=== PATIENT | female | born 1935 | race African-American/Black ===

== ENCOUNTER 2016-07-11 03:09 | Inpatient (IN) ==
--- NOTE | 2016-07-11 04:02 | Emergency Department Note ---
Disposition Clinical Impression: Pneumonia Qualifiers: Pneumonia type: due to unspecified organism Laterality: unspecified laterality Lung location: unspecified part of lung Qualified Code(s): J18.9 - Pneumonia, unspecified organism Disposition: Admitted As Inpatient Condition: Fair Referrals: Laine Stauffer MD [Primary Care Provider] - Forms: ED Satisfaction Letter Time of Disposition: 06:43 Fall HPI - General Chief Complaint: ED Fall Stated Complaint: fall Time Seen by Provider: 07/11/16 03:39 Source: patient, EMS Mode of arrival: EMS Limitations: altered mental status Nursing Notes Reviewed: Yes Vital Signs Reviewed: Yes - History of Present Illness HPI Narrative: 80-year-old nontoxic-appearing female presents to emergency department by EMS for evaluation of fall sustained just prior to arrival. Per the patient's daughter, the patient was found on the floor in her bedroom. The patient lives with her son at home. Patient does have a history of dementia. Per the daughter's report, the son that she lives with was unaware of her falling. He only became aware after he heard her moaning for help. He entered the room and found her on the floor. The fall was not witnessed. There is uncertainty about any loss of consciousness for duration of time down. The patient is a rather poor historian. At the time of my exam, she verbalizes no complaints of pain or injuries. 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 Fall Witnessed: no Place Fall Occurred: home Loss of Consciousness: unsure Prolonged Down Time?: unclear Context: unknown - Related Data Home Medications Medication Instructions Recorded Confirmed Albuterol Sulfate 2.5 mg IH Q8H PRN 11/24/14 06/24/16 Alprazolam [Xanax 1 MG Tablet] 1 mg PO BID PRN 11/24/14 06/24/16 Ferrous Sulfate 325 mg PO DAILY 11/24/14 06/24/16 Cyanocobalamin (Vitamin B-12) 2,500 mcg SL DAILY 12/01/14 06/24/16 [B-12] Albuterol Sulfate [Albuterol 2 puff IH PRN PRN 11/09/15 06/24/16 Inhaler] Dronabinol [Marinol] 5 mg PO TID 11/09/15 06/24/16 TraMADol [Ultram] 50 mg PO QAM AND QHS 11/09/15 06/24/16 Previous Rx's Medication Instructions Recorded Amlodipine [Norvasc] 10 mg PO DAILY #60 tablet 03/01/15 Gabapentin [Neurontin] 1 tab PO TID #90 tablet 01/30/16 HYDROcodone/Acet 5/325 mg [[place] 1 tab PO Q6H PRN #10 tab 02/16/16 5-325 mg] Rivaroxaban [Xarelto] 1 tab PO DAILY #30 tablet 06/17/16 Allergies Allergy/AdvReac Type Severity Reaction Status Date / Time codeine AdvReac Gastrointestinal Verified 11/09/15 16:03 Upset Oxycodone AdvReac Gastrointestinal Verified 02/16/16 09:50 Upset Limitations: ROS unobtainable due to patients medical condition (Patient is a poor historian. History of dementia.) Fall PMH - Past Medical History Medical history: Reports: cancer, COPD, DVT, dementia, GERD, hyperlipidemia, hypertension, osteoporosis, renal disease, other Reports: Peripheral Neuropathy Surgical history: Reports: appendectomy, other Psychiatric history: Reports: no psych history - Social History Smoking Status: Former smoker Alcohol use: Reports: none Drug use: Reports: none Physical Exam - General Limitations: no limitations General appearance: alert - Head Head exam: atraumatic, normocephalic, normal inspection - Eye Eye exam: Present: normal appearance, PERRL, EOMI. Absent: nystagmus - ENT ENT exam: mucous membranes moist - Neck Neck exam: Present: normal inspection, full ROM, trachea midline. Absent: tenderness - Chest Chest inspection: Present: normal inspection, symmetric chest wall rise. Absent : tenderness - Respiratory Respiratory exam: Absent: respiratory distress, wheezes, stridor, accessory muscle use, prolonged expiratory phase - Expanded Respiratory Exam Location: rhonchi: Left, Right, Upper, Lower - Cardiovascular Cardiovascular exam: Present: regular rate, normal rhythm, normal heart sounds - Abdominal Exam Abdominal exam: Present: soft, Non-Tender, normal bowel sounds. Absent: tenderness, distention, guarding, rebound, rigidity - Extremities Exam Extremities exam: Present: normal inspection, full ROM. Absent: tenderness, pedal edema - Expanded Lower Extremity Exam Hip/Pelvis exam: Present: pelvis stable - Back Exam Back exam: Present: normal inspection. Absent: tenderness - Neurological Exam Neurological exam: Present: alert - Psychiatric Psychiatric exam: Present: normal affect, normal mood - Skin Skin exam: Present: warm, dry, intact, normal color Course Course Narrative: The patient verbalizes no complaints. Due to the unknown nature of her fall and uncertainty of any LOC, laboratory work, as well as CT scans of the head and neck will be performed along with routine chest x-ray and EKG. Case discussed with Dr. Ma. Dr. Ma has reviewed the patient's laboratory and radiology results. Dr. Ma recommends admission to the hospitalist service for further treatment of probable pneumonia. 0640: I spoke with Dr. Sanders , hospitalist. He accepts the patient for admission to the hospitalist's service. Vital Signs Temperature 100.6 F H 07/11/16 03:13 Pulse Rate 102 07/11/16 03:13 Respiratory Rate 22 07/11/16 03:13 Blood Pressure 167/76 07/11/16 03:13 O2 Sat by Pulse Oximetry 97 07/11/16 03:13 Temperature 100.6 F H 07/11/16 03:13 Pulse Rate 102 07/11/16 03:13 Respiratory Rate 22 07/11/16 03:13 Blood Pressure 167/76 07/11/16 03:13 O2 Sat by Pulse Oximetry 97 07/11/16 03:13 Oxygen Delivery Oxygen Delivery Room Air Fall - Medical Records Medical records reviewed: Yes I reviewed the patient's medical records. - Lab Data Lab results reviewed: Yes I reviewed the patient's lab results. Lab results narrative: Laboratory Last Values WBC 12.3 K/mcL (4.3-11.1) H 07/11/16 04:09 RBC 3.93 M/mcL (3.82-4.97) 07/11/16 04:09 Hgb 10.0 g/dL (11.5-15.4) L 07/11/16 04:09 Hct 33.7 % (35.3-44.9) L 07/11/16 04:09 MCV 85.8 fL (83.0-100.0) 07/11/16 04:09 MCH 25.4 pg (28.0-33.3) L 07/11/16 04:09 MCHC 29.7 g/dL (31.6-35.5) L 07/11/16 04:09 RDW 15.8 % (11.5-14.5) H 07/11/16 04:09 Plt Count 211 K/mcL (140-400) 07/11/16 04:09 MPV 10.7 fL (9.4-12.4) 07/11/16 04:09 Immature Gran % 0.7 % (0-4) 07/11/16 04:09 Seg Neutrophils % 77.2 % 07/11/16 04:09 Lymphocytes % 12.5 % 07/11/16 04:09 Monocytes % 9.0 % 07/11/16 04:09 Eosinophils % 0.4 % 07/11/16 04:09 Basophils % 0.2 % 07/11/16 04:09 Neutrophils # 9.5 K/mcL (1.6-8.9) H 07/11/16 04:09 Lymphocytes # 1.5 K/mcL (0.6-4.6) 07/11/16 04:09 Monocytes # 1.1 K/mcL (0.0-1.3) 07/11/16 04:09 Eosinophils # 0.1 K/mcL (0.0-0.6) 07/11/16 04:09 Basophils # 0.0 K/mcL (0.0-0.2) 07/11/16 04:09 Sodium 138 mEq/L (136-145) 07/11/16 04:09 Potassium 3.9 mEq/L (3.5-4.5) 07/11/16 04:09 Chloride 107 mEq/L (98-109) 07/11/16 04:09 Carbon Dioxide 23 mEq/L (19-29) 07/11/16 04:09 BUN 17 mg/dL (7-20) 07/11/16 04:09 Creatinine 0.84 mg/dL (0.57-1.11) 07/11/16 04:09 Est GFR ( Amer) > 60 (> 60) 07/11/16 04:09 Est GFR (Non-Af Amer) > 60 (> 60) 07/11/16 04:09 BUN/Creatinine Ratio 20 (6-26) 07/11/16 04:09 Glucose 98 mg/dL (70-99) 07/11/16 04:09 Calculated Osmolality 288 (280-300) 07/11/16 04:09 Lactic Acid 0.9 mmol/L (0.5-2.2) 07/11/16 04:09 Calcium 7.8 mg/dL (8.6-10.8) L 07/11/16 04:09 Troponin I 0.01 ng/mL (0-0.03) 07/11/16 04:09 Result diagrams: 07/11/16 04:09 07/11/16 04:09 Lab Results 07/11/16 07/11/16 07/11/16 Range/Units 04:09 04:09 04:09 WBC 12.3 H (4.3-11.1) K/mcL RBC 3.93 (3.82-4.97) M/mcL Hgb 10.0 L (11.5-15.4) g/dL Hct 33.7 L (35.3-44.9) % MCV 85.8 (83.0-100.0) fL MCH 25.4 L (28.0-33.3) pg MCHC 29.7 L (31.6-35.5) g/dL RDW 15.8 H (11.5-14.5) % Plt Count 211 (140-400) K/mcL MPV 10.7 (9.4-12.4) fL Immature Gran % 0.7 (0-4) % Seg Neutrophils % 77.2 % Lymphocytes % 12.5 % Monocytes % 9.0 % Eosinophils % 0.4 % Basophils % 0.2 % Neutrophils # 9.5 H (1.6-8.9) K/mcL Lymphocytes # 1.5 (0.6-4.6) K/mcL Monocytes # 1.1 (0.0-1.3) K/mcL Eosinophils # 0.1 (0.0-0.6) K/mcL Basophils # 0.0 (0.0-0.2) K/mcL PT (9.4-12.1) Seconds INR APTT (26.0-36.0) Seconds Sodium 138 (136-145) mEq/L Potassium 3.9 (3.5-4.5) mEq/L Chloride 107 (98-109) mEq/L Carbon Dioxide 23 (19-29) mEq/L BUN 17 (7-20) mg/dL Creatinine 0.84 (0.57-1.11) mg/dL Est GFR ( Amer) > 60 (> 60) Est GFR (Non-Af Amer) > 60 (> 60) BUN/Creatinine Ratio 20 (6-26) Glucose 98 (70-99) mg/dL Calculated Osmolality 288 (280-300) Lactic Acid 0.9 (0.5-2.2) mmol/L Calcium 7.8 L (8.6-10.8) mg/dL Troponin I (0-0.03) ng/mL Specimen Rejected 07/11/16 07/11/16 07/11/16 Range/Units 04:09 05:59 06:19 WBC (4.3-11.1) K/mcL RBC (3.82-4.97) M/mcL Hgb (11.5-15.4) g/dL Hct (35.3-44.9) % MCV (83.0-100.0) fL MCH (28.0-33.3) pg MCHC (31.6-35.5) g/dL RDW (11.5-14.5) % Plt Count (140-400) K/mcL MPV (9.4-12.4) fL Immature Gran % (0-4) % Seg Neutrophils % % Lymphocytes % % Monocytes % % Eosinophils % % Basophils % % Neutrophils # (1.6-8.9) K/mcL Lymphocytes # (0.6-4.6) K/mcL Monocytes # (0.0-1.3) K/mcL Eosinophils # (0.0-0.6) K/mcL Basophils # (0.0-0.2) K/mcL PT 15.2 H (9.4-12.1) Seconds INR 1.4 APTT 31.4 (26.0-36.0) Seconds Sodium (136-145) mEq/L Potassium (3.5-4.5) mEq/L Chloride (98-109) mEq/L Carbon Dioxide (19-29) mEq/L BUN (7-20) mg/dL Creatinine (0.57-1.11) mg/dL Est GFR ( Amer) (> 60) Est GFR (Non-Af Amer) (> 60) BUN/Creatinine Ratio (6-26) Glucose (70-99) mg/dL Calculated Osmolality (280-300) Lactic Acid (0.5-2.2) mmol/L Calcium (8.6-10.8) mg/dL Troponin I 0.01 (0-0.03) ng/mL Specimen Rejected Contaminated - Radiology Data Radiology results reviewed: Yes I reviewed the patient's radiology results. Cervical Spine CT 07/11/16 03:47 IMPRESSION: No acute intracranial abnormality. Atrophy and chronic white matter changes, similar in appearance. Mottled appearance of the calvarium is again seen suggestive of an infiltrative process. No acute osseous abnormality involving the cervical spine. D/ / Radha Ray MD / Radha Ray MD Interpreting Provider: Radha Ray MD Chest X-Ray 07/11/16 03:47 IMPRESSION: Left basilar airspace disease probably represents scarring or atelectasis. Pneumonia cannot be excluded though is felt to be unlikely. D/ / Sd Dennison MD / Sd Dennison MD Interpreting Provider: Sd Dennison MD Head CT 07/11/16 03:47 IMPRESSION: No acute intracranial abnormality. Atrophy and chronic white matter changes, similar in appearance. Mottled appearance of the calvarium is again seen suggestive of an infiltrative process. No acute osseous abnormality involving the cervical spine. D/ / Radha Ray MD / Radha Ray MD Interpreting Provider: Radha Ray MD - EKG Data EKG attestation: Yes I reviewed and interpreted this EKG. EKG results narrative: EKG reviewed by Dr. Ma as well.
[2016-07-11 05:11] LABS: Basophils % 0.2 %; Eosinophils # 0.1 K/mcL (0.0-0.6); Eosinophils % 0.4 %; Hematocrit 33.7 % (35.3-44.9); Immature Granulocytes % 0.7 % (0-4); Lymphocytes # 1.5 K/mcL (0.6-4.6); Lymphocytes % 12.5 %; Mean Corpuscular HGB Conc 29.7 g/dL (31.6-35.5); Mean Corpuscular Hemoglobin 25.4 pg (28.0-33.3); Mean Corpuscular Volume 85.8 fL (83.0-100.0); Mean Platelet Volume 10.7 fL (9.4-12.4); Monocytes # 1.1 K/mcL (0.0-1.3); Neutrophils # 9.5 K/mcL (1.6-8.9); Platelet Count 211 K/mcL (140-400); Red Blood Count 3.93 M/mcL (3.82-4.97); Red Cell Distribution Width 15.8 % (11.5-14.5); Segmented Neutrophils % 77.2 %
[2016-07-11 05:22] LABS: BUN/Creatinine Ratio 20 (6-26); Blood Urea Nitrogen 17 mg/dL (7-20); Calcium 7.8 mg/dL (8.6-10.8); Carbon Dioxide 23 mEq/L (19-29); Chloride 107 mEq/L (98-109); Glucose 98 mg/dL (70-99); Osmolality,Calculated 288 (280-300); Potassium 3.9 mEq/L (3.5-4.5); Sodium 138 mEq/L (136-145); eGFR For African Americans > 60 (> 60); eGFR For Non-African Americans > 60 (> 60)
[2016-07-11] MEDS ORDERED: Azithromycin 500 MG in D5% in Water 250 ML IVPB ONE (05:46)
[2016-07-11 06:32] LABS: INR 1.4; Prothrombin Time 15.2 Seconds (9.4-12.1)
[2016-07-11 06:34] LABS: Activated Partial Thrombo Time 31.4 Seconds (26.0-36.0)
[2016-07-11] MEDS ORDERED: Acetaminophen 325 MG TABLET PO ONE (06:37)
[2016-07-11 06:50] LABS: Bilirubin,Urine Negative (Negative); Blood,Urine Negative (Negative); Clarity,Urine Clear (Clear); Color,Urine Yellow (Yellow); Glucose,Urine (UA) Normal (Normal); Ketones,Urine Negative (Negative); Leukocyte Esterase,Urine Negative (Negative); Nitrite,Urine Negative (Negative); PH,Urine 7.5 pH Units (5.0-8.0); Protein,Urine 30 mg/dL (Neg-Trace); Specific Gravity,Urine 1.019 (1.010-1.025); Urobilinogen,Urine Normal (Normal)
[2016-07-11 06:51] LABS: Creatine Kinase 49 Units/L (29-168)
[2016-07-11 06:59] LABS: Bacteria,Urine Few per hpf (None-Few); RBC,Urine 0-3 per hpf (0-3); Squamous Epithelial Cell,Urine Few per lpf (None-Few)
--- NOTE | 2016-07-11 07:10 | Electrocardiograph Report ---
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
[2016-07-11] MEDS ORDERED: Naloxone 0.4 MG/ML INJ IVP PRN (08:42)
[2016-07-11] MEDS ORDERED: Acetaminophen 325 MG TABLET PO PRN (08:42)
[2016-07-11] MEDS ORDERED: Ondansetron 4 MG/2 ML VIAL IVP PRN (08:42)
[2016-07-11] MEDS ORDERED: Albuterol 2.5 MG/3 ML NEBULIZER IH PRN (08:51)
[2016-07-11] MEDS ORDERED: Gabapentin 400 MG CAPSULE PO SCH (09:00)
[2016-07-11] MEDS: amLODIPine 5 MG TABLET PO SCH (09:51)
[2016-07-11] MEDS: *HR* Rivaroxaban 15 MG TABLET PO SCH (09:52)
[2016-07-11] MEDS: Cyanocobalamin (B-12) 1,000 MCG TABLET PO SCH (09:52)
[2016-07-11] MEDS: Ipratropium/Albuterol Neb 3 ML IH SCH ×3 (10:51→23:36)
--- NOTE | 2016-07-11 11:09 | Internal Med History&Physical ---
Date of Encounter: 07/11/16 Time of Encounter: 10:00 Assessment and Plan (1) Community acquired pneumonia Current visit: Yes Status: Acute 1 patient has been experiencing productive cough with increasing yellow sputum. She has had sick contacts with family members. The experiencing increasing confusion as well as falls. Lab work did reveal elevated white count 12.3 presented with a fever of 100.6 tachycardia chest x-rays suspicious for pneumonia. Place on oxygen 2 L nasal cannula will continue and titrate to maintain SPO2 greater than 92% 2 we will obtain blood and sputum cultures 3 initiated on Rocephin and Zithromax 4 we will continue with bronchodilators (2) Sepsis Current visit: Yes Status: Acute 1 patient presented with tachycardia temperature of 100.6 leukocytosis of 12.3 respiratory rate 22. Suspect the source is pneumonia or possibly viral infection of lung. We will obtain viral swabs as well as blood and sputum cultures [address] on Rocephin and Zithromax 3 IV fluids 4. Monitor intake and output 5 bronchodilators 6 oxygen and maintain SPO2 greater than 92% Qualifiers: Sepsis type: sepsis due to unspecified organism Qualified Code(s): A41.9 - Sepsis, unspecified organism (3) COPD (chronic obstructive pulmonary disease) Current visit: No Status: Chronic 1 history of COPD presently no wheezing noted to continue with oxygen as well as bronchodilators Qualifiers: COPD type: chronic bronchitis Chronic bronchitis type: unspecified Qualified Code(s): J42 - Unspecified chronic bronchitis (4) HTN (hypertension) Current visit: No Status: Acute 1. Continue with Norvasc caused to maintain systolic less than 140 Qualifiers: Hypertension type: essential hypertension Qualified Code(s): I10 - Essential (primary) hypertension (5) DVT prophylaxis Current visit: No Status: Acute Patient is on xarelto (6) Soft tissue swelling Current visit: Yes Status: Acute noted soft tissue swelling of left neck, suspect possible lymphadenopathy related to illness, or abcess. obtain CT of neck Internal Medicine - H&P: HPI Chief complaint: Weakness fall Admitted From: Emergency Dept Plans for Post Hospital Care: Home History of present illness: Ms. Joiner is a 80 year old female past medical history see a PT DVT dementia GERD hyperlipidemia hypertension. Information obtained from family and medical records due to patient's history of dementia. According to daughters who are at bedside patient had been at her baseline and doing well however she has been experiencing a productive cough over the past few days with thick yellow sputum. They deny any presence of fevers or chills. Approximately 2 AM patient got up and fell to the floor. Fall was unwitnessed and her son who lives with her, heard her moaning and calling for help. He found her on the floor unsure of amount of time she was down for any loss of consciousness. Patient denies hitting her head. She was brought to the ER for evaluation. Patient was tachycardic upon arrival pulse of 1 to rest her rate 22 temperature 0.6 her blood pressure was 167/76. According to ER with fevers CT of head and C- spine was negative for any intracranial abnormalities or fractures. lab work did reveal to elevated white count at 12.3 lactate was 0.9 troponin 0.01 chest x -ray did reveal left basilar air restrictive disease scarring or atelectasis and pneumonia cannot be excluded. She was given IV fluids and antibiotics and admitted for further workup and evaluation. Presently patient is sleeping she arouses to verbal stimuli. She is alert and oriented to name and place she follows simple commands. She is on 2 L nasal cannula SPO2 is 96- 97% she does not appear to be in any respiratory distress lung sounds with scattered rhonchi throughout patient does have a moist cough. She is hemodynamically stable at this time I reviewed this case with who agrees with plan Past Med Surg Social Fam HX - Past Medical History Medical history: cancer, COPD, DVT, dementia, GERD, hyperlipidemia, hypertension , osteoporosis, renal disease, other Psychiatric history: no psych history - Past Surgical History Surgical History: appendectomy, other - Social History Smoking Status: Former smoker Smokeless Tobacco Status: No Alcohol use: none Drug use: none - Family History Mother Adopted: No Family Member Ethnicity: Non- Living Status: Hx Family Cardiac Disorders: No Hx Family Respiratory Disorders: No Hx Family Cancer: No Hx Family GI Disorders: No Hx Family Endocrine Disorder: No Hx Family Neuromuscular Disorders: No Hx Family Neurologic Disorders: Yes (alzhemer's disease) Hx Family HEENT Disorders: No Hx Family Autoimmune Disorders: No Father Living Status: Hx Family Cardiac Disorders: Yes Hx Family Respiratory Disorders: No Hx Family Cancer: No Hx Family GI Disorders: No Hx Family Endocrine Disorder: No Hx Family Neuromuscular Disorders: No Hx Family Neurologic Disorders: No Hx Family HEENT Disorders: No Hx Family Autoimmune Disorders: No Internal Medicine - H&P: Meds Albuterol Sulfate 2.5 mg IH Q8H PRN 11/24/14 [History] Alprazolam [Xanax 1 MG Tablet] 1 mg PO BID PRN 11/24/14 [History] Ferrous Sulfate 325 mg PO DAILY 11/24/14 [History] Cyanocobalamin (Vitamin B-12) [B-12] 2,500 mcg SL DAILY 12/01/14 [History] Amlodipine [Norvasc] 10 mg PO DAILY #60 tablet 03/01/15 [Rx] Albuterol Sulfate [Albuterol Inhaler] 2 puff IH PRN PRN 11/09/15 [History] TraMADol [Ultram] 25 mg PO TID 11/09/15 [History] Amoxicillin 875 mg PO BID 07/11/16 [History] Gabapentin [Neurontin] 800 mg PO TID 07/11/16 [History] HYDROcodone/Acet 5/325 mg [[place] 5-325 mg] 0.5 tab PO Q6H PRN 07/11/16 [History] Rivaroxaban [Xarelto] 15 mg PO DAILY 07/11/16 [History] Allergies codeine Adverse Reaction (Verified 11/09/15 16:03) Gastrointestinal Upset Oxycodone Adverse Reaction (Verified 02/16/16 09:50) Gastrointestinal Upset All Systems PM: A 10-system review of systems was performed and is negative for pertinent findings except as documented above in the HPI. - Constitutional Constitutional: fatigue, fever(s), falls - EENT Nose, mouth and throat: no dysphagia, no nasal discharge, no neck pain, no sore throat - Cardiovascular Cardiovascular ROS IM: no chest pain, no diaphoresis, no dyspnea, no lightheadedness, no palpitations, no syncope - Respiratory Respiratory: cough, excessive phlegm production, change in phlegm color - Gastrointestinal Gastrointestinal: no abdominal pain, no diarrhea, no hematemesis, no hematochezia, no melena, no nausea, no vomiting - Genitourinary Genitourinary: no change in urinary stream, no dysuria, no flank pain, no hematuria - Musculoskeletal Musculoskeletal ROS IM: no numbness, no tingling - Neurological Neurological ROS: no confusion, no convulsions, no focal weakness, no numbness, no tingling, no tremor(s) - Constitutional Vitals: Temp Pulse Resp BP Pulse Ox 98.1 F 86 14 111/64 100 07/11/16 11:03 07/11/16 11:03 07/11/16 11:03 07/11/16 11:03 07/11/16 11:03 General appearance: Present: A&O X 2, underweight - Eye Eye exam: Present: PERRL, conjuntiva pink, sclera anicteric Pupils: Present: PERRL - Neck Neck exam general surgery: Present: trachea midline Additional comments: Patient has swelling to right sided neck - Respiratory Respiratory exam: Present: rhonchi. Absent: accessory muscle use, rales, wheezes - Cardiovascular Cardiovascular exam: Present: RRR, +S1, +S2. Absent: diastolic murmur, gallop, rubs, systolic murmur - GI/Abdominal GI/Abdominal exam: Present: normal bowel sounds, soft, no peritoneal signs. Absent: distended, tenderness - Extremities Exam Extremities exam: Present: warm, radial pulses palpable and symetrical. Absent : calf tenderness, cyanotic, pedal edema - Neurological Exam Neurological exam: Present: CN II-XII intact, oriented X3, no focal deficits. Absent: pronater drift, facial droop, speech deficit - Skin Skin exam: Present: dry, intact Internal Med - H&P Results - Labs CBC & Chem 7: 07/11/16 04:09 07/11/16 04:09 - Diagnostic Studies Other Images Additional comments: Cervical Spine CT 07/11/16 03:47 IMPRESSION: No acute intracranial abnormality. Atrophy and chronic white matter changes, similar in appearance. Mottled appearance of the calvarium is again seen suggestive of an infiltrative process. No acute osseous abnormality involving the cervical spine. D/ / Radha Ray MD / Radha Ray MD Interpreting Provider: Radha Ray MD Chest X-Ray 07/11/16 03:47 IMPRESSION: Left basilar airspace disease probably represents scarring or atelectasis. Pneumonia cannot be excluded though is felt to be unlikely. D/ / Sd Dennison MD / Sd Dennison MD Interpreting Provider: Sd Dennison MD Head CT 07/11/16 03:47 IMPRESSION: No acute intracranial abnormality. Atrophy and chronic white matter changes, similar in appearance. Mottled appearance of the calvarium is again seen suggestive of an infiltrative process. No acute osseous abnormality involving the cervical spine. D/ / Radha Ray MD / Radha Ray MD Interpreting Provider: Radha Ray MD Soft Tissue Neck CT 07/11/16 20:03 IMPRESSION: Mild edema versus cellulitis/fasciitis around the left sternocleidomastoid muscle and supraclavicular region. No abscess is evident. Reactive left cervical lymph nodes. There are hypervascular nodes. There is no overt left adenopathy. There is mild right cervical adenopathy. Mild inflammatory disease, left maxillary sinus. Generalized demineralization of the skeleton, osteoporosis versus generalized marrow replacement or metastasis. D/ / Francis Zabala MD / Francis Zabala MD Interpreting Provider: Francis Zabala MD
[2016-07-11 12:56] LABS: % Iron Saturation 12 % (15-50); Iron 24 mcg/dL (50-170); Transferrin 146 mg/dL (180-382)
[2016-07-11 14:12] LABS: Adenovirus Not Detected (Not Detect); Bordetella Pertussis Not Detected (Not Detect); Chlamydophila pneumoniae Not Detected (Not Detect); Coronavirus 229E Not Detected (Not Detect); Coronavirus HKU1 Not Detected (Not Detect); Coronavirus NL63 Not Detected (Not Detect); Coronavirus OC43 Not Detected (Not Detect); Human Metapneumovirus Not Detected (Not Detect); Human Rhinovirus/Enterovirus Not Detected (Not Detect); Influenza A Subtype 2009 H1 Not Detected (Not Detect); Influenza A Untypeable Not Detected (Not Detect); Influenza B Not Detected (Not Detect); Mycoplasma pneumoniae Not Detected (Not Detect); Parainfluenza Virus 1 Not Detected (Not Detect); Parainfluenza Virus 2 Not Detected (Not Detect); Parainfluenza Virus 3 Not Detected (Not Detect); Parainfluenza Virus 4 Not Detected (Not Detect); Respiratory Syncytial Virus Not Detected (Not Detect)
[2016-07-11 14:47] LABS: ABG Base Excess 3.7 mEq/L (-2.0 to 3.0); ABG HCO3 28.5 mEQ/L (21-27); ABG Oxygen Saturation 90 % (95-98); ABG PCO2 43 mmHg (35-45); ABG PH 7.43 pH Units (7.32-7.45); ABG PO2 57 mmHg (85-104); ABG TCO2 29.8 mEq/L (20-26)
[2016-07-11 14:48] LABS: Blood Gas FiO2 21 %
[2016-07-11] MEDS: 0.9 % Sodium Chloride 1,000 ML IVC SCH (15:45)
[2016-07-11 16:24] LABS: Folate 19.2 ng/mL (7.0-31.4)
[2016-07-11 16:26] LABS: Vitamin B12 > 2000 pg/mL (213-816)
--- NOTE | 2016-07-11 20:18 | Event Note ---
Date of Encounter: 07/11/16 Time of Encounter: 20:14 I examined this patient and my medical decision-making was reviewed with the RAW HIDE TRIMMER/PA/Advanced Practice Nurse/Resident Physician. I agree with the documented findings, disposition and treatment plan as described except to the extent set forth below. Patient has L cervical soft tissue swelling & skin redness, painful to palpation , no discrete mass, no fluctuance no lesions or bite chavez. lungs clear, heart S1S2 Plan: will treat her for CAP. Will add Vancomycin for cellulitis of the neck, add CT soft tissue neck to eval for the extension of the infl. process and possible LIJ DVT. she is at high risk due to iv vanco requiring blood level monitoring for toxicity.
[2016-07-11] MEDS ORDERED: Vancomycin 750 MG in D5% in Water 250 ML IVPB SCH (21:00)
[2016-07-11] MEDS ORDERED: Nitroglycerin 0.4 MG TAB.SUBL SL PRN (21:35)
[2016-07-11] MEDS: Vancomycin 750 MG in D5% in Water 250 ML IVPB SCH (21:45)
[2016-07-11] MEDS: *HR* HYDROcodone/Acet 5/325 mg TABLET PO PRN (23:35)
[2016-07-12] MEDS: 0.9 % Sodium Chloride 1,000 ML IVC SCH ×2 (03:39→14:00)
[2016-07-12] MEDS: Ipratropium/Albuterol Neb 3 ML IH SCH ×4 (04:32→23:08)
[2016-07-12 05:55] LABS: Basophils % 0.4 %; Eosinophils # 0.2 K/mcL (0.0-0.6); Eosinophils % 1.9 %; Hematocrit 35.2 % (35.3-44.9); Hemoglobin 10.2 g/dL (11.5-15.4); Immature Granulocytes % 0.1 % (0-4); Lymphocytes # 2.3 K/mcL (0.6-4.6); Lymphocytes % 26.8 %; Mean Corpuscular Hemoglobin 24.7 pg (28.0-33.3); Mean Corpuscular Volume 85.2 fL (83.0-100.0); Mean Platelet Volume 10.8 fL (9.4-12.4); Monocytes # 0.8 K/mcL (0.0-1.3); Monocytes % 9.9 %; Neutrophils # 5.2 K/mcL (1.6-8.9); Platelet Count 192 K/mcL (140-400); Red Blood Count 4.13 M/mcL (3.82-4.97); Red Cell Distribution Width 15.8 % (11.5-14.5); Segmented Neutrophils % 60.9 %
[2016-07-12 06:03] LABS: BUN/Creatinine Ratio 19 (6-26); Blood Urea Nitrogen 18 mg/dL (7-20); Calcium 8.5 mg/dL (8.6-10.8); Carbon Dioxide 24 mEq/L (19-29); Chloride 109 mEq/L (98-109); Glucose 82 mg/dL (70-99); Osmolality,Calculated 291 (280-300); Potassium 4.1 mEq/L (3.5-4.5); Sodium 140 mEq/L (136-145); eGFR For African Americans > 60 (> 60); eGFR For Non-African Americans 58 (> 60)
[2016-07-12] MEDS: Cyanocobalamin (B-12) 1,000 MCG TABLET PO SCH (09:26)
[2016-07-12] MEDS: *HR* Rivaroxaban 15 MG TABLET PO SCH (09:26)
[2016-07-12] MEDS: amLODIPine 5 MG TABLET PO SCH (09:26)
[2016-07-12] MEDS: Azithromycin 500 MG in D5% in Water 250 ML IVPB SCH (10:37)
[2016-07-12] MEDS: Vancomycin 750 MG in D5% in Water 250 ML IVPB SCH ×2 (10:38→20:03)
--- NOTE | 2016-07-12 10:46 | Internal Med Progress Note ---
Date of Encounter: 07/12/16 Time of Encounter: 10:41 - Assessment and plan (1) Community acquired pneumonia Current Visit: Yes Status: Acute Assessment and plan: community acquired clinically much better (2) Sepsis Current Visit: Yes Status: Acute Assessment and plan: now afebrile and hr normal Qualifiers: Sepsis type: sepsis due to unspecified organism Qualified Code(s): A41.9 - Sepsis, unspecified organism (3) Soft tissue swelling Current Visit: Yes Status: Acute Assessment and plan: resolving (4) COPD (chronic obstructive pulmonary disease) Current Visit: No Status: Chronic Assessment and plan: no active wheezing Qualifiers: COPD type: chronic bronchitis Chronic bronchitis type: unspecified Qualified Code(s): J42 - Unspecified chronic bronchitis (5) Dementia Current Visit: No Status: Chronic Assessment and plan: chronic Qualifiers: Dementia type: Alzheimer's disease Alzheimer's disease onset: unspecified onset Dementia behavioral disturbance: without behavioral disturbance Qualified Code(s): G30.9 - Alzheimer's disease, unspecified; F02.80 - Dementia in other diseases classified elsewhere without behavioral disturbance (6) HTN (hypertension) Current Visit: No Status: Chronic Assessment and plan: better controlled Qualifiers: Hypertension type: essential hypertension Qualified Code(s): I10 - Essential (primary) hypertension (7) HLD (hyperlipidemia) Current Visit: No Status: Chronic Qualifiers: Hyperlipidemia type: mixed hyperlipidemia Qualified Code(s): E78.2 - Mixed hyperlipidemia - Subjective Interval history: Patient with history of dementia, COPD, high cholesterol, hypertension, admitted due to a productive cough of yellow sputum she was found on the floor by family members apparently following a fall and . diagnosed with pneumonia developed left side of the neck swelling CT suggestive of cellulitis and fasciitis Today patient much better, neck is ok - Constitutional Vitals: Temp Pulse Resp BP Pulse Ox 97.5 F L 65 18 154/72 98 07/12/16 07:16 07/12/16 07:16 07/12/16 10:35 07/12/16 07:16 07/12/16 10:35 General appearance: Present: A&O X 2, underweight - Eye Eye exam: Present: PERRL, conjuntiva pink, sclera anicteric Pupils: Present: PERRL - Neck Neck exam general surgery: Present: supple, trachea midline. Absent: lymphadenopathy - Respiratory Respiratory exam: Present: decreased breath sounds, rhonchi - Cardiovascular Cardiovascular exam: Present: RRR, +S1, +S2. Absent: diastolic murmur, gallop, rubs, systolic murmur - GI/Abdominal GI/Abdominal exam: Present: normal bowel sounds, soft, no peritoneal signs. Absent: distended, tenderness Internal Medicine: Result - Labs CBC & Chem 7: 07/12/16 05:40 07/12/16 05:40 Labs: Short CBC 07/12/16 Range/Units 05:40 WBC 8.5 (4.3-11.1) K/mcL Hgb 10.2 L (11.5-15.4) g/dL Hct 35.2 L (35.3-44.9) % Plt Count 192 (140-400) K/mcL Neutrophils # 5.2 (1.6-8.9) K/mcL BMP 07/12/16 05:40 Sodium 140 Potassium 4.1 Chloride 109 Carbon Dioxide 24 BUN 18 Creatinine 0.93 Glucose 82 Calcium 8.5 L Cardiac Enzymes 07/11/16 07/11/16 Range/Units 10:44 16:28 Troponin I 0.01 0.01 (0-0.03) ng/mL - ABG Interpretation ABG results: ABG ABG pH 7.43 pH Units (7.32-7.45) 07/11/16 14:37 ABG pCO2 43 mmHg (35-45) 07/11/16 14:37 ABG pO2 57 mmHg (85-104) L 07/11/16 14:37 ABG O2 Saturation 90 % (95-98) L 07/11/16 14:37 PT/INR, D-dimer PT 15.2 Seconds (9.4-12.1) H 07/11/16 06:19 - Impressions Impressions Soft Tissue Neck CT 07/11/16 20:03 IMPRESSION: Mild edema versus cellulitis/fasciitis around the left sternocleidomastoid muscle and supraclavicular region. No abscess is evident. Reactive left cervical lymph nodes. There are hypervascular nodes. There is no overt left adenopathy. There is mild right cervical adenopathy. Mild inflammatory disease, left maxillary sinus. Generalized demineralization of the skeleton, osteoporosis versus generalized marrow replacement or metastasis. D/ / Francis Zabala MD / Francis Zabala MD Interpreting Provider: Francis Zabala MD Consult Discharge Plan - Plan Referrals: Laine Stauffer MD [Primary Care Provider] -
[2016-07-12] MEDS: *HR* HYDROcodone/Acet 5/325 mg TABLET PO PRN (16:43)
[2016-07-13] MEDS: *HR* HYDROcodone/Acet 5/325 mg TABLET PO PRN (00:01)
[2016-07-13] MEDS: Ipratropium/Albuterol Neb 3 ML IH SCH ×4 (05:07→22:35)
[2016-07-13] MEDS ORDERED: Vancomycin 1,250 MG in D5% in Water 250 ML IVPB SCH (09:00)
[2016-07-13] MEDS: amLODIPine 5 MG TABLET PO SCH (09:26)
[2016-07-13] MEDS: *HR* Rivaroxaban 15 MG TABLET PO SCH (09:26)
[2016-07-13] MEDS: Vancomycin 1,250 MG in D5% in Water 250 ML IVPB SCH (10:23)
[2016-07-13] MEDS: Azithromycin 500 MG in D5% in Water 250 ML IVPB SCH (10:23)
[2016-07-13] MEDS: Cyanocobalamin (B-12) 1,000 MCG TABLET PO SCH (10:24)
--- NOTE | 2016-07-13 10:31 | Internal Med Progress Note ---
Date of Encounter: 07/13/16 Time of Encounter: 10:29 - Assessment and plan (1) Community acquired pneumonia Current Visit: Yes Status: Acute Assessment and plan: clinically much better still conging but mostly non productive one more day of iv antibiotics (2) Sepsis Current Visit: Yes Status: Acute Assessment and plan: uine legionella blood cultures negative Qualifiers: Sepsis type: sepsis due to unspecified organism Qualified Code(s): A41.9 - Sepsis, unspecified organism (3) Soft tissue swelling Current Visit: Yes Status: Acute Assessment and plan: swelling is down appears cellulitis now cleared up (4) COPD (chronic obstructive pulmonary disease) Current Visit: No Status: Chronic Assessment and plan: no active wheezing Qualifiers: COPD type: chronic bronchitis Chronic bronchitis type: unspecified Qualified Code(s): J42 - Unspecified chronic bronchitis (5) Dementia Current Visit: No Status: Chronic Assessment and plan: chronic pleasant and in good mood Qualifiers: Dementia type: Alzheimer's disease Alzheimer's disease onset: unspecified onset Dementia behavioral disturbance: without behavioral disturbance Qualified Code(s): G30.9 - Alzheimer's disease, unspecified; F02.80 - Dementia in other diseases classified elsewhere without behavioral disturbance (6) HTN (hypertension) Current Visit: No Status: Chronic Qualifiers: Hypertension type: essential hypertension Qualified Code(s): I10 - Essential (primary) hypertension (7) HLD (hyperlipidemia) Current Visit: No Status: Chronic Qualifiers: Hyperlipidemia type: mixed hyperlipidemia Qualified Code(s): E78.2 - Mixed hyperlipidemia - Subjective Interval history: Patient with history of dementia, COPD, high cholesterol, hypertension, admitted due to a productive cough of yellow sputum she was found on the floor by family members apparently following a fall and . diagnosed with pneumonia developed left side of the neck swelling CT suggestive of cellulitis and fasciitis Today patient much better, neck is ok today feels much better afebrile still coughing but mostly non productive - Constitutional Vitals: Temp Pulse Resp BP Pulse Ox 98.1 F 77 16 137/77 98 07/13/16 07:03 07/13/16 07:03 07/13/16 09:38 07/13/16 07:03 07/13/16 09:38 General appearance: Present: A&O X 2, underweight - Eye Eye exam: Present: PERRL, conjuntiva pink, sclera anicteric Pupils: Present: PERRL - Neck Neck exam general surgery: Present: supple, trachea midline. Absent: lymphadenopathy - Respiratory Respiratory exam: Present: rhonchi - Cardiovascular Cardiovascular exam: Present: RRR - GI/Abdominal GI/Abdominal exam: Present: normal bowel sounds, soft, no peritoneal signs. Absent: distended, tenderness - Extremities Exam Extremities exam: Present: warm, radial pulses palpable and symetrical. Absent : calf tenderness, cyanotic, pedal edema Internal Medicine: Result - Labs CBC & Chem 7: 07/12/16 05:40 07/12/16 05:40 - ABG Interpretation ABG results: ABG ABG pH 7.43 pH Units (7.32-7.45) 07/11/16 14:37 ABG pCO2 43 mmHg (35-45) 07/11/16 14:37 ABG pO2 57 mmHg (85-104) L 07/11/16 14:37 ABG O2 Saturation 90 % (95-98) L 07/11/16 14:37 PT/INR, D-dimer PT 15.2 Seconds (9.4-12.1) H 07/11/16 06:19 Consult Discharge Plan - Plan Referrals: Laine Stauffer MD [Primary Care Provider] -
[2016-07-13] MEDS ORDERED: ALPRAZolam 1 MG TABLET PO PRN (17:27)
[2016-07-14] MEDS: Ipratropium/Albuterol Neb 3 ML IH SCH ×2 (04:31→10:21)
[2016-07-14 05:52] LABS: Hematocrit 39.8 % (35.3-44.9); Mean Corpuscular HGB Conc 30.2 g/dL (31.6-35.5); Mean Corpuscular Hemoglobin 25.1 pg (28.0-33.3); Mean Corpuscular Volume 83.1 fL (83.0-100.0); Mean Platelet Volume 10.6 fL (9.4-12.4); Platelet Count 247 K/mcL (140-400); Red Blood Count 4.79 M/mcL (3.82-4.97); Red Cell Distribution Width 15.5 % (11.5-14.5)
[2016-07-14 06:04] LABS: BUN/Creatinine Ratio 13 (6-26); Blood Urea Nitrogen 12 mg/dL (7-20); Calcium 9.3 mg/dL (8.6-10.8); Carbon Dioxide 21 mEq/L (19-29); Chloride 109 mEq/L (98-109); Glucose 76 mg/dL (70-99); Osmolality,Calculated 291 (280-300); Sodium 141 mEq/L (136-145); eGFR For African Americans > 60 (> 60); eGFR For Non-African Americans 57 (> 60)
[2016-07-14] MEDS: amLODIPine 5 MG TABLET PO SCH (08:45)
[2016-07-14] MEDS: *HR* Rivaroxaban 15 MG TABLET PO SCH (08:46)
[2016-07-14] MEDS: Cyanocobalamin (B-12) 1,000 MCG TABLET PO SCH (08:46)
[2016-07-14] MEDS: Vancomycin 1,250 MG in D5% in Water 250 ML IVPB SCH (09:34)
[2016-07-14] MEDS: Azithromycin 500 MG in D5% in Water 250 ML IVPB SCH (09:35)
[2016-07-14 11:40] VITALS: BP 127/63
--- NOTE | 2016-07-14 14:45 | Discharge Summary ---
Date of Encounter: 07/14/16 Time of Encounter: 14:43 - Discharge Diagnosis (1) Community acquired pneumonia Priority: Primary Status: Acute Comments: clinically much better will dc on zithromax x 7 days (2) Sepsis Priority: Secondary Status: Acute Comments: blood cultures no growth Qualifiers: Sepsis type: sepsis due to unspecified organism Qualified Code(s): A41.9 - Sepsis, unspecified organism (3) Soft tissue swelling Priority: Secondary Status: Resolved Comments: resolved (4) COPD (chronic obstructive pulmonary disease) Priority: Secondary Status: Chronic Comments: clinically better Qualifiers: COPD type: chronic bronchitis Chronic bronchitis type: unspecified Qualified Code(s): J42 - Unspecified chronic bronchitis (5) Dementia Priority: Secondary Status: Chronic Comments: stable and chronic Qualifiers: Dementia type: Alzheimer's disease Alzheimer's disease onset: unspecified onset Dementia behavioral disturbance: without behavioral disturbance Qualified Code(s): G30.9 - Alzheimer's disease, unspecified; F02.80 - Dementia in other diseases classified elsewhere without behavioral disturbance (6) HTN (hypertension) Priority: Secondary Status: Chronic Comments: well controlled Qualifiers: Hypertension type: essential hypertension Qualified Code(s): I10 - Essential (primary) hypertension (7) HLD (hyperlipidemia) Priority: Secondary Status: Chronic Comments: chronic Qualifiers: Hyperlipidemia type: mixed hyperlipidemia Qualified Code(s): E78.2 - Mixed hyperlipidemia - Discharge Medications Prescriptions: Azithromycin [Zithromax] 500 mg PO DAILY #7 tablet Home Medications: Albuterol Sulfate 2.5 mg IH Q8H PRN 11/24/14 [History] Alprazolam [Xanax 1 MG Tablet] 1 mg PO BID PRN 11/24/14 [History] Ferrous Sulfate 325 mg PO DAILY 11/24/14 [History] Cyanocobalamin (Vitamin B-12) [B-12] 2,500 mcg SL DAILY 12/01/14 [History] Amlodipine [Norvasc] 10 mg PO DAILY #60 tablet 03/01/15 [Rx] Albuterol Sulfate [Albuterol Inhaler] 2 puff IH PRN PRN 11/09/15 [History] TraMADol [Ultram] 25 mg PO TID 11/09/15 [History] Amoxicillin 875 mg PO BID 07/11/16 [History] Gabapentin [Neurontin] 800 mg PO TID 07/11/16 [History] HYDROcodone/Acet 5/325 mg [[place] 5-325 mg] 0.5 tab PO Q6H PRN 07/11/16 [History] Rivaroxaban [Xarelto] 15 mg PO DAILY 07/11/16 [History] Azithromycin [Zithromax] 500 mg PO DAILY #7 tablet 07/14/16 [Rx] Allergies/Adverse Reactions: Allergies codeine Adverse Reaction (Verified 11/09/15 16:03) Gastrointestinal Upset Oxycodone Adverse Reaction (Verified 02/16/16 09:50) Gastrointestinal Upset Procedures/tests Complete & Pending: Procedures Performed prior 72 hours Category Date Time Status CT soft tissue neck w con [CT] Stat Cat Scan 07/11/16 20:03 Completed ECG 12 lead ECG [ECG] Routine Y 07/12/16 16:33 Completed Date of admission: 07/11/16 08:44 Primary care physician: Laine Stauffer Consults: 07/11/16 10:06 Consult to Financial Underwriter [CONS] Routine Reason for SW Consult: discharge planning Discharging clinician: Susan Wetzel Anticipated date of discharge: 07/14/16 - Patient Status Disposition: Home, Self-Care Condition: Good Overall status at discharge: patient is back to baseline - Discharge Instructions - Diet and Activity Activity: increase activity as tolerated Diet: advance to your usual diet Hospital course: Ms. Joiner is a 80 year old female - Time Spent with Patient Total time spent providing and/or coordinating discharge services: - Constitutional Vitals: Temp Pulse Resp BP Pulse Ox 98.2 F 87 16 127/63 98 07/14/16 11:39 07/14/16 11:39 07/14/16 11:39 07/14/16 11:39 07/14/16 11:39 General appearance: Present: A&O X 2, underweight
[2016-07-14] MEDS ORDERED: Aminoglycoside Consult 1 EACH MC ONE (16:02)
--- NOTE | 2016-07-14 21:10 | Electrocardiograph Report ---
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
== END 2016-07-14 16:03 | disposition home or self-care (01) | DRG 871 ==
LOC: EMEROO 03:09 → 3NENU 03:09
PROVIDERS: ADMIT Internal Medicine; ATTEND Internal Medicine

== ENCOUNTER 2017-05-16 06:23 | Inpatient (IN) ==
[2017-05-16] MEDS ORDERED: Acetaminophen 325 MG TABLET PO ONE (06:43)
--- NOTE | 2017-05-16 06:49 | Emergency Department Note ---
Disposition Clinical Impression: Fever Qualifiers: Fever type: unspecified Qualified Code(s): R50.9 - Fever, unspecified Dyspnea Qualifiers: Dyspnea type: unspecified Qualified Code(s): R06.00 - Dyspnea, unspecified Disposition: Still a Patient Condition: Undetermined Forms: ED Satisfaction Letter General Adult HPI - General Chief complaint: ED Fever Stated complaint: chills/fever Time Seen by Provider: 05/16/17 06:28 Source: patient, EMS Mode of arrival: EMS Limitations: no limitations Nursing Notes Reviewed: Yes Vital Signs Reviewed: Yes - History of Present Illness HPI Narrative: 81 y/o female from home. She reports 2 days of rigors and fever and cough. She feels like she has pneumonia. She has a hx of multiple myeloma and prior PE /DVT. She is on xarelto. She denies productive sputum. She reports currently receiving treatment for multiple myeloma at the cancer center. Denies abdominal pain or N/V. Admits to dyspnea and cough. Pain Scale: 0 Improves with: nothing Worsens with: nothing Associated symptoms: Reports: denies other symptoms Treatments Prior to Arrival: none - Related Data Home Medications Medication Instructions Recorded Confirmed ALPRAZolam [Xanax 1 MG Tablet] 1 mg PO BID PRN 11/24/14 05/12/17 Ferrous Sulfate 65 mg PO DAILY 11/24/14 05/12/17 Cyanocobalamin (Vitamin B-12) 2,500 mcg PO DAILY 12/01/14 05/12/17 [B-12] traMADol [Ultram] 25 mg PO BID 11/09/15 05/12/17 HYDROcodone/Acet 5/325 mg [[place] 0.5 tab PO DAILY PRN 07/11/16 05/12/17 5-325 mg] Triamterene [Dyrenium] 25 mg PO DAILY 04/29/17 05/12/17 Previous Rx's Medication Instructions Recorded Gabapentin [Neurontin] 800 mg PO TID #90 tablet 01/20/17 Rivaroxaban [Xarelto] 15 mg PO DAILY #30 tablet 01/21/17 Pomalidomide [Pomalyst] 2 mg PO DAILY #21 capsule 04/25/17 Ondansetron HCl [Zofran] 4 mg PO Q6H PRN #40 tablet 05/12/17 Prochlorperazine Maleate 10 mg PO Q6HR PRN #40 tablet 05/12/17 [Compazine] Allergies Allergy/AdvReac Type Severity Reaction Status Date / Time codeine AdvReac Gastrointestinal Verified 05/12/17 08:19 Upset Oxycodone AdvReac Gastrointestinal Verified 05/12/17 08:19 Upset All systems ED: reviewed and negative except as stated. Constitutional: Reports: fever ENT ED: Denies: throat pain Cardiovascular: Denies: chest pain Respiratory: Reports: cough, dyspnea Gastrointestinal: Denies: abdominal pain, nausea, vomiting Musculoskeletal: Denies: back pain Integumentary: Denies: rash Endocrine: Reports: fatigue Past Medical History - Past Medical History Medical history: Reports: cancer, COPD, DVT, dementia, GERD, hyperlipidemia, hypertension, osteoporosis, renal disease, other Surgical history: Reports: appendectomy, other Psychiatric history: Reports: no psych history - Social History Smoking Status: Former smoker Smokeless Tobacco Status: No Alcohol use: Reports: none Drug use: Reports: none Physical Exam - General Limitations: no limitations General appearance: alert - Head Head exam: atraumatic - Eye Eye exam: Present: normal appearance, PERRL - Neck Neck exam: Present: normal inspection - Chest Chest inspection: Present: normal inspection - Respiratory Respiratory exam: Present: other (coarse rhonchi throughout). Absent: respiratory distress - Cardiovascular Cardiovascular exam: Present: normal rhythm, tachycardia - Abdominal Exam Abdominal exam: Present: soft, Non-Tender - Extremities Exam Extremities exam: Present: normal inspection - Neurological Exam Neurological exam: Present: alert - Skin Skin exam: Present: warm, dry Course Course Narrative: I initially saw this patient and has been signed out to the day team to follow up on imaging and labwork and make final disposition. EKG shows sinus tachycardia with rate of 101. Vital Signs Temperature 101.9 F H 05/16/17 06:27 Pulse Rate 120 05/16/17 06:27 Respiratory Rate 22 05/16/17 06:27 Blood Pressure 145/79 05/16/17 06:27 O2 Sat by Pulse Oximetry 96 05/16/17 06:27 Temperature 101.9 F H 05/16/17 06:27 Pulse Rate 120 05/16/17 06:27 Respiratory Rate 22 05/16/17 06:27 Blood Pressure 145/79 05/16/17 06:27 O2 Sat by Pulse Oximetry 96 05/16/17 06:27 Oxygen Delivery Oxygen Delivery Room Air,Aerosol Mask Medical Decision Making - Medical Records Medical records reviewed: Yes I reviewed the patient's medical records. - EKG Data EKG #1 EKG attestation: Yes I reviewed and interpreted this EKG. EKG shows normal: sinus rhythm Rate: tachycardia Rhythm: NSR [place]/QRS: normal When compared to previous EKG there are: no significant changes Interpretation: nonspecific ST-T wave changes Attestation Statement - Attestation Attestation: I, Rufus Ma, examined this patient and my medical decision-making was reviewed with the VAMP SEAMER/PA/Advanced Practice Nurse/Resident Physician. I agree with the documented findings, disposition and treatment plan as described except to the extent set forth below. 81-year-old female presents emergency Department with concerns of fever, chills , denies malaise. Patient has history of pneumonia which felt similar. Patient also has a history of previous PE is currently on Xarelto. At time of end of shift patient is pending laboratory evaluation, imaging studies and disposition. Patient will be transferred to Dr. Marinelli pending further care.
[2017-05-16] MEDS ORDERED: 0.9 % Sodium Chloride 500 ML IVC ONE (06:52)
[2017-05-16 07:07] LABS: INR 1.2
[2017-05-16 07:13] LABS: Calcium 9.1 mg/dL (8.6-10.3); Potassium 3.7 mEq/L (3.5-5.1)
[2017-05-16 07:17] LABS: Bilirubin,Urine Negative (Negative); Blood,Urine Negative (Negative); Clarity,Urine Clear (Clear); Color,Urine Yellow (Yellow); Glucose,Urine (UA) Normal (Normal); Ketones,Urine Negative (Negative); Leukocyte Esterase,Urine Negative (Negative); Nitrite,Urine Negative (Negative); PH,Urine 5.5 pH Units (5.0-8.0); Protein,Urine Negative (Neg-Trace); Specific Gravity,Urine 1.014 (1.010-1.025); Urobilinogen,Urine Normal (Normal)
[2017-05-16] MEDS ORDERED: Vancomycin 1,000 MG in D5% in Water 250 ML IVPB ONE (07:49)
[2017-05-16] MEDS ORDERED: Piperacillin/Tazobactam 4.5 GM in D5% in Water (Mini-Bag+) 100 ML IVPB ONE (07:49)
[2017-05-16] MEDS ORDERED: Piperacillin/Tazobactam 4.5 GM in Water for inj. (sterile) 20 ML 20 ML IVP ONE (07:54)
[2017-05-16 07:58] LABS: Basophils % 0.3 %; Eosinophils # 0.6 K/mcL (0.0-0.6); Eosinophils % 8.9 %; Hemoglobin 11.6 g/dL (11.5-15.4); Immature Granulocytes % 0.3 % (0-4); Lymphocytes # 1.5 K/mcL (0.6-4.6); Lymphocytes % 21.1 %; Mean Corpuscular HGB Conc 29.7 g/dL (31.6-35.5); Mean Corpuscular Volume 90.7 fL (83.0-100.0); Mean Platelet Volume 11.6 fL (9.4-12.4); Monocytes # 0.3 K/mcL (0.0-1.3); Monocytes % 4.1 %; Neutrophils # 4.6 K/mcL (1.6-8.9); Platelet Count 184 K/mcL (140-400); Segmented Neutrophils % 65.3 %
--- NOTE | 2017-05-16 08:30 | Emergency Department Note ---
Disposition Clinical Impression: Septic shock Fever Qualifiers: Fever type: unspecified Qualified Code(s): R50.9 - Fever, unspecified Dyspnea Qualifiers: Dyspnea type: unspecified Qualified Code(s): R06.00 - Dyspnea, unspecified Multiple myeloma Qualifiers: Multiple myeloma remission status: not in remission Qualified Code(s): C90.00 - Multiple myeloma not having achieved remission Disposition: Admitted As Inpatient Condition: Fair Referrals: Laine Stauffer MD [Primary Care Provider] - Forms: ED Satisfaction Letter Time of Disposition: 08:30 General Adult HPI - General Chief complaint: ED Fever Stated complaint: chills/fever Time Seen by Provider: 05/16/17 06:28 Source: patient, EMS Mode of arrival: EMS Limitations: no limitations Nursing Notes Reviewed: Yes Vital Signs Reviewed: Yes - History of Present Illness Pain Scale: 0 Improves with: nothing Worsens with: nothing Associated symptoms: Reports: denies other symptoms Treatments Prior to Arrival: none - Related Data Home Medications Medication Instructions Recorded Confirmed ALPRAZolam [Xanax 1 MG Tablet] 1 mg PO BID PRN 11/24/14 05/16/17 Ferrous Sulfate 65 mg PO DAILY 11/24/14 05/16/17 Cyanocobalamin (Vitamin B-12) 2,500 mcg PO DAILY 12/01/14 05/16/17 [B-12] traMADol [Ultram] 25 mg PO BID 11/09/15 05/16/17 Triamterene/HCTZ 37.5/25mg 1 cap PO DAILY 05/16/17 05/16/17 [Dyazide] Previous Rx's Medication Instructions Recorded Gabapentin [Neurontin] 800 mg PO TID #90 tablet 01/20/17 Rivaroxaban [Xarelto] 15 mg PO DAILY #30 tablet 01/21/17 Pomalidomide [Pomalyst] 2 mg PO DAILY #21 capsule 04/25/17 Ondansetron HCl [Zofran] 4 mg PO Q6H PRN #40 tablet 05/12/17 Prochlorperazine Maleate 10 mg PO Q6HR PRN #40 tablet 05/12/17 [Compazine] Allergies Allergy/AdvReac Type Severity Reaction Status Date / Time codeine AdvReac Gastrointestinal Verified 05/16/17 08:03 Upset Oxycodone AdvReac Gastrointestinal Verified 05/16/17 08:03 Upset Constitutional: Reports: fever ENT ED: Denies: throat pain Cardiovascular: Denies: chest pain Respiratory: Reports: cough, dyspnea Gastrointestinal: Denies: abdominal pain, nausea, vomiting Musculoskeletal: Denies: back pain Integumentary: Denies: rash Endocrine: Reports: fatigue Past Medical History - Past Medical History Medical history: Reports: cancer, COPD, DVT, dementia, GERD, hyperlipidemia, hypertension, osteoporosis, renal disease, other Surgical history: Reports: appendectomy, other Psychiatric history: Reports: no psych history - Social History Smoking Status: Former smoker Smokeless Tobacco Status: No Alcohol use: Reports: none Drug use: Reports: none Physical Exam - General Limitations: no limitations General appearance: alert Course Vital Signs Temperature 101.9 F H 05/16/17 06:27 Pulse Rate 120 05/16/17 06:27 Respiratory Rate 22 05/16/17 06:27 Blood Pressure 145/79 05/16/17 06:27 O2 Sat by Pulse Oximetry 96 05/16/17 06:27 Temperature 101.9 F H 05/16/17 06:27 Pulse Rate 107 05/16/17 07:16 Respiratory Rate 22 05/16/17 07:16 Blood Pressure 141/102 05/16/17 07:16 O2 Sat by Pulse Oximetry 92 05/16/17 07:16 Oxygen Delivery Oxygen Delivery Room Air Medical Decision Making - MDM Narrative Medical decision making narrative: I did see the patient spoke with her and did assume care of the patient on transition of shift. Patient does have a fever, tachycardia, history of malignancy and clinically does have a diagnosis of sepsis and she will receive IV fluids, labs have been reviewed including lactate level, chest x-ray does not show infiltrate [facility] radiology interpretation but I do wonder about a possible left lower lobe early infiltrate, the patient is started on Zosyn and vancomycin and will be admitted to the hospital. She is having chills and rigors when I am in the room examining 829 Care was discussed with the hospitalist who accepted the patient for admission. They do recommend a chest CT and and I did order this test. The patient has had several episodes of hypotension with a pressure in the low 80s and is receiving IV fluids and currently the blood pressure is 104. She will go to a stepdown unit. Labs and radiology testing is reviewed 929 - Medical Records Medical records reviewed: Yes I reviewed the patient's medical records. - Lab Data Lab results reviewed: Yes I reviewed the patient's lab results. Result diagrams: 05/16/17 06:50 05/16/17 06:50 Lab Results 05/16/17 05/16/17 05/16/17 Range/Units 06:50 06:50 06:50 WBC 7.1 D (4.3-11.1) K/mcL RBC 4.30 (3.82-4.97) M/mcL Hgb 11.6 (11.5-15.4) g/dL Hct 39.0 (35.3-44.9) % MCV 90.7 (83.0-100.0) fL MCH 27.0 L (28.0-33.3) pg MCHC 29.7 L (31.6-35.5) g/dL RDW 18.0 H (11.5-14.5) % Plt Count 184 (140-400) K/mcL MPV 11.6 (9.4-12.4) fL Immature Gran % 0.3 (0-4) % Seg Neutrophils % 65.3 % Lymphocytes % 21.1 % Monocytes % 4.1 % Eosinophils % 8.9 % Basophils % 0.3 % Neutrophils # 4.6 (1.6-8.9) K/mcL Lymphocytes # 1.5 (0.6-4.6) K/mcL Monocytes # 0.3 (0.0-1.3) K/mcL Eosinophils # 0.6 (0.0-0.6) K/mcL Basophils # 0.0 (0.0-0.2) K/mcL PT (9.4-12.1) Seconds INR Sodium 139 (136-145) mEq/L Potassium 3.7 (3.5-5.1) mEq/L Chloride 106 (98-107) mEq/L Carbon Dioxide 27 (23-29) mEq/L BUN 23 (8-23) mg/dL Creatinine 1.23 H (0.60-1.20) mg/dL Est GFR ( Amer) 51 L (> 60) Est GFR (Non-Af Amer) 42 L (> 60) BUN/Creatinine Ratio 19 (6-26) Glucose 113 H (70-105) mg/dL Calculated Osmolality 292 (280-300) Lactic Acid 0.9 (0.5-2.2) mmol/L Calcium 9.1 (8.6-10.3) mg/dL Troponin I (< 0.04) ng/mL B-Natriuretic Peptide (Less than 100) pg/mL Urine Color (Yellow) Urine Clarity (Clear) Urine pH (5.0-8.0) pH Units Ur Specific [place] (1.010-1.025) Urine Protein (Neg-Trace) mg/dL Urine Glucose (UA) (Normal) mg/dL Urine Ketones (Negative) mg/dL Urine Blood (Negative) Urine Nitrite (Negative) Urine Bilirubin (Negative) Urine Urobilinogen (Normal) mg/dL Ur Leukocyte Esterase (Negative) Ur Culture Indicated? (NO) 05/16/17 05/16/17 05/16/17 Range/Units 06:50 06:50 06:50 WBC (4.3-11.1) K/mcL RBC (3.82-4.97) M/mcL Hgb (11.5-15.4) g/dL Hct (35.3-44.9) % MCV (83.0-100.0) fL MCH (28.0-33.3) pg MCHC (31.6-35.5) g/dL RDW (11.5-14.5) % Plt Count (140-400) K/mcL MPV (9.4-12.4) fL Immature Gran % (0-4) % Seg Neutrophils % % Lymphocytes % % Monocytes % % Eosinophils % % Basophils % % Neutrophils # (1.6-8.9) K/mcL Lymphocytes # (0.6-4.6) K/mcL Monocytes # (0.0-1.3) K/mcL Eosinophils # (0.0-0.6) K/mcL Basophils # (0.0-0.2) K/mcL PT 13.0 H (9.4-12.1) Seconds INR 1.2 Sodium (136-145) mEq/L Potassium (3.5-5.1) mEq/L Chloride (98-107) mEq/L Carbon Dioxide (23-29) mEq/L BUN (8-23) mg/dL Creatinine (0.60-1.20) mg/dL Est GFR ( Amer) (> 60) Est GFR (Non-Af Amer) (> 60) BUN/Creatinine Ratio (6-26) Glucose (70-105) mg/dL Calculated Osmolality (280-300) Lactic Acid (0.5-2.2) mmol/L Calcium (8.6-10.3) mg/dL Troponin I < 0.03 (< 0.04) ng/mL B-Natriuretic Peptide 60 (Less than 100) pg/mL Urine Color (Yellow) Urine Clarity (Clear) Urine pH (5.0-8.0) pH Units Ur Specific [place] (1.010-1.025) Urine Protein (Neg-Trace) mg/dL Urine Glucose (UA) (Normal) mg/dL Urine Ketones (Negative) mg/dL Urine Blood (Negative) Urine Nitrite (Negative) Urine Bilirubin (Negative) Urine Urobilinogen (Normal) mg/dL Ur Leukocyte Esterase (Negative) Ur Culture Indicated? (NO) 05/16/17 Range/Units 07:00 WBC (4.3-11.1) K/mcL RBC (3.82-4.97) M/mcL Hgb (11.5-15.4) g/dL Hct (35.3-44.9) % MCV (83.0-100.0) fL MCH (28.0-33.3) pg MCHC (31.6-35.5) g/dL RDW (11.5-14.5) % Plt Count (140-400) K/mcL MPV (9.4-12.4) fL Immature Gran % (0-4) % Seg Neutrophils % % Lymphocytes % % Monocytes % % Eosinophils % % Basophils % % Neutrophils # (1.6-8.9) K/mcL Lymphocytes # (0.6-4.6) K/mcL Monocytes # (0.0-1.3) K/mcL Eosinophils # (0.0-0.6) K/mcL Basophils # (0.0-0.2) K/mcL PT (9.4-12.1) Seconds INR Sodium (136-145) mEq/L Potassium (3.5-5.1) mEq/L Chloride (98-107) mEq/L Carbon Dioxide (23-29) mEq/L BUN (8-23) mg/dL Creatinine (0.60-1.20) mg/dL Est GFR ( Amer) (> 60) Est GFR (Non-Af Amer) (> 60) BUN/Creatinine Ratio (6-26) Glucose (70-105) mg/dL Calculated Osmolality (280-300) Lactic Acid (0.5-2.2) mmol/L Calcium (8.6-10.3) mg/dL Troponin I (< 0.04) ng/mL B-Natriuretic Peptide (Less than 100) pg/mL Urine Color Yellow (Yellow) Urine Clarity Clear (Clear) Urine pH 5.5 (5.0-8.0) pH Units Ur Specific [place] 1.014 (1.010-1.025) Urine Protein Negative (Neg-Trace) mg/dL Urine Glucose (UA) Normal (Normal) mg/dL Urine Ketones Negative (Negative) mg/dL Urine Blood Negative (Negative) Urine Nitrite Negative (Negative) Urine Bilirubin Negative (Negative) Urine Urobilinogen Normal (Normal) mg/dL Ur Leukocyte Esterase Negative (Negative) Ur Culture Indicated? NO (NO) - Radiology Data Radiology results reviewed: Yes I reviewed the patient's radiology results. Critical Care Time Critical Care Time: Yes Total Critical Care Time: 30 Attestation: 30 minutes of critical care time was had with this patient septic shock with hypotension, orders for labs, IV fluids, broad-spectrum antibiotics as well as to discussions with the hospitalist review of results.
[2017-05-16] MEDS ORDERED: 0.9 % Sodium Chloride 1,000 ML IVC ONE ×2 (08:46→08:47)
[2017-05-16] MEDS ORDERED: Naloxone 0.4 MG/ML INJ IVP PRN (09:05)
[2017-05-16] MEDS ORDERED: Acetaminophen 325 MG TABLET PO PRN (09:05)
[2017-05-16] MEDS ORDERED: ALPRAZolam 1 MG TABLET PO PRN (09:07)
[2017-05-16] MEDS ORDERED: 0.9 % Sodium Chloride 1,000 ML IVC SCH (09:15)
--- NOTE | 2017-05-16 10:05 | Internal Med History&Physical ---
Date of Encounter: 05/16/17 Time of Encounter: 10:02 Assessment and Plan (1) SIRS (systemic inflammatory response syndrome) Current visit: Yes Status: Acute Presented with fever, tachycardia. No leukocytosis or leukopenia UA is normal, chest imaging is negative for infiltrates No abdominal symptoms Blood culture has been drawn in the ER, will follow Patient has respiratory symptoms and signs of a viral URI, will send respiratory panel She has received Vanco/Zosyn in ER, will hold off further antibiotics till culture report Continue supportive care with analgesics, IVF hydration Consider repeating CXR a.m (2) Viral syndrome Current visit: Yes Status: Acute as above Follow respiratory panel (3) Multiple myeloma Current visit: Yes Status: Chronic Hold palidomide Continue other meds Oncology review prn Qualifiers: Multiple myeloma remission status: not in remission Qualified Code(s): C90.00 - Multiple myeloma not having achieved remission (4) Acute exacerbation of chronic obstructive airways disease Current visit: Yes Status: Acute Possibly due to viral URI Continue duoneb, prednisone, add azithromycin for bronchitis (5) Anxiety and depression Current visit: Yes Status: Chronic continue home meds (6) DVT prophylaxis Current visit: Yes Status: Acute on xarelto for PE, continue same (7) Chronic kidney disease, stage III (moderate) Current visit: Yes Status: Chronic Chem is at baseline Avoid nephrotoxins (8) Dementia Current visit: Yes Status: Chronic Alert, oriented X3 at time of review, response is slow possibly due to hearing difficulty High risk for delirium Qualifiers: Dementia type: Alzheimer's disease Alzheimer's disease onset: unspecified onset Dementia behavioral disturbance: without behavioral disturbance Qualified Code(s): G30.9 - Alzheimer's disease, unspecified; F02.80 - Dementia in other diseases classified elsewhere without behavioral disturbance; F02.80 - Dementia in other diseases classified elsewhere without behavioral disturbance; F02.80 - Dementia in other diseases classified elsewhere without behavioral disturbance (9) HLD (hyperlipidemia) Current visit: Yes Status: Chronic continue home meds Qualifiers: Hyperlipidemia type: mixed hyperlipidemia Qualified Code(s): E78.2 - Mixed hyperlipidemia (10) HTN (hypertension) Current visit: Yes Status: Chronic continue home meds Qualifiers: Hypertension type: essential hypertension Qualified Code(s): I10 - Essential (primary) hypertension Internal Medicine - H&P: HPI Chief complaint: Fever Admitted From: Home Plans for Post Hospital Care: Home History of present illness: Ms. Joiner is a 81 year old female with medical history of multiple myeloma, hypertension, hyperlipidemia, COPD, chronic kidney disease stage III, history of pulmonary embolism on anticoagulation. The patient presented to the ER with complaints of fever and chills, associated with cough and mildly. She denies any abdominal symptoms. She denies nausea or vomiting. She denies sick contacts or recent travels. The patient reports no leg edema and no chest pain. She also has a watery rhinorrhea, but no sore throat. She is hard of hearing, but however has no neurologic symptoms. On examination in the ER she is febrile with a maximum temperature 101, she was tachycardic on arrival to 120, but at time will review her heart rate has normalized. Blood pressure is within normal limits. Oral mucosa is moist, no pharyngeal exudates. She has no neurologic signs, no neck stiffness, no focal deficits. Chest examination reveals a right chest wall port, transmitted sounds bilaterally, no definite rhonchi. Heart sounds S1-S2 no tachycardia at the time of review. Abdomen is soft and benign tender. No pedal edema bilaterally. No skin rash. Work up in the ER shows a normal CBC, chemistry is at baseline for CKD and coagulation panel. Her chest x-ray was negative without any infiltrates. Her chest CT scan without contrast shows bibasilar atelectasis and no infiltrates. Urine analysis is negative without any bacteria, no nitrites, no leukocyte esterase. Influenza screen was negative. Past Med Surg Social Fam HX - Past Medical History Medical history: cancer, COPD, DVT, dementia, GERD, hyperlipidemia, hypertension , osteoporosis, renal disease, other Psychiatric history: no psych history - Past Surgical History Surgical History: appendectomy, other - Social History Smoking Status: Former smoker Smokeless Tobacco Status: No Alcohol use: none Drug use: none - Family History Mother Adopted: No Family Member Ethnicity: Non- Living Status: Hx Family Cardiac Disorders: No Hx Family Respiratory Disorders: No Hx Family Cancer: No Hx Family GI Disorders: No Hx Family Endocrine Disorder: No Hx Family Neuromuscular Disorders: No Hx Family Neurologic Disorders: Yes (alzhemer's disease) Hx Family HEENT Disorders: No Hx Family Autoimmune Disorders: No Father Living Status: Hx Family Cardiac Disorders: Yes Hx Family Respiratory Disorders: No Hx Family Cancer: No Hx Family GI Disorders: No Hx Family Endocrine Disorder: No Hx Family Neuromuscular Disorders: No Hx Family Neurologic Disorders: No Hx Family HEENT Disorders: No Hx Family Autoimmune Disorders: No Internal Medicine - H&P: Meds ALPRAZolam [Xanax 1 MG Tablet] 1 mg PO BID PRN 11/24/14 [History] Ferrous Sulfate 65 mg PO DAILY 11/24/14 [History] Cyanocobalamin (Vitamin B-12) [B-12] 2,500 mcg PO DAILY 12/01/14 [History] traMADol [Ultram] 25 mg PO BID 11/09/15 [History] Gabapentin [Neurontin] 800 mg PO TID #90 tablet 01/20/17 [Rx] Rivaroxaban [Xarelto] 15 mg PO DAILY #30 tablet 01/21/17 [Rx] Pomalidomide [Pomalyst] 2 mg PO DAILY #21 capsule 04/25/17 [Rx] Ondansetron HCl [Zofran] 4 mg PO Q6H PRN #40 tablet 05/12/17 [Rx] Prochlorperazine Maleate [Compazine] 10 mg PO Q6HR PRN #40 tablet 05/12/17 [Rx] Triamterene/HCTZ 37.5/25mg [Dyazide] 1 cap PO DAILY 05/16/17 [History] 3 Allergy/AdvReac Type Severity Reaction Status Date / Time codeine AdvReac Gastrointestinal Verified 05/16/17 08:03 Upset Oxycodone AdvReac Gastrointestinal Verified 05/16/17 08:03 Upset All Systems PM: A 10-system review of systems was performed and is negative for pertinent findings except as documented above in the HPI. - Constitutional Constitutional: chills, fever(s), lethargy - EENT Eyes: no change in vision, no discharge, no pain, no photophobia Ears: no ear discharge, no ear pain, no tinnitus Nose, mouth and throat: nasal discharge, no sore throat - Cardiovascular Cardiovascular ROS IM: no chest pain, no diaphoresis, no dyspnea, no lightheadedness, no palpitations, no syncope - Respiratory Respiratory: cough, no dyspnea, no wheezing, no excessive phlegm production - Gastrointestinal Gastrointestinal: no abdominal pain, no diarrhea, no hematemesis, no hematochezia, no melena, no nausea, no vomiting - Genitourinary Genitourinary: no change in urinary stream, no dysuria, no flank pain, no hematuria - Musculoskeletal Musculoskeletal ROS IM: no numbness, no tingling - Integumentary Integumentary IM: no rash, no unusual bruising - Neurological Neurological ROS: no confusion, no convulsions, no focal weakness, no numbness, no tingling, no tremor(s) - Hematologic/Lymphatic Hematologic/Lymphatic: no easy bruising - Constitutional Vitals: Temp Pulse Resp BP Pulse Ox 101.9 F H 107 22 141/102 92 05/16/17 06:27 05/16/17 07:16 05/16/17 07:16 05/16/17 07:16 05/16/17 07:16 General appearance: Present: A&O X 3, pleasant, no acute distress - Head Head exam: Present: atraumatic, normocephalic - Eye Eye exam: Present: PERRL, conjuntiva pink, sclera anicteric Pupils: Present: PERRL - Neck Neck exam general surgery: Present: supple, trachea midline. Absent: lymphadenopathy - Respiratory Additional comments: R chest wall port, clean dressing, no surrounding erythema. CTAB anteriorly Transmitted sounds bilaterally at the bases, clears on coughing - Cardiovascular Cardiovascular exam: Present: RRR, +S1, +S2. Absent: diastolic murmur, gallop, rubs, systolic murmur - GI/Abdominal GI/Abdominal exam: Present: normal bowel sounds, soft, no peritoneal signs. Absent: distended, tenderness - Extremities Exam Extremities exam: Present: warm, radial pulses palpable and symmetrical. Absent : calf tenderness, cyanotic, pedal edema - Neurological Exam Neurological exam: Present: alert, CN II-XII intact, oriented X3, no focal deficits. Absent: pronater drift, facial droop, speech deficit - Skin Skin exam: Present: dry, intact Internal Med - H&P Results - Labs CBC & Chem 7: 05/16/17 06:50 05/16/17 06:50 Labs: Short CBC 05/16/17 Range/Units 06:50 WBC 7.1 D (4.3-11.1) K/mcL Hgb 11.6 (11.5-15.4) g/dL Hct 39.0 (35.3-44.9) % Plt Count 184 (140-400) K/mcL Neutrophils # 4.6 (1.6-8.9) K/mcL BMP 05/16/17 06:50 Sodium 139 Potassium 3.7 Chloride 106 Carbon Dioxide 27 BUN 23 Creatinine 1.23 H Glucose 113 H Calcium 9.1 Cardiac Enzymes 05/16/17 Range/Units 06:50 Troponin I < 0.03 (< 0.04) ng/mL Urine 05/16/17 Range/Units 07:00 Urine Color Yellow (Yellow) Urine Clarity Clear (Clear) Urine pH 5.5 (5.0-8.0) pH Units Ur Specific [place] 1.014 (1.010-1.025) Urine Protein Negative (Neg-Trace) mg/dL Urine Glucose (UA) Normal (Normal) mg/dL - Impressions ITS Impressions Chest X-Ray 05/16/17 07:48 IMPRESSION: No evidence of consolidative pneumonia. No radiographic evidence of acute cardiopulmonary process. D/ / Maxime Romero MD / Maxime Romero MD Interpreting Provider: Maxime Romero MD
[2017-05-16] MEDS ORDERED: Ipratropium/Albuterol Neb 3 ML IH ONE (10:23)
[2017-05-16] MEDS ORDERED: Azithromycin 250 MG TABLET PO ONE (10:29)
[2017-05-16] MEDS ORDERED: levoFLOXacin 500 MG TABLET PO ONE (10:30)
[2017-05-16] MEDS: Gabapentin 400 MG CAPSULE PO SCH ×2 (13:58→20:29)
[2017-05-16] MEDS: predniSONE 20 MG TABLET PO SCH (13:58)
[2017-05-16] MEDS: Ipratropium/Albuterol Neb 3 ML IH SCH ×4 (15:16→23:54)
--- NOTE | 2017-05-16 17:13 | Electrocardiograph Report ---
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
[2017-05-16] MEDS ORDERED: traMADol 50 MG TABLET PO PRN (21:00)
[2017-05-17] MEDS: Ipratropium/Albuterol Neb 3 ML IH SCH ×5 (03:43→20:00)
[2017-05-17 05:22] LABS: Basophils % 0.2 %; Immature Granulocytes % 0.2 % (0-4)
[2017-05-17 05:23] LABS: Eosinophils % 0.2 %; Hematocrit 33.7 % (35.3-44.9); Lymphocytes # 0.8 K/mcL (0.6-4.6); Lymphocytes % 16.4 %; Mean Corpuscular HGB Conc 29.7 g/dL (31.6-35.5); Mean Corpuscular Hemoglobin 26.7 pg (28.0-33.3); Mean Corpuscular Volume 90.1 fL (83.0-100.0); Mean Platelet Volume 12.2 fL (9.4-12.4); Monocytes # 0.2 K/mcL (0.0-1.3); Monocytes % 4.3 %; Neutrophils # 3.7 K/mcL (1.6-8.9); Platelet Count 169 K/mcL (140-400); Red Blood Count 3.74 M/mcL (3.82-4.97); Red Cell Distribution Width 17.4 % (11.5-14.5); Segmented Neutrophils % 78.7 %
[2017-05-17 05:36] LABS: Calcium 8.2 mg/dL (8.6-10.3); Potassium 3.6 mEq/L (3.5-5.1)
[2017-05-17 06:45] LABS: Acanthocytes 2+ (Not Present); Hypochromasia Present (Not Present); Macrocytosis Present (Not Present); Microcytosis Present (Not Present)
[2017-05-17 06:46] LABS: Ovalocytes 1+ (Not Present); Platelet Estimate Normal (Normal); Poikilocytosis 2+ (Not Present)
[2017-05-17 06:47] LABS: Anisocytosis 2+ (Not Present)
[2017-05-17] MEDS: Azithromycin 250 MG TABLET PO SCH (08:00)
[2017-05-17] MEDS: predniSONE 20 MG TABLET PO SCH (08:00)
[2017-05-17] MEDS: Gabapentin 400 MG CAPSULE PO SCH ×3 (08:00→21:34)
[2017-05-17] MEDS: Cyanocobalamin (B-12) 1,000 MCG TABLET PO SCH (08:00)
[2017-05-17] MEDS ORDERED: Pomalidomide [Pomalyst] 2 MG PO SCH (09:00)
[2017-05-17] MEDS ORDERED: levoFLOXacin 250 MG TABLET PO SCH (09:00)
[2017-05-17] MEDS ORDERED: FERROUS SULFATE 65 MG PO SCH (09:00)
[2017-05-17 14:41] LABS: Adenovirus Not Detected (Not Detect); Bordetella Pertussis Not Detected (Not Detect); Chlamydophila pneumoniae Not Detected (Not Detect); Coronavirus 229E Not Detected (Not Detect); Coronavirus HKU1 Not Detected (Not Detect); Coronavirus NL63 Not Detected (Not Detect); Coronavirus OC43 Not Detected (Not Detect); Human Metapneumovirus Not Detected (Not Detect); Human Rhinovirus/Enterovirus Not Detected (Not Detect); Influenza A Subtype 2009 H1 Not Detected (Not Detect); Influenza A Untypeable Not Detected (Not Detect); Influenza B Not Detected (Not Detect); Mycoplasma pneumoniae Not Detected (Not Detect); Parainfluenza Virus 1 Not Detected (Not Detect); Parainfluenza Virus 2 Not Detected (Not Detect); Parainfluenza Virus 3 Not Detected (Not Detect); Parainfluenza Virus 4 Not Detected (Not Detect); Respiratory Syncytial Virus Not Detected (Not Detect)
[2017-05-17] MEDS: *HR* Rivaroxaban 15 MG TABLET PO SCH (16:12)
--- NOTE | 2017-05-17 16:24 | Internal Med Progress Note ---
Date of Encounter: 05/17/17 Time of Encounter: 09:30 - Assessment and plan (1) Viral syndrome Current Visit: Yes Status: Acute Assessment and plan: Presented with fever, tachycardia, cough and congestion. Improving. Respiratory viral panel positive for influenza A H3. Will start Tamiflu. Continue supportive care and supplemental oxygen. (2) SIRS (systemic inflammatory response syndrome) Current Visit: Yes Status: Resolved Assessment and plan: Had fever and tachycardia due to viral infection, currently resolved. (3) Pulmonary embolism Current Visit: Yes Status: Chronic Assessment and plan: Patient has history of pulmonary embolism, unclear timeline. Noted to be on Xarelto, continue. Qualifiers: Pulmonary embolism type: other Chronicity: chronic Acute cor pulmonale presence: without acute cor pulmonale Qualified Code(s): I27.82 - Chronic pulmonary embolism (4) COPD (chronic obstructive pulmonary disease) Current Visit: Yes Status: Acute Assessment and plan: Improving. Continue bronchodilators, oral steroids, supplemental oxygen as needed. Qualifiers: COPD type: COPD with acute exacerbation Qualified Code(s): J44.1 - Chronic obstructive pulmonary disease with (acute) exacerbation (5) Dementia Current Visit: Yes Status: Chronic Qualifiers: Dementia type: Alzheimer's disease Alzheimer's disease onset: late-onset Dementia behavioral disturbance: without behavioral disturbance Qualified Code (s): G30.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; F02.80 - Dementia in other diseases classified elsewhere without behavioral disturbance; F02.80 - Dementia in other diseases classified elsewhere without behavioral disturbance; F02.80 - Dementia in other diseases classified elsewhere without behavioral disturbance (6) HTN (hypertension) Current Visit: Yes Status: Chronic Qualifiers: Hypertension type: essential hypertension Qualified Code(s): I10 - Essential (primary) hypertension (7) Chronic kidney disease, stage III (moderate) Current Visit: Yes Status: Chronic Assessment and plan: Serum creatinine and GFR are noted to be at baseline. (8) Multiple myeloma Current Visit: Yes Status: Chronic Qualifiers: Multiple myeloma remission status: not in remission Qualified Code(s): C90.00 - Multiple myeloma not having achieved remission - Subjective Interval history: Feels better today. Improving cough, congestion, fever, chills. No shortness of breath, palpitations. No sick contacts at home. - Constitutional Vitals: Temp Pulse Resp BP Pulse Ox 97.5 F L 110 19 125/55 98 05/17/17 11:22 05/17/17 11:22 05/17/17 15:35 05/17/17 11:22 05/17/17 15:35 General appearance: Present: A&O X 3, answers questions appropriately - Respiratory Respiratory exam: Present: CTAB (Coarse breath sounds bilaterally. No active wheezing.). Absent: accessory muscle use, rales, rhonchi, wheezes - Cardiovascular Cardiovascular exam: Present: RRR, +S1, +S2. Absent: diastolic murmur, gallop, rubs, systolic murmur - GI/Abdominal GI/Abdominal exam: Present: normal bowel sounds, soft, no peritoneal signs. Absent: distended, tenderness - Extremities Exam Extremities exam: Present: full ROM, warm, radial pulses palpable and symmetrical. Absent: calf tenderness, cyanotic, pedal edema - Neurological Exam Neurological exam: Present: CN II-XII intact, oriented X3, no focal deficits. Absent: pronater drift, facial droop, speech deficit Internal Medicine: Result - Labs CBC & Chem 7: 05/17/17 05:00 05/17/17 05:00 - ABG Interpretation ABG results: PT/INR, D-dimer PT 13.0 Seconds (9.4-12.1) H 05/16/17 06:50 Consult Discharge Plan - Plan Referrals: Laine Stauffer MD [Primary Care Provider] - (web request 05/17/2017)
[2017-05-17] MEDS: Oseltamivir Phosphate 30 MG CAPSULE PO SCH (21:34)
[2017-05-18] MEDS: Ipratropium/Albuterol Neb 3 ML IH SCH ×7 (04:23→23:54)
[2017-05-18] MEDS: Oseltamivir Phosphate 30 MG CAPSULE PO SCH ×2 (08:51→19:56)
[2017-05-18] MEDS: Azithromycin 250 MG TABLET PO SCH (08:51)
[2017-05-18] MEDS: Cyanocobalamin (B-12) 1,000 MCG TABLET PO SCH (08:51)
[2017-05-18] MEDS: Gabapentin 400 MG CAPSULE PO SCH ×3 (08:51→19:56)
[2017-05-18] MEDS: predniSONE 20 MG TABLET PO SCH (08:52)
[2017-05-18] MEDS ORDERED: Benzocaine 20% 9 GM GEL..GRAM. TP PRN (12:19)
--- NOTE | 2017-05-18 15:20 | Internal Med Progress Note ---
Date of Encounter: 05/18/17 Time of Encounter: 10:00 - Assessment and plan (1) Viral syndrome Current Visit: Yes Status: Acute Assessment and plan: Presented with fever, tachycardia, cough and congestion. Improved. Respiratory viral panel positive for influenza A H3. Continue Tamiflu. Continue supportive care and supplemental oxygen. (2) SIRS (systemic inflammatory response syndrome) Current Visit: Yes Status: Resolved (3) Pulmonary embolism Current Visit: Yes Status: Chronic Assessment and plan: Patient has history of pulmonary embolism, unclear chronicity. Noted to be on Xarelto, continue. Qualifiers: Pulmonary embolism type: other Chronicity: chronic Acute cor pulmonale presence: without acute cor pulmonale Qualified Code(s): I27.82 - Chronic pulmonary embolism (4) COPD (chronic obstructive pulmonary disease) Current Visit: Yes Status: Acute Assessment and plan: Improving. Continue bronchodilators, oral steroids, supplemental oxygen as needed. Qualifiers: COPD type: COPD with acute exacerbation Qualified Code(s): J44.1 - Chronic obstructive pulmonary disease with (acute) exacerbation (5) Dementia Current Visit: Yes Status: Chronic Assessment and plan: Patient is noted to be intermittently confused and requiring 1 L/m supplemental oxygen via nasal cannula. We will consult physical and occupational therapy for evaluation, neonatal social worker for safety discharge. Anticipate discharge in a.m. Supportive care and fall precautions. Qualifiers: Dementia type: Alzheimer's disease Alzheimer's disease onset: late-onset Dementia behavioral disturbance: without behavioral disturbance Qualified Code (s): G30.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; F02.80 - Dementia in other diseases classified elsewhere without behavioral disturbance; F02.80 - Dementia in other diseases classified elsewhere without behavioral disturbance; F02.80 - Dementia in other diseases classified elsewhere without behavioral disturbance (6) HTN (hypertension) Current Visit: Yes Status: Chronic Qualifiers: Hypertension type: essential hypertension Qualified Code(s): I10 - Essential (primary) hypertension (7) Chronic kidney disease, stage III (moderate) Current Visit: Yes Status: Chronic Assessment and plan: Serum creatinine and GFR are noted to be at baseline. (8) Multiple myeloma Current Visit: Yes Status: Chronic Qualifiers: Multiple myeloma remission status: not in remission Qualified Code(s): C90.00 - Multiple myeloma not having achieved remission - Subjective Interval history: Reports feeling better. Continues to have intermittent coughing bouts, no fever , chills, shortness of breath, chest pain. Noted to be intermittently confused. - Constitutional Vitals: Temp Pulse Resp BP Pulse Ox 99.0 F 93 20 146/69 99 05/18/17 11:38 05/18/17 11:38 05/18/17 11:49 05/18/17 11:38 05/18/17 11:49 General appearance: Present: A&O X 3, answers questions appropriately - Respiratory Respiratory exam: Present: CTAB (Coarse breath sounds bilaterally, no wheezing) . Absent: accessory muscle use, rales, rhonchi, wheezes - Cardiovascular Cardiovascular exam: Present: RRR, +S1, +S2. Absent: diastolic murmur, gallop, rubs, systolic murmur - GI/Abdominal GI/Abdominal exam: Present: normal bowel sounds, soft, no peritoneal signs. Absent: distended, tenderness Internal Medicine: Result - Labs CBC & Chem 7: 05/17/17 05:00 05/17/17 05:00 - ABG Interpretation ABG results: PT/INR, D-dimer PT 13.0 Seconds (9.4-12.1) H 05/16/17 06:50 Consult Discharge Plan - Plan Referrals: Laine Stauffer MD [Primary Care Provider] - (web request 05/17/2017)
[2017-05-18] MEDS: *HR* Rivaroxaban 15 MG TABLET PO SCH (17:06)
[2017-05-19] MEDS: Ipratropium/Albuterol Neb 3 ML IH SCH ×3 (04:24→11:15)
[2017-05-19] MEDS: Cyanocobalamin (B-12) 1,000 MCG TABLET PO SCH (09:26)
[2017-05-19] MEDS: Azithromycin 250 MG TABLET PO SCH (09:26)
[2017-05-19] MEDS: Gabapentin 400 MG CAPSULE PO SCH ×2 (09:26→14:31)
[2017-05-19] MEDS: predniSONE 20 MG TABLET PO SCH (09:26)
[2017-05-19] MEDS: Oseltamivir Phosphate 30 MG CAPSULE PO SCH (09:26)
[2017-05-19 12:00] VITALS: BP 134/73
--- NOTE | 2017-05-19 13:31 | Discharge Summary ---
Date of Encounter: 05/19/17 Time of Encounter: 10:45 - Discharge Diagnosis (1) SIRS (systemic inflammatory response syndrome) Priority: Primary Status: Resolved (2) Pulmonary embolism Priority: Secondary Status: Chronic Qualifiers: Pulmonary embolism type: other Chronicity: chronic Acute cor pulmonale presence: without acute cor pulmonale Qualified Code(s): I27.82 - Chronic pulmonary embolism (3) COPD (chronic obstructive pulmonary disease) Priority: Primary Status: Acute Qualifiers: COPD type: COPD with acute exacerbation Qualified Code(s): J44.1 - Chronic obstructive pulmonary disease with (acute) exacerbation (4) Dementia Priority: Secondary Status: Chronic Qualifiers: Dementia type: Alzheimer's disease Alzheimer's disease onset: late-onset Dementia behavioral disturbance: without behavioral disturbance Qualified Code (s): G30.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; F02.80 - Dementia in other diseases classified elsewhere without behavioral disturbance; F02.80 - Dementia in other diseases classified elsewhere without behavioral disturbance; F02.80 - Dementia in other diseases classified elsewhere without behavioral disturbance (5) HTN (hypertension) Priority: Secondary Status: Chronic Qualifiers: Hypertension type: essential hypertension Qualified Code(s): I10 - Essential (primary) hypertension (6) Chronic kidney disease, stage III (moderate) Priority: Secondary Status: Chronic (7) Multiple myeloma Priority: Secondary Status: Chronic Qualifiers: Multiple myeloma remission status: not in remission Qualified Code(s): C90.00 - Multiple myeloma not having achieved remission (8) Influenza A Priority: Primary Status: Acute - Discharge Medications Prescriptions: Azithromycin [Zithromax] 250 mg PO DAILY #3 tablet Oseltamivir Phosphate [Tamiflu] 30 mg PO BID #6 capsule predniSONE [PredniSONE] 40 mg PO DAILY #14 tablet Home Medications: ALPRAZolam [Xanax 1 MG Tablet] 1 mg PO BID PRN 11/24/14 [History] Ferrous Sulfate 65 mg PO DAILY 11/24/14 [History] Cyanocobalamin (Vitamin B-12) [B-12] 2,500 mcg PO DAILY 12/01/14 [History] traMADol [Ultram] 25 mg PO BID 11/09/15 [History] Gabapentin [Neurontin] 800 mg PO TID #90 tablet 01/20/17 [Rx] Rivaroxaban [Xarelto] 15 mg PO DAILY #30 tablet 01/21/17 [Rx] Pomalidomide [Pomalyst] 2 mg PO DAILY #21 capsule 04/25/17 [Rx] Ondansetron HCl [Zofran] 4 mg PO Q6H PRN #40 tablet 05/12/17 [Rx] Prochlorperazine Maleate [Compazine] 10 mg PO Q6HR PRN #40 tablet 05/12/17 [Rx] Triamterene/HCTZ 37.5/25mg [Dyazide] 1 cap PO DAILY 05/16/17 [History] Azithromycin [Zithromax] 250 mg PO DAILY #3 tablet 05/19/17 [Rx] Oseltamivir Phosphate [Tamiflu] 30 mg PO BID #6 capsule 05/19/17 [Rx] predniSONE [PredniSONE] 40 mg PO DAILY #14 tablet 05/19/17 [Rx] Allergies/Adverse Reactions: 3 Allergy/AdvReac Type Severity Reaction Status Date / Time codeine AdvReac Gastrointestinal Verified 05/16/17 08:03 Upset Oxycodone AdvReac Gastrointestinal Verified 05/16/17 08:03 Upset Date of admission: 05/17/17 09:50 Primary care physician: Laine Stauffer Consults: 05/18/17 10:36 Consult to Occupational Therapy [CONS] Routine Comment: Evaluate, develop and implement POC Reason for Consult: Weakness, Influenza Consult to Physical Therapy [CONS] Routine Comment: Evaluate, develop and implement POC Reason for Consult: Weakness, Influenza Consult to Bulk Gas Specialist [CONS] Routine Reason for SW Consult: Weakness, Influenza; occasionally confused, safe d/c plan Discharging clinician: Lore Llanes Anticipated date of discharge: 05/19/17 - Patient Status Disposition: Home, Self-Care Condition: Fair Functional capacity at discharge: independent ambulation Overall status at discharge: patient is progressing back to baseline - Discharge Instructions Instructions: Chronic Obstructive Pulmonary Disease (DC) Follow Up With: Laine Stauffer MD [Primary Care Provider] - 05/26/17 1:45 pm () Additional Instructions: F/up with PCP in 1-2 weeks - Diet and Activity Activity: resume usual activities as tolerated Diet: low fat, low cholesterol, low salt diet, other (renal diet) Hospital course: Ms. Joiner is a 81 year old female with the above medical problems, who was admitted with fever, cough, congestion and flu-like symptoms. Chest XRay and CT chest showed no e/o- consolidative Pneumonia, had bibasilar atelectasis. She had fever and tachycardia and met SIRS criteria, no other evidence of infection. SHe was started on bronchodilators, Azithromycin, oral steroids, and supplemental O2. Blood cultures remained negative. Respiratory viral panel was positive for Influenza A H3 and she was started on Tamiflu. She gradually improved with stable vitals and no longer required supplemental o2 ; did not qualify for home O2. She had underlying dementia and could not answer appropriately and was confused intermittently. professional services manager has been on board and she is deemed safe for discharge home with her daughter. - Time Spent with Patient Total time spent providing and/or coordinating discharge services: Greater than 30 minutes (45 min) - Constitutional Vitals: Temp Pulse Resp BP Pulse Ox 98.7 F 93 14 134/73 96 05/19/17 11:54 05/19/17 11:54 05/19/17 11:54 05/19/17 11:54 05/19/17 11:54 General appearance: Present: A&O X 3, answers questions appropriately - Respiratory Respiratory exam: Present: CTAB (coarse breath sounds and mild wheezing B/L). Absent: accessory muscle use, rales, rhonchi, wheezes
== END 2017-05-19 14:52 | disposition home or self-care (01) | DRG 191 ==
LOC: 2ANU 06:23 → EMEROO 06:23 → SUATTDRO 11:49 → 2ANU 12:38
PROVIDERS: ADMIT Internal Medicine; ATTEND Internal Medicine

== ENCOUNTER 2017-08-31 10:49 | Inpatient (IN) ==
[2017-08-31] MEDS ORDERED: 0.9 % Sodium Chloride 1,000 ML IVC ONE (11:09)
[2017-08-31] MEDS ORDERED: Isovue-370 500 ML INFUS..BTL IV ONE (11:11)
--- NOTE | 2017-08-31 11:16 | Emergency Department Note ---
Disposition Clinical Impression: Pneumonia, Ovarian cyst, complex, Abdominal pain Disposition: Admitted As Inpatient Condition: Fair Referrals: Laine Stauffer MD [Primary Care Provider] - Forms: ED Satisfaction Letter, Work/School Release Time of Disposition: 13:39 Abdominal Pain HPI - General Chief Complaint: ED Abdominal Pain Stated Complaint: flank pain Time Seen by Provider: 08/31/17 10:58 Source: patient, family, EMS Mode of arrival: ambulatory Limitations: no limitations Nursing Notes Reviewed: Yes Vital Signs Reviewed: Yes - History of Present Illness HPI Narrative: 81-year-old female presents emergency Department with concerns of altered mental status, weakness and fatigue. Family states symptoms have started within the past 24 hours and have progressively worsened. Patient is unable to give a history regarding her case presentation and due to her altered mental status, weakness and fatigue. Family states patient is usually alert and oriented and ambulatory without difficulty. Patient has not had a recent trauma per the family no recent medication changes. Family describes a nonproductive cough and the patient was satting 88-89% in the emergency department. Family also states the patient had complained of abdominal pain however patient is unable to localize the pain on the exam. Pain Scale: 4 - Related Data Home Medications Medication Instructions Recorded Confirmed ALPRAZolam [Xanax 1 MG Tablet] 1 mg PO BID PRN 11/24/14 07/28/17 Ferrous Sulfate 325 mg PO DAILY 11/24/14 07/28/17 Cyanocobalamin (Vitamin B-12) 2,500 mcg PO DAILY 12/01/14 07/28/17 [B-12] traMADol [Ultram] 25 mg PO BID 11/09/15 07/28/17 Triamterene/HCTZ 37.5/25mg 1 cap PO DAILY 05/16/17 07/28/17 [Dyazide] Albuterol Sulfate [Albuterol 2 puff IH Q6HR PRN 07/28/17 07/28/17 Inhaler] Previous Rx's Medication Instructions Recorded Ondansetron HCl [Zofran] 4 mg PO Q6H PRN #40 tablet 05/12/17 Prochlorperazine Maleate 10 mg PO Q6HR PRN #40 tablet 05/12/17 [Compazine] Pomalidomide [Pomalyst] 2 mg PO DAILY #21 capsule 05/23/17 Rivaroxaban [Xarelto] 15 mg PO DAILY #30 tablet 07/28/17 Allergies Allergy/AdvReac Type Severity Reaction Status Date / Time codeine AdvReac Gastrointestinal Verified 07/28/17 13:21 Upset Oxycodone AdvReac Gastrointestinal Verified 07/28/17 13:21 Upset All systems ED: reviewed and negative except as stated. Review of Systems: As Per HPI Abdominal Pain PMH - Past Medical History Medical history: Reports: cancer, COPD, DVT, dementia, GERD, hyperlipidemia, hypertension, osteoporosis, renal disease, other Female Surgical History: Reports: appendectomy, other Psychiatric history: Reports: no psych history - Social History Smoking status: Former smoker Alcohol use: Reports: none Drug use: Reports: none Physical Exam General: Responds to questions in single word answers, keeps her eyes closed during the exam Skin: Warm, dry, intact Head: Normocephalic and atraumatic Neck: Supple, trachea midline and no tenderness Cardiovascular: Tachycardic, normal perfusion Respiratory: Wheezing present in the bilateral posterior lung yanes Musculoskeletal: Normal strength, no tenderness, swelling or deformity GI: Soft, mild tenderness to palpation in the generalized abdomen without localization, rigidity, guarding, or rebound. Bowel sounds present Neuro: Patient moving all extremities however she is unable to perform a full neurologic exam - General Limitations: altered mental status General appearance: alert, in no apparent distress Course Vital Signs Temperature 100.5 F H 08/31/17 10:56 Pulse Rate 110 08/31/17 10:56 Respiratory Rate 22 08/31/17 10:56 Blood Pressure 113/62 08/31/17 10:56 O2 Sat by Pulse Oximetry 87 08/31/17 10:56 Temperature 100.5 F H 08/31/17 10:56 Pulse Rate 97 08/31/17 13:15 Respiratory Rate 20 08/31/17 13:15 Blood Pressure 116/65 08/31/17 13:15 O2 Sat by Pulse Oximetry 96 08/31/17 13:15 Oxygen Delivery Oxygen Delivery Nasal Cannula Abdominal Pain - Medical Records Medical records reviewed: Yes I reviewed the patient's medical records. - Lab Data Lab results reviewed: Yes I reviewed the patient's lab results. Result diagrams: 08/31/17 11:40 08/31/17 11:09 Lab Results 05/13/18 05/13/18 05/13/18 Range/Units 11:09 11:22 11:40 WBC 10.8 (4.3-11.1) K/mcL RBC 4.09 (3.82-4.97) M/mcL Hgb 11.0 L (11.5-15.4) g/dL Hct 35.3 (35.3-44.9) % MCV 86.3 (83.0-100.0) fL MCH 26.9 L (28.0-33.3) pg MCHC 31.2 L (31.6-35.5) g/dL RDW 15.9 H (11.5-14.5) % Plt Count 171 (140-400) K/mcL MPV 12.7 H (9.4-12.4) fL Seg Neutrophils % 60.0 % Band Neutrophils % 20.0 H (0-4) % Lymphocytes % 16.0 % Monocytes % 4.0 % Neutrophils # 8.6 (1.6-8.9) K/mcL Lymphocytes # 1.7 (0.6-4.6) K/mcL Monocytes # 0.4 (0.0-1.3) K/mcL Platelet Estimate Normal (Normal) Ovalocytes 1+ A (Not Present) PT (9.4-12.1) Seconds INR APTT (26.0-36.0) Seconds Sodium 139 (136-145) mEq/L Potassium 4.7 (3.5-5.1) mEq/L Chloride 108 H (98-107) mEq/L Carbon Dioxide 23 (23-29) mEq/L BUN 45 H (8-23) mg/dL Creatinine 2.16 H (0.60-1.20) mg/dL Est GFR ( Amer) 27 L (> 60) Est GFR (Non-Af Amer) 22 L (> 60) BUN/Creatinine Ratio 21 (6-26) Glucose 122 H (70-105) mg/dL Calculated Osmolality 301 H (280-300) Lactic Acid (0.5-2.2) mmol/L Calcium 8.8 (8.6-10.3) mg/dL Total Bilirubin 0.8 (0.3-1.0) mg/dL AST 13 (13-39) Units/L ALT 6 L (7-52) Units/L Alkaline Phosphatase 49 (34-104) Units/L Troponin I < 0.03 (< 0.04) ng/mL Albumin 3.6 (3.5-5.7) g/dL Urine Color Yellow (Yellow) Urine Clarity Clear (Clear) Urine pH 6.0 (5.0-8.0) pH Units Ur Specific [place] 1.019 (1.010-1.025) Urine Protein Trace (Neg-Trace) mg/dL Urine Glucose (UA) Normal (Normal) mg/dL Urine Ketones Negative (Negative) mg/dL Urine Blood Negative (Negative) Urine Nitrite Negative (Negative) Urine Bilirubin Negative (Negative) Urine Urobilinogen Normal (Normal) mg/dL Ur Leukocyte Esterase Negative (Negative) Urine Microscopic RBC 0-3 (0-3) per hpf Urine Microscopic WBC 0-3 (0-3) per hpf Ur Squamous Epith Cells Moderate H (None-Few) per lpf Urine Bacteria None Seen (None-Few) per hpf Hyaline Casts None Seen (None-Few) per lpf Ur Culture Indicated? NO (NO) 08/31/17 08/31/17 Range/Units 11:40 11:40 WBC (4.3-11.1) K/mcL RBC (3.82-4.97) M/mcL Hgb (11.5-15.4) g/dL Hct (35.3-44.9) % MCV (83.0-100.0) fL MCH (28.0-33.3) pg MCHC (31.6-35.5) g/dL RDW (11.5-14.5) % Plt Count (140-400) K/mcL MPV (9.4-12.4) fL Seg Neutrophils % % Band Neutrophils % (0-4) % Lymphocytes % % Monocytes % % Neutrophils # (1.6-8.9) K/mcL Lymphocytes # (0.6-4.6) K/mcL Monocytes # (0.0-1.3) K/mcL Platelet Estimate (Normal) Ovalocytes (Not Present) PT 16.4 H (9.4-12.1) Seconds INR 1.5 APTT 28.1 (26.0-36.0) Seconds Sodium (136-145) mEq/L Potassium (3.5-5.1) mEq/L Chloride (98-107) mEq/L Carbon Dioxide (23-29) mEq/L BUN (8-23) mg/dL Creatinine (0.60-1.20) mg/dL Est GFR ( Amer) (> 60) Est GFR (Non-Af Amer) (> 60) BUN/Creatinine Ratio (6-26) Glucose (70-105) mg/dL Calculated Osmolality (280-300) Lactic Acid 0.9 (0.5-2.2) mmol/L Calcium (8.6-10.3) mg/dL Total Bilirubin (0.3-1.0) mg/dL AST (13-39) Units/L ALT (7-52) Units/L Alkaline Phosphatase (34-104) Units/L Troponin I (< 0.04) ng/mL Albumin (3.5-5.7) g/dL Urine Color (Yellow) Urine Clarity (Clear) Urine pH (5.0-8.0) pH Units Ur Specific [place] (1.010-1.025) Urine Protein (Neg-Trace) mg/dL Urine Glucose (UA) (Normal) mg/dL Urine Ketones (Negative) mg/dL Urine Blood (Negative) Urine Nitrite (Negative) Urine Bilirubin (Negative) Urine Urobilinogen (Normal) mg/dL Ur Leukocyte Esterase (Negative) Urine Microscopic RBC (0-3) per hpf Urine Microscopic WBC (0-3) per hpf Ur Squamous Epith Cells (None-Few) per lpf Urine Bacteria (None-Few) per hpf Hyaline Casts (None-Few) per lpf Ur Culture Indicated? (NO) - Radiology Data Radiology results reviewed: Yes I reviewed the patient's radiology results. - EKG Data EKG attestation: Yes I reviewed and interpreted this EKG.
[2017-08-31 11:35] LABS: Bilirubin,Urine Negative (Negative); Blood,Urine Negative (Negative); Clarity,Urine Clear (Clear); Color,Urine Yellow (Yellow); Glucose,Urine (UA) Normal (Normal); Ketones,Urine Negative (Negative); Leukocyte Esterase,Urine Negative (Negative); Nitrite,Urine Negative (Negative); Protein,Urine Trace mg/dL (Neg-Trace); Specific Gravity,Urine 1.019 (1.010-1.025); Urobilinogen,Urine Normal (Normal)
[2017-08-31 11:38] LABS: Bacteria,Urine None Seen per hpf (None-Few); Hyaline Casts,Urine None Seen per lpf (None-Few); RBC,Urine 0-3 per hpf (0-3); Squamous Epithelial Cell,Urine Moderate per lpf (None-Few); WBC,Urine 0-3 per hpf (0-3)
[2017-08-31 11:53] LABS: Hematocrit 35.3 % (35.3-44.9); Mean Corpuscular HGB Conc 31.2 g/dL (31.6-35.5); Mean Corpuscular Hemoglobin 26.9 pg (28.0-33.3); Mean Corpuscular Volume 86.3 fL (83.0-100.0); Mean Platelet Volume 12.7 fL (9.4-12.4); Platelet Count 171 K/mcL (140-400); Red Blood Count 4.09 M/mcL (3.82-4.97); Red Cell Distribution Width 15.9 % (11.5-14.5)
[2017-08-31 12:01] LABS: INR 1.5; Prothrombin Time 16.4 Seconds (9.4-12.1)
[2017-08-31 12:04] LABS: Activated Partial Thrombo Time 28.1 Seconds (26.0-36.0)
[2017-08-31 12:09] LABS: Alanine Aminotransferase 6 Units/L (7-52); Albumin 3.6 g/dL (3.5-5.7); Alkaline Phosphatase 49 Units/L (34-104); Aspartate Amino Transferase 13 Units/L (13-39); BUN/Creatinine Ratio 21 (6-26); Bilirubin,Total 0.8 mg/dL (0.3-1.0); Blood Urea Nitrogen 45 mg/dL (8-23); Calcium 8.8 mg/dL (8.6-10.3); Carbon Dioxide 23 mEq/L (23-29); Chloride 108 mEq/L (98-107); Glucose 122 mg/dL (70-105); Osmolality,Calculated 301 (280-300); Potassium 4.7 mEq/L (3.5-5.1); Sodium 139 mEq/L (136-145); Troponin I < 0.03 ng/mL (< 0.04); eGFR For African Americans 27 (> 60); eGFR For Non-African Americans 22 (> 60)
[2017-08-31 12:24] LABS: Lymphocytes # 1.7 K/mcL (0.6-4.6); Monocytes # 0.4 K/mcL (0.0-1.3); Neutrophils # 8.6 K/mcL (1.6-8.9); Platelet Estimate Normal (Normal)
[2017-08-31 12:27] LABS: Ovalocytes 1+ (Not Present)
[2017-08-31] MEDS ORDERED: Acetaminophen 325 MG TABLET PO ONE (12:46)
[2017-08-31] MEDS ORDERED: Cefepime HCl 2,000 MG in Water for inj. (sterile) 20 ML 20 ML IVP STA (12:47)
[2017-08-31] MEDS ORDERED: Azithromycin 500 MG in D5% in Water 250 ML IVPB STA (12:47)
[2017-08-31] MEDS ORDERED: Vancomycin 1,000 MG in D5% in Water 250 ML IVPB ONE (12:47)
[2017-08-31 16:36] LABS: Albumin/Globulin Ratio 1.4 (1.1-2.2); Bilirubin,Direct 0.1 mg/dL (0.0-0.2); Bilirubin,Indirect 0.7 mg/dL (0.0-1.2); Globulin 2.5 g/dL (2.4-3.5); Lipase 9 Units/L (11-82); Total Protein 6.1 g/dL (6.4-8.9)
[2017-08-31] MEDS ORDERED: Acetaminophen 325 MG TABLET PO PRN (16:36)
[2017-08-31] MEDS ORDERED: Naloxone 0.4 MG/ML INJ IVP PRN (16:36)
[2017-08-31] MEDS ORDERED: Vancomycin 500 MG in 0.9 % Sodium Chloride Mini Bag 100 ML IVPB ONE ×2 (17:00→18:30)
[2017-08-31] MEDS ORDERED: traMADol 50 MG TABLET PO PRN (17:04)
[2017-08-31] MEDS: Levofloxacin 750 MG/150 ML 750 MG/150 ML BAG IVPB SCH (18:31)
--- NOTE | 2017-08-31 18:40 | Internal Med History&Physical ---
<NileshJose Manuel - Last Filed: 08/31/17 22:23> Date of Encounter: 08/31/17 Time of Encounter: 15:30 Internal Medicine - H&P: HPI Chief complaint: Abdominal pain/SOB/Cough Admitted From: Emergency Dept Plans for Post Hospital Care: Home History of present illness: Ms. Joiner is a 81 year old female w/PMH of multiple myeloma, COPD, DVT, dementia , GERD, HLD, HTN, osteoporosis, and CK D presents from the ED with chief complaint of abdominal pain, shortness of breath, and cough for the past 2-3 days that has become progressively worse. No alleviating factors. SOB worse w/ exertion. Patient daughter reports fever yesterday, reduced oral intake of food and fluids, and increasing generalized weakness. Patient's family reports the patient was in the ED prior to [facility] for similar sx. Pt. denies recent illness , chills, nausea, vomiting, diarrhea, constipation, headache, changes in vision , unusual bleeding, dizziness, lightheadedness, pre-syncope, or syncope. Past Med Surg Social Fam HX - Past Medical History Source: patient, old records reviewed, obtained from family Medical history: cancer (Multiple myeloma), COPD, DVT, dementia, GERD, hyperlipidemia, hypertension, osteoporosis, renal disease, other Psychiatric history: no psych history - Past Surgical History Surgical History: appendectomy, other - Social History Smoking Status: Former smoker Packs per day: 1 PPD - Reports quitting in 2001 Smokeless Tobacco Status: No Alcohol use: none Drug use: none Current living situation: Home, With Family Activity Level: Independent ambulation, Uses cane/walker Recent Out of Country Travel Within the Last 8 Weeks: No Exposure or Possible Exposure to Illness During Travel: No - Family History Mother Adopted: No Family Member Ethnicity: Non- Living Status: Age at : 93 Cause of : Old age - in sleep Hx Family Neurologic Disorders: Yes (Alzhemer's disease) Father Family Member Ethnicity: Non- Living Status: Age at : 80 Cause of : Pneumonia Hx Family Cardiac Disorders: Yes (CVA) Hx Family Neurologic Disorders: Yes (CVA) Brother Family Member Ethnicity: Non- Living Status: Still Living Hx Family Medical Disorders: No Internal Medicine - H&P: Meds ALPRAZolam [Xanax 1 MG Tablet] 1 mg PO BID PRN 11/24/14 [History] Triamterene/HCTZ 37.5/25mg [Dyazide] 1 cap PO DAILY 05/16/17 [History] Rivaroxaban [Xarelto] 15 mg PO DAILY #30 tablet 07/28/17 [Rx] Cyanocobalamin (Vitamin B-12) [Vitamin B-12] 2,500 mcg SL DAILY 08/31/17 [ History] Ferrous Sulfate 325 mg PO DAILY 08/31/17 [History] HYDROcodone/Acet 5/325 mg [[place] 5-325 mg] 1 tab PO Q6H PRN 08/31/17 [History] Tramadol HCl [Ultram] 50 mg PO BID PRN 08/31/17 [History] 3 Allergy/AdvReac Type Severity Reaction Status Date / Time codeine AdvReac Gastrointestinal Verified 08/31/17 15:12 Upset Oxycodone AdvReac Gastrointestinal Verified 08/31/17 15:12 Upset All Systems PM: A 10-system review of systems was performed and is negative for pertinent findings except as documented above in the HPI. - Constitutional Constitutional: as per HPI, anorexia, weakness, no chills, no fever(s), no night sweats - EENT Eyes: no change in vision, no discharge, no pain, no photophobia Ears: no ear discharge, no ear pain, no tinnitus Nose, mouth and throat: no dysphagia, no nasal discharge, no neck pain, no sore throat - Breasts Breasts: as per HPI - Cardiovascular Cardiovascular ROS IM: as per HPI, dyspnea, dyspnea on exertion, no chest pain, no diaphoresis, no lightheadedness, no palpitations, no syncope - Respiratory Respiratory: as per HPI, cough, dyspnea, dyspnea on exertion, wheezing, chest congestion, change in phlegm color, no excessive phlegm production - Gastrointestinal Gastrointestinal: as per HPI, abdominal pain, nausea, no diarrhea, no hematemesis, no hematochezia, no melena, no vomiting - Genitourinary Genitourinary: no change in urinary stream, no dysuria, no flank pain, no hematuria Menstruation: as per HPI - Musculoskeletal Musculoskeletal ROS IM: no numbness, no tingling - Integumentary Integumentary IM: no rash, no unusual bruising - Neurological Neurological ROS: no confusion, no convulsions, no focal weakness, no numbness, no tingling, no tremor(s) - Psychiatric Psychiatric: as per HPI - Endocrine Endocrine IM: as per HPI - Hematologic/Lymphatic Hematologic/Lymphatic: no easy bruising - Allergic/Immunologic Allergic/Immunologic: as per HPI - Constitutional Vitals: Temp Pulse Resp BP Pulse Ox 98.1 F 78 18 92/53 96 08/31/17 16:02 08/31/17 16:02 08/31/17 16:02 08/31/17 16:02 08/31/17 16:02 General appearance: Present: cooperative, A&O X 3, pleasant, no acute distress, answers questions appropriately - Head Head exam: Present: atraumatic, normocephalic - Eye Eye exam: Present: PERRL, conjuntiva pink, sclera anicteric Pupils: Present: PERRL - ENT ENT exam: Present: normal exam - Neck Neck exam general surgery: Present: supple, trachea midline. Absent: lymphadenopathy - Respiratory Respiratory exam: Present: decreased breath sounds, wheezes. Absent: accessory muscle use, rales, rhonchi - Cardiovascular Cardiovascular exam: Present: RRR, +S1, +S2. Absent: diastolic murmur, gallop, rubs, systolic murmur - GI/Abdominal GI/Abdominal exam: Present: normal bowel sounds, soft, no peritoneal signs. Absent: distended, tenderness - Rectal Rectal exam: Present: deferred - Additional comments: exam deferred. - Extremities Exam Extremities exam: Present: warm, radial pulses palpable and symmetrical. Absent : calf tenderness, cyanotic, pedal edema - Back Exam Back exam: Present: normal inspection - Neurological Exam Neurological exam: Present: CN II-XII intact, oriented X3, no focal deficits. Absent: pronater drift, facial droop, speech deficit - Psychiatric Psychiatric exam: Present: normal affect, normal mood - Skin Skin exam: Present: dry, intact Internal Med - H&P Results - Labs CBC & Chem 7: 08/31/17 11:40 08/31/17 11:09 Labs: Cardiac Enzymes 08/31/17 Range/Units 17:14 Troponin I < 0.03 (< 0.04) ng/mL - Diagnostic Studies Chest x-ray Additional comments: Impressions Chest X-Ray 08/31/17 11:11 IMPRESSION: 1. New bilateral perihilar and basilar airspace opacities suspicious for pneumonia. Edema could appear similar. 2. Pulmonary vascular congestion. 3. Suspicion for trace bilateral pleural effusions. D/ / Derek Zambrano MD / Derek Zambrano MD Interpreting Provider: Derek Zambrano MD CT scan - abdomen Additional comments: Impressions Abdomen/Pelvis CT 08/31/17 11:11 IMPRESSION: Moderate to severe bibasilar airspace opacity with consolidation most compatible with bibasilar pneumonia. Mild to moderate diverticulosis throughout the colon especially sigmoid region but no definite evidence for diverticulitis. Enlarged right ovary with multiple cystic changes in the right adnexa new from 2014. Possibility of ovarian malignancy cannot be excluded and further evaluation with pelvic ultrasound is recommended. 50% compression fracture T12 vertebral body new from 2014 although the exact age and etiology is indeterminate. Moderate to severe osteopenia suggests osteoporosis. Cholelithiasis without definite evidence to suggest acute cholecystitis. Multiple water density cyst-like masses within the kidneys bilaterally which cannot be further characterize without contrast but likely represent cysts. 2 cm low-density within the medial spleen increased in size from 2014. This could represent cyst but other pathology including malignancy cannot be completely excluded. RECOMMENDATIONS: Nonurgent follow-up pelvic ultrasound to evaluate right ovary and multi cystic right adnexal changes. D/ / Jose Manuel Vaca MD / Jose Manuel Vaca MD Interpreting Provider: Jose Manuel Vaca MD - Assessment and plan (1) HCAP (healthcare-associated pneumonia) Current Visit: Yes Status: Acute Assessment and plan: Acute HCAP. Pt. at hospital prior to . Reports increasing SOB, cough, and dyspnea. Fever yesterday. Pt. reports cough w/yellow sputum production. IVPB Cefepime 1,000 mg Q24HR, Levaquin 750 mg Q48HR, and Vancomycin w/Pharmacy dosing for renal dysfunction ordered for infection coverage. Blood cultures 2 ordered. Sputum culture. Legionella and Pneumoniae antigens ordered. Respiratory infection panel ordered. DuoNeb's every 6 hours scheduled. Mucinex for cough. Supplemental O2 with titration and SPO2 monitoring. Will adjust abx coverage based on culture and panel results. Pt. is not currently sepsis criteria but pt. and f/u labs to be monitored closely for signs of increasing infection. Pt. discussed w/Dr. Camara who agrees w/plan of care. Pt. is high risk for further morbidity and infection based on current SOB/dyspnea, Pneumonia on imaging, poor food/fluid intake, hx, and risk factors. Inpatient. (2) Abdominal pain Current Visit: Yes Status: Acute Assessment and plan: Acute and generalized abdominal pain. CT of the abd/pel today shows mild to moderate diverticulosis throughout the colon especially sigmoid region but no definitive evidence for diverticulitis. IVP Zofran 4 mg Q6HR PRN for N/V. IVP Protonix 40 mg daily for GERD. Qualifiers: Abdominal location: generalized Qualified Code(s): R10.84 - Generalized abdominal pain (3) Loss of appetite Current Visit: Yes Status: Acute Assessment and plan: Acute loss of appetite for the past week. PTs. family reports reduced food/ fluid intake. Nutrition consult ordered for PO supplementation. Monitor I&O and daily weight. (4) Dyspnea Current Visit: Yes Status: Acute Assessment and plan: Acute dyspnea and SOB d/t current pneumonia dx. Pt. also has hx of COPD. DuoNebs Q6HR scheduled w/flutter valve. Mucinex for cough. Supplemental O2 w/ titration and SpO2 monitoring. Qualifiers: Dyspnea type: unspecified Qualified Code(s): R06.00 - Dyspnea, unspecified (5) Ovarian cyst, complex Current Visit: Yes Status: Acute Assessment and plan: Acute ovarian cyst. CT of abdomen and pelvis today shows enlarged right ovary with multiple cystic changes in the right adnexa new from 2015. Possibility of ovarian malignancy cannot be excluded and further evaluation with pelvic ultrasound is recommended. Pt. has hx of multiple myeloma. Recommend f/u as OP w /PCP. (6) GERD (gastroesophageal reflux disease) Current Visit: Yes Status: Chronic Assessment and plan: Hx of chronic GERD. IVP Zofran 4 mg Q6HR PRN for N/V. IVP Protonix 40 mg daily. Qualifiers: Esophagitis presence: esophagitis presence not specified Qualified Code(s) : K21.9 - Gastro-esophageal reflux disease without esophagitis (7) Hx of deep venous thrombosis Current Visit: Yes Status: Chronic Assessment and plan: Hx of DVT. No current sx. Continue pts. Xarelto and monitor closely. (8) COPD (chronic obstructive pulmonary disease) Current Visit: Yes Status: Chronic Assessment and plan: Hx of chronic COPD. Stable. DuoNebs Q6HR scheduled. Supplemental O2 w/titration and SpO2 monitoring. Will add Solu-Medrol if warranted. Qualifiers: COPD type: unspecified COPD Qualified Code(s): J44.9 - Chronic obstructive pulmonary disease, unspecified (9) CKD (chronic kidney disease) stage 4, GFR 15-29 ml/min Current Visit: Yes Status: Chronic Assessment and plan: Hx of CKD. Currently stage IV w/GFR of 22 and creatinine of 2.16. Will use IV fluids judiciously and avoid nephrotoxins. CT of the abd/pel today shows multiple water density cyst-like masses within the kidneys bilaterally which cannot be further characterized without contrast but likely represent cysts. Monitor I&O and f/u labs. (10) HLD (hyperlipidemia) Current Visit: Yes Status: Chronic Assessment and plan: Hx of chronic HLD. Pt. does not currently take statin. Lipid panel in a.m. labs. Consider adding statin based on panel results. Qualifiers: Hyperlipidemia type: pure hypercholesterolemia Qualified Code(s): E78.00 - Pure hypercholesterolemia, unspecified; E78.0 - Pure hypercholesterolemia (11) HTN (hypertension) Current Visit: Yes Status: Chronic Assessment and plan: Hx of chronic HTN. Monitor pt. and VS. Continue pts. Dyazide. Qualifiers: Hypertension type: essential hypertension Qualified Code(s): I10 - Essential (primary) hypertension (12) Multiple myeloma Current Visit: Yes Status: Chronic Assessment and plan: Hx of multiple myeloma. Pts. family state pt. is not currently taking txs. Qualifiers: Multiple myeloma remission status: unspecified Qualified Code(s): C90.00 - Multiple myeloma not having achieved remission (13) Splenic cyst Current Visit: Yes Status: Chronic Assessment and plan: Hx of low density within medial spleen. CT of the abd/pel today shows 2 cm low density within the medial spleen increased in size from 2015. They represent cysts but other pathology including malignancy cannot be completely excluded. D/ t pts. hx of multiple myeloma, f/u is recommended. (14) Compression fracture Current Visit: Yes Status: Chronic Assessment and plan: Chronic compression fracture. CT of the abd/pel today shows 50% compression fracture T12 vertebral body new from 2002 exam. Exact age and etiology is indeterminate. No significant paraspinal soft tissue swelling. No definite fracture line. Generalized moderate to severe osteopenia noted elsewhere throughout the lower thoracic and lumbar spine. (15) DVT prophylaxis Current Visit: Yes Status: Acute Assessment and plan: Continue pts. Xarelto for DVT prophylaxis. Monitor pt. for signs of bleeding. - Time Spent With Patient Total time spent is greater than 50% in coordination of care (as documented) at patient's floor/unit and/or counseling patient: Greater than 35 minutes <Tej Camara - Last Filed: 09/01/17 19:45> Date of Encounter: 09/01/17 Internal Medicine - H&P: HPI History of present illness: Ms. Joiner is a 81 year old female All Systems PM: A 10-system review of systems was performed and is negative for pertinent findings except as documented above in the HPI. - Constitutional Vitals: Temp Pulse Resp BP Pulse Ox 98 F 82 16 113/63 99 09/01/17 19:08 09/01/17 19:08 09/01/17 19:08 09/01/17 19:08 09/01/17 19:08 Internal Med - H&P Results - Labs CBC & Chem 7: 09/01/17 04:16 09/01/17 04:16 Labs: Short CBC 09/01/17 Range/Units 04:16 WBC 7.9 (4.3-11.1) K/mcL Hgb 9.5 L D (11.5-15.4) g/dL Hct 31.9 L (35.3-44.9) % Plt Count 139 L (140-400) K/mcL Neutrophils # 6.0 (1.6-8.9) K/mcL BMP 09/01/17 04:16 Sodium 141 Potassium 3.6 Chloride 112 H Carbon Dioxide 23 BUN 38 H Creatinine 1.68 H Glucose 84 Calcium 7.7 L Cardiac Enzymes 08/31/17 Range/Units 22:44 Troponin I < 0.03 (< 0.04) ng/mL Liver Function 09/01/17 Range/Units 04:16 Total Bilirubin 0.6 (0.3-1.0) mg/dL AST 10 L (13-39) Units/L ALT 5 L (7-52) Units/L Alkaline Phosphatase 45 (34-104) Units/L Albumin 2.7 L (3.5-5.7) g/dL - Attending Attestation Discussed with ELAN and agree with assessment and plan as above On exam patient in nonacute distress a regular rate and rhythm cardiovascular. Continue treatment as above - Assessment and plan (1) Multiple myeloma Current Visit: Yes Status: Chronic Qualifiers: Multiple myeloma remission status: unspecified Qualified Code(s): C90.00 - Multiple myeloma not having achieved remission (2) HTN (hypertension) Current Visit: Yes Status: Chronic Qualifiers: Hypertension type: essential hypertension Qualified Code(s): I10 - Essential (primary) hypertension (3) HLD (hyperlipidemia) Current Visit: Yes Status: Chronic Qualifiers: Hyperlipidemia type: pure hypercholesterolemia Qualified Code(s): E78.00 - Pure hypercholesterolemia, unspecified; E78.0 - Pure hypercholesterolemia (4) HCAP (healthcare-associated pneumonia) Current Visit: Yes Status: Acute (5) Dyspnea Current Visit: Yes Status: Acute Qualifiers: Dyspnea type: unspecified Qualified Code(s): R06.00 - Dyspnea, unspecified (6) Ovarian cyst, complex Current Visit: Yes Status: Acute (7) Abdominal pain Current Visit: Yes Status: Acute Qualifiers: Abdominal location: generalized Qualified Code(s): R10.84 - Generalized abdominal pain (8) DVT prophylaxis Current Visit: Yes Status: Acute (9) GERD (gastroesophageal reflux disease) Current Visit: Yes Status: Chronic Qualifiers: Esophagitis presence: esophagitis presence not specified Qualified Code(s) : K21.9 - Gastro-esophageal reflux disease without esophagitis (10) Hx of deep venous thrombosis Current Visit: Yes Status: Chronic (11) COPD (chronic obstructive pulmonary disease) Current Visit: Yes Status: Chronic Qualifiers: COPD type: unspecified COPD Qualified Code(s): J44.9 - Chronic obstructive pulmonary disease, unspecified (12) CKD (chronic kidney disease) stage 4, GFR 15-29 ml/min Current Visit: Yes Status: Chronic (13) Splenic cyst Current Visit: Yes Status: Chronic (14) Compression fracture Current Visit: Yes Status: Chronic (15) Loss of appetite Current Visit: Yes Status: Acute - Time Spent With Patient Total time spent is greater than 50% in coordination of care (as documented) at patient's floor/unit and/or counseling patient:
[2017-08-31] MEDS ORDERED: Ondansetron 4 MG/2 ML VIAL IVP PRN (19:51)
[2017-08-31 19:53] LABS: Adenovirus Not Detected (Not Detect); Coronavirus 229E Not Detected (Not Detect); Coronavirus HKU1 Not Detected (Not Detect); Coronavirus NL63 Not Detected (Not Detect); Coronavirus OC43 Not Detected (Not Detect); Human Metapneumovirus Not Detected (Not Detect); Human Rhinovirus/Enterovirus Not Detected (Not Detect); Influenza B Not Detected (Not Detect); Parainfluenza Virus 1 Not Detected (Not Detect); Parainfluenza Virus 2 Not Detected (Not Detect)
[2017-08-31 19:54] LABS: Bordetella Pertussis Not Detected (Not Detect); Chlamydophila pneumoniae Not Detected (Not Detect); Mycoplasma pneumoniae Not Detected (Not Detect); Parainfluenza Virus 3 ***DETECTED*** (Not Detect); Parainfluenza Virus 4 Not Detected (Not Detect); Respiratory Syncytial Virus Not Detected (Not Detect)
[2017-08-31] MEDS: Pantoprazole 40 MG VIAL IVP SCH (21:48)
[2017-08-31] MEDS: Ipratropium/Albuterol Neb 3 ML IH SCH (21:57)
[2017-08-31] MEDS ORDERED: 0.9 % Sodium Chloride 500 ML IVC ONE (22:50)
[2017-08-31] MEDS: 0.9 % Sodium Chloride 1,000 ML IVC SCH (23:17)
[2017-09-01] MEDS: Ipratropium/Albuterol Neb 3 ML IH SCH ×4 (04:08→22:12)
[2017-09-01 04:53] LABS: Basophils % 0.1 %; Eosinophils # 0.1 K/mcL (0.0-0.6); Hematocrit 31.9 % (35.3-44.9); Hemoglobin 9.5 g/dL (11.5-15.4); Immature Granulocytes % 0.4 % (0-4); Lymphocytes # 1.4 K/mcL (0.6-4.6); Lymphocytes % 17.2 %; Mean Corpuscular HGB Conc 29.8 g/dL (31.6-35.5); Mean Corpuscular Hemoglobin 26.1 pg (28.0-33.3); Mean Corpuscular Volume 87.6 fL (83.0-100.0); Mean Platelet Volume 12.6 fL (9.4-12.4); Monocytes # 0.4 K/mcL (0.0-1.3); Monocytes % 4.8 %; Platelet Count 139 K/mcL (140-400); Red Blood Count 3.64 M/mcL (3.82-4.97); Segmented Neutrophils % 76.5 %
[2017-09-01 04:58] LABS: INR 1.5; Prothrombin Time 16.4 Seconds (9.4-12.1)
[2017-09-01 05:01] LABS: Activated Partial Thrombo Time 31.3 Seconds (26.0-36.0)
[2017-09-01 05:13] LABS: Albumin 2.7 g/dL (3.5-5.7); Albumin/Globulin Ratio 1.3 (1.1-2.2); Bilirubin,Total 0.6 mg/dL (0.3-1.0); Calcium 7.7 mg/dL (8.6-10.3); Chol/HDL Ratio 2.1 (0-4.9); Globulin 2.1 g/dL (2.4-3.5); Magnesium 1.7 mg/dL (1.6-2.6); Potassium 3.6 mEq/L (3.5-5.1); Total Protein 4.8 g/dL (6.4-8.9)
[2017-09-01 05:18] LABS: Anisocytosis 1+ (Not Present); Platelet Estimate Normal (Normal); Poikilocytosis 1+ (Not Present)
[2017-09-01] MEDS: ALPRAZolam 1 MG TABLET PO PRN ×2 (08:17→23:16)
[2017-09-01] MEDS: Cyanocobalamin (B-12) 1,000 MCG TABLET PO SCH (08:19)
[2017-09-01] MEDS: Pantoprazole 40 MG VIAL IVP SCH (08:20)
[2017-09-01] MEDS: *HR* Rivaroxaban 15 MG TABLET PO SCH (08:20)
[2017-09-01] MEDS ORDERED: RIBAVIRIN 200 MG PO SCH (09:00)
[2017-09-01 10:49] LABS: Estimated Average Glucose 111 mg/dl; Hemoglobin A1C 5.5 %
[2017-09-01] MEDS: 0.9 % Sodium Chloride 1,000 ML IVC SCH (12:35)
--- NOTE | 2017-09-01 13:15 | Electrocardiograph Report ---
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
[2017-09-01] MEDS ORDERED: Vancomycin 500 MG in 0.9 % Sodium Chloride Mini Bag 100 ML IVPB ONE (15:00)
--- NOTE | 2017-09-01 16:50 | Internal Med Progress Note ---
Date of Encounter: 09/01/17 Time of Encounter: 11:00 - Assessment and plan (1) Multiple myeloma Current Visit: Yes Status: Chronic Assessment and plan: Hx of multiple myeloma. Pts. family state pt. is not currently taking txs.- Patient has been seen by Rene in the past last chem in June Qualifiers: Multiple myeloma remission status: unspecified Qualified Code(s): C90.00 - Multiple myeloma not having achieved remission (2) HTN (hypertension) Current Visit: Yes Status: Chronic Assessment and plan: Hx of chronic HTN. Monitor pt. and VS. Continue pts. Dyazide. Blood pressure stable at this time Qualifiers: Hypertension type: essential hypertension Qualified Code(s): I10 - Essential (primary) hypertension (3) HLD (hyperlipidemia) Current Visit: Yes Status: Chronic Assessment and plan: Stable we will continue to monitor Qualifiers: Hyperlipidemia type: pure hypercholesterolemia Qualified Code(s): E78.00 - Pure hypercholesterolemia, unspecified; E78.0 - Pure hypercholesterolemia (4) HCAP (healthcare-associated pneumonia) Current Visit: Yes Status: Acute Assessment and plan: Continue with cefepime and Levaquin and vancomycin pharmacy to dose pending culture results Continue with bronchodilators and oxygen as needed Mucinex for cough Treatment for HCAP Due to prior hospitalization (5) Dyspnea Current Visit: Yes Status: Acute Assessment and plan: Secondary to pneumonia -Continue with DuoNeb's supple oxygen Qualifiers: Dyspnea type: unspecified Qualified Code(s): R06.00 - Dyspnea, unspecified (6) Ovarian cyst, complex Current Visit: Yes Status: Acute Assessment and plan: CT of abdomen and pelvis shows enlarged right ovary with multiple cystic changes in the right adnexa new from 2014. Possibility of ovarian malignancy cannot be excluded -did discuss and review this case with oncology per curbside consult. Concern for possible ovarian cancer per oncology Patient can be followed as outpatient per oncology however oncology concerned about patient's physical decline and the ability of the patient to tolerate therapy- multiple myeloma and ovarian cancer-she may benefit from hospice-consult oncology as needed . (7) Abdominal pain Current Visit: Yes Status: Acute Assessment and plan: CT of abdomen pelvis shows mild to moderate diverticulosis throughout the colon especially sigmoid region but no definitive evidence for diverticulitis continue with Zofran and Protonix Qualifiers: Abdominal location: generalized Qualified Code(s): R10.84 - Generalized abdominal pain (8) GERD (gastroesophageal reflux disease) Current Visit: Yes Status: Chronic Assessment and plan: Hx of chronic GERD. IVP Protonix 40 mg daily. Qualifiers: Esophagitis presence: esophagitis presence not specified Qualified Code(s) : K21.9 - Gastro-esophageal reflux disease without esophagitis (9) Hx of deep venous thrombosis Current Visit: Yes Status: Chronic Assessment and plan: Hx of DVT. No current sx. Continue pts. Xarelto . (10) COPD (chronic obstructive pulmonary disease) Current Visit: Yes Status: Chronic Assessment and plan: No wheezing at this time appears to be stable. Continue with bronchodilators oxygen as needed Qualifiers: COPD type: unspecified COPD Qualified Code(s): J44.9 - Chronic obstructive pulmonary disease, unspecified (11) CKD (chronic kidney disease) stage 4, GFR 15-29 ml/min Current Visit: Yes Status: Chronic Assessment and plan: CK D stage IV GFR [address] of abdomen pelvis shows multiple water density cystlike mass within the kidneys bilaterally which cannot be further characterized without contrast but likely represent cysts Monitor intake and output Avoid nephrotoxins (12) Splenic cyst Current Visit: Yes Status: Chronic Assessment and plan: History of low density within medial spleen CT of abdomen shows 2 cm low density within the medial spleen increases in size from 2015. Oncology did review abdominal CT-curbside consult recommending patient can follow-up as outpatient- (13) Compression fracture Current Visit: Yes Status: Chronic Assessment and plan: Chronic compression fracture, CT of abdomen pelvis shows 50% compression fracture T12 vertebral body new from 2001 exam- Exact age and etiology is indeterminate. No significant paraspinal soft tissue swelling. No definite fracture line. Generalized moderate to severe osteopenia noted elsewhere throughout the lower thoracic and lumbar spine.-We will continue with pain medications as needed (14) Loss of appetite Current Visit: Yes Status: Acute Assessment and plan: Patient has had decreased appetite for the past week. Family reports that she has lost approximately 10 pounds since June. Dietary has been consulted concerning nutritional supplements monitor intake output daily weight (15) DVT prophylaxis Current Visit: Yes Status: Acute Assessment and plan: Continue pts. Xarelto for DVT prophylaxis. Monitor pt. for signs of bleeding. - Time Spent With Patient Total time spent is greater than 50% in coordination of care (as documented) at patient's floor/unit and/or counseling patient: - Subjective Interval history: This patient was seen and examined at bedside. Family is at bedside as well. Patient had episode of confusion overnight. Family expresses that this is not uncommon that she does have dementia. Presently denies any chest pain or shortness of breath. Family expressed concern about patient not eating dietary has been consulted. I reviewed treatment plan with family that they verbalized understanding. - Constitutional Vitals: Temp Pulse Resp BP Pulse Ox 98.0 F 83 16 106/68 99 09/01/17 15:15 09/01/17 15:15 09/01/17 16:10 09/01/17 15:15 09/01/17 16:10 General appearance: Present: cooperative, A&O X 3, pleasant, no acute distress, answers questions appropriately - Head Head exam: Present: atraumatic, normocephalic - Eye Eye exam: Present: PERRL, conjuntiva pink, sclera anicteric Pupils: Present: PERRL - Neck Neck exam general surgery: Present: supple, trachea midline. Absent: lymphadenopathy - Respiratory Respiratory exam: Present: CTAB. Absent: accessory muscle use, rales, rhonchi, wheezes - Cardiovascular Cardiovascular exam: Present: RRR, +S1, +S2. Absent: diastolic murmur, gallop, rubs, systolic murmur - GI/Abdominal GI/Abdominal exam: Present: normal bowel sounds, soft, no peritoneal signs. Absent: distended, tenderness - Extremities Exam Extremities exam: Present: warm, radial pulses palpable and symmetrical. Absent : calf tenderness, cyanotic, pedal edema - Neurological Exam Neurological exam: Present: CN II-XII intact, oriented X3, no focal deficits. Absent: pronater drift, facial droop, speech deficit - Skin Skin exam: Present: dry, intact Internal Medicine: Result - Labs CBC & Chem 7: 09/01/17 04:16 09/01/17 04:16 Labs: Short CBC 09/01/17 Range/Units 04:16 WBC 7.9 (4.3-11.1) K/mcL Hgb 9.5 L D (11.5-15.4) g/dL Hct 31.9 L (35.3-44.9) % Plt Count 139 L (140-400) K/mcL Neutrophils # 6.0 (1.6-8.9) K/mcL BMP 09/01/17 04:16 Sodium 141 Potassium 3.6 Chloride 112 H Carbon Dioxide 23 BUN 38 H Creatinine 1.68 H Glucose 84 Calcium 7.7 L Cardiac Enzymes 08/31/17 08/31/17 Range/Units 17:14 22:44 Troponin I < 0.03 < 0.03 (< 0.04) ng/mL Liver Function 09/01/17 Range/Units 04:16 Total Bilirubin 0.6 (0.3-1.0) mg/dL AST 10 L (13-39) Units/L ALT 5 L (7-52) Units/L Alkaline Phosphatase 45 (34-104) Units/L Albumin 2.7 L (3.5-5.7) g/dL - ABG Interpretation ABG results: PT/INR, D-dimer PT 16.4 Seconds (9.4-12.1) H 09/01/17 04:16 Consult Discharge Plan - Plan Referrals: Laine Stauffer MD [Primary Care Provider] -
[2017-09-01] MEDS: Cefepime HCl 1,000 MG in 0.9 % Sodium Chloride Mini Bag 100 ML IVPB SCH (18:01)
[2017-09-02] MEDS: 0.9 % Sodium Chloride 1,000 ML IVC SCH ×3 (02:11→20:00)
[2017-09-02] MEDS: Ipratropium/Albuterol Neb 3 ML IH SCH ×4 (04:28→22:58)
[2017-09-02 05:03] LABS: Basophils % 0.2 %; Eosinophils # 0.1 K/mcL (0.0-0.6); Eosinophils % 1.6 %; Hematocrit 28.7 % (35.3-44.9); Immature Granulocytes % 0.5 % (0-4); Lymphocytes # 1.3 K/mcL (0.6-4.6); Lymphocytes % 23.7 %; Mean Corpuscular HGB Conc 31.4 g/dL (31.6-35.5); Mean Corpuscular Volume 86.2 fL (83.0-100.0); Mean Platelet Volume 12.6 fL (9.4-12.4); Monocytes # 0.5 K/mcL (0.0-1.3); Neutrophils # 3.7 K/mcL (1.6-8.9); Nucleated Red Blood Cells 0.5 /100 WBC (0); Platelet Count 172 K/mcL (140-400); Red Blood Count 3.33 M/mcL (3.82-4.97); Red Cell Distribution Width 15.9 % (11.5-14.5)
[2017-09-02 05:26] LABS: Albumin 2.5 g/dL (3.5-5.7); Albumin/Globulin Ratio 1.2 (1.1-2.2); Bilirubin,Total 0.5 mg/dL (0.3-1.0); Globulin 2.1 g/dL (2.4-3.5); Potassium 3.3 mEq/L (3.5-5.1); Total Protein 4.6 g/dL (6.4-8.9)
[2017-09-02] MEDS: Pantoprazole 40 MG VIAL IVP SCH (08:50)
[2017-09-02] MEDS: Cyanocobalamin (B-12) 1,000 MCG TABLET PO SCH (08:50)
[2017-09-02] MEDS: *HR* Rivaroxaban 15 MG TABLET PO SCH (08:50)
--- NOTE | 2017-09-02 14:58 | Internal Med Progress Note ---
Date of Encounter: 09/02/17 Time of Encounter: 14:53 - Assessment and plan (1) HCAP (healthcare-associated pneumonia) Current Visit: Yes Status: Acute Assessment and plan: CXR concerning for bilateral PNA. Concerned for HCAP with recent Continue with cefepime and Levaquin and vancomycin pharmacy to dose pending culture results. Resp PCR, urinary antigens pending (2) Multiple myeloma Current Visit: Yes Status: Chronic Assessment and plan: Hx of multiple myeloma. Pts. family state pt. is not currently taking txs.- Patient has been seen by Rene in the past last chem in June Qualifiers: Multiple myeloma remission status: unspecified Qualified Code(s): C90.00 - Multiple myeloma not having achieved remission (3) HTN (hypertension) Current Visit: Yes Status: Chronic Assessment and plan: Hx of chronic HTN. Monitor pt. and VS. Continue pts. Dyazide. BP controlled. Qualifiers: Hypertension type: essential hypertension Qualified Code(s): I10 - Essential (primary) hypertension (4) HLD (hyperlipidemia) Current Visit: Yes Status: Chronic Assessment and plan: Stable we will continue to monitor Qualifiers: Hyperlipidemia type: pure hypercholesterolemia Qualified Code(s): E78.00 - Pure hypercholesterolemia, unspecified; E78.0 - Pure hypercholesterolemia (5) Ovarian cyst, complex Current Visit: Yes Status: Acute Assessment and plan: CT of abdomen and pelvis shows enlarged right ovary with multiple cystic changes in the right adnexa new from 2014. Possibility of ovarian malignancy cannot be excluded -did discuss and review this case with oncology per curbside consult. Concern for possible ovarian cancer per oncology Patient can be followed as outpatient per oncology however oncology concerned about patient's physical decline and the ability of the patient to tolerate therapy- multiple myeloma and ovarian cancer-she may benefit from hospice-consult oncology as needed (6) Abdominal pain Current Visit: Yes Status: Acute Assessment and plan: CT of abdomen pelvis shows mild to moderate diverticulosis throughout the colon especially sigmoid region but no definitive evidence for diverticulitis continue with Zofran and Protonix. Denies ABD pain on 09/02 exam Qualifiers: Abdominal location: generalized Qualified Code(s): R10.84 - Generalized abdominal pain (7) GERD (gastroesophageal reflux disease) Current Visit: Yes Status: Chronic Assessment and plan: Hx of chronic GERD. IVP Protonix 40 mg daily. Qualifiers: Esophagitis presence: esophagitis presence not specified Qualified Code(s) : K21.9 - Gastro-esophageal reflux disease without esophagitis (8) Hx of deep venous thrombosis Current Visit: Yes Status: Chronic Assessment and plan: Hx of DVT. No current sx. Continue pts. Xarelto . (9) COPD (chronic obstructive pulmonary disease) Current Visit: Yes Status: Chronic Assessment and plan: no wheezing at this time appears to be stable. Continue with bronchodilators oxygen as needed Qualifiers: COPD type: unspecified COPD Qualified Code(s): J44.9 - Chronic obstructive pulmonary disease, unspecified (10) CKD (chronic kidney disease) stage 4, GFR 15-29 ml/min Current Visit: Yes Status: Chronic Assessment and plan: CK D stage IV GFR [address] of abdomen pelvis shows multiple water density cystlike mass within the kidneys bilaterally which cannot be further characterized without contrast but likely represent cyst. Repeat renal function improving with IV fluids (11) Splenic cyst Current Visit: Yes Status: Chronic Assessment and plan: History of low density within medial spleen CT of abdomen shows 2 cm low density within the medial spleen increases in size from 2015. Oncology did review abdominal CT-curbside consult recommending patient can follow-up as outpatient- (12) Compression fracture Current Visit: Yes Status: Chronic Assessment and plan: Chronic compression fracture, CT of abdomen pelvis shows 50% compression fracture T12 vertebral body new from 2001 exam- Exact age and etiology is indeterminate. No significant paraspinal soft tissue swelling. No definite fracture line. Generalized moderate to severe osteopenia noted elsewhere throughout the lower thoracic and lumbar spine.-We will continue with pain medications as needed (13) Loss of appetite Current Visit: Yes Status: Acute Assessment and plan: Patient has had decreased appetite for the past week. Family reports that she has lost approximately 10 pounds since June. Dietary supplements (14) DVT prophylaxis Current Visit: Yes Status: Acute Assessment and plan: Xarelto - Time Spent With Patient Total time spent is greater than 50% in coordination of care (as documented) at patient's floor/unit and/or counseling patient: - Subjective Interval history: Seen and examined at bedside; patient is new to me. Information obtained mostly from chart review as patient is alert to self only. She will answer some questions appropriately but does not provide details. No family at bedside for collateral - Constitutional Vitals: Temp Pulse Resp BP Pulse Ox 98.2 F 89 18 114/61 98 09/02/17 11:20 09/02/17 11:20 09/02/17 11:20 09/02/17 11:20 09/02/17 11:20 General appearance: Present: cooperative, A&O X 3, pleasant, no acute distress, answers questions appropriately - Head Head exam: Present: atraumatic, normocephalic - Eye Eye exam: Present: PERRL, conjuntiva pink, sclera anicteric Pupils: Present: PERRL - Neck Neck exam general surgery: Present: supple, trachea midline. Absent: lymphadenopathy - Respiratory Respiratory exam: Present: CTAB. Absent: accessory muscle use, rales, rhonchi, wheezes - Cardiovascular Cardiovascular exam: Present: RRR, +S1, +S2. Absent: diastolic murmur, gallop, rubs, systolic murmur - GI/Abdominal GI/Abdominal exam: Present: normal bowel sounds, soft, no peritoneal signs. Absent: distended, tenderness - Extremities Exam Extremities exam: Present: warm, radial pulses palpable and symmetrical. Absent : calf tenderness, cyanotic, pedal edema - Neurological Exam Neurological exam: Present: CN II-XII intact, oriented X3, no focal deficits. Absent: pronater drift, facial droop, speech deficit - Skin Skin exam: Present: dry, intact Internal Medicine: Result - Labs CBC & Chem 7: 09/02/17 04:00 09/02/17 04:00 Labs: Short CBC 09/02/17 Range/Units 04:00 WBC 5.7 (4.3-11.1) K/mcL Hgb 9.0 L (11.5-15.4) g/dL Hct 28.7 L (35.3-44.9) % Plt Count 172 (140-400) K/mcL Neutrophils # 3.7 (1.6-8.9) K/mcL BMP 09/02/17 04:00 Sodium 143 Potassium 3.3 L Chloride 116 H Carbon Dioxide 21 L BUN 28 H Creatinine 1.23 H Glucose 94 Calcium 8.0 L Liver Function 09/02/17 Range/Units 04:00 Total Bilirubin 0.5 (0.3-1.0) mg/dL AST 11 L (13-39) Units/L ALT 5 L (7-52) Units/L Alkaline Phosphatase 40 (34-104) Units/L Albumin 2.5 L (3.5-5.7) g/dL - ABG Interpretation ABG results: PT/INR, D-dimer PT 16.4 Seconds (9.4-12.1) H 09/01/17 04:16 Consult Discharge Plan - Plan Referrals: Laine Stauffer MD [Primary Care Provider] -
[2017-09-02] MEDS: Levofloxacin 750 MG/150 ML 750 MG/150 ML BAG IVPB SCH (17:29)
[2017-09-02] MEDS: Cefepime HCl 1,000 MG in 0.9 % Sodium Chloride Mini Bag 100 ML IVPB SCH (17:29)
[2017-09-02] MEDS: ALPRAZolam 1 MG TABLET PO PRN (22:25)
[2017-09-03] MEDS: Ipratropium/Albuterol Neb 3 ML IH SCH ×4 (04:52→22:24)
[2017-09-03 07:14] LABS: Basophils % 0.3 %; Eosinophils # 0.1 K/mcL (0.0-0.6); Eosinophils % 1.5 %; Hematocrit 27.6 % (35.3-44.9); Hemoglobin 8.6 g/dL (11.5-15.4); Immature Granulocytes % 0.6 % (0-4); Lymphocytes # 1.5 K/mcL (0.6-4.6); Lymphocytes % 22.5 %; Mean Corpuscular HGB Conc 31.2 g/dL (31.6-35.5); Mean Corpuscular Volume 86.8 fL (83.0-100.0); Mean Platelet Volume 12.1 fL (9.4-12.4); Monocytes # 0.9 K/mcL (0.0-1.3); Monocytes % 12.9 %; Neutrophils # 4.2 K/mcL (1.6-8.9); Platelet Count 215 K/mcL (140-400); Red Blood Count 3.18 M/mcL (3.82-4.97); Red Cell Distribution Width 15.9 % (11.5-14.5); Segmented Neutrophils % 62.2 %
[2017-09-03 07:31] LABS: Alanine Aminotransferase 6 Units/L (7-52); Albumin 2.6 g/dL (3.5-5.7); Albumin/Globulin Ratio 1.3 (1.1-2.2); Alkaline Phosphatase 37 Units/L (34-104); Aspartate Amino Transferase 9 Units/L (13-39); BUN/Creatinine Ratio 17 (6-26); Bilirubin,Total 0.5 mg/dL (0.3-1.0); Blood Urea Nitrogen 17 mg/dL (8-23); Calcium 7.9 mg/dL (8.6-10.3); Carbon Dioxide 19 mEq/L (23-29); Chloride 123 mEq/L (98-107); Glucose 99 mg/dL (70-105); Osmolality,Calculated 314 (280-300); Potassium 3.1 mEq/L (3.5-5.1); Sodium 151 mEq/L (136-145); Total Protein 4.6 g/dL (6.4-8.9); eGFR For African Americans > 60 (> 60); eGFR For Non-African Americans 53 (> 60)
[2017-09-03] MEDS ORDERED: Aminoglycoside Consult 1 EACH MC ONE (08:22)
[2017-09-03] MEDS: Pantoprazole 40 MG VIAL IVP SCH (09:49)
[2017-09-03] MEDS: *HR* Rivaroxaban 15 MG TABLET PO SCH (09:49)
[2017-09-03] MEDS: Cyanocobalamin (B-12) 1,000 MCG TABLET PO SCH (09:49)
--- NOTE | 2017-09-03 15:20 | Internal Med Progress Note ---
Date of Encounter: 09/03/17 Time of Encounter: 15:20 - Assessment and plan (1) HCAP (healthcare-associated pneumonia) Current Visit: Yes Status: Acute Assessment and plan: CXR concerning for bilateral PNA. Concerned for HCAP of unknown organism with recent hospitalization. Initially treated with cefepime and Levaquin and vancomycin. Urinary antigens, respiratory PCR negative. Clinically improved. De-escalate ATB to Levaquin only. (2) Multiple myeloma Current Visit: Yes Status: Chronic Assessment and plan: hx of multiple myeloma. Pts. family state pt. is not currently taking txs.- Patient has been seen by Rene in the past last chem in June Qualifiers: Multiple myeloma remission status: unspecified Qualified Code(s): C90.00 - Multiple myeloma not having achieved remission (3) HTN (hypertension) Current Visit: Yes Status: Chronic Assessment and plan: Hx of chronic HTN. BP controlled however HCTZ stooped with suspected dehydration and hypernatremia. Add low-dose amlodipine. Monitor BP and titrate PRN Qualifiers: Hypertension type: essential hypertension Qualified Code(s): I10 - Essential (primary) hypertension (4) HLD (hyperlipidemia) Current Visit: Yes Status: Chronic Assessment and plan: Stable we will continue to monitor Qualifiers: Hyperlipidemia type: pure hypercholesterolemia Qualified Code(s): E78.00 - Pure hypercholesterolemia, unspecified; E78.0 - Pure hypercholesterolemia (5) Ovarian cyst, complex Current Visit: Yes Status: Acute Assessment and plan: CT of abdomen and pelvis shows enlarged right ovary with multiple cystic changes in the right adnexa new from 2014. Possibility of ovarian malignancy cannot be excluded -did discuss and review this case with oncology per curbside consult. Concern for possible ovarian cancer per oncology Patient can be followed as outpatient per oncology however oncology concerned about patient's physical decline and the ability of the patient to tolerate therapy- multiple myeloma and ovarian cancer-she may benefit from hospice-consult oncology as needed (6) Abdominal pain Current Visit: Yes Status: Acute Assessment and plan: CT of abdomen pelvis shows mild to moderate diverticulosis throughout the colon especially sigmoid region but no definitive evidence for diverticulitis continue with Zofran and Protonix. Denies ABD pain on 09/02 exam Qualifiers: Abdominal location: generalized Qualified Code(s): R10.84 - Generalized abdominal pain (7) GERD (gastroesophageal reflux disease) Current Visit: Yes Status: Chronic Assessment and plan: Hx of chronic GERD. IVP Protonix 40 mg daily. Qualifiers: Esophagitis presence: esophagitis presence not specified Qualified Code(s) : K21.9 - Gastro-esophageal reflux disease without esophagitis (8) Hx of deep venous thrombosis Current Visit: Yes Status: Chronic Assessment and plan: Hx of DVT. No current sx. Continue pts. Xarelto . (9) COPD (chronic obstructive pulmonary disease) Current Visit: Yes Status: Chronic Assessment and plan: no wheezing at this time appears to be stable. Continue with bronchodilators oxygen as needed Qualifiers: COPD type: unspecified COPD Qualified Code(s): J44.9 - Chronic obstructive pulmonary disease, unspecified (10) CKD (chronic kidney disease) stage 4, GFR 15-29 ml/min Current Visit: Yes Status: Chronic Assessment and plan: CK D stage IV GFR [address] of abdomen pelvis shows multiple water density cystlike mass within the kidneys bilaterally which cannot be further characterized without contrast but likely represent cyst. Repeat renal function improving with IV fluids (11) Splenic cyst Current Visit: Yes Status: Chronic Assessment and plan: History of low density within medial spleen CT of abdomen shows 2 cm low density within the medial spleen increases in size from 2015. Oncology did review abdominal CT-curbside consult recommending patient can follow-up as outpatient- (12) Compression fracture Current Visit: Yes Status: Chronic Assessment and plan: Chronic compression fracture, CT of abdomen pelvis shows 50% compression fracture T12 vertebral body new from 2001 exam- Exact age and etiology is indeterminate. No significant paraspinal soft tissue swelling. No definite fracture line. Generalized moderate to severe osteopenia noted elsewhere throughout the lower thoracic and lumbar spine.-We will continue with pain medications as needed (13) Loss of appetite Current Visit: Yes Status: Acute Assessment and plan: Patient has had decreased appetite for the past week. Family reports that she has lost approximately 10 pounds since June. Dietary supplements (14) Hypernatremia Current Visit: Yes Status: Acute Assessment and plan: Na 151; in the setting of dehydration. Stop IV fluids, encourage PO intake. Holding diuretics. Monitor repeat CMP. (15) DVT prophylaxis Current Visit: Yes Status: Acute Assessment and plan: Xarelto - Time Spent With Patient Total time spent is greater than 50% in coordination of care (as documented) at patient's floor/unit and/or counseling patient: - Subjective Interval history: Seen and examined at bedside; mentation appears to be improved. Alert and oriented to self and she notes she is in the hospital. Says she feels better once to go home. She has no other complaints. Discussed with family at bedside and plan is for patient to go home at discharge - Constitutional Vitals: Temp Pulse Resp BP Pulse Ox 98.4 F 88 16 135/74 100 09/03/17 14:54 09/03/17 14:54 09/03/17 14:54 09/03/17 14:54 09/03/17 14:54 General appearance: Present: cooperative, A&O X 2, pleasant, no acute distress, answers questions appropriately - Head Head exam: Present: atraumatic, normocephalic - Eye Eye exam: Present: PERRL, conjuntiva pink, sclera anicteric Pupils: Present: PERRL - Neck Neck exam general surgery: Present: supple, trachea midline. Absent: lymphadenopathy - Respiratory Respiratory exam: Present: CTAB, rales (Scattered rhonchi, wheezing and rails overall improved from yesterday's exam), rhonchi, wheezes. Absent: accessory muscle use, respiratory distress - Cardiovascular Cardiovascular exam: Present: RRR, +S1, +S2. Absent: diastolic murmur, gallop, rubs, systolic murmur - GI/Abdominal GI/Abdominal exam: Present: normal bowel sounds, soft, no peritoneal signs. Absent: distended, tenderness - Extremities Exam Extremities exam: Present: warm, radial pulses palpable and symmetrical. Absent : calf tenderness, cyanotic, pedal edema - Neurological Exam Neurological exam: Present: CN II-XII intact, oriented X3, no focal deficits. Absent: pronater drift, facial droop, speech deficit - Skin Skin exam: Present: dry, intact Internal Medicine: Result - Labs CBC & Chem 7: 09/03/17 04:00 09/03/17 04:00 Labs: Short CBC 09/03/17 Range/Units 04:00 WBC 6.8 (4.3-11.1) K/mcL Hgb 8.6 L (11.5-15.4) g/dL Hct 27.6 L (35.3-44.9) % Plt Count 215 (140-400) K/mcL Neutrophils # 4.2 (1.6-8.9) K/mcL BMP 09/03/17 04:00 Sodium 151 H Potassium 3.1 L Chloride 123 H Carbon Dioxide 19 L BUN 17 Creatinine 1.00 Glucose 99 Calcium 7.9 L Liver Function 09/03/17 Range/Units 04:00 Total Bilirubin 0.5 (0.3-1.0) mg/dL AST 9 L (13-39) Units/L ALT 6 L (7-52) Units/L Alkaline Phosphatase 37 (34-104) Units/L Albumin 2.6 L (3.5-5.7) g/dL - ABG Interpretation ABG results: PT/INR, D-dimer PT 16.4 Seconds (9.4-12.1) H 09/01/17 04:16 Consult Discharge Plan - Plan Referrals: Laine Stauffer MD [Primary Care Provider] -
[2017-09-03] MEDS: ALPRAZolam 1 MG TABLET PO PRN (17:23)
[2017-09-04] MEDS: Ipratropium/Albuterol Neb 3 ML IH SCH ×2 (04:15→11:37)
[2017-09-04 06:24] LABS: Alanine Aminotransferase 7 Units/L (7-52); Albumin 2.6 g/dL (3.5-5.7); Albumin/Globulin Ratio 1.2 (1.1-2.2); Alkaline Phosphatase 35 Units/L (34-104); Aspartate Amino Transferase 11 Units/L (13-39); BUN/Creatinine Ratio 13 (6-26); Bilirubin,Total 0.6 mg/dL (0.3-1.0); Blood Urea Nitrogen 11 mg/dL (8-23); Carbon Dioxide 24 mEq/L (23-29); Chloride 116 mEq/L (98-107); Globulin 2.1 g/dL (2.4-3.5); Glucose 94 mg/dL (70-105); Osmolality,Calculated 299 (280-300); Potassium 3.2 mEq/L (3.5-5.1); Sodium 145 mEq/L (136-145); Total Protein 4.7 g/dL (6.4-8.9); eGFR For African Americans > 60 (> 60); eGFR For Non-African Americans > 60 (> 60)
[2017-09-04] MEDS: Cyanocobalamin (B-12) 1,000 MCG TABLET PO SCH (08:10)
[2017-09-04] MEDS: *HR* Rivaroxaban 15 MG TABLET PO SCH (08:10)
[2017-09-04] MEDS: Pantoprazole 40 MG VIAL IVP SCH (08:11)
[2017-09-04] MEDS: ALPRAZolam 1 MG TABLET PO PRN (08:11)
[2017-09-04 08:20] VITALS: BP 144/90
[2017-09-04] MEDS ORDERED: amLODIPine 5 MG TABLET PO SCH (09:00)
--- NOTE | 2017-09-04 10:18 | Discharge Summary ---
- NOTES TO OUTPATIENT PROVIDER Notes to Outpatient Provider: Recommend follow-up within one week for BP recheck. Diuretics stopped with dehydration and low-dose amlodipine added. Nonemergent pelvic ultrasound recommended to further evaluate enlarged right ovary and cyst. Orders not resulted at time of discharge: Pending orders 09/05/17 04:00 BMP [Basic Metabolic Panel] AM 0400 Complete Blood Count w/o Diff [HEME] AM 04009/06/17 04:00 BMP [Basic Metabolic Panel] AM 0400 Complete Blood Count w/o Diff [HEME] AM 04009/07/17 04:00 BMP [Basic Metabolic Panel] AM 0400 Complete Blood Count w/o Diff [HEME] AM 0400 Date of Encounter: 09/04/17 Time of Encounter: 10:13 - Discharge Diagnosis (1) HCAP (healthcare-associated pneumonia) Priority: Primary Status: Acute Assessment and Plan: of unspecified organism. CXR concerning for bilateral PNA. Initially treated with cefepime and Levaquin and vancomycin (recent hospitalizations 06/2017). Urinary antigens, respiratory PCR negative. ATB de-escalated to Levaquin only as she clinically improved. Cont Levaquin at discharge (complete a total duration of 7 days therapy) (2) Multiple myeloma Priority: Primary Status: Chronic Assessment and Plan: hx of multiple myeloma. Follows with oncology; last treated 06/2017. ABD CT showed enlarged right ovary with multiple cyst, multiple renal cyst and increase in size of known spleen cyst. Discussed with Caitlin Roland CNP (Oncology ) and no emergent need for inpatient treatment. Can follow up with oncology outpatient. Qualifiers: Multiple myeloma remission status: unspecified Qualified Code(s): C90.00 - Multiple myeloma not having achieved remission (3) Ovarian cyst, complex Priority: Primary Status: Acute Assessment and Plan: ABD CT showed enlarged right ovary with multiple cystic changes in the right adnexa new from 2014. Possibility of ovarian malignancy cannot be excluded and further evaluation with non-emergent pelvic ultrasound is recommended. (4) Splenic cyst Priority: Primary Status: Chronic Assessment and Plan: ABD CT showed an increase in size of known spleen cyst. Follow-up with Oncology outpatient (5) HTN (hypertension) Priority: Primary Status: Acute Assessment and Plan: Hx of chronic HTN. BP controlled however HCTZ stopped with suspected dehydration and hypernatremia. Low-dose amlodipine. Recommend follow-up with PCP within one week for BP recheck Qualifiers: Hypertension type: essential hypertension Qualified Code(s): I10 - Essential (primary) hypertension (6) Abdominal pain Priority: Primary Status: Acute Assessment and Plan: CT of abdomen pelvis shows mild to moderate diverticulosis throughout the colon especially sigmoid region but no definitive evidence for diverticulitis. Abdominal pain resolved with conservative management. No abdominal pain at time of discharge. Qualifiers: Abdominal location: generalized Qualified Code(s): R10.84 - Generalized abdominal pain (7) GERD (gastroesophageal reflux disease) Priority: Secondary Status: Chronic Assessment and Plan: per hx. Cont PPI Qualifiers: Esophagitis presence: esophagitis presence not specified Qualified Code(s) : K21.9 - Gastro-esophageal reflux disease without esophagitis (8) Hx of deep venous thrombosis Priority: Secondary Status: Chronic Assessment and Plan: Hx of DVT. Cont home Xarelto . (9) COPD (chronic obstructive pulmonary disease) Priority: Secondary Status: Chronic Assessment and Plan: per hx. treating for pneumonia as noted above. No evidence of exacerbation. Continue home inhalers. Qualifiers: COPD type: unspecified COPD Qualified Code(s): J44.9 - Chronic obstructive pulmonary disease, unspecified (10) CKD (chronic kidney disease) stage 4, GFR 15-29 ml/min Priority: Primary Status: Chronic Assessment and Plan: per hx. Cr 2.16 on admission. Suspect prerenal with poor PO intake. Renal function normalized with IV fluids and encouraging oral intake. Avoid nephrotoxic agents as possible. Recommend repeat CMP with PCP within one week (11) Compression fracture Priority: Primary Status: Chronic Assessment and Plan: Chronic compression fracture, CT of abdomen pelvis shows 50% compression fracture T12 vertebral body new from 2001 exam- Exact age and etiology is indeterminate. No significant paraspinal soft tissue swelling. No definite fracture line. Generalized moderate to severe osteopenia noted elsewhere throughout the lower thoracic and lumbar spine. Asymptomatic, denied back pain. Continue home pain medication. (12) Loss of appetite Priority: Primary Status: Acute Assessment and Plan: Patient has had decreased appetite for the past week. Family reports that she has lost approximately 10 pounds since June. Encouraged dietary supplements ( i.e. ensure) with meals. Follow-up with Oncology outpatient (13) Hypernatremia Priority: Primary Status: Acute Assessment and Plan: Na 151; in the setting of dehydration. Stop IV fluids, encourage PO intake. Diuretics stopped. Na 145 at discharge (14) Dementia Priority: Primary Status: Chronic Assessment and Plan: per hx. Alert to self only. Mentation at baseline. Qualifiers: Dementia type: Alzheimer's disease Alzheimer's disease onset: late-onset Dementia behavioral disturbance: without behavioral disturbance Qualified Code (s): G30.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; F02.80 - Dementia in other diseases classified elsewhere without behavioral disturbance; F02.80 - Dementia in other diseases classified elsewhere without behavioral disturbance; F02.80 - Dementia in other diseases classified elsewhere without behavioral disturbance Hospital course: Please see assessment and an for hospital course Discharge discussed with: patient (Seen and examined at bedside. She is alert to self only but pleasant and cooperative this morning. Says she feels better would like to go home. She is poor historian. No family at bedside for collateral. Denies chest pain or shortness of breath. No abdominal pain.) - Time Spent with Patient Total time spent providing and/or coordinating discharge services: - Discharge Medications Prescriptions: amLODIPine [Norvasc] 5 mg PO DAILY #30 tablet levoFLOXacin [Levaquin] 750 mg PO DAILY #2 tablet Home Medications: ALPRAZolam [Xanax 1 MG Tablet] 1 mg PO BID PRN 11/24/14 [History] Rivaroxaban [Xarelto] 15 mg PO DAILY #30 tablet 07/28/17 [Rx] Cyanocobalamin (Vitamin B-12) [Vitamin B-12] 2,500 mcg SL DAILY 08/31/17 [ History] Ferrous Sulfate 325 mg PO DAILY 08/31/17 [History] HYDROcodone/Acet 5/325 mg [[place] 5-325 mg] 1 tab PO Q6H PRN 08/31/17 [History] Tramadol HCl [Ultram] 50 mg PO BID PRN 08/31/17 [History] amLODIPine [Norvasc] 5 mg PO DAILY #30 tablet 09/04/17 [Rx] levoFLOXacin [Levaquin] 750 mg PO DAILY #2 tablet 09/04/17 [Rx] Allergies/Adverse Reactions: 3 Allergy/AdvReac Type Severity Reaction Status Date / Time codeine AdvReac Gastrointestinal Verified 08/31/17 15:12 Upset Oxycodone AdvReac Gastrointestinal Verified 08/31/17 15:12 Upset Date of admission: 08/31/17 16:36 Primary care physician: Laine Stauffer Consults: 08/31/17 16:56 Consult to Nutrition [CONS] Routine Comment: CALOS GIORDANO Consulting Provider: NUTRITION Reason for Dietary Consult: PO Supplementation 08/31/17 17:03 Consult to Respiratory Therapy [CONS] Routine Reason for Consult: Please add flutter valve to pts. DuoNeb tx. Call Completed: Yes Discharging clinician: Monica Ramirez Anticipated date of discharge: 09/04/17 - Constitutional Vitals: Temp Pulse Resp BP Pulse Ox 98.5 F 93 18 144/90 97 09/04/17 08:15 09/04/17 08:15 09/04/17 08:15 09/04/17 08:15 09/04/17 08:15 General appearance: Present: cooperative, A&O X 2, pleasant, no acute distress, answers questions appropriately - Head Head exam: Present: atraumatic, normocephalic - Eye Eye exam: Present: PERRL, conjuntiva pink, sclera anicteric Pupils: Present: PERRL - Neck Neck exam general surgery: Present: supple, trachea midline. Absent: lymphadenopathy - Respiratory Respiratory exam: Present: CTAB, rhonchi (Scant amount scattered rhonchi to bilateral lower lobes posteriorly significantly improved from yesterday's exam.) . Absent: accessory muscle use, rales, wheezes - Cardiovascular Cardiovascular exam: Present: RRR, +S1, +S2. Absent: diastolic murmur, gallop, rubs, systolic murmur - GI/Abdominal GI/Abdominal exam: Present: normal bowel sounds, soft, no peritoneal signs. Absent: distended, tenderness - Extremities Exam Extremities exam: Present: warm, radial pulses palpable and symmetrical. Absent : calf tenderness, cyanotic, pedal edema - Neurological Exam Neurological exam: Present: CN II-XII intact, no focal deficits. Absent: pronater drift, facial droop, speech deficit - Skin Skin exam: Present: dry, intact - Patient Status Disposition: Home Health Service Condition: Good Functional capacity at discharge: uses cane/walker Overall status at discharge: patient is back to baseline - Discharge Instructions Instructions: Levofloxacin (By mouth), Community-acquired Pneumonia (DC), Amlodipine (By mouth) Follow Up With: Laine Stauffer MD [Primary Care Provider] - (Please call for follow-up appointment within 1 week.) Chandni López MD [Partnered Physician] - 10/07/17 10:40 am - Diet and Activity Activity: increase activity as tolerated Diet: other (Recommend ensure with each meal), regular diet
--- NOTE | 2017-09-04 10:40 | Physician Discharge Referral ---
Home Health/Hosp Referral Info Transfer to: Home Health Attending Provider: Monica Ramirez CNP Provider in Charge Post Discharge: PCP - Diagnosis (1) HCAP (healthcare-associated pneumonia) Status: Acute (2) Multiple myeloma Status: Chronic (3) Ovarian cyst, complex Status: Acute (4) Splenic cyst Status: Chronic (5) HTN (hypertension) Status: Acute (6) Abdominal pain Status: Acute (7) GERD (gastroesophageal reflux disease) Status: Chronic (8) Hx of deep venous thrombosis Status: Chronic (9) COPD (chronic obstructive pulmonary disease) Status: Chronic (10) CKD (chronic kidney disease) stage 4, GFR 15-29 ml/min Status: Chronic (11) Compression fracture Status: Chronic (12) Loss of appetite Status: Acute (13) Hypernatremia Status: Acute (14) Dementia Status: Chronic - Respiratory Orders None Smoking Cessation: Smoking cessation has been advised. For more information, call the [facility] Quit Line at [phone]-NOW. - Diet/Nutrition Diet/Nutrition Orders: Regular - Activity Activity Orders: Ambulate, Walker - Services Needed Following services are medically necessary services: Nursing, Home Health Aide, Physical Therapy, Occupational Therapy - Transfer Medications Prescriptions: amLODIPine [Norvasc] 5 mg PO DAILY #30 tablet levoFLOXacin [Levaquin] 750 mg PO DAILY #2 tablet Home Medications: ALPRAZolam [Xanax 1 MG Tablet] 1 mg PO BID PRN 11/24/14 [History] Rivaroxaban [Xarelto] 15 mg PO DAILY #30 tablet 07/28/17 [Rx] Cyanocobalamin (Vitamin B-12) [Vitamin B-12] 2,500 mcg SL DAILY 08/31/17 [ History] Ferrous Sulfate 325 mg PO DAILY 08/31/17 [History] HYDROcodone/Acet 5/325 mg [[place] 5-325 mg] 1 tab PO Q6H PRN 08/31/17 [History] Tramadol HCl [Ultram] 50 mg PO BID PRN 08/31/17 [History] amLODIPine [Norvasc] 5 mg PO DAILY #30 tablet 09/04/17 [Rx] levoFLOXacin [Levaquin] 750 mg PO DAILY #2 tablet 09/04/17 [Rx] Allergies/Adverse Reactions: 3 Allergy/AdvReac Type Severity Reaction Status Date / Time codeine AdvReac Gastrointestinal Verified 08/31/17 15:12 Upset Oxycodone AdvReac Gastrointestinal Verified 08/31/17 15:12 Upset Certification: Further, I certify that my clinical findings support that this patient is homebound (i.e. absences from home require considerable and taxing effort and are for medical reasons or zoroastrian services or infrequently or short duration when for other reasons) because: Homebound Reason: Leaving home requires considerable and taxing effort due to condition Attestation: My signature below is to certify that this patient is under my care and that I, or nurse practitioner, or a physician's human services assistant working with me, has a face-to -face encounter with this patient.
[2017-09-04 11:04] LABS: Basophils % 0.3 %; Eosinophils # 0.2 K/mcL (0.0-0.6); Eosinophils % 2.8 %; Hemoglobin 8.4 g/dL (11.5-15.4); Immature Granulocytes % 0.8 % (0-4); Lymphocytes # 1.8 K/mcL (0.6-4.6); Mean Corpuscular HGB Conc 31.1 g/dL (31.6-35.5); Mean Corpuscular Hemoglobin 26.9 pg (28.0-33.3); Mean Corpuscular Volume 86.5 fL (83.0-100.0); Monocytes % 15.7 %; Neutrophils # 3.3 K/mcL (1.6-8.9); Platelet Count 204 K/mcL (140-400); Red Blood Count 3.12 M/mcL (3.82-4.97); Red Cell Distribution Width 16.1 % (11.5-14.5); Segmented Neutrophils % 51.4 %
== END 2017-09-04 11:47 | disposition home health service (06) | DRG 194 ==
LOC: 3BNU 10:49 → EMEROO 10:49 → 3BNU 15:20
PROVIDERS: ADMIT Hospitalist; ATTEND Hospitalist

== ENCOUNTER 2017-09-06 04:59 | Observation (INO) ==
--- NOTE | 2017-09-06 05:31 | Emergency Department Note ---
Disposition Clinical Impression: Back pain Qualifiers: Back pain location: back pain in unspecified location Chronicity: unspecified Back pain laterality: unspecified Qualified Code(s): M54.9 - Dorsalgia, unspecified Disposition: Admitted As Inpatient Condition: Fair Referrals: Laine Stauffer MD [Primary Care Provider] - Forms: ED Satisfaction Letter General Adult HPI - General Chief complaint: ED Back Pain/Injury Stated complaint: back pain Time Seen by Provider: 09/06/17 05:03 Source: patient, family, EMS Mode of arrival: EMS Limitations: other Nursing Notes Reviewed: Yes Vital Signs Reviewed: Yes - History of Present Illness HPI Narrative: Gillian is a pleasant 81 yo F with past medical history of dementia, hospital- acquired pneumonia, multiple myeloma. She was recently admitted on 08/31/2017 and discharged on 2017. Discharge on Levaquin for pneumonia. Per EMS chief complaint for coming to the emergency room was increased back pain. Patient was asked about her back pain she reported that she was unsure. Patient is also not remember having bone cancer. Daughter, at bedside,the patient tolerated oral fluids well yesterday and that she has been afebrile at home. Patient lives with her son and appears well cared for. Pain Scale: 8 - Related Data Home Medications Medication Instructions Recorded Confirmed ALPRAZolam [Xanax 1 MG Tablet] 1 mg PO BID PRN 11/24/14 08/31/17 Cyanocobalamin (Vitamin B-12) 2,500 mcg SL DAILY 08/31/17 08/31/17 [Vitamin B-12] Ferrous Sulfate 325 mg PO DAILY 08/31/17 08/31/17 HYDROcodone/Acet 5/325 mg [[place] 1 tab PO Q6H PRN 08/31/17 08/31/17 5-325 mg] Tramadol HCl [Ultram] 50 mg PO BID PRN 08/31/17 08/31/17 Previous Rx's Medication Instructions Recorded Rivaroxaban [Xarelto] 15 mg PO DAILY #30 tablet 07/28/17 amLODIPine [Norvasc] 5 mg PO DAILY #30 tablet 09/04/17 levoFLOXacin [Levaquin] 750 mg PO DAILY #2 tablet 09/04/17 Allergies Allergy/AdvReac Type Severity Reaction Status Date / Time codeine AdvReac Gastrointestinal Verified 08/31/17 15:12 Upset Oxycodone AdvReac Gastrointestinal Verified 08/31/17 15:12 Upset All systems ED: reviewed and negative except as stated. Review of Systems: As Per HPI Past Medical History - Past Medical History Medical history: Reports: cancer, COPD, DVT, dementia, GERD, hyperlipidemia, hypertension, osteoporosis, renal disease, other Surgical history: Reports: appendectomy, other Psychiatric history: Reports: no psych history - Social History Smoking Status: Former smoker Smokeless Tobacco Status: No Alcohol use: Reports: none Drug use: Reports: none Physical Exam No spinal tenderness no skin findings. - General Limitations: other (Baseline dementia, per daughter this is normal for her.) General appearance: alert, in no apparent distress - Head Head exam: atraumatic - Eye Eye exam: Present: normal appearance, PERRL, EOMI - ENT ENT exam: normal exam - Neck Neck exam: Present: normal inspection - Chest Chest inspection: Present: normal inspection - Respiratory Respiratory exam: Present: other (rhonci; right lower lobe; no apparent respiratory distress) Course Vital Signs Temperature 99.8 F H 09/06/17 05:03 Pulse Rate 83 09/06/17 05:03 Respiratory Rate 20 09/06/17 05:03 Blood Pressure 128/58 09/06/17 05:03 O2 Sat by Pulse Oximetry 92 09/06/17 05:03 Temperature 99.8 F H 09/06/17 05:03 Pulse Rate 83 09/06/17 05:03 Respiratory Rate 20 09/06/17 05:03 Blood Pressure 128/58 09/06/17 05:03 O2 Sat by Pulse Oximetry 92 09/06/17 05:03 Oxygen Delivery Oxygen Delivery Room Air Medical Decision Making - Lab Data Result diagrams: 09/06/17 05:58 09/06/17 05:58 Lab Results 09/06/17 09/06/17 09/06/17 Range/Units 05:58 05:58 05:58 WBC 5.9 (4.3-11.1) K/mcL RBC 3.39 L (3.82-4.97) M/mcL Hgb 9.1 L (11.5-15.4) g/dL Hct 29.0 L (35.3-44.9) % MCV 85.5 (83.0-100.0) fL MCH 26.8 L (28.0-33.3) pg MCHC 31.4 L (31.6-35.5) g/dL RDW 16.3 H (11.5-14.5) % Plt Count 240 (140-400) K/mcL MPV 10.9 (9.4-12.4) fL Immature Gran % 0.8 (0-4) % Seg Neutrophils % 58.6 % Lymphocytes % 24.4 % Monocytes % 12.5 % Eosinophils % 3.4 % Basophils % 0.3 % Neutrophils # 3.5 (1.6-8.9) K/mcL Lymphocytes # 1.5 (0.6-4.6) K/mcL Monocytes # 0.7 (0.0-1.3) K/mcL Eosinophils # 0.2 (0.0-0.6) K/mcL Basophils # 0.0 (0.0-0.2) K/mcL Sodium 143 (136-145) mEq/L Potassium 3.7 (3.5-5.1) mEq/L Chloride 113 H (98-107) mEq/L Carbon Dioxide 23 (23-29) mEq/L BUN 17 (8-23) mg/dL Creatinine 1.00 (0.60-1.20) mg/dL Est GFR ( Amer) > 60 (> 60) Est GFR (Non-Af Amer) 53 L (> 60) BUN/Creatinine Ratio 17 (6-26) Glucose 84 (70-105) mg/dL Calculated Osmolality 297 (280-300) Lactic Acid 0.8 (0.5-2.2) mmol/L Calcium 8.6 (8.6-10.3) mg/dL Total Bilirubin 0.7 (0.3-1.0) mg/dL AST 14 (13-39) Units/L ALT 15 (7-52) Units/L Alkaline Phosphatase 44 (34-104) Units/L Serum Total Protein 5.6 L (6.4-8.9) g/dL Albumin 3.0 L (3.5-5.7) g/dL Globulin 2.6 (2.4-3.5) g/dL Albumin/Globulin Ratio 1.2 (1.1-2.2)
[2017-09-06 06:07] LABS: Basophils % 0.3 %; Eosinophils # 0.2 K/mcL (0.0-0.6); Eosinophils % 3.4 %; Hemoglobin 9.1 g/dL (11.5-15.4); Immature Granulocytes % 0.8 % (0-4); Lymphocytes # 1.5 K/mcL (0.6-4.6); Lymphocytes % 24.4 %; Mean Corpuscular HGB Conc 31.4 g/dL (31.6-35.5); Mean Corpuscular Hemoglobin 26.8 pg (28.0-33.3); Mean Corpuscular Volume 85.5 fL (83.0-100.0); Mean Platelet Volume 10.9 fL (9.4-12.4); Monocytes # 0.7 K/mcL (0.0-1.3); Monocytes % 12.5 %; Neutrophils # 3.5 K/mcL (1.6-8.9); Platelet Count 240 K/mcL (140-400); Red Blood Count 3.39 M/mcL (3.82-4.97); Red Cell Distribution Width 16.3 % (11.5-14.5); Segmented Neutrophils % 58.6 %
[2017-09-06 06:27] LABS: Alanine Aminotransferase 15 Units/L (7-52); Albumin/Globulin Ratio 1.2 (1.1-2.2); Alkaline Phosphatase 44 Units/L (34-104); Aspartate Amino Transferase 14 Units/L (13-39); BUN/Creatinine Ratio 17 (6-26); Bilirubin,Total 0.7 mg/dL (0.3-1.0); Blood Urea Nitrogen 17 mg/dL (8-23); Calcium 8.6 mg/dL (8.6-10.3); Carbon Dioxide 23 mEq/L (23-29); Chloride 113 mEq/L (98-107); Globulin 2.6 g/dL (2.4-3.5); Glucose 84 mg/dL (70-105); Osmolality,Calculated 297 (280-300); Potassium 3.7 mEq/L (3.5-5.1); Sodium 143 mEq/L (136-145); Total Protein 5.6 g/dL (6.4-8.9); eGFR For African Americans > 60 (> 60); eGFR For Non-African Americans 53 (> 60)
--- NOTE | 2017-09-06 08:12 | Emergency Department Note ---
Disposition Clinical Impression: Back pain Qualifiers: Back pain location: low back pain Back pain laterality: midline Sciatica presence: without sciatica Qualified Code(s): M54.5 - Chest pain Qualifiers: Chest pain type: precordial pain Qualified Code(s): R07.2 - Precordial pain Disposition: Admitted As Inpatient Condition: Fair General Adult HPI - General Chief complaint: ED Back Pain/Injury Stated complaint: back pain Time Seen by Provider: 09/06/17 05:03 Source: patient, family, EMS Mode of arrival: EMS Limitations: other (Baseline dementia, per daughter this is normal for her.) Nursing Notes Reviewed: Yes Vital Signs Reviewed: Yes - History of Present Illness Pain Scale: 0 - Related Data Home Medications Medication Instructions Recorded Confirmed ALPRAZolam [Xanax 1 MG Tablet] 1 mg PO BID PRN 11/24/14 09/06/17 Cyanocobalamin (Vitamin B-12) 2,500 mcg SL DAILY 08/31/17 09/06/17 [Vitamin B-12] Ferrous Sulfate 325 mg PO DAILY 08/31/17 09/06/17 HYDROcodone/Acet 5/325 mg [[place] 1 tab PO Q6H PRN 08/31/17 09/06/17 5-325 mg] Tramadol HCl [Ultram] 50 mg PO BID PRN 08/31/17 09/06/17 Previous Rx's Medication Instructions Recorded Rivaroxaban [Xarelto] 15 mg PO DAILY #30 tablet 07/28/17 amLODIPine [Norvasc] 5 mg PO DAILY #30 tablet 09/04/17 levoFLOXacin [Levaquin] 750 mg PO DAILY #2 tablet 09/04/17 Allergies Allergy/AdvReac Type Severity Reaction Status Date / Time codeine AdvReac Gastrointestinal Verified 09/06/17 09:35 Upset Oxycodone AdvReac Gastrointestinal Verified 09/06/17 09:35 Upset Past Medical History - Past Medical History Medical history: Reports: cancer, COPD, DVT, dementia, GERD, hyperlipidemia, hypertension, osteoporosis, renal disease, other Surgical history: Reports: appendectomy, other Psychiatric history: Reports: no psych history - Social History Smoking Status: Former smoker Smokeless Tobacco Status: No Alcohol use: Reports: none Drug use: Reports: none Physical Exam - General Limitations: other (Baseline dementia, per daughter this is normal for her.) General appearance: alert, in no apparent distress Course Course Narrative: Assumed care of this patient from Merle Chilel PA-C at shift change. Report received is that the patient came in from home accompanied by daughter for evaluation of back pain and generalized malaise. States that she is having back pain. It is left upper thoracic area. Nothing makes it better or worse. She has no tenderness to palpation of the spine. Minimal tenderness to palpation of the paraspinal muscles on the left side in the thoracic area. I suspect this is most likely secondary to the pneumonia. She has in the left lung. Labs and x-ray have been ordered. Results are pending. Patient does have a low-grade fever. She is also mildly hypoxic. She is on Levaquin. Today would be day seven, but she has not yet taken it today. Patient received Tylenol. This did not help with the pain. She is now experiencing midsternal chest pain. This is new for her. EKG shows no acute changes. Patient has no history of known coronary artery disease. However, she does have risk factors. We will admit for further evaluation and rule out. Initial troponin is 0.03. Hospitalist has been paged. - Reevaluation(s) Reevaluation #2: Patient still having back pain, but now also c/o mid-sternal chest pain. Daughter states that patient has c/o of this intermittently since yesterday. This was first mention of it in the ER today. EKG has already been ordered. Time: 09:20 - Consultations Consultation #1: Case discussed with the hospitalist. Patient has been accepted for admission. However, a d-dimer was requested. This has been added. If it is positive. A CTA of the chest will be ordered. Time: 10:10 Vital Signs Temperature 99.8 F H 09/06/17 05:03 Pulse Rate 83 09/06/17 05:03 Respiratory Rate 20 09/06/17 05:03 Blood Pressure 128/58 09/06/17 05:03 O2 Sat by Pulse Oximetry 92 09/06/17 05:03 Temperature 98.6 F 09/06/17 15:15 Pulse Rate 86 09/06/17 15:15 Respiratory Rate 16 09/06/17 15:15 Blood Pressure 145/68 09/06/17 15:15 O2 Sat by Pulse Oximetry 96 09/06/17 15:15 Oxygen Delivery Oxygen Delivery Nasal Cannula Medical Decision Making - Medical Records Medical records reviewed: Yes I reviewed the patient's medical records. - Lab Data Lab results reviewed: Yes I reviewed the patient's lab results. Lab results narrative: Laboratory Last Values WBC 5.9 K/mcL (4.3-11.1) 09/06/17 05:58 RBC 3.39 M/mcL (3.82-4.97) L 09/06/17 05:58 Hgb 9.1 g/dL (11.5-15.4) L 09/06/17 05:58 Hct 29.0 % (35.3-44.9) L 09/06/17 05:58 MCV 85.5 fL (83.0-100.0) 09/06/17 05:58 MCH 26.8 pg (28.0-33.3) L 09/06/17 05:58 MCHC 31.4 g/dL (31.6-35.5) L 09/06/17 05:58 RDW 16.3 % (11.5-14.5) H 09/06/17 05:58 Plt Count 240 K/mcL (140-400) 09/06/17 05:58 MPV 10.9 fL (9.4-12.4) 09/06/17 05:58 Immature Gran % 0.8 % (0-4) 09/06/17 05:58 Seg Neutrophils % 58.6 % 09/06/17 05:58 Lymphocytes % 24.4 % 09/06/17 05:58 Monocytes % 12.5 % 09/06/17 05:58 Eosinophils % 3.4 % 09/06/17 05:58 Basophils % 0.3 % 09/06/17 05:58 Neutrophils # 3.5 K/mcL (1.6-8.9) 09/06/17 05:58 Lymphocytes # 1.5 K/mcL (0.6-4.6) 09/06/17 05:58 Monocytes # 0.7 K/mcL (0.0-1.3) 09/06/17 05:58 Eosinophils # 0.2 K/mcL (0.0-0.6) 09/06/17 05:58 Basophils # 0.0 K/mcL (0.0-0.2) 09/06/17 05:58 Sodium 143 mEq/L (136-145) 09/06/17 05:58 Potassium 3.7 mEq/L (3.5-5.1) 09/06/17 05:58 Chloride 113 mEq/L (98-107) H 09/06/17 05:58 Carbon Dioxide 23 mEq/L (23-29) 09/06/17 05:58 BUN 17 mg/dL (8-23) 09/06/17 05:58 Creatinine 1.00 mg/dL (0.60-1.20) 09/06/17 05:58 Est GFR ( Amer) > 60 (> 60) 09/06/17 05:58 Est GFR (Non-Af Amer) 53 (> 60) L 09/06/17 05:58 BUN/Creatinine Ratio 17 (6-26) 09/06/17 05:58 Glucose 84 mg/dL (70-105) 09/06/17 05:58 Calculated Osmolality 297 (280-300) 09/06/17 05:58 Lactic Acid 0.8 mmol/L (0.5-2.2) 09/06/17 05:58 Calcium 8.6 mg/dL (8.6-10.3) 09/06/17 05:58 Total Bilirubin 0.7 mg/dL (0.3-1.0) 09/06/17 05:58 AST 14 Units/L (13-39) 09/06/17 05:58 ALT 15 Units/L (7-52) 09/06/17 05:58 Alkaline Phosphatase 44 Units/L (34-104) 09/06/17 05:58 Troponin I < 0.03 ng/mL (< 0.04) 09/06/17 08:15 Serum Total Protein 5.6 g/dL (6.4-8.9) L 09/06/17 05:58 Albumin 3.0 g/dL (3.5-5.7) L 09/06/17 05:58 Globulin 2.6 g/dL (2.4-3.5) 09/06/17 05:58 Albumin/Globulin Ratio 1.2 (1.1-2.2) 09/06/17 05:58 Result diagrams: 09/06/17 05:58 09/06/17 05:58 Lab Results 09/06/1718 09/06/17 Range/Units 05:58 05:58 05:58 WBC 5.9 (4.3-11.1) K/mcL RBC 3.39 L (3.82-4.97) M/mcL Hgb 9.1 L (11.5-15.4) g/dL Hct 29.0 L (35.3-44.9) % MCV 85.5 (83.0-100.0) fL MCH 26.8 L (28.0-33.3) pg MCHC 31.4 L (31.6-35.5) g/dL RDW 16.3 H (11.5-14.5) % Plt Count 240 (140-400) K/mcL MPV 10.9 (9.4-12.4) fL Immature Gran % 0.8 (0-4) % Seg Neutrophils % 58.6 % Lymphocytes % 24.4 % Monocytes % 12.5 % Eosinophils % 3.4 % Basophils % 0.3 % Neutrophils # 3.5 (1.6-8.9) K/mcL Lymphocytes # 1.5 (0.6-4.6) K/mcL Monocytes # 0.7 (0.0-1.3) K/mcL Eosinophils # 0.2 (0.0-0.6) K/mcL Basophils # 0.0 (0.0-0.2) K/mcL Sodium 143 (136-145) mEq/L Potassium 3.7 (3.5-5.1) mEq/L Chloride 113 H (98-107) mEq/L Carbon Dioxide 23 (23-29) mEq/L BUN 17 (8-23) mg/dL Creatinine 1.00 (0.60-1.20) mg/dL Est GFR ( Amer) > 60 (> 60) Est GFR (Non-Af Amer) 53 L (> 60) BUN/Creatinine Ratio 17 (6-26) Glucose 84 (70-105) mg/dL Calculated Osmolality 297 (280-300) Lactic Acid 0.8 (0.5-2.2) mmol/L Calcium 8.6 (8.6-10.3) mg/dL Total Bilirubin 0.7 (0.3-1.0) mg/dL AST 14 (13-39) Units/L ALT 15 (7-52) Units/L Alkaline Phosphatase 44 (34-104) Units/L Troponin I (< 0.04) ng/mL Serum Total Protein 5.6 L (6.4-8.9) g/dL Albumin 3.0 L (3.5-5.7) g/dL Globulin 2.6 (2.4-3.5) g/dL Albumin/Globulin Ratio 1.2 (1.1-2.2) 09/06/17 Range/Units 08:15 WBC (4.3-11.1) K/mcL RBC (3.82-4.97) M/mcL Hgb (11.5-15.4) g/dL Hct (35.3-44.9) % MCV (83.0-100.0) fL MCH (28.0-33.3) pg MCHC (31.6-35.5) g/dL RDW (11.5-14.5) % Plt Count (140-400) K/mcL MPV (9.4-12.4) fL Immature Gran % (0-4) % Seg Neutrophils % % Lymphocytes % % Monocytes % % Eosinophils % % Basophils % % Neutrophils # (1.6-8.9) K/mcL Lymphocytes # (0.6-4.6) K/mcL Monocytes # (0.0-1.3) K/mcL Eosinophils # (0.0-0.6) K/mcL Basophils # (0.0-0.2) K/mcL Sodium (136-145) mEq/L Potassium (3.5-5.1) mEq/L Chloride (98-107) mEq/L Carbon Dioxide (23-29) mEq/L BUN (8-23) mg/dL Creatinine (0.60-1.20) mg/dL Est GFR ( Amer) (> 60) Est GFR (Non-Af Amer) (> 60) BUN/Creatinine Ratio (6-26) Glucose (70-105) mg/dL Calculated Osmolality (280-300) Lactic Acid (0.5-2.2) mmol/L Calcium (8.6-10.3) mg/dL Total Bilirubin (0.3-1.0) mg/dL AST (13-39) Units/L ALT (7-52) Units/L Alkaline Phosphatase (34-104) Units/L Troponin I < 0.03 (< 0.04) ng/mL Serum Total Protein (6.4-8.9) g/dL Albumin (3.5-5.7) g/dL Globulin (2.4-3.5) g/dL Albumin/Globulin Ratio (1.1-2.2) - Radiology Data Radiology results reviewed: Yes I reviewed the patient's radiology results. Chest X-Ray 09/06/17 05:16 IMPRESSION: No significant interval change since 08/31/2017. Unchanged left basilar pulmonary opacity with left pleural effusion. Findings suggestive of underlying COPD. D/ / 09/06/2017 07:29:48 Maxime Romero MD / tien Interpreting Provider: Maxime Romero MD - EKG Data EKG #1 EKG attestation: Yes I reviewed and interpreted this EKG. EKG shows normal: sinus rhythm Rate: normal Rhythm: NSR When compared to previous EKG there are: no significant changes Interpretation: unchanged when compared to prior tracing (date)
[2017-09-06] MEDS ORDERED: 0.9 % Sodium Chloride 1,000 ML IVC ONE (10:05)
--- NOTE | 2017-09-06 10:11 | Emergency Department Note ---
Disposition Clinical Impression: Back pain Qualifiers: Back pain location: back pain in unspecified location Chronicity: unspecified Back pain laterality: unspecified Qualified Code(s): M54.9 - Dorsalgia, unspecified Disposition: Admitted As Inpatient Condition: Fair Referrals: Laine Stauffer MD [Primary Care Provider] - Forms: ED Satisfaction Letter General Adult HPI - General Chief complaint: ED Back Pain/Injury Stated complaint: back pain Time Seen by Provider: 09/06/17 05:03 Source: patient, family, EMS Mode of arrival: EMS Limitations: other (Baseline dementia, per daughter this is normal for her.) - History of Present Illness Pain Scale: 0 - Related Data Home Medications Medication Instructions Recorded Confirmed ALPRAZolam [Xanax 1 MG Tablet] 1 mg PO BID PRN 11/24/14 09/06/17 Cyanocobalamin (Vitamin B-12) 2,500 mcg SL DAILY 08/31/17 09/06/17 [Vitamin B-12] Ferrous Sulfate 325 mg PO DAILY 08/31/17 09/06/17 HYDROcodone/Acet 5/325 mg [[place] 1 tab PO Q6H PRN 08/31/17 09/06/17 5-325 mg] Tramadol HCl [Ultram] 50 mg PO BID PRN 08/31/17 09/06/17 Previous Rx's Medication Instructions Recorded Rivaroxaban [Xarelto] 15 mg PO DAILY #30 tablet 07/28/17 amLODIPine [Norvasc] 5 mg PO DAILY #30 tablet 09/04/17 levoFLOXacin [Levaquin] 750 mg PO DAILY #2 tablet 09/04/17 Allergies Allergy/AdvReac Type Severity Reaction Status Date / Time codeine AdvReac Gastrointestinal Verified 09/06/17 09:35 Upset Oxycodone AdvReac Gastrointestinal Verified 09/06/17 09:35 Upset Past Medical History - Past Medical History Medical history: Reports: cancer, COPD, DVT, dementia, GERD, hyperlipidemia, hypertension, osteoporosis, renal disease, other Surgical history: Reports: appendectomy, other Psychiatric history: Reports: no psych history - Social History Smoking Status: Former smoker Smokeless Tobacco Status: No Alcohol use: Reports: none Drug use: Reports: none Physical Exam - General Limitations: other (Baseline dementia, per daughter this is normal for her.) General appearance: alert, in no apparent distress Course Vital Signs Temperature 99.8 F H 09/06/17 05:03 Pulse Rate 83 09/06/17 05:03 Respiratory Rate 20 09/06/17 05:03 Blood Pressure 128/58 09/06/17 05:03 O2 Sat by Pulse Oximetry 92 09/06/17 05:03 Temperature 99.8 F H 09/06/17 05:03 Pulse Rate 88 09/06/17 09:45 Respiratory Rate 18 09/06/17 09:45 Blood Pressure 119/52 09/06/17 09:45 O2 Sat by Pulse Oximetry 96 09/06/17 09:45 Oxygen Delivery Oxygen Delivery Nasal Cannula Medical Decision Making - Lab Data Result diagrams: 09/06/17 05:58 09/06/17 05:58 Lab Results 09/06/17 09/06/17 09/06/17 Range/Units 05:58 05:58 05:58 WBC 5.9 (4.3-11.1) K/mcL RBC 3.39 L (3.82-4.97) M/mcL Hgb 9.1 L (11.5-15.4) g/dL Hct 29.0 L (35.3-44.9) % MCV 85.5 (83.0-100.0) fL MCH 26.8 L (28.0-33.3) pg MCHC 31.4 L (31.6-35.5) g/dL RDW 16.3 H (11.5-14.5) % Plt Count 240 (140-400) K/mcL MPV 10.9 (9.4-12.4) fL Immature Gran % 0.8 (0-4) % Seg Neutrophils % 58.6 % Lymphocytes % 24.4 % Monocytes % 12.5 % Eosinophils % 3.4 % Basophils % 0.3 % Neutrophils # 3.5 (1.6-8.9) K/mcL Lymphocytes # 1.5 (0.6-4.6) K/mcL Monocytes # 0.7 (0.0-1.3) K/mcL Eosinophils # 0.2 (0.0-0.6) K/mcL Basophils # 0.0 (0.0-0.2) K/mcL Sodium 143 (136-145) mEq/L Potassium 3.7 (3.5-5.1) mEq/L Chloride 113 H (98-107) mEq/L Carbon Dioxide 23 (23-29) mEq/L BUN 17 (8-23) mg/dL Creatinine 1.00 (0.60-1.20) mg/dL Est GFR ( Amer) > 60 (> 60) Est GFR (Non-Af Amer) 53 L (> 60) BUN/Creatinine Ratio 17 (6-26) Glucose 84 (70-105) mg/dL Calculated Osmolality 297 (280-300) Lactic Acid 0.8 (0.5-2.2) mmol/L Calcium 8.6 (8.6-10.3) mg/dL Total Bilirubin 0.7 (0.3-1.0) mg/dL AST 14 (13-39) Units/L ALT 15 (7-52) Units/L Alkaline Phosphatase 44 (34-104) Units/L Troponin I (< 0.04) ng/mL Serum Total Protein 5.6 L (6.4-8.9) g/dL Albumin 3.0 L (3.5-5.7) g/dL Globulin 2.6 (2.4-3.5) g/dL Albumin/Globulin Ratio 1.2 (1.1-2.2) / Range/Units 08:15 WBC (4.3-11.1) K/mcL RBC (3.82-4.97) M/mcL Hgb (11.5-15.4) g/dL Hct (35.3-44.9) % MCV (83.0-100.0) fL MCH (28.0-33.3) pg MCHC (31.6-35.5) g/dL RDW (11.5-14.5) % Plt Count (140-400) K/mcL MPV (9.4-12.4) fL Immature Gran % (0-4) % Seg Neutrophils % % Lymphocytes % % Monocytes % % Eosinophils % % Basophils % % Neutrophils # (1.6-8.9) K/mcL Lymphocytes # (0.6-4.6) K/mcL Monocytes # (0.0-1.3) K/mcL Eosinophils # (0.0-0.6) K/mcL Basophils # (0.0-0.2) K/mcL Sodium (136-145) mEq/L Potassium (3.5-5.1) mEq/L Chloride (98-107) mEq/L Carbon Dioxide (23-29) mEq/L BUN (8-23) mg/dL Creatinine (0.60-1.20) mg/dL Est GFR ( Amer) (> 60) Est GFR (Non-Af Amer) (> 60) BUN/Creatinine Ratio (6-26) Glucose (70-105) mg/dL Calculated Osmolality (280-300) Lactic Acid (0.5-2.2) mmol/L Calcium (8.6-10.3) mg/dL Total Bilirubin (0.3-1.0) mg/dL AST (13-39) Units/L ALT (7-52) Units/L Alkaline Phosphatase (34-104) Units/L Troponin I < 0.03 (< 0.04) ng/mL Serum Total Protein (6.4-8.9) g/dL Albumin (3.5-5.7) g/dL Globulin (2.4-3.5) g/dL Albumin/Globulin Ratio (1.1-2.2) Attestation Statement - Attestation Attestation: For this encounter, I have reviewed the CONFIGURATION SPECIALIST or PA documentation, treatment plan, and medical decision making; and I have had face to face time with this patient. Patient to ED with daughter for back and chest pain. Pain in the left posterior ribs into her chest. Recently seen and admitted for pneumonia. She is in no distress on exam sleeping. Satting 91 on oxygen. Lungs diminished on that side. No overlying rash. Nontender to palpation. Plan. I believe the patient's pain is from her unresolving pleural effusion on that side. The patient's ammonia is not improved. She has finished antibiotic. Likely readmission.
[2017-09-06] MEDS ORDERED: Naloxone 0.4 MG/ML INJ IVP PRN (11:33)
[2017-09-06] MEDS ORDERED: Ipratropium/Albuterol Neb 3 ML IH PRN (11:41)
--- NOTE | 2017-09-06 11:53 | Internal Med History&Physical ---
Date of Encounter: 09/06/17 Time of Encounter: 11:44 Internal Medicine - H&P: HPI Chief complaint: Short of breath, back pain Admitted From: Home Plans for Post Hospital Care: Home History of present illness: Ms. Joiner is a 81 year old female with history of multiple myeloma under care of oncologist Dr garcia, DVT and PE on surround to, hypertension, COPD but no home oxygen, advanced dementia live with her son, GERD brought to ER with concern of shortness of breath and lower back pain. Patient is very poor historian and mostly history obtained from her daughter who is bedside and also power of divorce attorney. Patient has recent admission last week for HCAP and got treated with broader spectrum antibiotic and eventually sent on Levaquin but no home oxygen as patient started to improve. But for 1 or 2 days patient started to complain worsening of her back pain though she has intermittent chronic low back pain and also short of breath therefore her son got concerned and sent to ER. In ER initial troponin negative EKG no acute changes compared to last one, raised d-dimer. Oxygen saturation 92% on room air and 2 L SPO2 95% . Chest x-ray with persistent consolidation on left side. Patient complained of lower back pain but denies tingling numbness motor weakness urinary bowel incontinence. Bladder scan was done in the ER with no residual urine. Patient is still has cough with gurgling sound, decreased oral intake, low back pain but denies fever, chills, vomiting, headache, dizziness On reviewing chart last admission there was concern about complicated ovarian cyst and large splenic cyst and advised pelvic ultrasound on OPD basis and follow with her oncologist to rule out any underlying malignancy but did not happen yet. Patient has follow-up appointment with her oncologist on September 2017 Past Med Surg Social Fam HX - Past Medical History Medical history: cancer, COPD, DVT, dementia, GERD, hyperlipidemia, hypertension , osteoporosis, renal disease, other Psychiatric history: no psych history - Past Surgical History Surgical History: appendectomy, other - Social History Smoking Status: Former smoker Smokeless Tobacco Status: No Alcohol use: none Drug use: none - Family History Mother Adopted: No Family Member Ethnicity: Non- Living Status: Hx Family Cardiac Disorders: No Hx Family Respiratory Disorders: No Hx Family Cancer: No Hx Family GI Disorders: No Hx Family Endocrine Disorder: No Hx Family Neuromuscular Disorders: No Hx Family Neurologic Disorders: Yes (Alzhemer's disease) Hx Family HEENT Disorders: No Hx Family Autoimmune Disorders: No Brother Family Member Ethnicity: Non- Living Status: Still Living Father Family Member Ethnicity: Non- Living Status: Hx Family Cardiac Disorders: Yes (CVA) Hx Family Respiratory Disorders: No Hx Family Cancer: No Hx Family GI Disorders: No Hx Family Endocrine Disorder: No Hx Family Neuromuscular Disorders: No Hx Family Neurologic Disorders: Yes (CVA) Hx Family HEENT Disorders: No Hx Family Autoimmune Disorders: No Hx Family Medical Disorders: Yes (cva) Internal Medicine - H&P: Meds ALPRAZolam [Xanax 1 MG Tablet] 1 mg PO BID PRN 11/24/14 [History] Rivaroxaban [Xarelto] 15 mg PO DAILY #30 tablet 07/28/17 [Rx] Cyanocobalamin (Vitamin B-12) [Vitamin B-12] 2,500 mcg SL DAILY 08/31/17 [ History] Ferrous Sulfate 325 mg PO DAILY 08/31/17 [History] HYDROcodone/Acet 5/325 mg [[place] 5-325 mg] 1 tab PO Q6H PRN 08/31/17 [History] Tramadol HCl [Ultram] 50 mg PO BID PRN 08/31/17 [History] amLODIPine [Norvasc] 5 mg PO DAILY #30 tablet 09/04/17 [Rx] levoFLOXacin [Levaquin] 750 mg PO DAILY #2 tablet 09/04/17 [Rx] 3 Allergy/AdvReac Type Severity Reaction Status Date / Time codeine AdvReac Gastrointestinal Verified 09/06/17 09:35 Upset Oxycodone AdvReac Gastrointestinal Verified 09/06/17 09:35 Upset All Systems PM: as documented above in the HPI. - Constitutional Vitals: Temp Pulse Resp BP Pulse Ox 97.3 F L 88 16 122/65 98 09/06/17 11:23 09/06/17 11:23 09/06/17 11:23 09/06/17 11:23 09/06/17 11:23 Exam: General appearance: Alert awake no acute distress. Oxygen by nasal cannula 2 L. Daughter at bedside. Poor historian. Daughter provided mostly history but also does not know much about present complaint Head exam: Atraumatic Eye exam: EOMI, PERRLA ENT exam: Moist oral mucosa Neck nontender, supple Respiratory exam: Decreased breath sound with few scattered rales bilaterally Cardiovascular exam: Regular rate and rhythm, no systolic murmur Abdominal exam: Soft, nontender, nondistended, positive bowel sounds Extremities exam: No calf tenderness, no pedal edema Present: Back-lumbosacral area diffuse tenderness. Grade 1 decubitus ulcer most likely skin excoriation . Neurological exam: Grossly intact CN II-XII , no focal deficits. No facial droop. Motor 5 x 5 in all 4 extremities. Internal Med - H&P Results - Labs CBC & Chem 7: 09/06/17 05:58 09/06/17 05:58 - Assessment and plan (1) Shortness of breath Current Visit: Yes Status: Acute Assessment and plan: Recent history of pneumonia got hospitalize. Patient has shortness of breath and also low oxygen saturation on arrival to ER. Has been taking Levaquin and today last was of Levaquin. Chest x-ray with persistent consolidation but no new change. Patient had low-grade fever but normal white count. Patient also has raised d-dimer and history of DVT and PE although on surround to but CT angiogram ordered to rule out underlying pulmonary etiology. For now will continue Levaquin as normal white count and patient does not appear in sepsis but more like persistent pneumonia but will upgrade antibiotic if any worsening finding in CT chest. Spirometry, DuoNeb and also consult respiratory therapist for chest percussion if patient tolerated. Possibility of COPD exacerbation as well as patient had history of COPD therefore Solu-Medrol will be added. (2) Back pain Current Visit: Yes Status: Acute Assessment and plan: History of chronic back pain but getting worse. No neurological deficit. Having history of multiple myeloma therefore concern for questionable bone malignancy therefore MRI spine ordered. Discussed with oncologists Qualifiers: Back pain location: low back pain Back pain laterality: midline Sciatica presence: without sciatica Qualified Code(s): M54.5 - Low back pain (3) Multiple myeloma Current Visit: Yes Status: Chronic Assessment and plan: Last treatment was in June and supposed to follow oncologist in September. Patient was in hospice but came out of it. Consulted oncologist Qualifiers: Multiple myeloma remission status: unspecified Qualified Code(s): C90.00 - Multiple myeloma not having achieved remission (4) Ovarian cyst, complex Current Visit: Yes Status: Chronic Assessment and plan: CT done and last admission was abnormal and recommended for pelvic ultrasound therefore ordered . Patient does not have any acute abdomen finding (5) Hypertension Current Visit: Yes Status: Acute Assessment and plan: Monitor and continue home medicine Qualifiers: Hypertension type: essential hypertension Qualified Code(s): I10 - Essential (primary) hypertension (6) Decubitus ulcer Current Visit: Yes Status: Acute Assessment and plan: Grade 1. Precaution for pressor ulcer. Wound care management Qualifiers: Pressure ulcer location: lower back Qualified Code(s): L89.131 - Pressure ulcer of right lower back, stage 1 (7) DVT prophylaxis Current Visit: Yes Status: Acute Assessment and plan: Continue xarelto. History of DVT and PE. - Time Spent With Patient Total time spent is greater than 50% in coordination of care (as documented) at patient's floor/unit and/or counseling patient: Greater than 35 minutes (Review previous record talk to family and also consulted)
[2017-09-06] MEDS: *HR* HYDROcodone/Acet 5/325 mg TABLET PO PRN ×2 (12:21→18:43)
[2017-09-06] MEDS: Levofloxacin 750 MG/150 ML 750 MG/150 ML BAG IVPB SCH (12:22)
[2017-09-06] MEDS ORDERED: Isovue-370 500 ML INFUS..BTL IV ONE (12:45)
[2017-09-06] MEDS: Cefepime HCl 1,000 MG in Water for inj. (sterile) 20 ML 10 ML IVP SCH (18:41)
[2017-09-06] MEDS: MethylPREDNISolone 40 MG/ML VIAL IVP SCH (18:42)
[2017-09-06 20:46] LABS: Adenovirus Not Detected (Not Detect); Coronavirus 229E Not Detected (Not Detect); Coronavirus HKU1 Not Detected (Not Detect); Coronavirus NL63 Not Detected (Not Detect); Coronavirus OC43 Not Detected (Not Detect); Human Metapneumovirus Not Detected (Not Detect); Human Rhinovirus/Enterovirus Not Detected (Not Detect)
[2017-09-06 20:47] LABS: Bordetella Pertussis Not Detected (Not Detect); Chlamydophila pneumoniae Not Detected (Not Detect); Influenza A Subtype 2009 H1 Not Detected (Not Detect); Influenza A Untypeable Not Detected (Not Detect); Influenza B Not Detected (Not Detect); Mycoplasma pneumoniae Not Detected (Not Detect); Parainfluenza Virus 1 Not Detected (Not Detect); Parainfluenza Virus 2 Not Detected (Not Detect); Parainfluenza Virus 3 ***DETECTED*** (Not Detect); Parainfluenza Virus 4 Not Detected (Not Detect); Respiratory Syncytial Virus Not Detected (Not Detect)
[2017-09-06] MEDS ORDERED: Vancomycin (wt based) 1,000 MG VIAL IV SCH (21:00)
[2017-09-06 22:29] LABS: Bilirubin,Urine Negative (Negative); Blood,Urine Negative (Negative); Clarity,Urine Clear (Clear); Color,Urine Yellow (Yellow); Glucose,Urine (UA) Normal (Normal); Ketones,Urine 15 mg/dL (Negative); Leukocyte Esterase,Urine Small (Negative); Nitrite,Urine Negative (Negative); PH,Urine 5.5 pH Units (5.0-8.0); Protein,Urine Negative (Neg-Trace); Specific Gravity,Urine > 1.030 (1.010-1.025); Urobilinogen,Urine Normal (Normal)
[2017-09-06 22:32] LABS: Bacteria,Urine None Seen per hpf (None-Few); Hyaline Casts,Urine None Seen per lpf (None-Few); Squamous Epithelial Cell,Urine Many per lpf (None-Few)
[2017-09-07] MEDS: ALPRAZolam 1 MG TABLET PO PRN ×2 (00:36→17:10)
[2017-09-07] MEDS: MethylPREDNISolone 40 MG/ML VIAL IVP SCH ×4 (00:36→22:37)
[2017-09-07] MEDS: *HR* HYDROcodone/Acet 5/325 mg TABLET PO PRN (03:16)
[2017-09-07] MEDS: Cefepime HCl 1,000 MG in Water for inj. (sterile) 20 ML 10 ML IVP SCH (06:32)
--- NOTE | 2017-09-07 06:39 | Pulmonology Consult Note ---
Date of Encounter: 09/07/17 Time of Encounter: 06:38 Assessment and Plan (1) Viral syndrome Current Visit: No Status: Acute The patient is positive for parainfluenza A I suspect the majority of her symptoms on presentation were related to this. Recommend continuation of supportive care (2) Pneumonia Current Visit: No Status: Acute I reviewed the patient's CT angiogram of the chest which is most consistent with atelectasis with a left-sided pleural effusion. There are some emphysematous changes on the CT scan. There is no clear indication of acute pneumonia. Her vital signs are otherwise stable without evidence of worsening infectious process. -Recommend completion of 7 days total of antimicrobial for strep pneumoniae at last discharge this could be completed with Levaquin reasonably Qualifiers: Pneumonia type: due to unspecified organism Laterality: left Lung location: unspecified part of lung Qualified Code(s): J18.9 - Pneumonia, unspecified organism (3) COPD (chronic obstructive pulmonary disease) Current Visit: No Status: Acute Without evidence of acute exacerbation Patient treated very least have a nebulizer machine with [place] II combination short acting muscarinic antagonist and beta agonists. Could not consider starting Symbicort 160/4.5 although with her underlying dementia not sure that a metered-dose inhaler as the most logical prescription. Regardless it looks like her symptoms are fairly mild at baseline Qualifiers: COPD type: COPD with acute exacerbation Qualified Code(s): J44.1 - Chronic obstructive pulmonary disease with (acute) exacerbation (4) Pleural effusion Current Visit: Yes Status: Acute This is most likely secondary to hydrostatic pulmonary edema given echocardiogram consistent with diastolic dysfunction and a mildly dilated left atrium in the past. There is no increased oxygen requirement patient is asymptomatic today I recommend conservative management. I do not think this represents complicated parapneumonic process given clinical stability Pulmonary will sign off thank you for this consultation please call with any questions History of Present Illness Consult date: 09/07/17 Requesting physician: Janet Nettles Reason for consult: pneumonia Chief complaint: Difficulty in breathing History of present illness: The patient is a pleasant 81-year-old woman with a past medical history of multiple myeloma under the care of [facility] and advanced dementia who presents with cough and shortness of breath. The history was gathered primarily from the medical record as the patient is a willingly generally poor historian. When I ask her what symptoms she was having when she came in the hospital she was unable to provide any information with this respect says that she is feeling pretty good today. She says she occasionally has a cough and only gets short of breath when she is really exerting herself. Per the medical record the patient was admitted to the hospital on 08/31 and treated for community acquired pneumonia with sputum culture positive for strep pneumoniae at that time along with group C strep she was discharged on Levaquin and felt good for a couple of days per the record but came back yesterday because of increased cough and shortness of breath she also had a low-grade fever. In the ED chest x-ray was performed which was concerning for a unresolved left consolidation a d-dimer was also checked and was elevated reciprocating a CTA of the chest with PE protocol this was negative for filling defect that showed bilateral atelectasis with a left-sided pleural effusion pneumonia was not excluded by this examination. I was called yesterday to make recommendations on the patient over the phone and recommended that patient be recultured and 1 day of broad-spectrum antibiotics be initiated for healthcare associated organisms. Over the night the patient's done very well she has been hemodynamically stable with excellent side oxygen saturation even off nasal cannula. Per the medical record she was also having back pain on admission although this does not appear to be a major complaint today She smokes for many years she says she started smoking maybe at 17 or 19 years of age but had quit she is unclear exactly when she stopped smoking but said that she does not smoke or very long. 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 Past Med Surg Social Fam HX - Past Medical History Medical history: cancer, COPD, DVT, dementia, GERD, hyperlipidemia, hypertension , osteoporosis, renal disease, other Psychiatric history: no psych history - Past Surgical History Surgical History: appendectomy, other - Social History Smoking Status: Former smoker Smokeless Tobacco Status: No Alcohol use: none Drug use: none - Family History Mother Adopted: No Family Member Ethnicity: Non- Living Status: Hx Family Cardiac Disorders: No Hx Family Respiratory Disorders: No Hx Family Cancer: No Hx Family GI Disorders: No Hx Family Endocrine Disorder: No Hx Family Neuromuscular Disorders: No Hx Family Neurologic Disorders: Yes (Alzhemer's disease) Hx Family HEENT Disorders: No Hx Family Autoimmune Disorders: No Brother Family Member Ethnicity: Non- Living Status: Still Living Father Family Member Ethnicity: Non- Living Status: Hx Family Cardiac Disorders: Yes (CVA) Hx Family Respiratory Disorders: No Hx Family Cancer: No Hx Family GI Disorders: No Hx Family Endocrine Disorder: No Hx Family Neuromuscular Disorders: No Hx Family Neurologic Disorders: Yes (CVA) Hx Family HEENT Disorders: No Hx Family Autoimmune Disorders: No Hx Family Medical Disorders: Yes (cva) Medications and Allergies ALPRAZolam [Xanax 1 MG Tablet] 1 mg PO BID PRN 11/24/14 [History] Rivaroxaban [Xarelto] 15 mg PO DAILY #30 tablet 07/28/17 [Rx] Cyanocobalamin (Vitamin B-12) [Vitamin B-12] 2,500 mcg SL DAILY 08/31/17 [ History] Ferrous Sulfate 325 mg PO DAILY 08/31/17 [History] HYDROcodone/Acet 5/325 mg [[place] 5-325 mg] 1 tab PO Q6H PRN 08/31/17 [History] Tramadol HCl [Ultram] 50 mg PO BID PRN 08/31/17 [History] amLODIPine [Norvasc] 5 mg PO DAILY #30 tablet 09/04/17 [Rx] levoFLOXacin [Levaquin] 750 mg PO DAILY #2 tablet 09/04/17 [Rx] 3 Allergy/AdvReac Type Severity Reaction Status Date / Time codeine AdvReac Gastrointestinal Verified 09/06/17 09:35 Upset Oxycodone AdvReac Gastrointestinal Verified 09/06/17 09:35 Upset All Systems: The remainder of the systems were reviewed and are negative Physical Examination Vital Signs: Vital Signs, Last 4 Hours Temp Pulse Resp BP Pulse Ox 09/07/17 04:37 98.1 F 81 16 120/71 98 General appearance: no acute distress, other (Elderly woman in no acute distress frail appearing) Eyes: nonicteric ENT: oropharynx moist Neck: supple Effort: normal Auscultation: right: diminished breath sounds, bilateral: rhonchi Cardiovascular: regular rate and rhythm Gastrointestinal: normoactive bowel sounds, soft, non-tender Integumentary: normal Extremities: no edema Musculoskeletal: no deformities normal mental status Results - Laboratory Findings CBC and BMP: 09/07/17 06:28 09/07/17 06:28 PT/INR, D-dimer D-Dimer 779 ng/mLFEU (0-500) H 09/06/17 10:27 Abnormal lab findings: Abnormal lab results RBC 3.39 M/mcL (3.82-4.97) L 09/06/17 05:58 Hgb 9.1 g/dL (11.5-15.4) L 09/06/17 05:58 Hct 29.0 % (35.3-44.9) L 09/06/17 05:58 MCH 26.8 pg (28.0-33.3) L 09/06/17 05:58 MCHC 31.4 g/dL (31.6-35.5) L 09/06/17 05:58 RDW 16.3 % (11.5-14.5) H 09/06/17 05:58 D-Dimer 779 ng/mLFEU (0-500) H 09/06/17 10:27 Chloride 113 mEq/L (98-107) H 09/06/17 05:58 Est GFR (Non-Af Amer) 53 (> 60) L 09/06/17 05:58 Serum Total Protein 5.6 g/dL (6.4-8.9) L 09/06/17 05:58 Albumin 3.0 g/dL (3.5-5.7) L 09/06/17 05:58 Ur Specific [place] > 1.030 (1.010-1.025) H 09/06/17 19:28 Urine Ketones 15 mg/dL (Negative) H 09/06/17 19:28 Ur Leukocyte Esterase Small (Negative) H 09/06/17 19:28 Urine Microscopic RBC 5-15 per hpf (0-3) H 09/06/17 19:28 Urine Microscopic WBC 5-15 per hpf (0-3) H 09/06/17 19:28 Ur Squamous Epith Cells Many per lpf (None-Few) H 09/06/17 19:28 Parainfluenza 3 (PCR) DETECTED (Not Detect) A 09/06/17 17:45 - Microbiology Findings Microbiology Findings: Microbiology, Last 48 Hours 09/06/17 19:28 Legionella Antigen - Final Urine,Clean Catch - Diagnostic Findings Chest x-ray: report reviewed, image reviewed CT scan - chest: report reviewed, image reviewed - Clinical Findings Intake & Output: Intake & Output 09/06/17 09/06/17 09/07/17 15:59 23:59 07:59 Intake Total 260 / 260 Output Total 200 / 200 400 / 400 Balance -400 / -400 Consult Discharge Plan - Plan Referrals: Laine Stauffer MD [Primary Care Provider] -
[2017-09-07 06:53] LABS: Basophils % 0.1 %; Hematocrit 31.5 % (35.3-44.9); Hemoglobin 9.6 g/dL (11.5-15.4); Immature Granulocytes % 0.6 % (0-4); Lymphocytes % 14.6 %; Mean Corpuscular HGB Conc 30.5 g/dL (31.6-35.5); Mean Corpuscular Hemoglobin 25.8 pg (28.0-33.3); Mean Corpuscular Volume 84.7 fL (83.0-100.0); Mean Platelet Volume 11.3 fL (9.4-12.4); Monocytes # 0.1 K/mcL (0.0-1.3); Monocytes % 0.7 %; Neutrophils # 5.6 K/mcL (1.6-8.9); Platelet Count 285 K/mcL (140-400); Red Blood Count 3.72 M/mcL (3.82-4.97); Red Cell Distribution Width 16.2 % (11.5-14.5)
[2017-09-07 07:11] LABS: Alanine Aminotransferase 12 Units/L (7-52); Albumin 2.9 g/dL (3.5-5.7); Albumin/Globulin Ratio 1.1 (1.1-2.2); Alkaline Phosphatase 48 Units/L (34-104); Aspartate Amino Transferase 11 Units/L (13-39); BUN/Creatinine Ratio 20 (6-26); Bilirubin,Total 0.5 mg/dL (0.3-1.0); Blood Urea Nitrogen 17 mg/dL (8-23); Calcium 8.7 mg/dL (8.6-10.3); Carbon Dioxide 19 mEq/L (23-29); Chloride 110 mEq/L (98-107); Chol/HDL Ratio 2.2 (0-4.9); Cholesterol 95 mg/dL (< 200); Globulin 2.7 g/dL (2.4-3.5); Glucose 101 mg/dL (70-105); HDL Cholesterol 43 mg/dL (40-59); LDL Cholesterol,Calculated 37 mg/dL (0-99); Osmolality,Calculated 292 (280-300); Potassium 4.4 mEq/L (3.5-5.1); Sodium 140 mEq/L (136-145); Total Protein 5.6 g/dL (6.4-8.9); Triglycerides 73 mg/dL (< 150); eGFR For African Americans > 60 (> 60); eGFR For Non-African Americans > 60 (> 60)
[2017-09-07] MEDS: amLODIPine 5 MG TABLET PO SCH (09:23)
[2017-09-07] MEDS: Cyanocobalamin (B-12) 1,000 MCG TABLET PO SCH (10:19)
[2017-09-07] MEDS ORDERED: Aminoglycoside Consult 1 EACH MC ONE (10:23)
--- NOTE | 2017-09-07 16:00 | Internal Med Progress Note ---
Date of Encounter: 09/07/17 Time of Encounter: 12:00 - Assessment and plan (1) Acute exacerbation of chronic obstructive airways disease Current Visit: Yes Status: Acute Assessment and plan: improving, due to viral bronchitis and recent Pneumonia; taper down IV steroids and switch to enteral form tomorrow; continue PRN breathing treatments; nebulizers at discharge; supportive care and supplemental O2; not requiring O2 at this time; (2) Parainfluenza virus infection Current Visit: Yes Status: Acute Assessment and plan: likely viral bronchitis and mild exacerbation of COPD; continue IV Levaquin, stop Cefepime and Vancomycin; doubt this is recurrent Pneumonia, she was just discharged 2 days ago on Levaquin. CTA chest shows mild B/L plural effusion and atelectasis, no PE; Supportive care and supplemental O2; (3) Back pain Current Visit: Yes Status: Acute Assessment and plan: likely acute flareup of chronic back pain; MRI L-sine showed no acute abnormality; continue supportive care; has been discharged on [facility] after recent admission; Qualifiers: Back pain location: low back pain Back pain laterality: midline Sciatica presence: without sciatica Qualified Code(s): M54.5 - Low back pain (4) Multiple myeloma Current Visit: Yes Status: Chronic Assessment and plan: follows with Oncology as outpatient, chemotherapy is currently on hold due to poor functional status; Qualifiers: Multiple myeloma remission status: unspecified Qualified Code(s): C90.00 - Multiple myeloma not having achieved remission (5) Ovarian cyst, complex Current Visit: Yes Status: Chronic (6) DVT prophylaxis Current Visit: Yes Status: Acute Assessment and plan: on Xarelto; (7) Hypertension Current Visit: Yes Status: Chronic Qualifiers: Hypertension type: essential hypertension Qualified Code(s): I10 - Essential (primary) hypertension (8) Decubitus ulcer Current Visit: Yes Status: Chronic Assessment and plan: POA; Qualifiers: Pressure ulcer location: lower back Qualified Code(s): L89.131 - Pressure ulcer of right lower back, stage 1 (9) VTE (venous thromboembolism) Current Visit: Yes Status: Chronic Assessment and plan: continue lifetime anticoagulation with Xarelto due to underlying cancer; (10) Dementia Current Visit: Yes Status: Chronic Qualifiers: Dementia type: Alzheimer's disease Alzheimer's disease onset: late-onset Dementia behavioral disturbance: without behavioral disturbance Qualified Code (s): G30.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; F02.80 - Dementia in other diseases classified elsewhere without behavioral disturbance; F02.80 - Dementia in other diseases classified elsewhere without behavioral disturbance; F02.80 - Dementia in other diseases classified elsewhere without behavioral disturbance - Time Spent With Patient Total time spent is greater than 50% in coordination of care (as documented) at patient's floor/unit and/or counseling patient: - Subjective Interval history: Reports feeling much better today; improved shortness of breath, has intermittent cough; no fever/chills; patient is unable to remember the reason for admission, "just because she got sick"; granddaughter at bedside; - Constitutional Vitals: Temp Pulse Resp BP Pulse Ox 98.5 F 93 16 117/64 97 09/07/17 10:38 09/07/17 10:38 09/07/17 10:38 09/07/17 10:38 09/07/17 10:38 General appearance: Present: A&O X 2, answers questions appropriately - Respiratory Respiratory exam: Present: CTAB, rales (left basal coarse crackles+). Absent: accessory muscle use, rhonchi, wheezes - Cardiovascular Cardiovascular exam: Present: RRR, +S1, +S2. Absent: diastolic murmur, gallop, rubs, systolic murmur - GI/Abdominal GI/Abdominal exam: Present: normal bowel sounds, soft, no peritoneal signs. Absent: distended, tenderness - Extremities Exam Extremities exam: Present: full ROM, warm, radial pulses palpable and symmetrical. Absent: calf tenderness, cyanotic, pedal edema Internal Medicine: Result - Labs CBC & Chem 7: 09/07/17 06:28 09/07/17 06:28 Labs: Short CBC 09/07/17 Range/Units 06:28 WBC 6.7 (4.3-11.1) K/mcL Hgb 9.6 L (11.5-15.4) g/dL Hct 31.5 L (35.3-44.9) % Plt Count 285 (140-400) K/mcL Neutrophils # 5.6 (1.6-8.9) K/mcL BMP 09/07/17 06:28 Sodium 140 Potassium 4.4 Chloride 110 H Carbon Dioxide 19 L BUN 17 Creatinine 0.87 Glucose 101 Calcium 8.7 Liver Function 09/07/17 Range/Units 06:28 Total Bilirubin 0.5 (0.3-1.0) mg/dL AST 11 L (13-39) Units/L ALT 12 (7-52) Units/L Alkaline Phosphatase 48 (34-104) Units/L Albumin 2.9 L (3.5-5.7) g/dL Urine 09/06/17 Range/Units 19:28 Urine Color Yellow (Yellow) Urine Clarity Clear (Clear) Urine pH 5.5 (5.0-8.0) pH Units Ur Specific [place] > 1.030 H (1.010-1.025) Urine Protein Negative (Neg-Trace) mg/dL Urine Glucose (UA) Normal (Normal) mg/dL - ABG Interpretation ABG results: PT/INR, D-dimer D-Dimer 779 ng/mLFEU (0-500) H 09/06/17 10:27 - Impressions Impressions Lumbar Spine MRI 09/06/17 11:47 IMPRESSION: 1. No acute abnormality of the lumbar spine. 2. Chronic mild compression deformity of the T12 vertebral body. 3. Mild multilevel degenerative changes as detailed above. D/ / Kenneth Julien / Kenneth Julien Interpreting Provider: Kenneth Julien Consult Discharge Plan - Plan Referrals: Laine Stauffer MD [Primary Care Provider] -
--- NOTE | 2017-09-07 17:13 | Oncology Inp Consult Note ---
Date of Encounter: 09/09/17 Time of Encounter: 17:10 Assessment and Plan (1) Shortness of breath Status: Acute Assessment and plan: CT angiogram chest 09/06/2017 showed small left pleural effusion and atelectasis. Pulmonology involved Low back pain. MRI lumbar spine on 09/06/2017 no acute process. Chronic compression T12 (2) Multiple myeloma Status: Chronic Assessment and plan: Will repeat serum protein electrophoresis,light chain Anemia hemoglobin 9.6 this is new. Her hemoglobin use to be normal prior to June 2017. I am not sure if anemia is from myeloma. We will do anemia workup as well Hemoglobin dropped further to 8.7. Iron saturation low but ferritin high at 830. MCV 82. [id number] mg IV one dose. B12, folate and TSH normal. Creatinine normal at 0.85 We will follow her as an outpatient. If myeloma is active may consider further treatment after discussing with the patient Qualifiers: Multiple myeloma remission status: unspecified Qualified Code(s): C90.00 - Multiple myeloma not having achieved remission - Data of Consult Requesting Physician: Lore Llanes MD Primary Care Provider: Laine Stauffer - Consult Narrative Reason for consult: Multiple myeloma, pneumonia History of present illness: Ms. Joiner is a 81 year old female hospitalized with shortness of breath. Left lower lobe atelectasis/pneumonia and effusion. Pulmonology involved. Currently on Levaquin. Oncological history Multiple myeloma, kappa light chain. International staging to DS staging 3, FISH 5+ +19 which is good prognostic factor. Bone marrow 20% plasma cells. Eight cycles of Velcade, melphalan, prednisone, [facility] through Dr. Yuan from to 03/2011. Velcade maintenance April to February 2012, stopped due to neuropathy. Currently she claims she still has grade 1-2 neuropathy. Revlimid 15 mg p.o. daily one through 21 of 28 day cycle. Decadron 20 mg p.o. once a week. From July 2013 to August 2014. After 2 cycles dose reduced to 10 mg a day. A-port placement August 2013. She had an excellent response and kappa light chain has come down from 52 on August to 5 on 04/21/2014. Further recurrence Her light chain went up to 15 in November and further when up to 18 on May 2015 No monoclonal protein Restarted on Revlimid 10 mg by mouth day one through of 28 day cycle on May 2015. She had grade 2 fatigue and dehydration Cycle 2 will reduce the duration to 2 weeks on and 2 weeks off She is tolerating it well. Her l kappa light chain has come down to 17 . status post-fall at home January 2016. CAT scans of the spine and head negative for fractures Since then she was with hospice or several months came out of hospice June 2016 In October 2016 kappa light chain elevated to 75. Serum protein electrophoresis no monoclonal protein. Slightly progressive renal insufficiency creatinine 1.3. Skeletal survey to 2016 showed multiple lytic lesions in the skull and other parts including 1.7 cm lytic lesion shaft of left femur. Hemoglobin normal calcium normal Last treatment regimen Pomalidomide 2 mg by mouth day one through of 28 day cycle since 11/25/2016- Daratumumab 16 mg per KG weekly 8 then every 2 weeks 8 then every 4 weeks This has been on hold due to poor functional status. Last time she is seen at oncology was on July with Sudhakar Gallagher Supportive treatment pamidronate 30 mg IV last dose on 12-01-13. Then changed to Zometa. Stopped FURTHER bisphosphonates on August 2014 Medical problems 1.DVT/PE . On 10/11/2013 CT angiogram chest right lower lobe nonocclusive segmental PE on Xarelto 15 mg once a day. She has no major complication and will continue Xarelto for now. Had a discussion with her daughter. If necessary may consider stopping it in the future 2. Pneumonia hospitalized 02-15-14. CT angiogram chest showed left lower lobe infiltrate. She has history of recurrent lung infection. She may have some aspiration. Advised not eat or drink 2 hours before going to bed and keep the head and of the bed elevated Hospitalized with right lower lobe pneumonia April 2015 improved with antibiotic. Most recent x-ray 05/06/2015 showed resolution of left lower lobe infiltrate. 3. Peripheral neuropathy. She is on Neurontin 800 mg p.o. 3 times a day. Also on tramadol 1-2 a day. Her symptoms are better controlled. According to the daughter she could take Tylenol as needed along with Neurontin 4. Depression with lack of interest. Improved and continue Celexa 20 mg p.o. daily. 5. Left lower extremity venous Doppler on 09-29-13 showed acute DVT. She has mild epistaxis. Continue Xarelto 15 mg a day. Past Med Surg Social Fam HX - Past Medical History Medical history: cancer, COPD, DVT, dementia, GERD, hyperlipidemia, hypertension , osteoporosis, renal disease, other Psychiatric history: no psych history - Past Surgical History Surgical History: appendectomy, other - Social History Smoking Status: Former smoker Smokeless Tobacco Status: No Alcohol use: none Drug use: none - Family History Mother Adopted: No Family Member Ethnicity: Non- Living Status: Hx Family Cardiac Disorders: No Hx Family Respiratory Disorders: No Hx Family Cancer: No Hx Family GI Disorders: No Hx Family Endocrine Disorder: No Hx Family Neuromuscular Disorders: No Hx Family Neurologic Disorders: Yes (Alzhemer's disease) Hx Family HEENT Disorders: No Hx Family Autoimmune Disorders: No Brother Family Member Ethnicity: Non- Living Status: Still Living Father Family Member Ethnicity: Non- Living Status: Hx Family Cardiac Disorders: Yes (CVA) Hx Family Respiratory Disorders: No Hx Family Cancer: No Hx Family GI Disorders: No Hx Family Endocrine Disorder: No Hx Family Neuromuscular Disorders: No Hx Family Neurologic Disorders: Yes (CVA) Hx Family HEENT Disorders: No Hx Family Autoimmune Disorders: No Hx Family Medical Disorders: Yes (cva) Medications and Allergies ALPRAZolam [Xanax 1 MG Tablet] 1 mg PO BID PRN 11/24/14 [History] Rivaroxaban [Xarelto] 15 mg PO DAILY #30 tablet 07/28/17 [Rx] Cyanocobalamin (Vitamin B-12) [Vitamin B-12] 2,500 mcg SL DAILY 08/31/17 [ History] Ferrous Sulfate 325 mg PO DAILY 08/31/17 [History] HYDROcodone/Acet 5/325 mg [[place] 5-325 mg] 1 tab PO Q6H PRN 08/31/17 [History] Tramadol HCl [Ultram] 50 mg PO BID PRN 08/31/17 [History] amLODIPine [Norvasc] 5 mg PO DAILY #30 tablet 09/04/17 [Rx] predniSONE [PredniSONE] 40 mg PO DAILY #10 tablet 09/08/17 [Rx] 3 Allergy/AdvReac Type Severity Reaction Status Date / Time codeine AdvReac Gastrointestinal Verified 09/06/17 09:35 Upset Oxycodone AdvReac Gastrointestinal Verified 09/06/17 09:35 Upset Review of systems: Mild confusion. Otherwise alert and oriented able to answer questions appropriately. Not in any distress other than fatigue. Oncology - Exam - Constitutional Vitals: Temp Pulse Resp BP Pulse Ox 98.7 F 86 18 112/58 95 09/07/17 16:00 09/07/17 16:00 09/07/17 16:00 09/07/17 16:00 09/07/17 16:00 Exam: GENERAL: Alert and oriented, well appearing. Mental Status: Affect appropriate for circumstances HEENT: Sclerae anicteric. No mucositis or thrush. No other oral or pharyngeal lesions or erythema. Skin: No rashes or petechiae. No evidence of skin malignancy Lymph nodes: No cervical, supraclavicular, axillary, or inguinal adenopathy. Lungs: Air entry normal with normal breath sounds. No rhonchi or wheezing Cardiovascular: Regular rate and rhythm. No skipped beats Abdomen: Soft, nontender; no organomegaly or masses palpable. Extremities: No edema. No calf swelling or tenderness. No joint deformity. Neurologic: Alert, cranial nerves II-XII intact; normal gait; no focal weakness or sensory abnormalities Oncology - Results Labs: Short CBC 09/07/17 Range/Units 06:28 WBC 6.7 (4.3-11.1) K/mcL Hgb 9.6 L (11.5-15.4) g/dL Hct 31.5 L (35.3-44.9) % Plt Count 285 (140-400) K/mcL Neutrophils # 5.6 (1.6-8.9) K/mcL BMP 09/07/17 06:28 Sodium 140 Potassium 4.4 Chloride 110 H Carbon Dioxide 19 L BUN 17 Creatinine 0.87 Glucose 101 Calcium 8.7 Liver Function 09/07/17 Range/Units 06:28 Total Bilirubin 0.5 (0.3-1.0) mg/dL AST 11 L (13-39) Units/L ALT 12 (7-52) Units/L Alkaline Phosphatase 48 (34-104) Units/L Albumin 2.9 L (3.5-5.7) g/dL Urine 09/06/17 Range/Units 19:28 Urine Color Yellow (Yellow) Urine Clarity Clear (Clear) Urine pH 5.5 (5.0-8.0) pH Units Ur Specific [place] > 1.030 H (1.010-1.025) Urine Protein Negative (Neg-Trace) mg/dL Urine Glucose (UA) Normal (Normal) mg/dL Consult Discharge Plan - Plan Additional Instructions: F/up with PCP in 1-2 weeks F/up with Hem/Onc as scheduled Referrals: Laien Stauffer MD [Primary Care Provider] - Prescriptions: predniSONE [PredniSONE] 40 mg PO DAILY #10 tablet
[2017-09-07 18:16] LABS: % Iron Saturation 6 % (15-50); Iron 11 mcg/dL (50-170); Lactate Dehydrogenase 194 Units/L (140-271); Transferrin 133 mg/dL (203-362)
[2017-09-07 18:41] LABS: Folate 7.7 ng/mL (3.0-16.0)
[2017-09-07] MEDS: *HR* Rivaroxaban 15 MG TABLET PO SCH (18:44)
[2017-09-07 18:47] LABS: Vitamin B12 > 1500 pg/mL (250-1100)
[2017-09-07] MEDS ORDERED: Haloperidol Lactate 5 MG/ML VIAL IVP ONE (21:47)
[2017-09-08 05:58] LABS: Hematocrit 27.7 % (35.3-44.9); Hemoglobin 8.7 g/dL (11.5-15.4); Immature Granulocytes % 0.8 % (0-4); Lymphocytes # 0.9 K/mcL (0.6-4.6); Lymphocytes % 11.2 %; Mean Corpuscular HGB Conc 31.4 g/dL (31.6-35.5); Mean Corpuscular Hemoglobin 25.8 pg (28.0-33.3); Mean Corpuscular Volume 82.2 fL (83.0-100.0); Mean Platelet Volume 11.5 fL (9.4-12.4); Monocytes # 0.3 K/mcL (0.0-1.3); Monocytes % 3.8 %; Neutrophils # 6.5 K/mcL (1.6-8.9); Platelet Count 319 K/mcL (140-400); Red Blood Count 3.37 M/mcL (3.82-4.97); Red Cell Distribution Width 16.1 % (11.5-14.5); Segmented Neutrophils % 84.2 %
[2017-09-08 06:06] LABS: BUN/Creatinine Ratio 28 (6-26); Blood Urea Nitrogen 24 mg/dL (8-23); Carbon Dioxide 21 mEq/L (23-29); Chloride 111 mEq/L (98-107); Glucose 175 mg/dL (70-105); Potassium 3.6 mEq/L (3.5-5.1); Sodium 141 mEq/L (136-145); eGFR For African Americans > 60 (> 60); eGFR For Non-African Americans > 60 (> 60)
[2017-09-08 06:07] LABS: Calcium 8.6 mg/dL (8.6-10.3); Osmolality,Calculated 300 (280-300)
[2017-09-08] MEDS: amLODIPine 5 MG TABLET PO SCH (09:04)
[2017-09-08] MEDS: Cyanocobalamin (B-12) 1,000 MCG TABLET PO SCH (09:04)
[2017-09-08] MEDS: MethylPREDNISolone 40 MG/ML VIAL IVP SCH (12:38)
[2017-09-08] MEDS: Levofloxacin 750 MG/150 ML 750 MG/150 ML BAG IVPB SCH (12:41)
--- NOTE | 2017-09-08 13:10 | Discharge Summary ---
- NOTES TO OUTPATIENT PROVIDER Notes to Outpatient Provider: Viral bronchitis, back pain improved; new onset anemia, pending myeloma studies/ SPEP, to f/up with Oncology Orders not resulted at time of discharge: Pending orders 09/06/17 11:42 Bedside Spirometry Evaluation [EVAL] Routine 09/06/17 12:46 Culture,Sputum with Gram Stain [RM] Stat 09/06/17 19:28 Culture,Urine [RM] Stat 09/07/17 17:07 Immunoglobulins IgG IgA IgM Routine Christoval Lambda Qnt FLC w Ratio Routine MMA (VIT B12 STATUS) Routine Protein Electrophoresis Routine 09/08/17 05:35 BMP [Basic Metabolic Panel] AM 0400 Ferritin Routine 09/08/17 13:30 US pelvic complete [US] Routine Date of Encounter: 09/08/17 Time of Encounter: 11:00 - Discharge Diagnosis (1) Acute exacerbation of chronic obstructive airways disease Priority: Primary Status: Acute (2) Parainfluenza virus infection Priority: Primary Status: Acute (3) Back pain Priority: Primary Status: Acute Qualifiers: Back pain location: low back pain Back pain laterality: midline Sciatica presence: without sciatica Qualified Code(s): M54.5 - Low back pain (4) Multiple myeloma Priority: Secondary Status: Chronic Qualifiers: Multiple myeloma remission status: unspecified Qualified Code(s): C90.00 - Multiple myeloma not having achieved remission (5) Ovarian cyst, complex Priority: Secondary Status: Chronic (6) Hypertension Priority: Secondary Status: Chronic Qualifiers: Hypertension type: essential hypertension Qualified Code(s): I10 - Essential (primary) hypertension (7) Decubitus ulcer Priority: Secondary Status: Chronic Qualifiers: Pressure ulcer location: sacral region Pressure ulcer stage: stage 2 Qualified Code(s): L89.152 - Pressure ulcer of sacral region, stage 2 (8) VTE (venous thromboembolism) Priority: Secondary Status: Chronic (9) Dementia Priority: Secondary Status: Chronic Qualifiers: Dementia type: Alzheimer's disease Alzheimer's disease onset: late-onset Dementia behavioral disturbance: without behavioral disturbance Qualified Code (s): G30.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; F02.80 - Dementia in other diseases classified elsewhere without behavioral disturbance (10) Anemia Priority: Primary Status: Chronic Qualifiers: Anemia type: iron deficiency Iron deficiency anemia type: unspecified iron deficiency Qualified Code(s): D50.9 - Iron deficiency anemia, unspecified Hospital course: Ms. Joiner is a 81 year old female with the above medical problems, who was recently discharged 2 days ago after being treated for pneumonia. Family brought her in due to acute respiratory distress and back pain. CT angiogram of chest showed no evidence of pulmonary embolism, bilateral small pleural effusions and bibasilar atelectasis. Respiratory infection panel was positive for parainfluenza 3. Blood cultures are negative. Pulmonology was consulted, agreed patient's presentation is consistent with viral bronchitis rather than recurrent pneumonia. Patient completed a 7 day course of Levaquin. Lumbar spine MRI showed no acute abnormality, chronic mild compression deformity of T12. Patient already has home health services set up at the time of her recent discharge. She is noted to have acute anemia. Hematology was consulted, iron studies are consistent with iron deficiency along with elevated ferritin. She will receive 1 unit PRBC transfusion and will follow-up as outpatient with hematology. She is otherwise medically stable for discharge. Discharge discussed with: patient, family, nurse, lending consultant - Time Spent with Patient Total time spent providing and/or coordinating discharge services: Greater than 30 minutes (45 min) - Discharge Medications Prescriptions: predniSONE [PredniSONE] 40 mg PO DAILY #10 tablet Home Medications: ALPRAZolam [Xanax 1 MG Tablet] 1 mg PO BID PRN 11/24/14 [History] Rivaroxaban [Xarelto] 15 mg PO DAILY #30 tablet 07/28/17 [Rx] Cyanocobalamin (Vitamin B-12) [Vitamin B-12] 2,500 mcg SL DAILY 08/31/17 [ History] Ferrous Sulfate 325 mg PO DAILY 08/31/17 [History] HYDROcodone/Acet 5/325 mg [[place] 5-325 mg] 1 tab PO Q6H PRN 08/31/17 [History] Tramadol HCl [Ultram] 50 mg PO BID PRN 08/31/17 [History] amLODIPine [Norvasc] 5 mg PO DAILY #30 tablet 09/04/17 [Rx] predniSONE [PredniSONE] 40 mg PO DAILY #10 tablet 09/08/17 [Rx] Allergies/Adverse Reactions: 3 Allergy/AdvReac Type Severity Reaction Status Date / Time codeine AdvReac Gastrointestinal Verified 09/06/17 09:35 Upset Oxycodone AdvReac Gastrointestinal Verified 09/06/17 09:35 Upset Date of admission: 09/06/17 10:22 Primary care physician: Laine Stauffer Consults: 09/06/17 11:36 Consult to Paint Technician [CONS] Routine Reason for SW Consult: D/C PLAN 09/06/17 11:42 Consult to Oncology Hematology [CONS] Routine Consulting Provider: Chandni López Reason for Consult: Multiple myeloma Call Completed: Yes 09/06/17 16:31 Consult to Pulmonology [CONS] Routine Consulting Provider: [facility] [place] Reason for Consult: Persistent pneumonia, abnormal CT chest Call Completed: Yes Discharging clinician: Lore Llanes Anticipated date of discharge: 09/08/17 - Constitutional Vitals: Temp Pulse Resp BP Pulse Ox 98.0 F 103 18 129/75 96 09/08/17 10:39 09/08/17 10:39 09/08/17 10:39 09/08/17 10:39 09/08/17 10:39 General appearance: Present: A&O X 2, answers questions appropriately - Respiratory Respiratory exam: Present: CTAB (coarse breath sounds B/L). Absent: accessory muscle use, rales, rhonchi, wheezes - Patient Status Disposition: Home Health Service Condition: Fair Functional capacity at discharge: independent ambulation Overall status at discharge: patient is progressing back to baseline - Discharge Instructions Follow Up With: Laine Stauffer MD [Primary Care Provider] - Additional Instructions: F/up with PCP in 1-2 weeks F/up with Hem/Onc as scheduled - Diet and Activity Activity: as per physical therapy Diet: low fat, low cholesterol, low salt diet
--- NOTE | 2017-09-08 13:24 | Physician Discharge Referral ---
Home Health/Hosp Referral Info Transfer to: Home Health Attending Provider: Lore Llanes Provider in Charge Post Discharge: PCP - Diagnosis (1) Acute exacerbation of chronic obstructive airways disease Priority: Primary Status: Acute (2) Parainfluenza virus infection Priority: Primary Status: Acute (3) Back pain Priority: Primary Status: Acute (4) Multiple myeloma Priority: Secondary Status: Chronic (5) Ovarian cyst, complex Priority: Secondary Status: Chronic (6) Hypertension Priority: Secondary Status: Chronic (7) Decubitus ulcer Priority: Secondary Status: Chronic (8) VTE (venous thromboembolism) Priority: Secondary Status: Chronic (9) Dementia Priority: Secondary Status: Chronic (10) Anemia Priority: Primary Status: Chronic - Respiratory Orders Smoking Cessation: Smoking cessation has been advised. For more information, call the [employer] Tobacco Quit Line at 9-814-CBXK-NOW. - Diet/Nutrition Diet/Nutrition Orders: Cardiac - Activity Activity Orders: Ambulate, Walker - Services Needed Following services are medically necessary services: Nursing, Physical Therapy, Occupational Therapy - Transfer Medications Prescriptions: predniSONE [PredniSONE] 40 mg PO DAILY #10 tablet Home Medications: ALPRAZolam [Xanax 1 MG Tablet] 1 mg PO BID PRN 11/24/14 [History] Rivaroxaban [Xarelto] 15 mg PO DAILY #30 tablet 07/28/17 [Rx] Cyanocobalamin (Vitamin B-12) [Vitamin B-12] 2,500 mcg SL DAILY 08/31/17 [ History] Ferrous Sulfate 325 mg PO DAILY 08/31/17 [History] HYDROcodone/Acet 5/325 mg [[place] 5-325 mg] 1 tab PO Q6H PRN 08/31/17 [History] Tramadol HCl [Ultram] 50 mg PO BID PRN 08/31/17 [History] amLODIPine [Norvasc] 5 mg PO DAILY #30 tablet 09/04/17 [Rx] predniSONE [PredniSONE] 40 mg PO DAILY #10 tablet 09/08/17 [Rx] Allergies/Adverse Reactions: 3 Allergy/AdvReac Type Severity Reaction Status Date / Time codeine AdvReac Gastrointestinal Verified 09/06/17 09:35 Upset Oxycodone AdvReac Gastrointestinal Verified 09/06/17 09:35 Upset Certification: Further, I certify that my clinical findings support that this patient is homebound (i.e. absences from home require considerable and taxing effort and are for medical reasons or mu-ism services or infrequently or short duration when for other reasons) because: Homebound Reason: Patient requires assistance of a person or device to safely leave home, Leaving home requires considerable and taxing effort due to condition, Altered mental status requiring supervision when leaving home, Severity of cardiac or pulmonary status limits activity tolerance Attestation: My signature below is to certify that this patient is under my care and that I, or nurse practitioner, or a physician's assistant athletic trainer working with me, has a face-to -face encounter with this patient.
--- NOTE | 2017-09-08 13:34 | Oncology Inp Progress Note ---
<Caitlin Roland L - Last Filed: 09/08/17 16:19> Date of Encounter: 09/08/17 Time of Encounter: 13:00 (1) Multiple myeloma Current Visit: Yes Status: Chronic Assessment and plan: Repeat SPEP pending. At most recent clinic appointment her light chain ratio had actually come down from 16 on 03/26/2017 to 3.5 on 06/23/2017. Diagnosed in 2010 s/p multiple lines of treatment. Currently Pomalidomide/ Daratumumab on hold secondary to poor functional status and patient is unsure as to whether or not she wants to continue treatment. Further treatment options versus continued monitoring will be discussed further on outpatient basis. Patient may benefit from Hospice which may also be discussed on outpatient basis. Patient is anemic which is new upon current admission. Her kidney function and calcium levels are WNL. Patient does continue to report weakness and SOB. Hgb 8.3 today, decreased 1 gm overnight. Discussed coming back in over next few days for lab work and potential PRBC transfusion however, patient refuses and states once she goes home she is staying home until her next follow up. Appears to be iron deficient, however, updated ferritin is currently pending, if low will give venofer, if ferritin is high will given 1 unit PRBC to help hgb and symptoms to recover as patient declines short term lab follow up in meantime prior to her clinic follow up with Dr. López end of this week. Please refer to Dr. Abrams's attestation below for additional details Qualifiers: Multiple myeloma remission status: unspecified Qualified Code(s): C90.00 - Multiple myeloma not having achieved remission Oncology: Subj Interval history: Ms. Joiner is resting in bed. She denies pain. Continues to report SOB and weakness. She states she is hoping to return home today. - Constitutional Vitals: Vital Signs Temp Pulse Resp BP Pulse Ox 09/08/17 10:39 98.0 F 103 18 129/75 96 09/08/17 06:38 97.9 F 92 16 134/71 94 09/07/17 23:19 98.0 F 84 16 127/50 96 09/07/17 18:48 97.9 F 91 16 121/61 95 09/07/17 16:00 98.7 F 86 18 112/58 95 Intake and Output 09/07/17 09/08/1718 23:59 07:59 15:59 Intake Total 240 / 240 Balance 240 / 240 Intake: Oral 240 / 240 Other: Meal Breakfast Percent of Meal Consumed 0% General appearance: cooperative, no acute distress, thin, no febrile Exam: chronically ill appearing - Head Head exam: Present: atraumatic - ENT ENT exam: Present: mucous membranes moist - Respiratory Respiratory exam: Present: decreased breath sounds. Absent: respiratory distress - Cardiovascular Cardiovascular exam: Present: RRR, +S1, +S2 - GI/Abdominal GI/Abdominal exam: Present: normal bowel sounds, soft. Absent: tenderness - Extremities Exam Extremities exam: Present: normal inspection. Absent: calf tenderness - Neurological Exam Neurological exam: Present: alert, oriented X3, no focal deficits, strengths equal and symetr throughout - Psychiatric Psychiatric exam: Present: anxious - Skin Skin exam: Present: dry, intact, normal color, warm Oncology: Obj Data - Labs CBC & Chem 7: 09/08/17 05:35 09/08/17 05:35 - ABG Interpretation ABG results: PT/INR, D-dimer D-Dimer 779 ng/mLFEU (0-500) H 09/06/17 10:27 Consult Discharge Plan - Plan Additional Instructions: F/up with PCP in 1-2 weeks F/up with Hem/Onc as scheduled Referrals: Laine Stauffer MD [Primary Care Provider] - Prescriptions: predniSONE [PredniSONE] 40 mg PO DAILY #10 tablet <Tiffany Miller - Last Filed: 09/08/17 17:03> Date of Encounter: 09/08/17 Oncology: Subj Interval history: I examined this patient and my medical decision-making was reviewed with the Advanced Practice Nurse, Caitlin Roland. I agree with the documented findings, disposition and treatment plan as described except to the extent set forth below. - Constitutional Vitals: Vital Signs Temp Pulse Resp BP Pulse Ox 09/08/17 14:44 97.7 F 99 16 134/72 94 09/08/17 10:39 98.0 F 103 18 129/75 96 09/08/17 06:38 97.9 F 92 16 134/71 94 09/07/17 23:19 98.0 F 84 16 127/50 96 09/07/17 18:48 97.9 F 91 16 121/61 95 Intake and Output 09/08/17 09/08/17 09/08/17 07:59 15:59 23:59 Intake Total 990 / 990 Balance 990 / 990 Intake: IV Fluids 150 / 150 Levaquin Premix 750mg/150 mL 150 / 150 750 mg In 150 ml @ 100 mls/hr IVPB Q48H CHARLEY Rx#:[id number] Oral 840 / 840 Other: Meal Lunch Percent of Meal Consumed 5% Stool Size Large Stool Consistency liquid Stool Color Brown Yellow # Voids 1 Oncology: Obj Data - Labs CBC & Chem 7: 09/08/17 05:35 09/08/17 05:35 Labs: Laboratory Results - last 24 hr 09/07/17 09/07/17 09/07/17 17:45 17:45 17:45 WBC RBC Hgb Hct MCV MCH MCHC RDW Plt Count MPV Immature Gran % Seg Neutrophils % Lymphocytes % Monocytes % Eosinophils % Basophils % Neutrophils # Lymphocytes # Monocytes # Eosinophils # Basophils # Sodium Potassium Chloride Carbon Dioxide BUN Creatinine Est GFR ( Amer) Est GFR (Non-Af Amer) BUN/Creatinine Ratio Glucose Calculated Osmolality Calcium Iron 11 L % Saturation 6 L Transferrin 133 L Ferritin Lactate Dehydrogenase 194 Vitamin B12 > 1500 H Folate 7.7 Blood Type Cancelled Antibody Screen Cancelled Direct Antiglob Test NEG SANTI, Poly Interpret 1+ Crossmatch See Detail 09/08/17 09/08/17 05:35 05:35 WBC 7.7 RBC 3.37 L Hgb 8.7 L Hct 27.7 L MCV 82.2 L MCH 25.8 L MCHC 31.4 L RDW 16.1 H Plt Count 319 MPV 11.5 Immature Gran % 0.8 Seg Neutrophils % 84.2 Lymphocytes % 11.2 Monocytes % 3.8 Eosinophils % 0.0 Basophils % 0.0 Neutrophils # 6.5 Lymphocytes # 0.9 Monocytes # 0.3 Eosinophils # 0.0 Basophils # 0.0 Sodium 141 Potassium 3.6 Chloride 111 H Carbon Dioxide 21 L BUN 24 H Creatinine 0.85 Est GFR ( Amer) > 60 Est GFR (Non-Af Amer) > 60 BUN/Creatinine Ratio 28 H Glucose 175 H Calculated Osmolality 300 Calcium 8.6 Iron % Saturation Transferrin Ferritin 816 H Lactate Dehydrogenase Vitamin B12 Folate Blood Type Antibody Screen Direct Antiglob Test SANTI, Poly Interpret Crossmatch - ABG Interpretation ABG results: PT/INR, D-dimer D-Dimer 779 ng/mLFEU (0-500) H 09/06/17 10:27
[2017-09-08 13:36] LABS: Ferritin 816 ng/ml (10-120)
--- NOTE | 2017-09-08 14:22 | Electrocardiograph Report ---
[place] [id number] Test Date: 2017-09-06 Pat Name: Gillian Joiner Department: 103 Room: [facility] Gender: F Systems Project Manager: : [id number] Requested By: Rebeca Llanes Order Number: [id number] Reading MD: Tamy Rene Measurements Intervals [place] Rate: 88 P: 60 ND: 191 QRS: 14 QRSD: 107 T: 70 QT: 371 QTc: 417 Interpretive Statements SINUS RHYTHM NONSPECIFIC ST-WAVE ABNORMALITY Electronically Signed On 09-08-2017 14:21:27 EDT by Tamy Rene
[2017-09-08] MEDS: *HR* Rivaroxaban 15 MG TABLET PO SCH (17:39)
[2017-09-09] MEDS: MethylPREDNISolone 40 MG/ML VIAL IVP SCH (00:43)
[2017-09-09] MEDS ORDERED: 0.9 % Sodium Chloride 250 ML ONE (05:36)
[2017-09-09 09:23] LABS: Basophils % 0.2 %; Hematocrit 31.9 % (35.3-44.9); Hemoglobin 10.1 g/dL (11.5-15.4); Immature Granulocytes % 0.8 % (0-4); Lymphocytes # 0.9 K/mcL (0.6-4.6); Lymphocytes % 15.3 %; Mean Corpuscular HGB Conc 31.7 g/dL (31.6-35.5); Mean Corpuscular Hemoglobin 26.3 pg (28.0-33.3); Mean Corpuscular Volume 83.1 fL (83.0-100.0); Mean Platelet Volume 10.7 fL (9.4-12.4); Monocytes # 0.3 K/mcL (0.0-1.3); Monocytes % 4.9 %; Neutrophils # 4.7 K/mcL (1.6-8.9); Nucleated Red Blood Cells 0.3 /100 WBC (0); Platelet Count 402 K/mcL (140-400); Red Blood Count 3.84 M/mcL (3.82-4.97); Red Cell Distribution Width 16.1 % (11.5-14.5); Segmented Neutrophils % 78.8 %
[2017-09-09 09:47] LABS: Albumin 3.2 g/dL (3.5-5.7); Albumin/Globulin Ratio 1.1 (1.1-2.2); Alkaline Phosphatase 44 Units/L (34-104); Aspartate Amino Transferase 12 Units/L (13-39); BUN/Creatinine Ratio 37 (6-26); Bilirubin,Total 0.5 mg/dL (0.3-1.0); Blood Urea Nitrogen 34 mg/dL (8-23); Calcium 9.2 mg/dL (8.6-10.3); Carbon Dioxide 22 mEq/L (23-29); Chloride 113 mEq/L (98-107); Globulin 2.9 g/dL (2.4-3.5); Glucose 135 mg/dL (70-105); Osmolality,Calculated 308 (280-300); Potassium 3.8 mEq/L (3.5-5.1); Sodium 144 mEq/L (136-145); Total Protein 6.1 g/dL (6.4-8.9); eGFR For African Americans > 60 (> 60); eGFR For Non-African Americans 59 (> 60)
[2017-09-09 10:39] LABS: Alanine Aminotransferase 13 Units/L (7-52)
[2017-09-09 11:09] VITALS: BP 132/75
--- NOTE | 2017-09-09 13:10 | Oncology Office Progress Note ---
Date of Service: 09/09/17 Chief Complaint: Follow Up Primary Care Provider: Laine Stauffer Oncology History: she is ready for discharge seen her outside the room. SOB is better, feels well Review Of Systems Provider Comments:: A 12 point review of systems was performed. Pertinent positives and negatives are listed below and in the history of present illness. All other systems negative. - Medications and Allergies Prescriptions: predniSONE [PredniSONE] 40 mg PO DAILY #10 tablet Home Medications: ALPRAZolam [Xanax 1 MG Tablet] 1 mg PO BID PRN 11/24/14 [History] Rivaroxaban [Xarelto] 15 mg PO DAILY #30 tablet 07/28/17 [Rx] Cyanocobalamin (Vitamin B-12) [Vitamin B-12] 2,500 mcg SL DAILY 08/31/17 [ History] Ferrous Sulfate 325 mg PO DAILY 08/31/17 [History] HYDROcodone/Acet 5/325 mg [[place] 5-325 mg] 1 tab PO Q6H PRN 08/31/17 [History] Tramadol HCl [Ultram] 50 mg PO BID PRN 08/31/17 [History] amLODIPine [Norvasc] 5 mg PO DAILY #30 tablet 09/04/17 [Rx] predniSONE [PredniSONE] 40 mg PO DAILY #10 tablet 09/08/17 [Rx] Allergies/Adverse Reactions: 3 Allergy/AdvReac Type Severity Reaction Status Date / Time codeine AdvReac Gastrointestinal Verified 09/06/17 09:35 Upset Oxycodone AdvReac Gastrointestinal Verified 09/06/17 09:35 Upset Code Status: Full Code Past Medical History: COPD, DVT, hypertension, pulmonary embolus Other History: Depression. Pneumonia hospitalized - 02/15/14. Pt.in ER 2 weeks ago and dx with COPD. history of decubitus ulcer. Anemia. Peripheral neuropathy Surgical History: appendectomy, other Hospitalization facilities, dates and reasons: May 16 was hospitalized for the flu was d/c on the Smoking Status: Former smoker Smokeless Tobacco Status: No Alcohol use: none Drug use: none Family History -Oncology: hypertension, stroke Vital Signs 3 Temperature 98.1 F 09/09/17 11:07 Temperature Source Oral 09/09/17 11:07 Pulse Rate 99 09/09/17 11:07 Pulse Rhythm Regular 09/08/17 19:39 Respiratory Rate 18 09/09/17 11:07 Respiratory Effort Spontaneous 09/08/17 19:39 Respiratory Depth Normal 09/08/17 19:39 Respiratory Pattern 09/08/17 19:39 Blood Pressure 132/75 09/09/17 11:07 Blood Pressure Position HOB Elevated 09/09/17 03:24 Oxygen Delivery Method Room Air 09/09/17 11:07 Oxygen Flow Rate (LPM) 2 09/07/17 03:20 O2 Sat by Pulse Oximetry 93 09/09/17 11:07 ECO Physical Exam: General: Alert and oriented, well appearing. Mental Status: Affect appropriate for circumstances HEENT: Sclerae anicteric. Skin: No rashes or petechiae. Lungs: Clear to auscultation bilaterally. Cardiovascular: S1S2+ Abdomen: Soft, nontender; no organomegaly or masses palpable. Extremities: No edema. No calf swelling or tenderness. Oncology - Results Labs: Short CBC 09/09/17 Range/Units 09:08 WBC 5.9 (4.3-11.1) K/mcL Hgb 10.1 L (11.5-15.4) g/dL Hct 31.9 L (35.3-44.9) % Plt Count 402 H (140-400) K/mcL Neutrophils # 4.7 (1.6-8.9) K/mcL BMP 09/09/17 09:08 Sodium 144 Potassium 3.8 Chloride 113 H Carbon Dioxide 22 L BUN 34 H Creatinine 0.91 Glucose 135 H Calcium 9.2 Liver Function 09/09/17 Range/Units 09:08 Total Bilirubin 0.5 (0.3-1.0) mg/dL AST 12 L (13-39) Units/L ALT 13 (7-52) Units/L Alkaline Phosphatase 44 (34-104) Units/L Albumin 3.2 L (3.5-5.7) g/dL - Assessment Assessment: Anemia-s/p PRBC Hgb has improved. Ferritin elevated not received IV iron. Patient with myeloma-restaging labs ordered, she will follow up as an outpatient Return for f/u with heme for lab check. Patient and daughter stated understanding
--- NOTE | 2017-09-09 13:12 | Oncology Inp Progress Note ---
Date of Encounter: 09/09/17 Time of Encounter: 12:00 (1) Anemia Status: Chronic Assessment and plan: Anemia-s/p PRBC Hgb has improved. Ferritin elevated not received IV iron. Patient with myeloma-restaging labs ordered, she will follow up as an outpatient Return for f/u with heme for lab check. Patient and daughter stated understanding Qualifiers: Anemia type: iron deficiency Iron deficiency anemia type: unspecified iron deficiency Qualified Code(s): D50.9 - Iron deficiency anemia, unspecified Oncology: Subj Interval history: she is ready for discharge seen her outside the room. SOB is better, feels well - Constitutional Vitals: Vital Signs Temp Pulse Resp BP Pulse Ox 09/09/17 11:07 98.1 F 99 18 132/75 93 09/09/17 06:38 98.5 F 92 16 134/74 93 09/09/17 03:24 98.0 F 100 16 146/74 95 09/08/17 23:06 98.6 F 106 14 139/71 99 09/08/17 18:41 98.3 F 92 16 138/68 98 09/08/17 14:44 97.7 F 99 16 134/72 94 Intake and Output 09/08/17 09/09/17 09/09/17 23:59 07:59 15:59 Intake Total 0 / 0 Balance 0 / 0 Intake: Oral 0 / 0 Other: Meal Breakfast Percent of Meal Consumed 0% Stool Size Large Stool Consistency liquid Stool Color Brown Yellow # Voids 1 General appearance: no acute distress - Head Head exam: Present: atraumatic, normal inspection - Eye Eye exam: Present: conjuntiva pink - ENT ENT exam: Present: mucous membranes dry - Neck Neck exam: Present: full ROM - Respiratory Respiratory exam: Present: CTAB - Cardiovascular Cardiovascular exam: Present: +S1, +S2 - GI/Abdominal GI/Abdominal exam: Present: normal bowel sounds, soft - Extremities Exam Extremities exam: Present: normal inspection Oncology: Obj Data - Labs CBC & Chem 7: 09/09/17 09:08 09/09/17 09:08 Labs: Laboratory Results - last 24 hr 09/07/17 09/08/17 09/08/17 17:45 05:35 16:13 WBC RBC Hgb Hct MCV MCH MCHC RDW Plt Count MPV Immature Gran % Seg Neutrophils % Lymphocytes % Monocytes % Eosinophils % Basophils % Neutrophils # Lymphocytes # Monocytes # Eosinophils # Basophils # Nucleated RBCs/100 WBC Sodium Potassium Chloride Carbon Dioxide BUN Creatinine Est GFR ( Amer) Est GFR (Non-Af Amer) BUN/Creatinine Ratio Glucose Calculated Osmolality Calcium Ferritin 816 H Total Bilirubin AST ALT Alkaline Phosphatase Serum Total Protein Albumin Globulin Albumin/Globulin Ratio Blood Type Cancelled A NEGATIVE Antibody Screen Cancelled POSITIVE A Prewarmed Antibody Srcn POSITIVE Antibody Identification Anti-D Cold Antibody Screen POSITIVE Direct Antiglob Test NEG SANTI, Poly Interpret 1+ Crossmatch See Detail See Detail Crossmatch Prewarmed See Detail 09/09/17 09/09/17 09:08 09:08 WBC 5.9 RBC 3.84 Hgb 10.1 L Hct 31.9 L MCV 83.1 MCH 26.3 L MCHC 31.7 RDW 16.1 H Plt Count 402 H MPV 10.7 Immature Gran % 0.8 Seg Neutrophils % 78.8 Lymphocytes % 15.3 Monocytes % 4.9 Eosinophils % 0.0 Basophils % 0.2 Neutrophils # 4.7 Lymphocytes # 0.9 Monocytes # 0.3 Eosinophils # 0.0 Basophils # 0.0 Nucleated RBCs/100 WBC 0.3 H Sodium 144 Potassium 3.8 Chloride 113 H Carbon Dioxide 22 L BUN 34 H Creatinine 0.91 Est GFR ( Amer) > 60 Est GFR (Non-Af Amer) 59 L BUN/Creatinine Ratio 37 H Glucose 135 H Calculated Osmolality 308 H Calcium 9.2 Ferritin Total Bilirubin 0.5 AST 12 L ALT 13 Alkaline Phosphatase 44 Serum Total Protein 6.1 L Albumin 3.2 L Globulin 2.9 Albumin/Globulin Ratio 1.1 Blood Type Antibody Screen Prewarmed Antibody Srcn Antibody Identification Cold Antibody Screen Direct Antiglob Test SANTI, Poly Interpret Crossmatch Crossmatch Prewarmed - ABG Interpretation ABG results: PT/INR, D-dimer D-Dimer 779 ng/mLFEU (0-500) H 09/06/17 10:27 Consult Discharge Plan - Plan Instructions: Community-acquired Pneumonia (DC) Additional Instructions: F/up with PCP in 1-2 weeks F/up with Hem/Onc as scheduled Referrals: Laine Stauffer MD [Primary Care Provider] - Prescriptions: predniSONE [PredniSONE] 40 mg PO DAILY #10 tablet
[2017-09-10 08:59] LABS: Immunoglobulin A 68 mg/dL (68-408); Immunoglobulin G 525 mg/dL (768-1632); Immunoglobulin M <5 mg/dL (35-263)
[2017-09-10 15:11] LABS: Immunoglobulin A 68 mg/dL (68-408); Immunoglobulin G 525 mg/dL (768-1632); Immunoglobulin M < 5 mg/dL (35-263)
[2017-09-10 22:32] LABS: Kappa Qnt Free Light Chains 18.7 mg/dL (0.33-1.94); Lambda Qnt Free Light Chains 1.21 mg/dL (0.57-2.63)
[2017-09-11 07:56] LABS: Alpha 2 Globulin (PEP) 0.98 g/dL (0.48-1.05); Beta Globulin (PEP) 0.55 g/dL (0.48-1.10)
[2017-09-11 12:13] LABS: IFE Reflexed IFE Done
== END 2017-09-09 12:36 | disposition home health service (06) ==
LOC: 3NENU 04:59 → EMEROO 04:59 → SUATTDRO 10:22 → 3NENU 10:55
PROVIDERS: ADMIT General Practice; ATTEND Hospitalist

== ENCOUNTER 2017-09-19 17:56 | Observation (INO) ==
--- NOTE | 2017-09-19 18:09 | Emergency Department Note ---
Disposition Clinical Impression: Acute kidney injury, Dehydration Pneumonia Qualifiers: Pneumonia type: due to unspecified organism Laterality: unspecified laterality Lung location: unspecified part of lung Qualified Code(s): J18.9 - Pneumonia, unspecified organism Disposition: Admitted As Inpatient Condition: Serious Time of Disposition: 19:49 General Adult HPI - General Stated complaint: GIOVANNI Time Seen by Provider: 09/19/17 18:05 Source: patient, EMS Mode of arrival: EMS Limitations: other (Dementia) Nursing Notes Reviewed: Yes Vital Signs Reviewed: Yes - History of Present Illness HPI Narrative: 81-year-old whose had generalized weakness and difficulty breathing has a history of that but family apparently told the squad that is worse. Patient does have a history of bone cancer and also renal failure but neither is being treated at this time. Pt Subjective Complaint: Dyspnea Onset (ago): hour(s) Location: other (Generalized pain) Radiation: non-radiation Pain Severity: moderate Quality: aching Consistency: constant Improves with: nothing Worsens with: nothing Associated symptoms: Reports: weakness (Generalized). Denies: fever/chills Treatments Prior to Arrival: none - Related Data Home Medications Medication Instructions Recorded Confirmed ALPRAZolam [Xanax 1 MG Tablet] 1 mg PO BID PRN 11/24/14 09/06/17 Cyanocobalamin (Vitamin B-12) 2,500 mcg SL DAILY 08/31/17 09/06/17 [Vitamin B-12] Ferrous Sulfate 325 mg PO DAILY 08/31/17 09/06/17 HYDROcodone/Acet 5/325 mg [[place] 1 tab PO Q6H PRN 08/31/17 09/06/17 5-325 mg] Tramadol HCl [Ultram] 50 mg PO BID PRN 08/31/17 09/06/17 Previous Rx's Medication Instructions Recorded Rivaroxaban [Xarelto] 15 mg PO DAILY #30 tablet 07/28/17 amLODIPine [Norvasc] 5 mg PO DAILY #30 tablet 09/04/17 predniSONE [PredniSONE] 40 mg PO DAILY #10 tablet 09/08/17 Allergies Allergy/AdvReac Type Severity Reaction Status Date / Time codeine AdvReac Gastrointestinal Verified 09/06/17 09:35 Upset Oxycodone AdvReac Gastrointestinal Verified 09/06/17 09:35 Upset Constitutional: Reports: other (Generalized pain). Denies: fever, chills, weakness, weight change Eyes: Denies: eye pain, eye discharge, vision change ENT ED: Denies: ear pain, throat pain, dental pain, hearing loss, epistaxis, congestion, dysphagia Cardiovascular: Denies: chest pain, palpitations, dyspnea on exertion, edema, syncope Respiratory: Reports: dyspnea. Denies: cough, wheezes, hemoptysis, stridor Gastrointestinal: Denies: abdominal pain, nausea, vomiting, diarrhea, constipation, hematemesis, melena, hematochezia Genitourinary: Denies: dysuria, frequency, hematuria, discharge Musculoskeletal: Denies: back pain, neck pain, arthralgia, myalgia Integumentary: Denies: rash, abrasion, lesions Neurological: Denies: headache, weakness, numbness, paresthesias, confusion, abnormal gait, vertigo Psychiatric: Denies: anxiety, depression, suicidal thoughts, homicidal thoughts , auditory hallucinations, visual hallucinations Endocrine: Denies: fatigue Hematological/Lymphatic: Denies: easy bleeding, easy bruising Allergic/Immunologic: Denies: facial swelling, urticaria Past Medical History - Past Medical History Medical history: Reports: cancer, COPD, DVT, dementia, GERD, hyperlipidemia, hypertension, osteoporosis, renal disease, other Surgical history: Reports: appendectomy, other Psychiatric history: Reports: no psych history - Social History Smoking Status: Former smoker Smokeless Tobacco Status: No Alcohol use: Reports: none Drug use: Reports: none Physical Exam - General Limitations: other (Dementia) General appearance: alert - Head Head exam: atraumatic - Eye Eye exam: Present: normal appearance, PERRL, EOMI - ENT ENT exam: normal exam, normal oropharynx, mucous membranes moist - Neck Neck exam: Present: normal inspection, full ROM, trachea midline - Chest Chest inspection: Present: normal inspection, symmetric chest wall rise - Respiratory Respiratory exam: Present: normal lung sounds bilaterally - Cardiovascular Cardiovascular exam: Present: regular rate, normal rhythm, normal heart sounds - Abdominal Exam Abdominal exam: Present: soft, Non-Tender. Absent: tenderness, distention, guarding, rebound, rigidity - Rectal Exam Splicing Supervisor present during exam: Yes (Juany VILLAFUERTE) Rectal exam: Present: normal inspection, normal rectal tone, heme (-) stool - Extremities Exam Extremities exam: Present: normal inspection, full ROM. Absent: tenderness, pedal edema - Expanded Lower Extremity Exam Neurovascular/Tendon exam: Absent: motor deficit, sensory deficit, tendon deficit Gait: not tested/not observed - Back Exam Back exam: Present: normal inspection, full ROM. Absent: tenderness - Neurological Exam Neurological exam: Present: alert, oriented X3 - Psychiatric Psychiatric exam: Present: normal affect, normal mood Course - Reevaluation(s) Reevaluation #1: 81-year-old who comes in with a cough feeling generally weak and family thinks dehydrated. She does have evidence of acute kidney injury. His questionable pneumonia on her chest x-ray with a cough. White count is normal her lactates a little above 2. She was given antibiotics will be admitted. Time: 19:47 - Consultations Consultation #1: Discussed with , admit Time: 19:47 Vital Signs Temperature 100.6 F H 09/19/17 18:05 Pulse Rate 92 09/19/17 18:05 Respiratory Rate 20 09/19/17 18:05 Blood Pressure 120/62 09/19/17 18:05 O2 Sat by Pulse Oximetry 97 09/19/17 18:05 Temperature 100.6 F H 09/19/17 18:05 Pulse Rate 92 09/19/17 18:05 Respiratory Rate 20 09/19/17 18:05 Blood Pressure 120/62 09/19/17 18:05 O2 Sat by Pulse Oximetry 97 09/19/17 18:05 Oxygen Delivery Oxygen Delivery Nasal Cannula Medical Decision Making - Lab Data Lab results reviewed: Yes I reviewed the patient's lab results. Result diagrams: 09/19/17 18:28 09/19/17 18:28 Lab Results 09/19/17 09/19/17 09/19/17 Range/Units 18:28 18:28 18:28 WBC 6.0 (4.3-11.1) K/mcL RBC 3.96 (3.82-4.97) M/mcL Hgb 10.7 L (11.5-15.4) g/dL Hct 35.1 L (35.3-44.9) % MCV 88.6 (83.0-100.0) fL MCH 27.0 L (28.0-33.3) pg MCHC 30.5 L (31.6-35.5) g/dL RDW 17.0 H (11.5-14.5) % Plt Count 191 (140-400) K/mcL MPV 12.9 H (9.4-12.4) fL Immature Gran % 0.2 (0-4) % Seg Neutrophils % 60.1 % Lymphocytes % 23.4 % Monocytes % 10.6 % Eosinophils % 5.5 % Basophils % 0.2 % Neutrophils # 3.6 (1.6-8.9) K/mcL Lymphocytes # 1.4 (0.6-4.6) K/mcL Monocytes # 0.6 (0.0-1.3) K/mcL Eosinophils # 0.3 (0.0-0.6) K/mcL Basophils # 0.0 (0.0-0.2) K/mcL Sodium 140 (136-145) mEq/L Potassium 3.9 (3.5-5.1) mEq/L Chloride 101 (98-107) mEq/L Carbon Dioxide 30 H (23-29) mEq/L BUN 20 (8-23) mg/dL Creatinine 1.56 H (0.60-1.20) mg/dL Est GFR ( Amer) 39 L (> 60) Est GFR (Non-Af Amer) 32 L (> 60) BUN/Creatinine Ratio 13 (6-26) Glucose 107 H (70-105) mg/dL Calculated Osmolality 293 (280-300) Lactic Acid 2.2 (0.5-2.2) mmol/L Calcium 8.9 (8.6-10.3) mg/dL Troponin I 0.07 H* (< 0.04) ng/mL B-Natriuretic Peptide (Less than 100) pg/mL Urine Color (Yellow) Urine Clarity (Clear) Urine pH (5.0-8.0) pH Units Ur Specific [place] (1.010-1.025) Urine Protein (Neg-Trace) mg/dL Urine Glucose (UA) (Normal) mg/dL Urine Ketones (Negative) mg/dL Urine Blood (Negative) Urine Nitrite (Negative) Urine Bilirubin (Negative) Urine Urobilinogen (Normal) mg/dL Ur Leukocyte Esterase (Negative) Ur Culture Indicated? (NO) 09/19/17 09/19/17 Range/Units 18:28 19:30 WBC (4.3-11.1) K/mcL RBC (3.82-4.97) M/mcL Hgb (11.5-15.4) g/dL Hct (35.3-44.9) % MCV (83.0-100.0) fL MCH (28.0-33.3) pg MCHC (31.6-35.5) g/dL RDW (11.5-14.5) % Plt Count (140-400) K/mcL MPV (9.4-12.4) fL Immature Gran % (0-4) % Seg Neutrophils % % Lymphocytes % % Monocytes % % Eosinophils % % Basophils % % Neutrophils # (1.6-8.9) K/mcL Lymphocytes # (0.6-4.6) K/mcL Monocytes # (0.0-1.3) K/mcL Eosinophils # (0.0-0.6) K/mcL Basophils # (0.0-0.2) K/mcL Sodium (136-145) mEq/L Potassium (3.5-5.1) mEq/L Chloride (98-107) mEq/L Carbon Dioxide (23-29) mEq/L BUN (8-23) mg/dL Creatinine (0.60-1.20) mg/dL Est GFR ( Amer) (> 60) Est GFR (Non-Af Amer) (> 60) BUN/Creatinine Ratio (6-26) Glucose (70-105) mg/dL Calculated Osmolality (280-300) Lactic Acid (0.5-2.2) mmol/L Calcium (8.6-10.3) mg/dL Troponin I (< 0.04) ng/mL B-Natriuretic Peptide 143 H (Less than 100) pg/mL Urine Color Yellow (Yellow) Urine Clarity Clear (Clear) Urine pH 7.0 (5.0-8.0) pH Units Ur Specific [place] 1.013 (1.010-1.025) Urine Protein Negative (Neg-Trace) mg/dL Urine Glucose (UA) Normal (Normal) mg/dL Urine Ketones Negative (Negative) mg/dL Urine Blood Negative (Negative) Urine Nitrite Negative (Negative) Urine Bilirubin Negative (Negative) Urine Urobilinogen Normal (Normal) mg/dL Ur Leukocyte Esterase Negative (Negative) Ur Culture Indicated? NO (NO) - Radiology Data Radiology results reviewed: Yes I reviewed the patient's radiology results. Chest X-Ray 09/19/17 18:05 IMPRESSION: Small left-sided effusion and associated consolidation which could represent atelectasis or pneumonia. D/ / Jordan Francois MD / Jordan Francois MD Interpreting Provider: Jordan Francois MD - EKG Data EKG #1 EKG attestation: Yes I reviewed and interpreted this EKG. EKG shows normal: sinus rhythm Rate: normal Rhythm: NSR [place]/QRS: normal Interpretation: no acute changes
[2017-09-19 18:36] LABS: Basophils % 0.2 %; Eosinophils # 0.3 K/mcL (0.0-0.6); Eosinophils % 5.5 %; Hematocrit 35.1 % (35.3-44.9); Hemoglobin 10.7 g/dL (11.5-15.4); Immature Granulocytes % 0.2 % (0-4); Lymphocytes # 1.4 K/mcL (0.6-4.6); Lymphocytes % 23.4 %; Mean Corpuscular HGB Conc 30.5 g/dL (31.6-35.5); Mean Corpuscular Volume 88.6 fL (83.0-100.0); Mean Platelet Volume 12.9 fL (9.4-12.4); Monocytes # 0.6 K/mcL (0.0-1.3); Monocytes % 10.6 %; Neutrophils # 3.6 K/mcL (1.6-8.9); Platelet Count 191 K/mcL (140-400); Red Blood Count 3.96 M/mcL (3.82-4.97); Segmented Neutrophils % 60.1 %
[2017-09-19 18:58] LABS: Calcium 8.9 mg/dL (8.6-10.3); Potassium 3.9 mEq/L (3.5-5.1)
[2017-09-19 19:02] LABS: Troponin I 0.07 ng/mL (< 0.04)
[2017-09-19] MEDS ORDERED: Azithromycin 500 MG in D5% in Water 250 ML IVPB ONE (19:11)
[2017-09-19] MEDS ORDERED: cefTRIAXone 1,000 MG in Water for inj. (sterile) 20 ML 10 ML IVP ONE (19:11)
[2017-09-19 19:37] LABS: Bilirubin,Urine Negative (Negative); Blood,Urine Negative (Negative); Clarity,Urine Clear (Clear); Color,Urine Yellow (Yellow); Glucose,Urine (UA) Normal (Normal); Ketones,Urine Negative (Negative); Leukocyte Esterase,Urine Negative (Negative); Nitrite,Urine Negative (Negative); Protein,Urine Negative (Neg-Trace); Specific Gravity,Urine 1.013 (1.010-1.025); Urobilinogen,Urine Normal (Normal)
[2017-09-19] MEDS ORDERED: Naloxone 0.4 MG/ML INJ IVP PRN (22:11)
[2017-09-19] MEDS ORDERED: Albuterol 2.5 MG/3 ML NEBULIZER IH PRN (22:20)
[2017-09-19] MEDS ORDERED: traMADol 50 MG TABLET PO PRN (22:20)
[2017-09-19] MEDS ORDERED: ALPRAZolam 1 MG TABLET PO PRN (22:20)
--- NOTE | 2017-09-19 22:28 | Internal Med History&Physical ---
Date of Encounter: 09/19/17 Time of Encounter: 21:15 Internal Medicine - H&P: HPI Chief complaint: Generalized weakness, shortness of breath. Admitted From: Emergency Dept Plans for Post Hospital Care: Home History of present illness: Ms. Joiner is a 81 year old female patient with a history of COPD, DVT, hyperlipidemia, dementia, hypertension, multiple myeloma who presented to the ER with complaints of generalized weakness. She receives home health and the nurse visiting her commented that she may be filling up her lungs with fluid again. As such she came to the ER. She does not use supplemental oxygen at home. She feels better now. Denies any. Patient does have dementia and history has been obtained from her granddaughter were present at bedside. They noticed that the patient was having wheezing. She was discharged from Hospital couple of weeks back following an episode of acute COPD exacerbation and pneumonia. She had been recovering well from that. She has not been drinking much fluids and does not have much appetite. She is no longer receiving treatment for multiple myeloma. Family is considering hospice. No reported pedal edema. No fevers chills or night sweats. Past Med Surg Social Fam HX - Past Medical History Attestation: Yes The following information was validated with the patient. Source: old records reviewed, obtained from family Medical history: cancer, COPD, DVT, dementia, GERD, hyperlipidemia, hypertension , osteoporosis, renal disease, other Additional medical history: myeloma. Stage III renal failure Psychiatric history: no psych history - Past Surgical History Surgical History: appendectomy, other Additional surgical history: Port placement - Social History Smoking Status: Former smoker Smokeless Tobacco Status: No Alcohol use: none Drug use: none - Family History Mother Adopted: No Family Member Ethnicity: Non- Living Status: Hx Family Cardiac Disorders: No Hx Family Respiratory Disorders: No Hx Family Cancer: No Hx Family GI Disorders: No Hx Family Endocrine Disorder: No Hx Family Neuromuscular Disorders: No Hx Family Neurologic Disorders: Yes (Alzhemer's disease) Hx Family HEENT Disorders: No Hx Family Autoimmune Disorders: No Brother Family Member Ethnicity: Non- Living Status: Still Living Father Family Member Ethnicity: Non- Living Status: Hx Family Cardiac Disorders: Yes (CVA) Hx Family Respiratory Disorders: No Hx Family Cancer: No Hx Family GI Disorders: No Hx Family Endocrine Disorder: No Hx Family Neuromuscular Disorders: No Hx Family Neurologic Disorders: Yes (CVA) Hx Family HEENT Disorders: No Hx Family Autoimmune Disorders: No Internal Medicine - H&P: Meds ALPRAZolam [Xanax 1 MG Tablet] 1 mg PO BID PRN 11/24/14 [History] Rivaroxaban [Xarelto] 15 mg PO DAILY #30 tablet 07/28/17 [Rx] Cyanocobalamin (Vitamin B-12) [Vitamin B-12] 2,500 mcg SL DAILY 08/31/17 [ History] Ferrous Sulfate 325 mg PO DAILY 08/31/17 [History] HYDROcodone/Acet 5/325 mg [[place] 5-325 mg] 1 tab PO BID PRN 08/31/17 [History] Tramadol HCl [Ultram] 50 mg PO BID PRN 08/31/17 [History] amLODIPine [Norvasc] 5 mg PO DAILY #30 tablet 09/04/17 [Rx] Albuterol Neb [Proventil Neb] 2.5 mg IH Q4HR PRN 09/19/17 [History] Triamterene/HCTZ 37.5/25mg [Dyazide] 1 each PO DAILY 09/19/17 [History] 3 Allergy/AdvReac Type Severity Reaction Status Date / Time codeine AdvReac Gastrointestinal Verified 09/06/17 09:35 Upset Oxycodone AdvReac Gastrointestinal Verified 09/06/17 09:35 Upset All Systems PM: A 10-system review of systems was performed and is negative for pertinent findings except as documented above in the HPI. - Constitutional Constitutional: anorexia, malaise, no chills, no fever(s), no night sweats - EENT Eyes: no change in vision, no discharge, no pain, no photophobia Ears: no ear discharge, no ear pain, no tinnitus Nose, mouth and throat: no dysphagia, no nasal discharge, no neck pain, no sore throat - Cardiovascular Cardiovascular ROS IM: no chest pain, no diaphoresis, no lightheadedness, no palpitations, no syncope - Respiratory Respiratory: dyspnea, wheezing, no cough, no excessive phlegm production - Gastrointestinal Gastrointestinal: no abdominal pain, no diarrhea, no hematemesis, no hematochezia, no melena, no nausea, no vomiting - Genitourinary Genitourinary: no change in urinary stream, no dysuria, no flank pain, no hematuria - Musculoskeletal Musculoskeletal ROS IM: no numbness, no tingling - Integumentary Integumentary IM: no rash, no unusual bruising - Neurological Neurological ROS: no confusion, no convulsions, no focal weakness, no numbness, no tingling, no tremor(s) - Hematologic/Lymphatic Hematologic/Lymphatic: no easy bruising - Constitutional Vitals: Temp Pulse Resp BP Pulse Ox 98.6 F 88 17 106/59 100 09/19/17 21:45 09/19/17 21:45 09/19/17 21:45 09/19/17 21:45 09/19/17 21:45 General appearance: Present: cooperative, A&O X 2, pleasant, underweight, answers questions appropriately - Eye Eye exam: Present: EOMI, PERRL, conjuntiva pink, sclera anicteric - ENT ENT exam: Present: mucous membranes dry - Neck Neck exam general surgery: Present: supple, trachea midline. Absent: lymphadenopathy - Respiratory Respiratory exam: Present: decreased breath sounds (At both bases), CTAB, wheezes. Absent: accessory muscle use, rales, rhonchi Additional comments: Dry crackles - Cardiovascular Cardiovascular exam: Present: RRR, +S1, +S2. Absent: diastolic murmur, gallop, rubs, systolic murmur - GI/Abdominal GI/Abdominal exam: Present: normal bowel sounds, soft, no peritoneal signs. Absent: distended, tenderness - Extremities Exam Extremities exam: Present: warm, radial pulses palpable and symmetrical. Absent : calf tenderness, cyanotic, pedal edema - Neurological Exam Neurological exam: Present: alert, no focal deficits. Absent: facial droop, speech deficit - Skin Skin exam: Present: dry, intact Internal Med - H&P Results - Labs CBC & Chem 7: 09/19/17 18:28 09/19/17 18:28 - Impressions Impressions Chest X-Ray 09/19/17 18:05 IMPRESSION: Small left-sided effusion and associated consolidation which could represent atelectasis or pneumonia. D/ / Jordan Francois MD / Jordan Francois MD Interpreting Provider: Jordan Francois MD - Assessment and plan (1) Acute kidney injury Current Visit: Yes Status: Acute Assessment and plan: Patient has slightly elevated creatinine above her baseline. Reported history of chronic kidney disease but over the past month her creatinine has been normal. Could be related to dehydration. We will gently hydrate. Hold nephrotoxic agents. Follow renal function. (2) Elevated troponin Current Visit: Yes Status: Acute Assessment and plan: Etiology uncertain. Denies any chest pain. Will trend troponins. Could be related to acute kidney injury.get 2-D echocardiogram (3) COPD (chronic obstructive pulmonary disease) Current Visit: Yes Status: Chronic Assessment and plan: Currently does not appear to be in COPD exacerbation. Was wheezing before but this seems to be improved now. We will continue to use bronchodilators. Qualifiers: COPD type: unspecified COPD Qualified Code(s): J44.9 - Chronic obstructive pulmonary disease, unspecified (4) DVT prophylaxis Current Visit: Yes Status: Acute Assessment and plan: Patient takes Xarelto for prior history of DVT. We will continue (5) Multiple myeloma Current Visit: Yes Status: Chronic Assessment and plan: Not in remission. Was previously despite stopping treatment due to poor functional status with light chain ratio coming down to 3.5. Lab work from 2 weeks back shows rising light chain ratio to 15 again. Consider oncology consult. Family considering hospice and wished to take patient home on hospice at the end of this hospitalization. Qualifiers: Multiple myeloma remission status: not in remission Qualified Code(s): C90.00 - Multiple myeloma not having achieved remission (6) Pneumonia Current Visit: Yes Status: Suspected Assessment and plan: Chest x-ray shows left sided pleural effusion with associated consolidation concerning for atelectasis or pneumonia. Patient was recently treated for pneumonia. This could be a continuation of that episode. Or it could be a chronic consolidation from atelectasis based on prior CT scan results. However given her comorbidities, will empirically start treatment for pneumonia. Check pro-calcitonin. If cultures negative and pro-calcitonin not elevated, recommend discontinuing antibiotics immediately. Qualifiers: Pneumonia type: due to unspecified organism Laterality: left Lung location: lower lobe of lung Qualified Code(s): J18.1 - Lobar pneumonia, unspecified organism - Time Spent With Patient Total time spent is greater than 50% in coordination of care (as documented) at patient's floor/unit and/or counseling patient:
[2017-09-20] MEDS ORDERED: Ringers Solution, Lactated 1,000 ML IVC SCH (05:00)
[2017-09-20] MEDS: amLODIPine 5 MG TABLET PO SCH (09:32)
[2017-09-20] MEDS: *HR* Rivaroxaban 15 MG TABLET PO SCH (09:32)
[2017-09-20] MEDS: Cyanocobalamin (B-12) 1,000 MCG TABLET PO SCH (09:33)
--- NOTE | 2017-09-20 15:13 | Internal Med Progress Note ---
Date of Encounter: 09/20/17 Time of Encounter: 13:30 - Assessment and plan (1) Acute kidney injury Current Visit: Yes Status: Acute Assessment and plan: Patient has slightly elevated creatinine above her baseline. Reported history of chronic kidney disease but over the past month her creatinine has been normal. Could be related to dehydration. We will gently hydrate. Hold nephrotoxic agents. Follow renal function. 09/20: Acute kidney injury. Chronic kidney disease stage III. Suspect patient is dehydrated. Continue IV fluids. Avoid nephrotoxins. Repeat BMP in the morning. Do wonder if patient has a failure to thrive component plus creating dehydration due to poor oral intake. She appears cachectic. She is also on triamterene hydrochlorothiazide which certainly could contribute as well. This is stopped. (2) Pneumonia Current Visit: Yes Status: Suspected Assessment and plan: Chest x-ray shows left sided pleural effusion with associated consolidation concerning for atelectasis or pneumonia. Patient was recently treated for pneumonia. This could be a continuation of that episode. Or it could be a chronic consolidation from atelectasis based on prior CT scan results. However given her comorbidities, will empirically start treatment for pneumonia. Check pro-calcitonin. If cultures negative and pro-calcitonin not elevated, recommend discontinuing antibiotics immediately. 09/20: I am not convinced patient has not acute bacterial pneumonia. She received 1 dose of Rocephin and azithromycin on admission. I will watch and follow clinically for now. We will check a pro-calcitonin level. She is afebrile. Her white blood cell count is normal. She is nontoxic in appearance. Monitor. Qualifiers: Pneumonia type: due to unspecified organism Laterality: left Lung location: lower lobe of lung Qualified Code(s): J18.1 - Lobar pneumonia, unspecified organism (3) Multiple myeloma Current Visit: Yes Status: Chronic Assessment and plan: Not in remission. Was previously despite stopping treatment due to poor functional status with light chain ratio coming down to 3.5. Lab work from 2 weeks back shows rising light chain ratio to 15 again. Consider oncology consult. Family considering hospice and wished to take patient home on hospice at the end of this hospitalization. Qualifiers: Multiple myeloma remission status: not in remission Qualified Code(s): C90.00 - Multiple myeloma not having achieved remission (4) COPD (chronic obstructive pulmonary disease) Current Visit: Yes Status: Chronic Assessment and plan: Currently does not appear to be in COPD exacerbation. Was wheezing before but this seems to be improved now. We will continue to use bronchodilators. Qualifiers: COPD type: unspecified COPD Qualified Code(s): J44.9 - Chronic obstructive pulmonary disease, unspecified (5) DVT prophylaxis Current Visit: Yes Status: Acute Assessment and plan: Patient takes Xarelto for prior history of DVT. We will continue (6) Elevated troponin Current Visit: Yes Status: Acute Assessment and plan: Etiology uncertain. Denies any chest pain. Will trend troponins. Could be related to acute kidney injury.get 2-D echocardiogram (7) Hx of deep venous thrombosis Current Visit: No Status: Chronic Assessment and plan: Continue Xarelto (8) Protein calorie malnutrition Current Visit: Yes Status: Acute Qualifiers: Protein-calorie malnutrition severity: moderate Qualified Code(s): E44.0 - Moderate protein-calorie malnutrition - Time Spent With Patient Total time spent is greater than 50% in coordination of care (as documented) at patient's floor/unit and/or counseling patient: 25 - 35 minutes - Subjective Interval history: History of present illness: Ms. Joiner is a 81 year old female patient with a history of COPD, DVT, hyperlipidemia, dementia, hypertension, multiple myeloma who presented to the ER with complaints of generalized weakness. She receives home health and the nurse visiting her commented that she may be filling up her lungs with fluid again. As such she came to the ER. She does not use supplemental oxygen at home. She feels better now. Denies any. Patient does have dementia and history has been obtained from her granddaughter were present at bedside. They noticed that the patient was having wheezing. She was discharged from Hospital couple of weeks back following an episode of acute COPD exacerbation and pneumonia. She had been recovering well from that. She has not been drinking much fluids and does not have much appetite. She is no longer receiving treatment for multiple myeloma. Family is considering hospice. No reported pedal edema. No fevers chills or night sweats. 09/20: Patient continues to state she feels weak. She has no other complaints at this time although she is a very poor historian. Does not recall why she is in the hospital. She is denying any chest pain or shortness of breath. No nausea or vomiting. No diarrhea. No fevers or chills. - Constitutional Vitals: Temp Pulse Resp BP Pulse Ox 98.5 F 84 16 108/64 96 09/20/17 09:58 09/20/17 09:58 09/20/17 09:58 09/20/17 09:58 09/20/17 11:18 General appearance: Present: cachectic, cooperative, A&O X 2, pleasant, underweight, answers questions appropriately - Head Head exam: Present: atraumatic - Eye Eye exam: Present: PERRL, conjuntiva pink, sclera anicteric Pupils: Present: PERRL - Neck Neck exam general surgery: Present: supple, trachea midline. Absent: lymphadenopathy - Respiratory Respiratory exam: Present: decreased breath sounds. Absent: accessory muscle use, rales, rhonchi, wheezes - Cardiovascular Cardiovascular exam: Present: RRR, +S1, +S2. Absent: diastolic murmur, gallop, rubs, systolic murmur - GI/Abdominal GI/Abdominal exam: Present: normal bowel sounds, soft, no peritoneal signs. Absent: distended, tenderness - Neurological Exam Neurological exam: Present: CN II-XII intact, oriented X3, no focal deficits. Absent: pronater drift, facial droop, speech deficit - Skin Skin exam: Present: dry, intact Additional comments: Spencer has diminished turgor Internal Medicine: Result - Labs CBC & Chem 7: 09/19/17 18:28 09/19/17 18:28 Labs: Cardiac Enzymes 09/19/17 09/20/17 Range/Units 22:30 04:30 Troponin I 0.05 H* 0.04 H* (< 0.04) ng/mL Consult Discharge Plan - Plan
[2017-09-20] MEDS: Ringers Solution, Lactated 1,000 ML IVC SCH (15:25)
[2017-09-20] MEDS: *HR* HYDROcodone/Acet 5/325 mg TABLET PO PRN (22:55)
[2017-09-20] MEDS ORDERED: *HR* LORazepam 2 MG/ML VIAL IVP ONE (23:14)
[2017-09-21 05:35] LABS: Calcium 8.4 mg/dL (8.6-10.3); Potassium 3.9 mEq/L (3.5-5.1)
[2017-09-21 05:48] LABS: Thyroid Stimulating Hormone 1.429 mcIU/mL (0.340-5.600)
[2017-09-21 05:51] LABS: Eosinophils # 0.3 K/mcL (0.0-0.6); Eosinophils % 8.8 %; Hemoglobin 7.9 g/dL (11.5-15.4); Immature Granulocytes % 0.3 % (0-4); Lymphocytes # 1.2 K/mcL (0.6-4.6); Lymphocytes % 35.6 %; Mean Corpuscular HGB Conc 30.4 g/dL (31.6-35.5); Mean Corpuscular Hemoglobin 26.8 pg (28.0-33.3); Mean Corpuscular Volume 88.1 fL (83.0-100.0); Mean Platelet Volume 12.5 fL (9.4-12.4); Monocytes # 0.4 K/mcL (0.0-1.3); Monocytes % 10.6 %; Neutrophils # 1.5 K/mcL (1.6-8.9); Platelet Count 150 K/mcL (140-400); Red Blood Count 2.95 M/mcL (3.82-4.97); Red Cell Distribution Width 16.4 % (11.5-14.5); Segmented Neutrophils % 44.7 %
[2017-09-21] MEDS: Ringers Solution, Lactated 1,000 ML IVC SCH ×2 (06:07→14:59)
[2017-09-21] MEDS: *HR* Rivaroxaban 15 MG TABLET PO SCH (07:25)
[2017-09-21] MEDS: amLODIPine 5 MG TABLET PO SCH (07:29)
[2017-09-21] MEDS: Cyanocobalamin (B-12) 1,000 MCG TABLET PO SCH (07:29)
[2017-09-21 10:40] VITALS: BP 117/63
[2017-09-21] MEDS: *HR* HYDROcodone/Acet 5/325 mg TABLET PO PRN (14:56)
[2017-09-21 16:40] LABS: Hemoglobin 9.5 g/dL (11.5-15.4); Immature Platelets 6.3 % (1.1-6.1); Mean Corpuscular HGB Conc 30.6 g/dL (31.6-35.5); Mean Corpuscular Hemoglobin 26.8 pg (28.0-33.3); Mean Corpuscular Volume 87.6 fL (83.0-100.0); Red Blood Count 3.54 M/mcL (3.82-4.97); Red Cell Distribution Width 16.3 % (11.5-14.5)
--- NOTE | 2017-09-21 16:54 | Discharge Summary ---
Orders not resulted at time of discharge: Pending orders 09/19/17 22:20 Procalcitonin Routine Date of Encounter: 09/21/17 Time of Encounter: 13:00 - Discharge Diagnosis (1) Acute kidney injury Priority: Primary Status: Acute Assessment and Plan: Patient has slightly elevated creatinine above her baseline. Reported history of chronic kidney disease but over the past month her creatinine has been normal. Could be related to dehydration. We will gently hydrate. Hold nephrotoxic agents. Follow renal function. 09/20: Acute kidney injury. Chronic kidney disease stage III. Suspect patient is dehydrated. Continue IV fluids. Avoid nephrotoxins. Repeat BMP in the morning. Do wonder if patient has a failure to thrive component plus creating dehydration due to poor oral intake. She appears cachectic. She is also on triamterene hydrochlorothiazide which certainly could contribute as well. This is stopped. (2) Multiple myeloma Priority: Secondary Status: Chronic Assessment and Plan: Not in remission. Was previously despite stopping treatment due to poor functional status with light chain ratio coming down to 3.5. Lab work from 2 weeks back shows rising light chain ratio to 15 again. Consider oncology consult. Family considering hospice and wished to take patient home on hospice at the end of this hospitalization. Qualifiers: Multiple myeloma remission status: not in remission Qualified Code(s): C90.00 - Multiple myeloma not having achieved remission (3) COPD (chronic obstructive pulmonary disease) Priority: Secondary Status: Chronic Assessment and Plan: Currently does not appear to be in COPD exacerbation. Was wheezing before but this seems to be improved now. We will continue to use bronchodilators. Qualifiers: COPD type: unspecified COPD Qualified Code(s): J44.9 - Chronic obstructive pulmonary disease, unspecified (4) DVT prophylaxis Priority: Secondary Status: Acute (5) Elevated troponin Priority: Secondary Status: Acute Assessment and Plan: Etiology uncertain. Denies any chest pain. Will trend troponins. Could be related to acute kidney injury.get 2-D echocardiogram (6) Hx of deep venous thrombosis Priority: Secondary Status: Chronic Assessment and Plan: Continue Xarelto (7) Protein calorie malnutrition Priority: Secondary Status: Acute Qualifiers: Protein-calorie malnutrition severity: moderate Qualified Code(s): E44.0 - Moderate protein-calorie malnutrition Hospital course: Ms. Joiner is a 81 year old female patient with a history of COPD, DVT, hyperlipidemia, dementia, hypertension, multiple myeloma who presented to the ER with complaints of generalized weakness. She receives home health and the nurse visiting her commented that she may be filling up her lungs with fluid again. As such she came to the ER. She does not use supplemental oxygen at home. She feels better now. Denies any. Patient does have dementia and history has been obtained from her granddaughter were present at bedside. They noticed that the patient was having wheezing. She was discharged from Hospital couple of weeks back following an episode of acute COPD exacerbation and pneumonia. She had been recovering well from that. She has not been drinking much fluids and does not have much appetite. She is no longer receiving treatment for multiple myeloma. Family is considering hospice. No reported pedal edema. No fevers chills or night sweats. 09/20: Patient continues to state she feels weak. She has no other complaints at this time although she is a very poor historian. Does not recall why she is in the hospital. She is denying any chest pain or shortness of breath. No nausea or vomiting. No diarrhea. No fevers or chills. 09/21: Patient improved with IV fluids. It was felt that the main reason for admission was dehydration, possibly failure to thrive. Family verified the patient has had difficulty maintaining a good diet as she just does not eat or drink enough. We discussed this in detail and recommended drinking at least 1-1 /2-2 L of fluid daily if possible. So recommended lifting any dietary restrictions to ensure a good intake. No evidence of infection was found. Patient had acute kidney injury with a creatinine of 1.56 on admission, this improved to 1.15 on discharge. We also held her medication of triamterene hydrochlorothiazide as this was felt to have contributed. She did receive 1 dose of antibiotics for possible pneumonia in the emergency department. Given lack of leukocytosis, lack of fever, nontoxic appearance, it was not felt that she had pneumonia. Chest x-ray showed a left lower lobe infiltrate versus atelectasis. She was recommended to follow-up with her primary care provider next week. I will immediately should she have fevers, shortness of breath, or any other problems. Discuss all the above with the family in detail. Patient is stable for discharge. 32 minutes spent on discharge and coordination of care. Discharge discussed with: patient, family - Time Spent with Patient Total time spent providing and/or coordinating discharge services: Greater than 30 minutes (32 minutes) - Discharge Medications Home Medications: ALPRAZolam [Xanax 1 MG Tablet] 1 mg PO BID PRN 11/24/14 [History] Rivaroxaban [Xarelto] 15 mg PO DAILY #30 tablet 07/28/17 [Rx] Cyanocobalamin (Vitamin B-12) [Vitamin B-12] 2,500 mcg SL DAILY 08/31/17 [ History] Ferrous Sulfate 325 mg PO DAILY 08/31/17 [History] HYDROcodone/Acet 5/325 mg [[place] 5-325 mg] 1 tab PO BID PRN 08/31/17 [History] Tramadol HCl [Ultram] 50 mg PO BID PRN 08/31/17 [History] amLODIPine [Norvasc] 5 mg PO DAILY #30 tablet 09/04/17 [Rx] Albuterol Neb [Proventil Neb] 2.5 mg IH Q4HR PRN 09/19/17 [History] Triamterene/HCTZ 37.5/25mg [Dyazide] 1 each PO DAILY 09/19/17 [History] Allergies/Adverse Reactions: 3 Allergy/AdvReac Type Severity Reaction Status Date / Time codeine AdvReac Gastrointestinal Verified 09/06/17 09:35 Upset Oxycodone AdvReac Gastrointestinal Verified 09/06/17 09:35 Upset Date of admission: 09/19/17 20:26 Primary care physician: Laine Stauffer Consults: 09/19/17 21:58 Consult to Nutrition [CONS] Routine Comment: Consulting Provider: NUTRITION Reason for Dietary Consult: MST Score 09/20/17 15:21 Consult to Physical Therapy [CONS] Routine Comment: Evaluate, develop and implement POC Reason for Consult: weakness Does patient have active BEDREST order?: No Is patient medically & hemodynamically stable?: Yes Patient assessed for mobility or mobilized this visit?: No 09/20/17 15:22 Consult to Occupational Therapy [CONS] Routine Comment: Evaluate, develop and implement POC Reason for Consult: ?failure to thrive, weakness Does patient have active BEDREST order?: No Is patient medically & hemodynamically stable?: Yes Patient assessed for mobility or mobilized this visit?: No Discharging clinician: Thom Manuel Anticipated date of discharge: 06/03/18 - Constitutional Vitals: Temp Pulse Resp BP Pulse Ox 98.1 F 79 15 117/63 96 09/21/17 10:34 09/21/17 10:34 09/21/17 10:34 09/21/17 10:34 09/21/17 10:34 General appearance: Present: cachectic, cooperative, A&O X 2, pleasant, underweight, answers questions appropriately - Head Head exam: Present: atraumatic, normocephalic - Eye Eye exam: Present: PERRL, conjuntiva pink, sclera anicteric Pupils: Present: PERRL - Neck Neck exam general surgery: Present: supple, trachea midline. Absent: lymphadenopathy - Respiratory Respiratory exam: Present: CTAB. Absent: accessory muscle use, rales, rhonchi, wheezes - Cardiovascular Cardiovascular exam: Present: RRR, +S1, +S2. Absent: diastolic murmur, gallop, rubs, systolic murmur - GI/Abdominal GI/Abdominal exam: Present: normal bowel sounds, soft, no peritoneal signs. Absent: distended, tenderness - Extremities Exam Extremities exam: Present: warm, radial pulses palpable and symmetrical. Absent : calf tenderness, cyanotic, pedal edema - Neurological Exam Neurological exam: Present: CN II-XII intact, oriented X3, no focal deficits. Absent: pronater drift, facial droop, speech deficit - Skin Skin exam: Present: dry, intact - Patient Status Disposition: Home, Self-Care Condition: Serious Overall status at discharge: patient is back to baseline - Discharge Instructions Instructions: Dehydration (DC) Follow Up With: Laine Stauffer MD [Primary Care Provider] - Forms: ED Satisfaction Letter Additional Instructions: Stop triamterene hydrochlorothiazide. Drink at least 1-1/2-2 L of fluid daily - Diet and Activity Activity: resume usual activities as tolerated Diet: regular diet
--- NOTE | 2017-09-22 16:37 | Electrocardiograph Report ---
[address] [place] [address] Test Date: 2017-09-19 Pat Name: Gillian Joiner Department: 104 Room: [facility] Gender: F [employer] Keeper: AM : 1935 Requested By: Troy Obrien Order Number: [id number] Reading MD: Jeanmarie Tucker Measurements Intervals [place] Rate: 98 P: 61 MI: 176 QRS: -3 QRSD: 100 T: 55 QT: 329 QTc: 384 Interpretive Statements SINUS RHYTHM POSSIBLE INFERIOR MYOCARDIAL INFARCTION, OF INDETERMINATE AGE Electronically Signed On 09-22-2017 16:35:26 EDT by Jeanmarie Tucker
== END 2017-09-21 17:57 | disposition home or self-care (01) ==
LOC: 3NENU 17:56 → EMEROO 17:56 → 3NENU 21:23
PROVIDERS: ADMIT Internal Medicine; ATTEND Internal Medicine

== ENCOUNTER 2018-03-31 03:25 | Inpatient (IN) ==
--- NOTE | 2018-03-31 03:42 | Emergency Department Note ---
Disposition Clinical Impression: Abdominal pain Qualifiers: Abdominal location: unspecified location Qualified Code(s): R10.9 - Unspecified abdominal pain Disposition: Admitted As Inpatient Condition: Good Referrals: Laine Stauffer MD [Primary Care Provider] - Forms: ED Satisfaction Letter, Work/School Release Abdominal Pain HPI - General Chief Complaint: ED Abdominal Pain Stated Complaint: abd pain/vomiting Time Seen by Provider: 03/31/18 03:30 Source: patient, EMS - History of Present Illness Pain Scale: 6 - Related Data Home Medications Medication Instructions Recorded Confirmed RX: ALPRAZolam [Xanax 1 MG Tablet] 1 mg PO BID PRN 11/24/14 03/27/18 RX: Cyanocobalamin (Vitamin B-12) 2,500 mcg SL DAILY 08/31/17 03/27/18 [Vitamin B-12] RX: Ferrous Sulfate 325 mg PO DAILY 08/31/17 03/27/18 RX: HYDROcodone/Acet 5/325 mg 0.5 tab PO DAILY 08/31/17 03/27/18 [[place] 5-325 mg] RX: Tramadol HCl [Ultram] 50 mg PO BID PRN 08/31/17 03/27/18 RX: Albuterol Neb [Proventil Neb] 2.5 mg IH Q4HR PRN 09/19/17 03/27/18 RX: traZODone [TraZODone] 1 - 2 tab PO HS 10/07/17 03/27/18 RX: amLODIPine [Norvasc] 5 mg PO DAILY 01/21/18 03/27/18 Previous Rx's Medication Instructions Recorded RX: Rivaroxaban [Xarelto] 15 mg PO DAILY #30 tablet 07/28/17 RX: Acetaminophen [Tylenol] 650 mg PO Q6HR PRN tablet 11/06/17 Bisacodyl [Dulcolax] 10 mg RC DAILY PRN #30 supp.rect 11/10/17 Hydrocortisone Acetate [Anucort-HC] 25 mg RC BID PRN #20 supp.rect 11/10/17 RX: Aspirin 81 mg PO DAILY #30 tab.chew 11/10/17 RX: Ixazomib Citrate [Ninlaro] 4 mg PO QWEEK #3 capsule 02/19/18 Allergies Allergy/AdvReac Type Severity Reaction Status Date / Time codeine AdvReac Gastrointestinal Verified 03/27/18 13:30 Upset Oxycodone AdvReac Gastrointestinal Verified 03/27/18 13:30 Upset Abdominal Pain PMH - Past Medical History Medical history: Reports: cancer, COPD, DVT, dementia, GERD, hyperlipidemia, hypertension, osteoporosis, renal disease, other Female Surgical History: Reports: appendectomy Psychiatric history: Reports: no psych history - Social History Smoking status: Former smoker Alcohol use: Reports: none Drug use: Reports: none Physical Exam - General Limitations: no limitations General appearance: alert Course Vital Signs Temperature 97.9 F 03/31/18 03:30 Pulse Rate 87 03/31/18 03:30 Respiratory Rate 18 03/31/18 03:30 Blood Pressure 133/63 03/31/18 03:30 O2 Sat by Pulse Oximetry 100 03/31/18 03:30 Temperature 97.9 F 03/31/18 03:30 Pulse Rate 87 03/31/18 03:30 Respiratory Rate 18 03/31/18 03:30 Blood Pressure 133/63 03/31/18 03:30 O2 Sat by Pulse Oximetry 100 03/31/18 03:30 Oxygen Delivery Oxygen Delivery Room Air Abdominal Pain - Lab Data Result diagrams: 03/31/18 03:56 03/31/18 03:56 Lab Results 03/31/18 03/31/18 03/31/18 Range/Units 03:56 03:56 03:56 WBC 8.8 (4.3-11.1) K/mcL RBC 4.31 (3.82-4.97) M/mcL Hgb 10.6 L (11.5-15.4) g/dL Hct 35.1 L (35.3-44.9) % MCV 81.4 L (83.0-100.0) fL MCH 24.6 L (28.0-33.3) pg MCHC 30.2 L (31.6-35.5) g/dL RDW 15.8 H (11.5-14.5) % Plt Count 96 L (140-400) K/mcL MPV TNP Immature Gran % 0.2 (0-4) % Seg Neutrophils % 77.6 % Lymphocytes % 15.6 % Monocytes % 6.2 % Eosinophils % 0.3 % Basophils % 0.1 % Neutrophils # 6.8 (1.6-8.9) K/mcL Lymphocytes # 1.4 (0.6-4.6) K/mcL Monocytes # 0.6 (0.0-1.3) K/mcL Eosinophils # 0.0 (0.0-0.6) K/mcL Basophils # 0.0 (0.0-0.2) K/mcL Immature Plt Fraction 8.2 H (1.1-6.1) % Sodium 141 (136-145) mEq/L Potassium 3.7 (3.5-5.1) mEq/L Chloride 110 H (98-107) mEq/L Carbon Dioxide 24 (23-29) mEq/L BUN 19 (8-23) mg/dL Creatinine 0.97 (0.60-1.20) mg/dL Est GFR ( Amer) > 60 (> 60) Est GFR (Non-Af Amer) 55 L (> 60) BUN/Creatinine Ratio 20 (6-26) Glucose 117 H (70-105) mg/dL Calculated Osmolality 295 (280-300) Lactic Acid 2.1 (0.5-2.2) mmol/L Calcium 9.4 (8.6-10.3) mg/dL Total Bilirubin 0.4 (0.3-1.0) mg/dL Direct Bilirubin 0.0 (0.0-0.2) mg/dL Indirect Bilirubin 0.4 (0.0-1.2) mg/dL AST 19 (13-39) Units/L ALT 10 (7-52) Units/L Alkaline Phosphatase 45 (34-104) Units/L Troponin I < 0.03 (< 0.04) ng/mL Serum Total Protein 6.1 L (6.4-8.9) g/dL Albumin 3.6 (3.5-5.7) g/dL Globulin 2.5 (2.4-3.5) g/dL Albumin/Globulin Ratio 1.4 (1.1-2.2) Lipase 25 (11-82) Units/L Attestation Statement - Attestation Attestation: MID LEVEL ATTESTATION: Medical screening examination/treatment/procedure(s) were conducted as a shared visit with non-physician practitioner(s) and myself. I personally evaluated the patient during the encounter. Seen with ELAN Stacey Navarro. Please see her note for further details and disposition. Patient with history of COPD, hyperlipidemia, hypertension, renal disease, DVT, cancer arrives for evaluation of abdominal pain nausea and vomiting. Patient was recently diagnosed with both colitis and pneumonia. Had been placed on Cipro. Take this medication approximately 2 weeks ago. Worsening overall symptoms. Patient has generalized tenderness that is worse in the left lower quadrant. Without guarding or rebound Patient has had episodes of nausea with associated dry heaves with in the emergency department. Blood work and CT scan pending.
[2018-03-31] MEDS ORDERED: Ondansetron 4 MG/2 ML VIAL IVP ONE (03:43)
[2018-03-31] MEDS ORDERED: Isovue-370 500 ML INFUS..BTL IV ONE (03:43)
[2018-03-31] MEDS ORDERED: 0.9 % Sodium Chloride 1,000 ML IVC ONE (03:43)
[2018-03-31] MEDS ORDERED: Acetaminophen IV 1,000 MG/100 ML INFUS..BTL IVPB ONE (04:04)
[2018-03-31 04:12] LABS: Eosinophils % 0.3 %; Immature Granulocytes % 0.2 % (0-4); Mean Corpuscular Hemoglobin 24.6 pg (28.0-33.3)
[2018-03-31 04:14] LABS: Basophils % 0.1 %; Hematocrit 35.1 % (35.3-44.9); Hemoglobin 10.6 g/dL (11.5-15.4); Immature Platelets 8.2 % (1.1-6.1); Lymphocytes # 1.4 K/mcL (0.6-4.6); Lymphocytes % 15.6 %; Mean Corpuscular HGB Conc 30.2 g/dL (31.6-35.5); Mean Corpuscular Volume 81.4 fL (83.0-100.0); Monocytes # 0.6 K/mcL (0.0-1.3); Monocytes % 6.2 %; Neutrophils # 6.8 K/mcL (1.6-8.9); Red Blood Count 4.31 M/mcL (3.82-4.97); Red Cell Distribution Width 15.8 % (11.5-14.5); Segmented Neutrophils % 77.6 %
--- NOTE | 2018-03-31 04:30 | Emergency Department Note ---
Disposition Clinical Impression: Colitis Left lower lobe pneumonia Qualifiers: Pneumonia type: due to unspecified organism Qualified Code(s): J18.1 - Lobar pneumonia, unspecified organism Disposition: Still a Patient Condition: Fair Forms: ED Satisfaction Letter, Work/School Release Abdominal Pain HPI - General Chief Complaint: ED Abdominal Pain Stated Complaint: abd pain/vomiting Time Seen by Provider: 03/31/18 03:30 Source: patient, family, EMS Mode of arrival: EMS Limitations: no limitations Nursing Notes Reviewed: Yes Vital Signs Reviewed: Yes - History of Present Illness Pt Subjective Complaint: abdominal pain, other (vomiting) Onset (ago): week(s) Consistency: intermittent Location: diffuse Pain Severity: moderate Pain Scale: 6 Quality: cramping Radiation: none Migration to: no migration Improves with: nothing Worsens with: nothing Context: recent antibiotic use, history of similar episodes (last week - was seen here and was diagnosed with enterocolitis and pneumonia. Rx. Cipro) Associated symptoms: Reports: denies other symptoms, nausea, vomiting. Denies: diarrhea, fever, chills, constipation, dysuria, hematemesis, hematochezia, melena, hematuria, anorexia, syncope Treatments prior to arrival: other (cipro) - Related Data Home Medications Medication Instructions Recorded Confirmed ALPRAZolam [Xanax 1 MG Tablet] 1 mg PO BID PRN 11/24/14 03/27/18 Cyanocobalamin (Vitamin B-12) 2,500 mcg SL DAILY 08/31/17 03/27/18 [Vitamin B-12] Ferrous Sulfate 325 mg PO DAILY 08/31/17 03/27/18 HYDROcodone/Acet 5/325 mg [[place] 0.5 tab PO DAILY 08/31/17 03/27/18 5-325 mg] Tramadol HCl [Ultram] 50 mg PO BID PRN 08/31/17 03/27/18 Albuterol Neb [Proventil Neb] 2.5 mg IH Q4HR PRN 09/19/17 03/27/18 traZODone [TraZODone] 1 - 2 tab PO HS 10/07/17 03/27/18 amLODIPine [Norvasc] 5 mg PO DAILY 01/21/18 03/27/18 Previous Rx's Medication Instructions Recorded Rivaroxaban [Xarelto] 15 mg PO DAILY #30 tablet 07/28/17 Acetaminophen [Tylenol] 650 mg PO Q6HR PRN tablet 11/06/17 Aspirin 81 mg PO DAILY #30 tab.chew 11/10/17 Bisacodyl [Dulcolax] 10 mg RC DAILY PRN #30 supp.rect 11/10/17 Hydrocortisone Acetate [Anucort-HC] 25 mg RC BID PRN #20 supp.rect 11/10/17 Ixazomib Citrate [Ninlaro] 4 mg PO QWEEK #3 capsule 02/19/18 Allergies Allergy/AdvReac Type Severity Reaction Status Date / Time codeine AdvReac Gastrointestinal Verified 03/27/18 13:30 Upset Oxycodone AdvReac Gastrointestinal Verified 03/27/18 13:30 Upset All systems ED: reviewed and negative except as stated. Review of Systems: As Per HPI Constitutional: Reports: chills. Denies: fever, weakness, weight change Eyes: Denies: eye pain, eye discharge, vision change ENT ED: Denies: ear pain, throat pain, congestion, dysphagia Cardiovascular: Reports: as per HPI. Denies: chest pain, palpitations, dyspnea on exertion, orthopnea, syncope, paroxysmal nocturnal dyspnea Respiratory: Reports: cough (occasional, wet). Denies: dyspnea Gastrointestinal: Reports: abdominal pain, nausea, vomiting. Denies: diarrhea, hematemesis, melena, hematochezia Genitourinary: Denies: urgency, dysuria Musculoskeletal: Denies: back pain, neck pain, joint swelling, arthralgia Integumentary: Denies: rash Neurological: Denies: headache, weakness, numbness, paresthesias Hematological/Lymphatic: Denies: easy bleeding, easy bruising, lymphadenopathy Abdominal Pain PMH - Past Medical History Medical history: Reports: cancer, COPD, DVT, dementia, GERD, hyperlipidemia, hypertension, osteoporosis, renal disease, other Female Surgical History: Reports: appendectomy Psychiatric history: Reports: no psych history - Social History Smoking status: Former smoker Alcohol use: Reports: none Drug use: Reports: none Physical Exam - General Limitations: no limitations General appearance: alert, in no apparent distress - Head Head exam: atraumatic, normocephalic, normal inspection - Eye Eye exam: Present: normal appearance. Absent: scleral icterus, conjunctival injection, miosis, mydriasis, periorbital swelling - ENT ENT exam: mucous membranes dry - Neck Neck exam: Present: normal inspection, full ROM, trachea midline. Absent: tenderness, meningismus - Chest Chest inspection: Present: normal inspection - Respiratory Respiratory exam: Present: normal lung sounds bilaterally. Absent: respiratory distress, wheezes, stridor, accessory muscle use, prolonged expiratory phase - Cardiovascular Cardiovascular exam: Present: regular rate, normal rhythm, normal heart sounds - Abdominal Exam Abdominal exam: Present: soft, tenderness, hyperactive bowel sounds. Absent: distention, guarding, rebound, rigidity, organomegaly, trauma, ascites, mass, pulsatile mass - Extremities Exam Extremities exam: Present: normal inspection, normal capillary refill. Absent: tenderness - Neurological Exam Neurological exam: Present: alert, oriented X3, CN II-XII intact - Psychiatric Psychiatric exam: Present: normal affect, normal mood - Skin Skin exam: Present: warm, dry, intact, normal color Course Course Narrative: Patient is brougt back to the ER by her daughter for evaluation of continued abdominal pain, nausea and vomiting. She was seen here last week and was diagnosed with enterocolitis and possible pneumonia. She was given a prescription for Cipro and was discharged home. She was feeling better for a couple days, then symptoms began to return. She saw her PCP yesterday and was given another course of Cipro. This morning the vomiting returned. It is nonbloody, nonbilious. She had a few episodes of diarrhea last week, none today. She has had chills but no fever. Labs, ekg, meds and CT ordered. Case discussed with Dr. Madden. He has had face to face time with the patient and agrees with the asesment and plan. EKG is non-specific, No ST elevation or depression. CT shows continued colitis and pneumonia. Labs show new anemia and thrombocytopenia. Lactate 2.2. Troponin is normal. Blood cultures and Zosyn ordered. Patient will be admitted. Care transferred to Naman Brown CNP at shift change. Vital Signs Temperature 97.9 F 03/31/18 03:30 Pulse Rate 87 03/31/18 03:30 Respiratory Rate 18 03/31/18 03:30 Blood Pressure 133/63 03/31/18 03:30 O2 Sat by Pulse Oximetry 100 03/31/18 03:30 Temperature 97.9 F 03/31/18 03:30 Pulse Rate 87 03/31/18 03:30 Respiratory Rate 18 03/31/18 03:30 Blood Pressure 133/63 03/31/18 03:30 O2 Sat by Pulse Oximetry 100 03/31/18 03:30 Oxygen Delivery Oxygen Delivery Room Air
[2018-03-31 04:35] LABS: Troponin I < 0.03 ng/mL (< 0.04)
[2018-03-31 04:36] LABS: Alanine Aminotransferase 10 Units/L (7-52); Albumin 3.6 g/dL (3.5-5.7); Albumin/Globulin Ratio 1.4 (1.1-2.2); Alkaline Phosphatase 45 Units/L (34-104); Aspartate Amino Transferase 19 Units/L (13-39); BUN/Creatinine Ratio 20 (6-26); Bilirubin,Indirect 0.4 mg/dL (0.0-1.2); Bilirubin,Total 0.4 mg/dL (0.3-1.0); Blood Urea Nitrogen 19 mg/dL (8-23); Calcium 9.4 mg/dL (8.6-10.3); Carbon Dioxide 24 mEq/L (23-29); Chloride 110 mEq/L (98-107); Globulin 2.5 g/dL (2.4-3.5); Glucose 117 mg/dL (70-105); Lipase 25 Units/L (11-82); Osmolality,Calculated 295 (280-300); Potassium 3.7 mEq/L (3.5-5.1); Sodium 141 mEq/L (136-145); Total Protein 6.1 g/dL (6.4-8.9); eGFR For Non-African Americans 55 (> 60)
[2018-03-31 04:47] LABS: Platelet Count 96 K/mcL (140-400)
[2018-03-31] MEDS ORDERED: Piperacillin/Tazobactam 3.375 GM in 0.9 % Sodium Chloride Mini Bag 100 ML IVPB ONE (05:57)
--- NOTE | 2018-03-31 07:25 | Emergency Department Note ---
Disposition Clinical Impression: Colitis Abdominal pain Qualifiers: Abdominal location: unspecified location Qualified Code(s): R10.9 - Unspecified abdominal pain Left lower lobe pneumonia Qualifiers: Pneumonia type: due to unspecified organism Qualified Code(s): J18.1 - Lobar pneumonia, unspecified organism Disposition: Admitted As Inpatient Condition: Fair Abdominal Pain HPI - General Chief Complaint: ED Abdominal Pain Stated Complaint: abd pain/vomiting Time Seen by Provider: 03/31/18 03:30 Source: patient, family, EMS Mode of arrival: EMS - History of Present Illness Pt Subjective Complaint: abdominal pain, other (vomiting) Location: diffuse Pain Severity: moderate Pain Scale: 2 Quality: cramping Migration to: no migration Improves with: nothing Worsens with: nothing Context: recent antibiotic use, history of similar episodes (last week - was seen here and was diagnosed with enterocolitis and pneumonia. Rx. Cipro) Associated symptoms: Reports: denies other symptoms, nausea, vomiting. Denies: diarrhea, fever, chills, constipation, dysuria, hematemesis, hematochezia, melena, hematuria, anorexia, syncope - Related Data Home Medications Medication Instructions Recorded Confirmed ALPRAZolam [Xanax 1 MG Tablet] 0.5 mg PO BID PRN 11/24/14 03/31/18 Cyanocobalamin (Vitamin B-12) 2,500 mcg SL DAILY 08/31/17 03/31/18 [Vitamin B-12] Ferrous Sulfate 325 mg PO DAILY 08/31/17 03/31/18 HYDROcodone/Acet 5/325 mg [[place] 0.5 tab PO DAILY PRN 08/31/17 03/31/18 5-325 mg] Tramadol HCl [Ultram] 50 mg PO BID PRN 08/31/17 03/31/18 Albuterol Neb [Proventil Neb] 2.5 mg IH 2-3XD PRN 09/19/17 03/31/18 traZODone [TraZODone] 1 tab PO HS PRN 10/07/17 03/31/18 Acetaminophen [Tylenol] 650 mg PO DAILY 03/31/18 03/31/18 Amlodipine Besylate 2.5 mg PO DAILY 03/31/18 03/31/18 Ciprofloxacin HCl [Cipro] 500 mg PO BID 03/31/18 03/31/18 Ixazomib Citrate [Ninlaro] 4 mg PO MO 03/31/18 03/31/18 Previous Rx's Medication Instructions Recorded Aspirin 81 mg PO DAILY #30 tab.chew 11/10/17 Allergies Allergy/AdvReac Type Severity Reaction Status Date / Time codeine AdvReac See Verified 03/31/18 07:41 Comments Oxycodone AdvReac See Verified 03/31/18 07:41 Comments Constitutional: Reports: chills. Denies: fever, weakness, weight change Eyes: Denies: eye pain, eye discharge, vision change ENT ED: Denies: ear pain, throat pain, congestion, dysphagia Cardiovascular: Reports: as per HPI. Denies: chest pain, palpitations, dyspnea on exertion, orthopnea, syncope, paroxysmal nocturnal dyspnea Respiratory: Reports: cough (occasional, wet). Denies: dyspnea Gastrointestinal: Reports: abdominal pain, nausea, vomiting. Denies: diarrhea, hematemesis, melena, hematochezia Genitourinary: Denies: urgency, dysuria Musculoskeletal: Denies: back pain, neck pain, joint swelling, arthralgia Integumentary: Denies: rash Neurological: Denies: headache, weakness, numbness, paresthesias Hematological/Lymphatic: Denies: easy bleeding, easy bruising, lymphadenopathy Abdominal Pain PMH - Past Medical History Medical history: Reports: cancer, COPD, DVT, dementia, GERD, hyperlipidemia, hypertension, osteoporosis, renal disease, other Female Surgical History: Reports: appendectomy Psychiatric history: Reports: no psych history - Social History Smoking status: Former smoker Alcohol use: Reports: none Drug use: Reports: none Physical Exam - General Limitations: no limitations General appearance: alert, in no apparent distress Course Vital Signs Temperature 97.9 F 03/31/18 03:30 Pulse Rate 87 03/31/18 03:30 Respiratory Rate 18 03/31/18 03:30 Blood Pressure 133/63 03/31/18 03:30 O2 Sat by Pulse Oximetry 100 03/31/18 03:30 Temperature 97.9 F 03/31/18 03:30 Pulse Rate 79 03/31/18 07:25 Respiratory Rate 16 03/31/18 07:25 Blood Pressure 141/65 03/31/18 07:25 O2 Sat by Pulse Oximetry 98 03/31/18 07:25 Oxygen Delivery Oxygen Delivery Room Air Abdominal Pain - MDM Narrative Medical decision making narrative: 82 year old female presents with persistent abdominal pain, nausea and vomiting for 2 weeks. Pt visited ER two weeks ago. She had CT which indicated colitis and pneumonia. Pt was discharged home with Flagyl and Cipro. Pt felt a little better for a couple days and started vomiting again. repeat CT today indicated persistent colitis and pneumonia. IV antibiotics started in ER. Pt had firm stool in ER. Pt will be admit to hospital for IV antibiotics. Spoke with hospitalist Dr. Rivera. Pt is accepted. - Lab Data Lab results reviewed: Yes I reviewed the patient's lab results. Result diagrams: 03/31/18 03:56 03/31/18 03:56 Lab Results 03/31/18 03/31/18 03/31/18 Range/Units 03:56 03:56 03:56 WBC 8.8 (4.3-11.1) K/mcL RBC 4.31 (3.82-4.97) M/mcL Hgb 10.6 L (11.5-15.4) g/dL Hct 35.1 L (35.3-44.9) % MCV 81.4 L (83.0-100.0) fL MCH 24.6 L (28.0-33.3) pg MCHC 30.2 L (31.6-35.5) g/dL RDW 15.8 H (11.5-14.5) % Plt Count 96 L (140-400) K/mcL MPV TNP Immature Gran % 0.2 (0-4) % Seg Neutrophils % 77.6 % Lymphocytes % 15.6 % Monocytes % 6.2 % Eosinophils % 0.3 % Basophils % 0.1 % Neutrophils # 6.8 (1.6-8.9) K/mcL Lymphocytes # 1.4 (0.6-4.6) K/mcL Monocytes # 0.6 (0.0-1.3) K/mcL Eosinophils # 0.0 (0.0-0.6) K/mcL Basophils # 0.0 (0.0-0.2) K/mcL Immature Plt Fraction 8.2 H (1.1-6.1) % Sodium 141 (136-145) mEq/L Potassium 3.7 (3.5-5.1) mEq/L Chloride 110 H (98-107) mEq/L Carbon Dioxide 24 (23-29) mEq/L BUN 19 (8-23) mg/dL Creatinine 0.97 (0.60-1.20) mg/dL Est GFR ( Amer) > 60 (> 60) Est GFR (Non-Af Amer) 55 L (> 60) BUN/Creatinine Ratio 20 (6-26) Glucose 117 H (70-105) mg/dL Calculated Osmolality 295 (280-300) Lactic Acid 2.1 (0.5-2.2) mmol/L Calcium 9.4 (8.6-10.3) mg/dL Total Bilirubin 0.4 (0.3-1.0) mg/dL Direct Bilirubin 0.0 (0.0-0.2) mg/dL Indirect Bilirubin 0.4 (0.0-1.2) mg/dL AST 19 (13-39) Units/L ALT 10 (7-52) Units/L Alkaline Phosphatase 45 (34-104) Units/L Troponin I < 0.03 (< 0.04) ng/mL Serum Total Protein 6.1 L (6.4-8.9) g/dL Albumin 3.6 (3.5-5.7) g/dL Globulin 2.5 (2.4-3.5) g/dL Albumin/Globulin Ratio 1.4 (1.1-2.2) Lipase 25 (11-82) Units/L 03/31/18 Range/Units 07:49 WBC (4.3-11.1) K/mcL RBC (3.82-4.97) M/mcL Hgb (11.5-15.4) g/dL Hct (35.3-44.9) % MCV (83.0-100.0) fL MCH (28.0-33.3) pg MCHC (31.6-35.5) g/dL RDW (11.5-14.5) % Plt Count (140-400) K/mcL MPV Immature Gran % (0-4) % Seg Neutrophils % % Lymphocytes % % Monocytes % % Eosinophils % % Basophils % % Neutrophils # (1.6-8.9) K/mcL Lymphocytes # (0.6-4.6) K/mcL Monocytes # (0.0-1.3) K/mcL Eosinophils # (0.0-0.6) K/mcL Basophils # (0.0-0.2) K/mcL Immature Plt Fraction (1.1-6.1) % Sodium (136-145) mEq/L Potassium (3.5-5.1) mEq/L Chloride (98-107) mEq/L Carbon Dioxide (23-29) mEq/L BUN (8-23) mg/dL Creatinine (0.60-1.20) mg/dL Est GFR ( Amer) (> 60) Est GFR (Non-Af Amer) (> 60) BUN/Creatinine Ratio (6-26) Glucose (70-105) mg/dL Calculated Osmolality (280-300) Lactic Acid 1.5 (0.5-2.2) mmol/L Calcium (8.6-10.3) mg/dL Total Bilirubin (0.3-1.0) mg/dL Direct Bilirubin (0.0-0.2) mg/dL Indirect Bilirubin (0.0-1.2) mg/dL AST (13-39) Units/L ALT (7-52) Units/L Alkaline Phosphatase (34-104) Units/L Troponin I (< 0.04) ng/mL Serum Total Protein (6.4-8.9) g/dL Albumin (3.5-5.7) g/dL Globulin (2.4-3.5) g/dL Albumin/Globulin Ratio (1.1-2.2) Lipase (11-82) Units/L - Radiology Data Radiology results reviewed: Yes I reviewed the patient's radiology results. HISTORY: ORDERING SYSTEM PROVIDED HISTORY: lower abdominal pain, recent colitis, vomiting 75 ml of ISOVUE [id number] FINDINGS: Lower Chest: Trace left greater than right pleural effusions with associated airspace disease. Atherosclerosis of the visualized thoracic aorta. Organs: Normal liver. Cholelithiasis. Multiple small splenic hypodensities likely represent benign cysts or hemangiomas. Multiple bilateral renal cysts are similar to the prior study. No suspicious enhancing renal mass. Normal pancreas. Normal adrenal glands. GI/Bowel: The stomach is decompressed. The small bowel and colon are normal in caliber. Colonic diverticulosis without evidence of acute diverticulitis. Fluid throughout the colon suggests enteritis. Transverse colon demonstrates mild wall thickening with mucosal hyperenhancement suggestive of colitis. Pelvis: The urinary bladder is decompressed. Nonspecific small amount of free fluid in the pelvis. Peritoneum/Retroperitoneum: No intraperitoneal free air or drainable fluid collection. No pathologic lymphadenopathy in the abdomen or pelvis. Atherosclerosis of the abdominal aorta and its branches. No abdominal aortic aneurysm. Patent portal vein. Bones/Soft Tissues: Degenerative osseous changes in the visualized spine and pelvis. Diffuse osteopenia. Chronic T12 compression fracture deformity. CT/CT abd pelvis w iv no oral IMPRESSION: Findings suggestive of persistent colitis with fluid throughout the colon and transverse colon inflammation. No free air or abscess. Comparison made with CT abdomen pelvis done 03/16/2018. Cholelithiasis. Trace left greater than right pleural effusions with associated airspace disease. D/ / Lang Sessions / Lang Harrington Interpreting Provider: Lang Harrington
--- NOTE | 2018-03-31 10:18 | Internal Med History&Physical ---
Date of Encounter: 03/31/18 Time of Encounter: 09:00 Internal Medicine - H&P: HPI Chief complaint: Abd pain/ N/V Admitted From: Emergency Dept Plans for Post Hospital Care: Home History of present illness: Ms. Joiner is a 82 year old female patient with a history of hypertension, hyperlipidemia, dementia, COPD, chronic kidney disease stage III who was brought to the ER with complaints of abdominal pain, nausea and vomiting. Patient has been having these symptoms for the past couple of weeks. She was initially seen in the ER 2 weeks back and was diagnosed with colitis and pneumonia. She was discharged on Cipro and Flagyl. She reports she completed taking the antibiotics as prescribed. She however developed nausea and vomiting 2 days after she began taking this treatment and her symptoms have slowly started to worsen again. She complains of lower quadrant abdominal pain. She did not have diarrhea till she came to the ER. She is had bowel incontinence since coming in here. She denies any fevers. She does have cough. No sputum production.no recent hospitalizations. She was admitted here in October for GI bleed. She had been on anticoagulation with Xarelto for prior DVT at that time. This has since been stopped. She does have a history of multiple myeloma and takes Ixazomib which was started on 03/16 2018. Past Med Surg Social Fam HX - Past Medical History Attestation: Yes The following information was validated with the patient. Source: patient Medical history: cancer, COPD, DVT, dementia, GERD, hyperlipidemia, hypertension, osteoporosis, renal disease, other Additional medical history: myeloma. Stage III renal failure Psychiatric history: no psych history - Past Surgical History Surgical History: appendectomy, other Additional surgical history: tubal ligation - Social History Smoking Status: Former smoker Smokeless Tobacco Status: No Alcohol use: none Drug use: none - Family History Mother Adopted: No Family Member Ethnicity: Non- Living Status: Hx Family Cardiac Disorders: No Hx Family Respiratory Disorders: No Hx Family Cancer: No Hx Family GI Disorders: No Hx Family Endocrine Disorder: No Hx Family Neuromuscular Disorders: No Hx Family Neurologic Disorders: Yes (Alzhemer's disease) Hx Family HEENT Disorders: No Hx Family Autoimmune Disorders: No Brother Family Member Ethnicity: Non- Living Status: Still Living Father Family Member Ethnicity: Non- Living Status: Hx Family Cardiac Disorders: Yes (stroke) Hx Family Respiratory Disorders: No Hx Family Cancer: No Hx Family GI Disorders: No Hx Family Endocrine Disorder: No Hx Family Neuromuscular Disorders: No Hx Family Neurologic Disorders: Yes (CVA) Hx Family HEENT Disorders: No Hx Family Autoimmune Disorders: No Internal Medicine - H&P: Meds ALPRAZolam [Xanax 1 MG Tablet] 0.5 mg PO BID PRN 11/24/14 [History] Cyanocobalamin (Vitamin B-12) [Vitamin B-12] 2,500 mcg SL DAILY 08/31/17 [History] Ferrous Sulfate 325 mg PO DAILY 08/31/17 [History] HYDROcodone/Acet 5/325 mg [Willow 5-325 mg] 0.5 tab PO DAILY PRN 08/31/17 [History] Tramadol HCl [Ultram] 50 mg PO BID PRN 08/31/17 [History] Albuterol Neb [Proventil Neb] 2.5 mg IH 2-3XD PRN 09/19/17 [History] traZODone [TraZODone] 1 tab PO HS PRN 10/07/17 [History] Aspirin 81 mg PO DAILY #30 tab.chew 11/10/17 [Rx] Acetaminophen [Tylenol] 650 mg PO DAILY 03/31/18 [History] Amlodipine Besylate 2.5 mg PO DAILY 03/31/18 [History] Ciprofloxacin HCl [Cipro] 500 mg PO BID 03/31/18 [History] Ixazomib Citrate [Ninlaro] 4 mg PO MO 03/31/18 [History] Allergy/AdvReac Type Severity Reaction Status Date / Time codeine AdvReac See Verified 03/31/18 07:41 Comments Oxycodone AdvReac See Verified 03/31/18 07:41 Comments All Systems PM: A 10-system review of systems was performed and is negative for pertinent findings except as documented above in the HPI. - Constitutional Constitutional: malaise, no chills, no fever(s), no night sweats - EENT Eyes: no change in vision, no discharge, no pain, no photophobia Ears: no ear discharge, no ear pain, no tinnitus Nose, mouth and throat: no dysphagia, no nasal discharge, no neck pain, no sore throat - Cardiovascular Cardiovascular ROS IM: no chest pain, no diaphoresis, no dyspnea, no lightheadedness, no palpitations, no syncope - Respiratory Respiratory: no cough, no dyspnea, no wheezing, no excessive phlegm production - Gastrointestinal Gastrointestinal: abdominal pain, diarrhea, nausea, vomiting, no hematemesis, no hematochezia, no melena - Genitourinary Genitourinary: no change in urinary stream, no dysuria, no flank pain, no hematuria - Musculoskeletal Musculoskeletal ROS IM: no numbness, no tingling - Integumentary Integumentary IM: no rash, no unusual bruising - Neurological Neurological ROS: no confusion, no convulsions, no focal weakness, no numbness, no tingling, no tremor(s) - Hematologic/Lymphatic Hematologic/Lymphatic: no easy bruising - Constitutional Vitals: Temp Pulse Resp BP Pulse Ox 97.9 F 79 18 148/67 98 03/31/18 03:30 03/31/18 07:25 03/31/18 08:22 03/31/18 08:22 03/31/18 07:25 General appearance: Present: cooperative, A&O X 3, answers questions appropriately Exam: General: Patient is alert, mild distress, oriented x 3, thin built/underweight Head: atraumatic, normocephalic, ENT: Mucous membranes dry Eye: normal appearance, PERRL, no scleral icterus, no conjunctival injection Neck: normal inspection, trachea midline, full ROM, no carotid bruits Chest: normal inspection, symmetric chest rise Respiratory: Good respiratory effort. Normal breath sounds. No wheezing or crackles. Cardiovascular: Regular rate and rhythm. s1 and s2 normal No clicks, rubs, gallops, or murmurs. No pedal edema Abdomen: Abdomen is soft, tender in the lower quadrants without any guarding or rigidity. Bowel sounds are present Musculoskeletal: Spontaneously moving all extremities Skin: warm, dry, intact. Neuro: Alert oriented x 3 normal cranial nerves, no focal deficits Psych: Patient's affect is normal Internal Med - H&P Results - Labs CBC & Chem 7: 03/31/18 03:56 03/31/18 03:56 Labs: Short CBC 03/31/18 Range/Units 03:56 WBC 8.8 (4.3-11.1) K/mcL Hgb 10.6 L (11.5-15.4) g/dL Hct 35.1 L (35.3-44.9) % Plt Count 96 L (140-400) K/mcL Neutrophils # 6.8 (1.6-8.9) K/mcL BMP 03/31/18 03:56 Sodium 141 Potassium 3.7 Chloride 110 H Carbon Dioxide 24 BUN 19 Creatinine 0.97 Glucose 117 H Calcium 9.4 Cardiac Enzymes 03/31/18 Range/Units 03:56 Troponin I < 0.03 (< 0.04) ng/mL Liver Function 03/31/18 Range/Units 03:56 Total Bilirubin 0.4 (0.3-1.0) mg/dL Direct Bilirubin 0.0 (0.0-0.2) mg/dL AST 19 (13-39) Units/L ALT 10 (7-52) Units/L Alkaline Phosphatase 45 (34-104) Units/L Albumin 3.6 (3.5-5.7) g/dL - Impressions ITS Impressions Abdomen/Pelvis CT 03/31/18 03:43 IMPRESSION: Findings suggestive of persistent colitis with fluid throughout the colon and transverse colon inflammation. No free air or abscess. Comparison made with CT abdomen pelvis done 03/16/2018. Cholelithiasis. Trace left greater than right pleural effusions with associated airspace disease. D/ / Lang Sessions / Lang Sessions Interpreting Provider: Lang Sessions Chest X-Ray 03/31/18 04:53 IMPRESSION: Stable left lower lobe opacity compatible with pneumonia. D/ / 03/31/2018 07:46:26 Slick Almonte / Katie Stratton Interpreting Provider: Slick Almonte - Assessment and plan (1) Colitis Current Visit: Yes Status: Acute Assessment and plan: CT scan of the abdomen and pelvis shows findings suggestive of persistent colitis involving the transverse colon. Patient does have colonic diverticulosis. She did complete treatment with Cipro and Flagyl. Will check stool for GI panel. Will await results prior to starting patient on further antibiotics at this time. Consider GI consult. IV fluids. Keep nothing by mouth. Symptomatic treatment with antiemetics and pain management. Moderate risk for complications. Ixazomib also has side effects of nausea, vomiting and diarrhea. Since his symptoms started soon after she started this medication, it could very well be another cause of her complaints. However she does have findings of colitis in the transverse colon. (2) Left lower lobe pneumonia Current Visit: Yes Status: Suspected Assessment and plan: CT scan of the abdomen and pelvis shows left sided basilar space disease concerning for pneumonia. Patient does report cough. She was started on Zosyn and the ER. She also completed treatment with Cipro and Flagyl. Given that she does not have significant leukocytosis, fever, these changes could be related to her recent pneumonia. For now hold off on further antibiotics. We will send blood cultures. Qualifiers: Pneumonia type: due to Pneumococcus Qualified Code(s): J13 - Pneumonia due to Streptococcus pneumoniae (3) DVT prophylaxis Current Visit: No Status: Acute Assessment and plan: With SCDs given low platelets and recent GI bleed (4) Chronic kidney disease, stage III (moderate) Current Visit: Yes Status: Chronic Assessment and plan: At baseline. Renal function is normal. We will follow closely. (5) Hypertension Current Visit: Yes Status: Chronic Assessment and plan: Elevated. Resume home medications as tolerated Qualifiers: Hypertension type: essential hypertension Qualified Code(s): I10 - Essential (primary) hypertension (6) Multiple myeloma Current Visit: Yes Status: Chronic Assessment and plan: Patient takes Ixazomib. Hemoglobin levels at 10.6. WBC 8.8. Platelets are 96. Ixazomib can cause diarrhea, nausea and vomiting which could explain her symptoms. For now treat underlying colitis. Follow up with oncology as outpatient. Qualifiers: Multiple myeloma remission status: not in remission Qualified Code(s): C90.00 - Multiple myeloma not having achieved remission - Time Spent With Patient Total time spent is greater than 50% in coordination of care (as documented) at patient's floor/unit and/or counseling patient:
[2018-03-31] MEDS ORDERED: Acetaminophen 325 MG TABLET PO PRN (10:30)
[2018-03-31] MEDS ORDERED: Albuterol 2.5 MG/3 ML NEBULIZER IH PRN (10:30)
[2018-03-31] MEDS ORDERED: Ondansetron 4 MG/2 ML VIAL IVP PRN (10:33)
[2018-03-31] MEDS: traMADol 50 MG TABLET PO PRN (12:03)
[2018-03-31] MEDS: ALPRAZolam 0.5 MG TABLET PO PRN (12:03)
[2018-03-31 14:41] LABS: Adenovirus F 40/41 PCR Not detected (Not detect); Astrovirus PCR Not detected (Not detect); C.difficile Toxin A/B Gene PCR Not detected (Not detect); Campylobacter by PCR Not detected (Not detect); Cryptosporidium by PCR Not detected (Not detect); Cyclospora cayetanensis PCR Not detected (Not detect); E. coli O157 by PCR Not detected (Not detect); Entamoeba histolytica PCR Not detected (Not detect); Enteroaggregative E.coli(EAEC) Not detected (Not detect); Enteropathogenic E.coli(EPEC) Not detected (Not detect); Enterotoxigenic E.coli (ETEC) Not detected (Not detect); Giardia lamblia PCR Not detected (Not detect); Norovirus GI/GII PCR Not detected (Not detect); Plesiomonas shigelloides PCR Not detected (Not detect); Rotavirus A PCR Not detected (Not detect); Salmonella PCR Not detected (Not detect); Sapovirus PCR Not detected (Not detect); Shig/EnteroinvasiveE coli EIEC Not detected (Not detect); Shigalike tox-prod E coli STEC Not detected (Not detect); Vibrio PCR Not detected (Not detect); Vibrio cholerae PCR Not detected (Not detect); Yersinia enterocolitica PCR Not detected (Not detect)
[2018-03-31] MEDS: Piperacillin/Tazobactam 3.375 GM in 0.9 % Sodium Chloride Mini Bag 100 ML IVPB SCH (16:39)
[2018-03-31] MEDS: Lactobacillus 1 EACH CAP.SPRINK PO SCH (20:17)
[2018-03-31] MEDS: Ringers Solution, Lactated 1,000 ML IVC SCH (20:17)
[2018-04-01] MEDS: Piperacillin/Tazobactam 3.375 GM in 0.9 % Sodium Chloride Mini Bag 100 ML IVPB SCH ×3 (00:36→18:09)
--- NOTE | 2018-04-01 06:17 | Electrocardiograph Report ---
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
[2018-04-01 06:35] LABS: Albumin/Globulin Ratio 1.4 (1.1-2.2); Bilirubin,Total 0.5 mg/dL (0.3-1.0); Globulin 2.8 g/dL (2.4-3.5); Potassium 2.9 mEq/L (3.5-5.1); Total Protein 6.8 g/dL (6.4-8.9)
[2018-04-01 06:54] LABS: Basophils % 0.1 %; Eosinophils % 0.1 %; Hematocrit 37.6 % (35.3-44.9); Hemoglobin 11.4 g/dL (11.5-15.4); Immature Granulocytes % 0.3 % (0-4); Immature Platelets 10.1 % (1.1-6.1); Lymphocytes # 1.3 K/mcL (0.6-4.6); Lymphocytes % 13.5 %; Mean Corpuscular HGB Conc 30.3 g/dL (31.6-35.5); Mean Corpuscular Hemoglobin 24.5 pg (28.0-33.3); Mean Corpuscular Volume 80.9 fL (83.0-100.0); Monocytes # 0.2 K/mcL (0.0-1.3); Monocytes % 2.4 %; Neutrophils # 7.9 K/mcL (1.6-8.9); Red Blood Count 4.65 M/mcL (3.82-4.97); Red Cell Distribution Width 16.3 % (11.5-14.5); Segmented Neutrophils % 83.6 %
[2018-04-01 07:35] LABS: Platelet Count 93 K/mcL (140-400)
[2018-04-01] MEDS: Cyanocobalamin (B-12) 1,000 MCG TABLET PO SCH (08:44)
[2018-04-01] MEDS: Lactobacillus 1 EACH CAP.SPRINK PO SCH ×2 (08:45→21:17)
[2018-04-01] MEDS: amLODIPine 5 MG TABLET PO SCH (08:45)
[2018-04-01] MEDS: Ringers Solution, Lactated 1,000 ML IVC SCH ×2 (08:46)
--- NOTE | 2018-04-01 11:22 | Gastroenterology Consult Note ---
<Hailey Peterson - Last Filed: 04/01/18 11:58> Date of Encounter: 04/01/18 Time of Encounter: 09:15 - Assessment and plan (1) Colitis Current Visit: Yes Status: Acute Assessment and plan: Pt recently treated with flagyl and cipro, CT shows recurrent colitis. Continue IV flagyl and cipro supportive care with iV fluids, antiemetics. Pt was recently started on ixazomib which may be causing GI symptoms as oral chemotherapy agents are known to have multiple GI side effects. Will prep for colonoscopy tomorrow, will check for rectovaginal fistula at that time as there is concern of stool in the vagina. (2) Abdominal pain Current Visit: Yes Status: Acute Qualifiers: Abdominal location: unspecified location Qualified Code(s): R10.9 - Unspecified abdominal pain (3) Multiple myeloma Current Visit: No Status: Chronic Qualifiers: Multiple myeloma remission status: in remission Qualified Code(s): C90.01 - Multiple myeloma in remission - Time Spent With Patient Total time spent is greater than 50% in coordination of care (as documented) at patient's floor/unit and/or counseling patient: GI History of Present Illness - Data of Consult Patient: new to practice Consult date: 04/01/18 Requesting Physician: Brian June MD - Consult Narrative Reason for consult: colitis History of present illness: Ms. Joiner is a 82 year old female patient with a history of hypertension, hyperlipidemia, dementia, COPD, chronic kidney disease stage III who was brought to the ER with complaints of abdominal pain, nausea and vomiting. Patient has been having these symptoms for the past couple of weeks. She was initially seen in the ER 2 weeks back and was diagnosed with colitis and pneumonia. She was discharged on Cipro and Flagyl. She reports she completed taking the antibiotics as prescribed. She however developed nausea and vomiting 2 days after she began taking this treatment and her symptoms have slowly started to worsen again. She did not have diarrhea till she came to the ER. She is had bowel incontinence since coming in here. She denies any fevers. She does have cough. No sputum production.no recent hospitalizations. She was admitted here in October for GI bleed. She had been on anticoagulation with Xarelto for prior DVT at that time. This has since been stopped. She does have a history of multiple myeloma and takes Ixazomib which was started on 03/16 2018. She is a poor historian and is confused this morning, she denies any hematochezia or melena. She complains of epigastric pain, denies nausea at this time. Colonoscopy: 08/05 two 2-3 mm tubular adenomas, diverticulosis, internal hemorrhoids EGD; 11/01 hiatal hernia, gastritis biopsies negative. NSAIDS: asa 81 mg Anticoagulants: denies Past Med Surg Social Fam HX - Past Medical History Medical history: cancer, COPD, DVT, dementia, GERD, hyperlipidemia, hypertension, osteoporosis, renal disease, other Additional medical history: myeloma. Stage III renal failure Psychiatric history: no psych history - Past Surgical History Surgical History: appendectomy, other Additional surgical history: tubal ligation - Social History Smoking Status: Former smoker Smokeless Tobacco Status: No Alcohol use: none Drug use: none - Family History Mother Adopted: No Family Member Ethnicity: Non- Living Status: Hx Family Cardiac Disorders: No Hx Family Respiratory Disorders: No Hx Family Cancer: No Hx Family GI Disorders: No Hx Family Endocrine Disorder: No Hx Family Neuromuscular Disorders: No Hx Family Neurologic Disorders: Yes (Alzhemer's disease) Hx Family HEENT Disorders: No Hx Family Autoimmune Disorders: No Brother Family Member Ethnicity: Non- Living Status: Still Living Father Family Member Ethnicity: Non- Living Status: Hx Family Cardiac Disorders: Yes (stroke) Hx Family Respiratory Disorders: No Hx Family Cancer: No Hx Family GI Disorders: No Hx Family Endocrine Disorder: No Hx Family Neuromuscular Disorders: No Hx Family Neurologic Disorders: Yes (CVA) Hx Family HEENT Disorders: No Hx Family Autoimmune Disorders: No Review of Systems: GI: as per QAGAN TAYAGUNGIN GENERAL: denies fever, has some chills EYES: denies yellow discoloration ENT: denies pain with swallowing or difficulty swallowing CARDIO: denies chest pain, palpitations RESP: Shortness of breath with exertion : denies change in color of urine NEURO: weakness HEME: Denies any bruising MS: chronic back and joint pain. DERM: denies rash or itching PSYCH: history of dementia - Constitutional Vitals: Temp Pulse Resp BP Pulse Ox 98.3 F 88 17 165/68 97 04/01/18 07:24 04/01/18 07:24 04/01/18 07:24 04/01/18 07:24 04/01/18 07:24 Exam: CONSTITUTIONAL:alert to person only.HEAD:normocephalic.EYES:no jaundice.NECK:no obvious swelling.HEART:regular rate and rhythm, no murmurs.LUNGS:bilateral fair air entry.ABDOMEN:non distended, soft, tender, no masses pulpable, no organomegaly.RECTAL EXAM:Deferred.EXTREMITIES:no clubbing, cyanosis or edema, cachectic.SKIN:no stigmata of chronic liver disease.NEUROLOGIC:no obvious focal defect. Results - Labs CBC & Chem 7: 04/01/18 05:55 04/01/18 05:55 Labs: Last Result Calcium 10.0 mg/dL (8.6-10.3) 04/01/18 05:55 Troponin I < 0.03 ng/mL (< 0.04) 03/31/18 03:56 Entire Visit Hgb 11.4 g/dL (11.5-15.4) L 04/01/18 05:55 Hct 37.6 % (35.3-44.9) 04/01/18 05:55 Total Bilirubin 0.5 mg/dL (0.3-1.0) 04/01/18 05:55 AST 20 Units/L (13-39) 04/01/18 05:55 ALT 10 Units/L (7-52) 04/01/18 05:55 Lipase 25 Units/L (11-82) 03/31/18 03:56 - Impressions Impressions Chest X-Ray 03/31/18 04:53 IMPRESSION: Stable left lower lobe opacity compatible with pneumonia. D/ / 03/31/2018 07:46:26 Slick Almonte / Katie Stratton Interpreting Provider: Slick Almonte Consult Discharge Plan - Plan Referrals: Laine Stauffer MD [Primary Care Provider] - <Donna Jackson - Last Filed: 04/01/18 13:21> Date of Encounter: 04/01/18 Time of Encounter: 13:00 - Time Spent With Patient Total time spent is greater than 50% in coordination of care (as documented) at patient's floor/unit and/or counseling patient: GI History of Present Illness - Data of Consult Requesting Physician: Brian June MD - Consult Narrative History of present illness: Ms. Joiner is a 82 year old female - Constitutional Vitals: Temp Pulse Resp BP Pulse Ox 97.6 F 86 18 178/83 94 04/01/18 11:51 04/01/18 11:51 04/01/18 11:51 04/01/18 11:51 04/01/18 11:51 Results - Labs CBC & Chem 7: 04/01/18 05:55 04/01/18 05:55 Labs: Last Result Calcium 10.0 mg/dL (8.6-10.3) 04/01/18 05:55 Troponin I < 0.03 ng/mL (< 0.04) 03/31/18 03:56 Entire Visit Hgb 11.4 g/dL (11.5-15.4) L 04/01/18 05:55 Hct 37.6 % (35.3-44.9) 04/01/18 05:55 Total Bilirubin 0.5 mg/dL (0.3-1.0) 04/01/18 05:55 AST 20 Units/L (13-39) 04/01/18 05:55 ALT 10 Units/L (7-52) 04/01/18 05:55 Lipase 25 Units/L (11-82) 03/31/18 03:56 - Impressions Impressions Chest X-Ray 03/31/18 04:53 IMPRESSION: Stable left lower lobe opacity compatible with pneumonia. D/ / 03/31/2018 07:46:26 Slick Almonte / Katie Stratton Interpreting Provider: Slick Almonte - Attending Attestation I have personally performed a face to face evaluation on this patient. I have reviewed and agree with the care plan. History and Exam by me shows: Patient seen complaining of abdominal pain on examination does has upper abdominal tenderness. Assessment: Patient with abdominal pain with CT showing colitis of the transverse colon. Has been on antibiotic but still CT showing persistent colitis and patient is still symptomatic. Recommendation: Patient to have colonoscopy tomorrow
[2018-04-01] MEDS: 0.9 % Sodium Chloride w KCl 40 MEQ/1,000 ML MLS IVC SCH (13:38)
--- NOTE | 2018-04-01 14:29 | Internal Med Progress Note ---
Hospitalist Progress Note - Encounter Date of Encounter: 04/01/18 Time of Encounter: 12:30 - Subjective Interval History: H&P reviewed. Patient with history of hypertension, hyperlipidemia, multiple myeloma on Ixazomib, CKD stage III, is admitted for abdominal pain, N/V, and is found to have persistent inflammatory changes in colon. RN also reports concern of fecal material in vagina. Patient is pleasantly confused and does not endorse any focal complaints including abdominal pain, dysuria, or change in bowel habits. No fever overnight. - Exam Vitals: Temp Pulse Resp BP Pulse Ox 97.6 F 86 18 178/83 94 04/01/18 11:51 04/01/18 11:51 04/01/18 11:51 04/01/18 11:51 04/01/18 11:51 Exam: General: Patient is alert, oriented x 2 Respiratory: Good respiratory effort. Normal breath sounds. No wheezing or crackles. Cardiovascular: Regular rate and rhythm. s1 and s2 normal Abdomen: Abdomen is soft, tender in the lower quadrants without any guarding or rigidity Musculoskeletal: Spontaneously moving all extremities Neuro: grossly non-focal - Assessment and Plan (1) Colitis Current Visit: Yes Status: Acute Assessment and Plan: CT scan of the abdomen and pelvis shows findings suggestive of persistent colitis involving the transverse colon. Patient does have colonic diverticulosis. She did complete treatment with Cipro and Flagyl recently. GI panel -ve. C. diff -ve ?concern for rectovaginal fistula ixazomib also comes with various GI side effects GI on board, for colonoscopy tomorrow continue zosyn (2) Left lower lobe pneumonia Current Visit: Yes Status: Suspected Assessment and Plan: Limited cuts on CT abdo/pelvis showed persistent left basilar airspace disease. Patient however is asymptomatic, no leukocytosis, and afebrile. on zosyn as above and monitor for respiratory symptoms (3) Multiple myeloma Current Visit: Yes Status: Chronic Assessment and Plan: Patient takes Ixazomib. Hemoglobin levels at 10.6. WBC 8.8. Platelets are 96. Ixazomib can cause diarrhea, nausea and vomiting which could explain her symptoms. For now treat underlying colitis. Follow up with oncology as outpatient. (4) Chronic kidney disease, stage III (moderate) Current Visit: Yes Status: Chronic Assessment and Plan: Cr 0.97 -> 1.55 but her baseline is more like 1.2-1.4 monitor on IVF (5) Hypertension Current Visit: Yes Status: Chronic Assessment and Plan: Resume home medications as tolerated (6) Hypokalemia Current Visit: Yes Status: Acute Assessment and Plan: replete in IVF and also give 1 dose of PO 40meq (7) DVT prophylaxis Current Visit: No Status: Acute Assessment and Plan: With SCDs given low platelets and recent GI bleed - Time Spent with Patient Total time spent is greater than 50% in coordination of care (as documented) at patient's floor/unit and/or counseling patient: Internal Medicine: Result - Labs CBC & Chem 7: 04/01/18 05:55 04/01/18 05:55 Labs: Short CBC 04/01/18 Range/Units 05:55 WBC 9.5 (4.3-11.1) K/mcL Hgb 11.4 L (11.5-15.4) g/dL Hct 37.6 (35.3-44.9) % Plt Count 93 L (140-400) K/mcL Neutrophils # 7.9 (1.6-8.9) K/mcL BMP 04/01/18 05:55 Sodium 144 Potassium 2.9 L Chloride 117 H Carbon Dioxide 16 L BUN 19 Creatinine 1.55 H Glucose 79 Calcium 10.0 Liver Function 04/01/18 Range/Units 05:55 Total Bilirubin 0.5 (0.3-1.0) mg/dL AST 20 (13-39) Units/L ALT 10 (7-52) Units/L Alkaline Phosphatase 50 (34-104) Units/L Albumin 4.0 (3.5-5.7) g/dL - Impressions Impressions Chest X-Ray 03/31/18 04:53 IMPRESSION: Stable left lower lobe opacity compatible with pneumonia. D/ / 03/31/2018 07:46:26 Slick Almonte / Katie Stratton Interpreting Provider: Slick Almonte Consult Discharge Plan - Plan Referrals: Laine Stauffer MD [Primary Care Provider] - (2) Left lower lobe pneumonia Qualifiers: Pneumonia type: due to Pneumococcus Qualified Code(s): J13 - Pneumonia due to Streptococcus pneumoniae (3) Multiple myeloma Qualifiers: Multiple myeloma remission status: not in remission Qualified Code(s): C90.00 - Multiple myeloma not having achieved remission (5) Hypertension Qualifiers: Hypertension type: essential hypertension Qualified Code(s): I10 - Essential (primary) hypertension
[2018-04-01] MEDS ORDERED: SODIUM CHLORIDE/NAHCO3/KCL/PEG 4,000 ML SOLN.RECON PO ONE (17:00)
[2018-04-01] MEDS: traMADol 50 MG TABLET PO PRN (18:17)
[2018-04-02] MEDS: 0.9 % Sodium Chloride w KCl 40 MEQ/1,000 ML MLS IVC SCH (03:23)
[2018-04-02] MEDS: Piperacillin/Tazobactam 3.375 GM in 0.9 % Sodium Chloride Mini Bag 100 ML IVPB SCH ×2 (05:53→17:39)
[2018-04-02] MEDS: traMADol 50 MG TABLET PO PRN ×2 (06:00→15:36)
[2018-04-02 07:36] LABS: Hemoglobin 10.6 g/dL (11.5-15.4); Immature Granulocytes % 0.4 % (0-4)
[2018-04-02 07:38] LABS: Hematocrit 36.2 % (35.3-44.9); Immature Platelets 9.3 % (1.1-6.1); Lymphocytes # 0.9 K/mcL (0.6-4.6); Lymphocytes % 13.1 %; Mean Corpuscular HGB Conc 29.3 g/dL (31.6-35.5); Mean Corpuscular Hemoglobin 24.1 pg (28.0-33.3); Mean Corpuscular Volume 82.5 fL (83.0-100.0); Monocytes # 0.5 K/mcL (0.0-1.3); Neutrophils # 5.6 K/mcL (1.6-8.9); Red Blood Count 4.39 M/mcL (3.82-4.97); Red Cell Distribution Width 16.6 % (11.5-14.5); Segmented Neutrophils % 79.5 %
[2018-04-02 08:02] LABS: Calcium 9.3 mg/dL (8.6-10.3); Magnesium 2.3 mg/dL (1.6-2.6)
[2018-04-02 08:07] LABS: Platelet Count 71 K/mcL (140-400)
[2018-04-02] MEDS: amLODIPine 5 MG TABLET PO SCH (08:36)
[2018-04-02] MEDS: Cyanocobalamin (B-12) 1,000 MCG TABLET PO SCH (08:36)
[2018-04-02] MEDS: Lactobacillus 1 EACH CAP.SPRINK PO SCH ×2 (08:38→22:51)
[2018-04-02] MEDS ORDERED: Haloperidol Lactate 5 MG/ML VIAL IVP ONE (09:06)
[2018-04-02] MEDS ORDERED: 0.9 % Sodium Chloride w KCl 40 MEQ/1,000 ML MLS IVC SCH (09:06)
[2018-04-02] MEDS ORDERED: 0.9 % Sodium Chloride 1,000 ML IVC SCH (12:30)
[2018-04-02] MEDS ORDERED: *HR* Propofol 200 MG/20 ML VIAL IVP ONE ×2 (14:29)
--- NOTE | 2018-04-02 14:32 | Anesthesia Evaluation PreOp ---
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: Other (Dementia) Other Medical History: Renal (CKD), GERD Anesthesia History: No Prior Anesthetic Complications Alcohol Use: none Drug use: none Medications and Allergies ALPRAZolam [Xanax 1 MG Tablet] 0.5 mg PO BID PRN 11/24/14 [History] Cyanocobalamin (Vitamin B-12) [Vitamin B-12] 2,500 mcg SL DAILY 08/31/17 [History] Ferrous Sulfate 325 mg PO DAILY 08/31/17 [History] HYDROcodone/Acet 5/325 mg [[place] 5-325 mg] 0.5 tab PO DAILY PRN 08/31/17 [History] Tramadol HCl [Ultram] 50 mg PO BID PRN 08/31/17 [History] Albuterol Neb [Proventil Neb] 2.5 mg IH 2-3XD PRN 09/19/17 [History] traZODone [TraZODone] 1 tab PO HS PRN 10/07/17 [History] Aspirin 81 mg PO DAILY #30 tab.chew 11/10/17 [Rx] Acetaminophen [Tylenol] 650 mg PO DAILY 03/31/18 [History] Amlodipine Besylate 2.5 mg PO DAILY 03/31/18 [History] Ciprofloxacin HCl [Cipro] 500 mg PO BID 03/31/18 [History] Ixazomib Citrate [Ninlaro] 4 mg PO MO 03/31/18 [History] Allergy/AdvReac Type Severity Reaction Status Date / Time codeine AdvReac See Verified 03/31/18 07:41 Comments Oxycodone AdvReac See Verified 03/31/18 07:41 Comments - Meds/Allergy Pre-op Review Medications Reviewed: Yes Allergies Reviewed: Yes Beta Blockers on Current Med List: No Anesthesia Results - Labs 04/02/18 06:45 04/02/18 06:45 - Imaging EKG: report reviewed (SR) Additional studies: ECHO EF 55% 2017 Anesthesia Exam O2 Sat Weight 48.4 kg O2 Sat by Pulse Oximetry 97 O2 Sat by Pulse Oximetry 94 O2 Sat by Pulse Oximetry 97 O2 Sat by Pulse Oximetry 96 O2 Sat by Pulse Oximetry 96 O2 Sat by Pulse Oximetry 97 O2 Sat by Pulse Oximetry 97 O2 Sat by Pulse Oximetry 97 Vital Signs Temp Pulse Resp BP Pulse Ox 97.9 F 87 18 133/63 100 03/31/18 03:30 03/31/18 03:30 03/31/18 03:30 03/31/18 03:30 03/31/18 03:30 Height: 5'4 Weight: 106 lbs NPO (# of Hours): MN Pain Scale: 0 - HEENT Pupil (Motor): Pupils equal, EOMI Mallampati: III Teeth: Edentulous Oral Opening: Less than or equal to 3 - ORDERING MACHINE OPERATOR LOC: Unable to assess ORDERING MACHINE OPERATOR Motor: Normal RUE, Normal LUE, Normal RLE, Normal LLE, Normal Face ORDERING MACHINE OPERATOR Sensory: Normal: RUE, LUE, RLE, LLE, Face - Cardiac Rhythm: Regular Murmur: None JVD: No Carotid Bruit: No - Pulmonary Breath Sounds: bilateral Clear Respiratory Effort: Symmetrical Anesthesia Assess/Plan ASA Score: 3 (HTN COPD Dementia) Level of consciousness: Cooperative Anesthetic Plan: MAC Autologous Blood: No Monitoring Plan: Standard Monitors Recovery Plan: Other (Discussed MAC with POA)
--- NOTE | 2018-04-02 15:16 | Internal Med Progress Note ---
Hospitalist Progress Note - Encounter Date of Encounter: 04/02/18 Time of Encounter: 15:13 - Subjective Interval History: Patient lying on bed comfortably. Daughter at bedside. Review the lab with slight increased creatinine level. Patient denies fever or chills nausea vomiting headache dizziness chest pain shortness of breath. As per nursing staff feculent material notice and vagina and he also made aware GI team. Patient is nothing by mouth and plan for colonoscopy later today - Exam Vitals: Temp Pulse Resp BP Pulse Ox 98.3 F 97 18 153/83 97 04/02/18 14:20 04/02/18 14:20 04/02/18 14:20 04/02/18 14:20 04/02/18 14:20 Exam: General: Patient is alert, oriented x 2. Daughter at bedside Respiratory: Good respiratory effort. Normal breath sounds. No wheezing or crackles. Cardiovascular: Regular rate and rhythm. s1 and s2 normal Abdomen: Abdomen is soft, mild tender in the lower quadrants without any guarding or rigidity Musculoskeletal: Spontaneously moving all extremities , Neuro: grossly non-focal, cranial nerves II-12 intact motor 5 x 5 in all 4 extremities. - Assessment and Plan (1) Colitis Current Visit: Yes Status: Acute Assessment and Plan: CT scan of the abdomen and pelvis shows findings suggestive of persistent colitis involving the transverse colon. Patient does have colonic diverticulosis. She did complete treatment with Cipro and Flagyl recently. GI panel -ve. C. diff -ve ?concern for rectovaginal fistula-GI team made aware ixazomib also comes with various GI side effects GI on board, for colonoscopy scheduled today by mouth continue zosyn (2) Multiple myeloma Current Visit: Yes Status: Chronic Assessment and Plan: Patient takes Ixazomib. Ixazomib can cause diarrhea, nausea and vomiting which could explain her symptoms. For now treat underlying colitis. Follow up with oncology as outpatient. (3) Chronic kidney disease, stage III (moderate) Current Visit: Yes Status: Chronic Assessment and Plan: Cr 0.97 -> 1.55 but her baseline is more like 1.2-1.4 Slight trending up creatinine level therefore IV fluid 100 mL per hour with close monitoring. Avoid nephrotoxic drug. Monitor BMP. Will consult nephrolog y if continued to trend up creatinine. (4) Left lower lobe pneumonia Current Visit: Yes Status: Suspected Assessment and Plan: Limited cuts on CT abdo/pelvis showed persistent left basilar airspace disease. Patient however is asymptomatic, no leukocytosis, and afebrile. on zosyn as above and monitor for respiratory symptoms (5) Hypertension Current Visit: Yes Status: Chronic Assessment and Plan: Resume home medications as tolerated (6) Hypokalemia Current Visit: Yes Status: Acute Assessment and Plan: Normal potassium today. Monitoring and replacement. (7) DVT prophylaxis Current Visit: No Status: Acute Assessment and Plan: With SCDs given low platelets and recent GI bleed - Time Spent with Patient Total time spent is greater than 50% in coordination of care (as documented) at patient's floor/unit and/or counseling patient: 25 - 35 minutes Plan of Care Discussed with: patient Internal Medicine: Result - Labs CBC & Chem 7: 04/02/18 06:45 04/02/18 06:45 Labs: Short CBC 04/02/18 Range/Units 06:45 WBC 7.0 (4.3-11.1) K/mcL Hgb 10.6 L (11.5-15.4) g/dL Hct 36.2 (35.3-44.9) % Plt Count 71 L (140-400) K/mcL Neutrophils # 5.6 (1.6-8.9) K/mcL BMP 04/02/18 06:45 Sodium 149 H Potassium 4.0 Chloride 124 H Carbon Dioxide 12 L BUN 26 H Creatinine 1.58 H Glucose 128 H Calcium 9.3 Consult Discharge Plan - Plan Referrals: Laine Stauffer MD [Primary Care Provider] - (2) Multiple myeloma Qualifiers: Multiple myeloma remission status: not in remission Qualified Code(s): C90.00 - Multiple myeloma not having achieved remission (4) Left lower lobe pneumonia Qualifiers: Pneumonia type: due to Pneumococcus Qualified Code(s): J13 - Pneumonia due to Streptococcus pneumoniae (5) Hypertension Qualifiers: Hypertension type: essential hypertension Qualified Code(s): I10 - Essential (primary) hypertension
[2018-04-02] MEDS: *HR* OxyCODONE/APAP 5/325 TABLET PO PRN ×2 (16:26→22:51)
--- NOTE | 2018-04-02 17:50 | Oncology Inp Consult Note ---
<Chandni López - Last Filed: 04/03/18 13:20> Date of Encounter: 04/02/18 - Data of Consult Requesting Physician: Brian June MD Primary Care Provider: Laine Stauffer Medications and Allergies ALPRAZolam [Xanax 1 MG Tablet] 0.5 mg PO BID PRN 11/24/14 [History] Cyanocobalamin (Vitamin B-12) [Vitamin B-12] 2,500 mcg SL DAILY 08/31/17 [History] Ferrous Sulfate 325 mg PO DAILY 08/31/17 [History] HYDROcodone/Acet 5/325 mg [[place] 5-325 mg] 0.5 tab PO DAILY PRN 08/31/17 [History] Tramadol HCl [Ultram] 50 mg PO BID PRN 08/31/17 [History] Albuterol Neb [Proventil Neb] 2.5 mg IH 2-3XD PRN 09/19/17 [History] traZODone [TraZODone] 1 tab PO HS PRN 10/07/17 [History] Aspirin 81 mg PO DAILY #30 tab.chew 11/10/17 [Rx] Acetaminophen [Tylenol] 650 mg PO DAILY 03/31/18 [History] Amlodipine Besylate 2.5 mg PO DAILY 03/31/18 [History] Ciprofloxacin HCl [Cipro] 500 mg PO BID 03/31/18 [History] Ixazomib Citrate [Ninlaro] 4 mg PO MO 03/31/18 [History] Allergy/AdvReac Type Severity Reaction Status Date / Time codeine AdvReac See Verified 03/31/18 07:41 Comments Oxycodone AdvReac See Verified 03/31/18 07:41 Comments Consult Discharge Plan - Plan Referrals: Laine Stauffer MD [Primary Care Provider] - - Attending Attestation I examined this patient and my medical decision-making was reviewed with the Advanced Practice Nurse. I agree with the documented findings, disposition and treatment plan as described except to the extent set forth below. 1.Light chain myeloma. Her Light chains when up to 145 on 03/16/2018 and serum protein electrophoresis negative. She is been off treatment for few months due to different reasons. During last office visit on 03/16/2018 the patient and the daughter is agreeable for single agent Ixazomib. I started her on low-dose 3 mg by mouth weekly. 2 days after taking the first dose she is hospitalized with nausea vomiting CT abdomen and pelvis showed persistent colitis compared to CT angiogram on 03/16 She had a colonoscopy 04/02/2018 which showed no evidence of colitis 2. Acute kidney injury. Creatinine went up to 1.58. Her baseline creatinine is around 1. Likely this is secondary to her abdominal symptoms and not drinking enough fluids. Recommend IV fluids At this time we will hold further Ixazomib. We will consider starting it again as an outpatient once she improves 3. Thrombocytopenia platelet count around 90,000. This is the case secondary to Ixazomib. No acute intervention needed. Also mild anemia <Caitlin Roland L - Last Filed: 04/03/18 15:28> Date of Encounter: 04/02/18 Time of Encounter: 17:56 Assessment and Plan (1) Multiple myeloma Status: Chronic Assessment and plan: 1.Light chain myeloma. Prescription given for single agent 3 mg weekly Ixazomib with 28 day cycle at last office visit on 03/16/2018. 2 days after taking the first dose she is hospitalized with nausea vomiting CT abdomen and pelvis showed persistent colitis compared to CT angiogram on 03/16 She had a colonoscopy 04/02/2018 which showed no evidence of colitis Symptoms may be secondary to Ixazomib. At this time we will hold further Ixazomib. We will consider starting it again as an outpatient once she improves Cytopenias likely secondary to Ixazomib, continue to monitor, no intervention needed at this time Qualifiers: Multiple myeloma remission status: in remission Qualified Code(s): C90.01 - Multiple myeloma in remission (2) [id number] kidney injury Status: Acute Assessment and plan: Acute kidney injury. Worsening creatinine above baseline, likely secondary to dehydration in the setting of N/V/D Agree with IVF hydration Nephrology consulted, appreciate recommendations Qualifiers: Acute renal failure type: unspecified Chronic kidney disease stage: stage 3 (moderate) Qualified Code(s): N17.9 - Acute kidney failure, unspecified; N18.3 - Chronic kidney disease, stage 3 (moderate) (3) Colitis Status: Acute Assessment and plan: CT scan of the abdomen and pelvis shows findings suggestive of persistent colitis involving the transverse colon. Patient does have colonic diverticulosis. Recently completed treatment with Cipro and Flagyl Stool GI panel and C Diff negative S/P colonoscopy today which non bleeding polyp in the rectum, diverticulosis and no evidence of colitis to correlate with CT findings Patient is unsure as to whether she started recently prescribed treatment with ixazomib or not prior to presentation, no family are present to confirm this, bu t according to records it does appear as though it was reported that patient started ixazomib 2 days prior to GI symptom onset GI symptoms may be secondary to ixazomib as this is associated with significant side effects Plan: Recommend she continue to hold ixazomib---consider re-trial in future Continue supportive management (4) Left lower lobe pneumonia Status: Suspected Assessment and plan: CXR noted stable left lower lobe opacity compatible with pneumonia. Management per hospitalist Qualifiers: Pneumonia type: due to Pneumococcus Qualified Code(s): J13 - Pneumonia due to Streptococcus pneumoniae - Data of Consult Patient: known to practice within the last 3 years Consult date: 04/02/18 Requesting Physician: Brian June MD Primary Care Provider: Laine Stauffer - Consult Narrative Reason for consult: Multiple myeloma, kappa light chain disease History of present illness: 1. Multiple myeloma, kappa light chain disease. She was hospitalized after Daratumumab in November 2017 with potential infusion reaction. Following this she had not been on active treatment until January 2018, when discussion on treatment initiation was introduced following her slowly increasing light chains. Planned to start Ixazomib at 3 mg by mouth daily 1, 8, 15 of 28 day cycle. Patient presented to [facility] ER on 03/31/2018 with report of nausea, vomiting and abdominal pain. Patient recently had abdominal CTA 2 weeks prior to her presentation which had shown signs concerning for colitis. She was treated with Cipro and Flagyl. CT abdomen/pelvis on 03/31/2018 revealed persistent colitis. She underwent colonoscopy today 04/02/2018 which was negative for colitis. Past Med Surg Social Fam HX - Past Medical History Medical history: cancer, COPD, DVT, dementia, GERD, hyperlipidemia, hypertension, osteoporosis, renal disease, other Additional medical history: myeloma. Stage III renal failure Psychiatric history: no psych history - Past Surgical History Surgical History: appendectomy, other Additional surgical history: tubal ligation - Social History Smoking Status: Former smoker Smokeless Tobacco Status: No Alcohol use: none Drug use: none - Family History Mother Adopted: No Family Member Ethnicity: Non- Living Status: Hx Family Cardiac Disorders: No Hx Family Respiratory Disorders: No Hx Family Cancer: No Hx Family GI Disorders: No Hx Family Endocrine Disorder: No Hx Family Neuromuscular Disorders: No Hx Family Neurologic Disorders: Yes (Alzhemer's disease) Hx Family HEENT Disorders: No Hx Family Autoimmune Disorders: No Brother Family Member Ethnicity: Non- Living Status: Still Living Father Family Member Ethnicity: Non- Living Status: Hx Family Cardiac Disorders: Yes (stroke) Hx Family Respiratory Disorders: No Hx Family Cancer: No Hx Family GI Disorders: No Hx Family Endocrine Disorder: No Hx Family Neuromuscular Disorders: No Hx Family Neurologic Disorders: Yes (CVA) Hx Family HEENT Disorders: No Hx Family Autoimmune Disorders: No Constitutional: Present: anorexia, chills, fatigue, weakness, weight loss. Absent: fever(s) Eyes: Absent: change in vision Nose, mouth and throat: Absent: dysphagia, odynophagia Cardiovascular: Absent: chest pain, palpitations Respiratory: Present: cough. Absent: dyspnea, hemoptysis Gastrointestinal: Present: abdominal pain, nausea, vomiting. Absent: hematemesis, hematochezia, melena Musculoskeletal: Present: muscle weakness Integumentary: Absent: rash, wounds Neurological: Absent: focal weakness, frequent falls Psychiatric: Present: change in appetite Endocrine: Present: fatigue Hematologic/Lymphatic: Absent: easy bleeding, lymphadenopathy Oncology - Exam - Constitutional General appearance: no acute distress, thin, no febrile - Head Head exam: Present: atraumatic - ENT ENT exam: Present: mucous membranes moist, normal oropharynx - Respiratory Respiratory exam: Present: rhonchi. Absent: respiratory distress - Cardiovascular Cardiovascular exam: Present: RRR, +S1, +S2 - GI/Abdominal GI/Abdominal exam: Present: normal bowel sounds, soft. Absent: tenderness - Extremities Exam Extremities exam: Present: normal inspection. Absent: calf tenderness - Neurological Exam Neurological exam: Present: alert, oriented X3, no focal deficits, strengths equal and symetr throughout Additional comments: intermittently confused at times - Psychiatric Psychiatric exam: Present: normal affect, normal mood - Skin Skin exam: Present: dry, intact, normal color, warm Inpatient Charges Provider: Dr. Jose López
--- NOTE | 2018-04-02 18:26 | Event Note ---
Date of Encounter: 04/02/18 Time of Encounter: 18:23 - Nephrology Event Note Nephrology Chart Review FELICIANO with hypernatremia and metabolic acidosis. Recommend continuing IVF for volume expansion, but since she is hypernatremia and hyperchloremic, I will change her to 0.45% saline (half as much Na+ and Cl-). And since she has a pronounced metabolic acidosis, I recommend customizing her IVF to 0.45% with 50mEq Sodium bicarb at 75mL/hr, which is a mild hypotonic IVF, and should help correct both the hypernatremia and metabolic acidosis. Will add more labs for the AM to screen for TLS and Rhabdo. Will add a lactic acid in am too. I see that a UA has been ordered but not yet drawn, so I will reorder it. Need to assess for any ATN or other potential casts. Full consult to follow in the AM. Thank you.
[2018-04-02] MEDS: Sodium Bicarbonate 50 MEQ in 0.45 % Sodium Chloride 1,000 ML IVC SCH (20:23)
[2018-04-02 22:48] LABS: Bilirubin,Urine Negative (Negative); Blood,Urine Large (Negative); Clarity,Urine Turbid (Clear); Color,Urine Dark Yellow (Yellow); Glucose,Urine (UA) Normal (Normal); Ketones,Urine Trace mg/dL (Negative); Leukocyte Esterase,Urine Small (Negative); Nitrite,Urine Negative (Negative); PH,Urine 5.5 pH Units (5.0-8.0); Protein,Urine 100 mg/dL (Neg-Trace); Specific Gravity,Urine 1.017 (1.010-1.025); Urobilinogen,Urine Normal (Normal)
[2018-04-02 22:50] LABS: Hyaline Casts,Urine None Seen per lpf (None-Few); RBC,Urine TNTC per hpf (0-3); Squamous Epithelial Cell,Urine Many per lpf (None-Few)
[2018-04-02] MEDS: traZODone 50 MG TABLET PO PRN (22:51)
[2018-04-02 23:01] LABS: Uric Acid Crystals,Urine Present
[2018-04-02 23:03] LABS: Bacteria,Urine Moderate per hpf (None-Few)
[2018-04-03] MEDS: Piperacillin/Tazobactam 3.375 GM in 0.9 % Sodium Chloride Mini Bag 100 ML IVPB SCH (06:07)
[2018-04-03] MEDS: Lactobacillus 1 EACH CAP.SPRINK PO SCH ×2 (08:49→21:56)
[2018-04-03] MEDS: Cyanocobalamin (B-12) 1,000 MCG TABLET PO SCH (08:49)
[2018-04-03] MEDS: amLODIPine 5 MG TABLET PO SCH (08:49)
[2018-04-03] MEDS: Sodium Bicarbonate 50 MEQ in 0.45 % Sodium Chloride 1,000 ML IVC SCH (10:25)
[2018-04-03 10:33] LABS: Basophils % 0.2 %; Eosinophils # 0.1 K/mcL (0.0-0.6); Eosinophils % 1.4 %; Hematocrit 31.6 % (35.3-44.9); Hemoglobin 9.7 g/dL (11.5-15.4); Immature Granulocytes % 0.4 % (0-4); Lymphocytes % 19.2 %; Mean Corpuscular HGB Conc 30.7 g/dL (31.6-35.5); Mean Corpuscular Volume 81.4 fL (83.0-100.0); Monocytes # 0.5 K/mcL (0.0-1.3); Monocytes % 10.4 %; Neutrophils # 3.5 K/mcL (1.6-8.9); Red Blood Count 3.88 M/mcL (3.82-4.97); Red Cell Distribution Width 17.1 % (11.5-14.5); Segmented Neutrophils % 68.4 %
[2018-04-03 10:42] LABS: Platelet Count 79 K/mcL (140-400)
[2018-04-03 10:44] LABS: Ovalocytes 1+ (Not Present)
[2018-04-03 11:31] LABS: Albumin 3.2 g/dL (3.5-5.7); Calcium 8.7 mg/dL (8.6-10.3); Magnesium 2.1 mg/dL (1.6-2.6); Phosphorous 1.9 mg/dL (2.7-4.5); Uric Acid 5.6 mg/dL (2.3-7.6)
--- NOTE | 2018-04-03 11:34 | Nephrology Consult Note ---
Addendum entered and electronically signed by Rafy Luna DO 04/03/18 18:31: I examined this patient and my medical decision-making was reviewed with the Resident Physician. I agree with the documented findings, disposition and treatment plan as described except to the extent set forth below. SCr bumped about 24hr after the CT with IV contrast on 03/31. SCr now trending better and her Hypernatremia and hypokalemia and metabolic acidosis are improving. Will cont the slightly hypotonic partial bicarb gtt (0.45% with 50mEq Nabicarb) but likely able to stop it by tomorrow. Will continue to follow with you. Original Note: Date of Encounter: 04/03/18 Time of Encounter: 09:02 Assessment and Plan (1) [id number] kidney injury Current Visit: Yes Status: Acute - FELICIANO on CKD stage III - BUN/Cr of 26/1.58, worsened from 0.97 Cr - Baseline Cr appears to be around 0.8-1.2 - K of 4.0, however is acidotic with bicarb of 12 - Patient denies recent medication changes including NSAIDs, etc but is not a reliable historian - Clinically dry and symptoms would suggest pre-renal etiology - Started on 0.45 saline with 50 mg Bicarb yesterday with 1L documented so far 04/03 - Kidney function improved to 23/1.07 after fluids - I/O of +6L since admission. Mildly dry on exam - No further reported bowel movements. - Urine studies ordered and pending, although with the fluids I am not sure they will be of great use. - Suspect given her improvement with fluids this is likely pre-renal. Plan - Will continue fluids at slow rate as I am not sure she is eating and drinking well - Reassess tomorrow and can likely stop the fluids - Renally dose meds, avoid nephrotoxins. - Daily labs - Strict I/Os. - Follow up urine labs. - No indications for emergent dialysis at this time. Qualifiers: Acute renal failure type: unspecified Chronic kidney disease stage: stage 3 (moderate) Qualified Code(s): N17.9 - Acute kidney failure, unspecified; N18.3 - Chronic kidney disease, stage 3 (moderate) (2) Anemia Current Visit: Yes Status: Chronic - Hgb of 10.6 which appears to be baseline - Goal of 10-11, no signs of bleed - Continue to monitor - Transfusion parameters per primary team Qualifiers: Anemia type: unspecified type Qualified Code(s): D64.9 - Anemia, unsp ecified (3) Metabolic acidosis Current Visit: Yes Status: Acute - improving - Bicarb up to 20 from 12 - AG of 23 on admission - Possibly related to uremia - AG closed today with fluids and bicarb. - Further plan as above (4) Hypernatremia Current Visit: Yes Status: Acute likely dehydrated. management as above (5) Hyperchloremia Current Visit: Yes Status: Acute (6) Essential hypertension Current Visit: Yes Status: Chronic - well controlled while inpatient - Bp most recently 152/74 - continue current regimen (7) Osteoporosis Current Visit: Yes Status: Acute Qualifiers: Osteoporosis type: unspecified Presence of current pathological fracture: unspecified Qualified Code(s): M81.0 - Age-related osteoporosis without current pathological fracture History of Present Illness - Reason for Consult Consult date: 04/03/18 Acute Kidney Injury, Chronic Kidney Disease, hypernatremia, metabolic acidosis - Chief Complaint Abdominal pain - History of Present Illness Ms. Joiner presented to ED on 03/31/18 with a complaint of abdominal pain, nausea, vomiting x 2 weeks. Nephrology was consulted on 04/02/18 for concerns of acute kidney injury. Patient has past medical history of multiple myeloma, COPD, DVT, dementia, GERD, hyperlipidemia, hypertension, osteoporosis, chronic kidney disease stage III. Patient is notably demented and is not able to provide neck or history. She does answer questions appropriately but cannot remember events beyond the past few days. She states that she came in with abdominal pain but is unable to remember further. Per chart review, she was seen in the emergency room proximally 2 weeks ago and diagnosed with colitis and pneumonia and discharged home on ciprofloxacin and metronidazole. She continued to have symptoms of left lower quadrant abdominal pain, nausea, loose bowel movements. On presentation to the emergency room, vital signs were unremarkable. Laboratory results were significant for anemia at baseline, negative GI panel. Urinalysis was also obtained which showed small protein, large blood, no casts and positive uric acid crystals. CT scan of the abdomen and pelvis showed findings suggestive of persistent colitis without free air or abscess, cholelithiasis, trace pleural effusions. Chest x-ray showed stable left lower lobe opacity compatible with pneumonia. She did undergo a colonoscopy on 04/02 with no findings of colitis but did notice a sessile polyp which was removed. Oncology was also consulted for her multiple myeloma and recommended further holding of Ixazomib. She has been previously off treatment until 03/16/18 when low dose Ixazomib was started per onc note. Today during interview, patient states that overall she is feeling well. She does continue have a complaint of abdominal pain but otherwise denies any symptoms of nausea, vomiting, fevers, chills, diarrhea. She also complains of bilateral lower extremity numbness but then states sensation is intact. She does state that she does not remember many of these symptoms however. Family is not present at bedside. Past Med Surg Social Fam HX - Past Medical History Medical history: cancer, COPD, DVT, dementia, GERD, hyperlipidemia, hypertension, osteoporosis, renal disease, other Additional medical history: myeloma. Stage III renal failure Psychiatric history: no psych history - Past Surgical History Surgical History: appendectomy, other Additional surgical history: tubal ligation - Social History Smoking Status: Former smoker Smokeless Tobacco Status: No Alcohol use: none Drug use: none - Family History Mother Adopted: No Family Member Ethnicity: Non- Living Status: Hx Family Cardiac Disorders: No Hx Family Respiratory Disorders: No Hx Family Cancer: No Hx Family GI Disorders: No Hx Family Endocrine Disorder: No Hx Family Neuromuscular Disorders: No Hx Family Neurologic Disorders: Yes (Alzhemer's disease) Hx Family HEENT Disorders: No Hx Family Autoimmune Disorders: No Brother Family Member Ethnicity: Non- Living Status: Still Living Father Family Member Ethnicity: Non- Living Status: Hx Family Cardiac Disorders: Yes (stroke) Hx Family Respiratory Disorders: No Hx Family Cancer: No Hx Family GI Disorders: No Hx Family Endocrine Disorder: No Hx Family Neuromuscular Disorders: No Hx Family Neurologic Disorders: Yes (CVA) Hx Family HEENT Disorders: No Hx Family Autoimmune Disorders: No Medications and Allergies ALPRAZolam [Xanax 1 MG Tablet] 0.5 mg PO BID PRN 11/24/14 [History] Cyanocobalamin (Vitamin B-12) [Vitamin B-12] 2,500 mcg SL DAILY 08/31/17 [History] Ferrous Sulfate 325 mg PO DAILY 08/31/17 [History] HYDROcodone/Acet 5/325 mg [Browning 5-325 mg] 0.5 tab PO DAILY PRN 08/31/17 [History] Tramadol HCl [Ultram] 50 mg PO BID PRN 08/31/17 [History] Albuterol Neb [Proventil Neb] 2.5 mg IH 2-3XD PRN 09/19/17 [History] traZODone [TraZODone] 1 tab PO HS PRN 10/07/17 [History] Aspirin 81 mg PO DAILY #30 tab.chew 11/10/17 [Rx] Acetaminophen [Tylenol] 650 mg PO DAILY 03/31/18 [History] Amlodipine Besylate 2.5 mg PO DAILY 03/31/18 [History] Ciprofloxacin HCl [Cipro] 500 mg PO BID 03/31/18 [History] Ixazomib Citrate [Ninlaro] 4 mg PO MO 03/31/18 [History] Allergy/AdvReac Type Severity Reaction Status Date / Time codeine AdvReac See Verified 03/31/18 07:41 Comments Oxycodone AdvReac See Verified 03/31/18 07:41 Comments Review of Systems ROS unobtainable: due to mental status Exam - Vital Signs Vital signs: Initial Vital Signs Temp Pulse Resp BP Pulse Ox 97.9 F 87 18 133/63 100 03/31/18 03:30 03/31/18 03:30 03/31/18 03:30 03/31/18 03:30 03/31/18 03:30 Vital Signs - Last 8 Hours Temp Pulse Resp BP Pulse Ox 04/03/18 08:05 98.7 F 92 16 152/74 97 04/03/18 03:55 98.8 F 96 16 146/79 96 Intake and Output 04/02/18 04/03/18 04/03/18 23:59 07:59 15:59 Intake Total 100 / 100 Output Total 300 / 300 Balance -200 / -200 Intake: IV Fluids 100 / 100 Zosyn 3.375 GM In 0.9 % Sodium 100 / 100 Chloride (Mini-Bag +) 100 ML @ 25 mls/hr IVPB Q12HR [facility] Rx#: [id number] Oral 0 / 0 Output: Catheter 300 / 300 Other: Weight 46 kg - General Appearance Exam: Gen.: Vitals noted. No acute distress. AAOx1, resting comfortably in bed. HEENT: PERRL/EOMI, oropharynx clear, Normocephalic, atraumatic, mucous membranes moderately dry Cardiac: RRR, no murmur, +S1/S2, No BLE edema Pulmonary: CTA bilaterally, no wheezes, rales or rhonchi, equal chest expansion, unlabored breathing Abdomen: soft, tender to palpation particularly in the left lower quadrant, BS noted, no guarding, no palpable HSM Skin: warm and dry, no visible lesions. MSK: ROM not assessed, no joint swelling noted, gait no assessed while in bed. Neuro: A&Ox1, moves all extremities, no focal deficits, sensation intact Psych: Appropriate mood and behavior, AOx1 Results - Lab Results 04/03/18 09:08 04/03/18 09:08 Most recent lab results Calcium 9.3 mg/dL (8.6-10.3) 04/02/18 06:45 Magnesium 2.3 mg/dL (1.6-2.6) 04/02/18 06:45 Consult Discharge Plan - Plan Referrals: Laine Stauffer MD [Primary Care Provider] -
[2018-04-03] MEDS ORDERED: Levofloxacin 750 MG/150 ML 750 MG/150 ML BAG IVPB ONE (12:00)
[2018-04-03 12:49] LABS: Sodium, Urine 153.4 mEq/L
[2018-04-03] MEDS: traMADol 50 MG TABLET PO PRN (13:39)
--- NOTE | 2018-04-03 14:03 | Internal Med Progress Note ---
Hospitalist Progress Note - Encounter Date of Encounter: 04/03/18 Time of Encounter: 14:03 - Subjective Interval History: Patient lying on bed comfortably. Daughter at bedside. Review the lab with creatinine level. Reviewed marine consultant note Patient denies fever or chills nausea vomiting headache dizziness chest pain shortness of breath. As per nursing staff feculent material notice in vagina yesterday. - Exam Vitals: Temp Pulse Resp BP Pulse Ox 98.2 F 90 16 147/79 95 04/03/18 11:49 04/03/18 11:49 04/03/18 11:49 04/03/18 11:49 04/03/18 11:49 Exam: General: Patient is alert, oriented x 2. Daughter at bedside Respiratory: Slightly diminished breath sounds at the base Cardiovascular: Regular rate and rhythm. s1 and s2 normal Abdomen: Abdomen is soft, mild tender in the lower quadrants without any guarding or rigidity Musculoskeletal: Spontaneously moving all extremities , Neuro: grossly non-focal, cranial nerves II-12 intact motor 5 x 5 in all 4 extremities. - Assessment and Plan (1) Colitis Current Visit: Yes Status: Acute Assessment and Plan: CT scan of the abdomen and pelvis shows findings suggestive of persistent colitis involving the transverse colon. Patient does have colonic diverticulosis. She did complete treatment with Cipro and Flagyl recently. GI panel -ve. C. diff -ve Had colonoscopy done on 1212 2017 with no suggestive finding of colitis and multiple diverticula with no fistula. ?concern for rectovaginal fistula-therefore will order barium enema ixazomib also comes with various GI side effects therefore consulted oncology. This medicine on hold now and would reconsider after outpatient reevaluation. Will de-escalate antibiotics as normal white count (2) Multiple myeloma Current Visit: Yes Status: Chronic Assessment and Plan: Patient takes Ixazomib. Ixazomib can cause diarrhea, nausea and vomiting whi ch could explain her symptoms. Oncologist on board (3) Chronic kidney disease, stage III (moderate) Current Visit: Yes Status: Chronic Assessment and Plan: Normal creatinine level today. her baseline is more like 1.2-1.4 Fluid management as per nephrology Avoid nephrotoxic drug. Monitor BMP. (4) Left lower lobe pneumonia Current Visit: Yes Status: Suspected Assessment and Plan: Limited cuts on CT abdo/pelvis showed persistent left basilar airspace disease. Patient however is asymptomatic, no leukocytosis, and afebrile. De-escalate antibiotic. (5) Hypertension Current Visit: Yes Status: Chronic Assessment and Plan: Well controlled. Continue home medications (6) Hypokalemia Current Visit: Yes Status: Acute Assessment and Plan: Normal potassium today. Monitoring and replacement. (7) DVT prophylaxis Current Visit: No Status: Acute Assessment and Plan: With SCDs given low platelets and recent GI bleed - Time Spent with Patient Total time spent is greater than 50% in coordination of care (as documented) at patient's floor/unit and/or counseling patient: 25 - 35 minutes Plan of Care Discussed with: patient Internal Medicine: Result - Labs CBC & Chem 7: 04/03/18 09:08 04/03/18 09:08 Labs: Short CBC 04/03/18 Range/Units 09:08 WBC 5.1 (4.3-11.1) K/mcL Hgb 9.7 L (11.5-15.4) g/dL Hct 31.6 L (35.3-44.9) % Plt Count 79 L (140-400) K/mcL Neutrophils # 3.5 (1.6-8.9) K/mcL BMP 04/03/18 09:08 Sodium 144 Potassium 4.0 Chloride 120 H Carbon Dioxide 20 L BUN 23 Creatinine 1.07 Glucose 109 H Calcium 8.7 Liver Function 04/03/18 Range/Units 09:08 Albumin 3.2 L (3.5-5.7) g/dL Urine 04/02/18 Range/Units 22:40 Urine Color Dark Yellow (Yellow) Urine Clarity Turbid A (Clear) Urine pH 5.5 (5.0-8.0) pH Units Ur Specific [place] 1.017 (1.010-1.025) Urine Protein 100 H (Neg-Trace) mg/dL Urine Glucose (UA) Normal (Normal) mg/dL Consult Discharge Plan - Plan Referrals: Laine Stauffer MD [Primary Care Provider] - (2) Multiple myeloma Qualifiers: Multiple myeloma remission status: not in remission Qualified Code(s): C90.00 - Multiple myeloma not having achieved remission (4) Left lower lobe pneumonia Qualifiers: Pneumonia type: due to Pneumococcus Qualified Code(s): J13 - Pneumonia due to Streptococcus pneumoniae (5) Hypertension Qualifiers: Hypertension type: essential hypertension Qualified Code(s): I10 - Essential (primary) hypertension
[2018-04-03] MEDS: *HR* OxyCODONE/APAP 5/325 TABLET PO PRN ×2 (14:54→20:19)
[2018-04-03] MEDS ORDERED: MetroNIDAZOLE 500 MG/100 ML 500 MG/100 ML BAG IVPB SCH (16:00)
[2018-04-03] MEDS: MetroNIDAZOLE 500 MG/100 ML 500 MG/100 ML BAG IVPB SCH (18:18)
[2018-04-03] MEDS: traZODone 50 MG TABLET PO PRN (21:56)
[2018-04-03] MEDS ORDERED: Sodium Bicarbonate 50 MEQ in 0.45 % Sodium Chloride 1,000 ML IVC SCH (22:30)
[2018-04-04] MEDS: MetroNIDAZOLE 500 MG/100 ML 500 MG/100 ML BAG IVPB SCH ×3 (02:56→17:43)
[2018-04-04] MEDS: *HR* OxyCODONE/APAP 5/325 TABLET PO PRN ×4 (05:02→23:59)
[2018-04-04 05:04] LABS: Hematocrit 30.9 % (35.3-44.9); Immature Granulocytes % 0.2 % (0-4)
[2018-04-04 05:06] LABS: Eosinophils # 0.1 K/mcL (0.0-0.6); Eosinophils % 0.9 %; Hemoglobin 9.4 g/dL (11.5-15.4); Immature Platelets 11.5 % (1.1-6.1); Mean Corpuscular HGB Conc 30.4 g/dL (31.6-35.5); Mean Corpuscular Hemoglobin 24.8 pg (28.0-33.3); Mean Corpuscular Volume 81.5 fL (83.0-100.0); Monocytes # 0.8 K/mcL (0.0-1.3); Neutrophils # 3.6 K/mcL (1.6-8.9); Red Blood Count 3.79 M/mcL (3.82-4.97); Red Cell Distribution Width 16.8 % (11.5-14.5); Segmented Neutrophils % 65.9 %
[2018-04-04 05:51] LABS: BUN/Creatinine Ratio 22 (6-26); Blood Urea Nitrogen 21 mg/dL (8-23); Calcium 8.5 mg/dL (8.6-10.3); Carbon Dioxide 22 mEq/L (23-29); Chloride 112 mEq/L (98-107); Glucose 97 mg/dL (70-105); Osmolality,Calculated 293 (280-300); Potassium 3.8 mEq/L (3.5-5.1); Sodium 140 mEq/L (136-145); eGFR For Non-African Americans 56 (> 60)
[2018-04-04 05:53] LABS: Platelet Count 29 K/mcL (140-400)
--- NOTE | 2018-04-04 08:34 | Event Note ---
Date of Encounter: 04/04/18 Time of Encounter: 08:32 - Nephrology Event Note Nephrology Chart Review/Update The pt's SCr has nicely corrected and the electrolyte abnormalities too have improved. I will sign-off at this time, but please feel free to call or reconsult if her renal function worsens. I have stopped the IVF as well. I would recommend she follow up with Nephrology in about 3-4 weeks with a BMP in about 1 week after discharge. Thank you for having consulted the [facility].
[2018-04-04] MEDS: Lactobacillus 1 EACH CAP.SPRINK PO SCH ×2 (09:13→20:55)
[2018-04-04] MEDS: Cyanocobalamin (B-12) 1,000 MCG TABLET PO SCH (09:14)
[2018-04-04] MEDS: amLODIPine 5 MG TABLET PO SCH (09:14)
[2018-04-04] MEDS: traMADol 50 MG TABLET PO PRN (09:14)
--- NOTE | 2018-04-04 10:08 | Oncology Inp Progress Note ---
Date of Encounter: 04/04/18 Time of Encounter: 09:00 (1) Multiple myeloma Current Visit: Yes Status: Chronic Assessment and plan: s/p Rx with Ixazomib hospitalized due to colitis symptoms, medication on hold. Status post antibiotics. Status post colonoscopy, diverticuli, C. difficile negative. Cytopenia related to myeloma, treatment, treatment on hold. Repeat platelet count. She does not have clinical symptoms of bleeding. Chest congestion history of pneumonia, repeat chest x-ray today low-grade fever. On levofloxacin. Oxycodone when necessary for pain return by primary team discussed with hospital staff. She has x-rays of spine MRI if she continues to have worsening back pain. Plan of care reviewed with patient and house staff this morning. Qualifiers: Multiple myeloma remission status: not in remission Qualified Code(s): C90.00 - Multiple myeloma not having achieved remission Oncology: Subj Interval history: Pain in the back, upper abdomen, cough congestion. - Constitutional General appearance: mild distress - Head Head exam: Present: atraumatic, normal inspection - Eye Eye exam: Present: sclera anicteric - ENT ENT exam: Present: mucous membranes moist - Neck Neck exam: Present: full ROM - Respiratory Respiratory exam: Present: CTAB - Cardiovascular Cardiovascular exam: Present: +S1, +S2 - GI/Abdominal GI/Abdominal exam: Present: normal bowel sounds, soft - Extremities Exam Extremities exam: Present: normal inspection - Neurological Exam Neurological exam: Present: alert, CN II-XII intact, oriented X3, no focal d eficits Oncology: Obj Data - Labs CBC & Chem 7: 04/04/18 04:40 04/04/18 04:40 Consult Discharge Plan - Plan Referrals: Laine Stauffer MD [Primary Care Provider] - Inpatient Charges Provider: Dr. Shahla Miller Follow up - Inpatient: [id number]
[2018-04-04] MEDS: Docusate Oral Soln 100 MG/10 ML UDC PO SCH (10:53)
[2018-04-04] MEDS ORDERED: Levofloxacin 500 MG/100 ML 500 MG/100 ML BAG IVPB SCH (12:00)
--- NOTE | 2018-04-04 13:21 | Internal Med Progress Note ---
Hospitalist Progress Note - Encounter Date of Encounter: 04/04/18 Time of Encounter: 13:17 - Subjective Interval History: Patient is still complaining of low back pain. Did not pass bowel movement for last 2days. Patient has slight disoriented but also has underlying dementia. Review the lab with normal creatinine level but decreased platelet 29 with no active bleeding. Nursing staff also has concern about abdominal distention Reviewed foreign law consultant note Patient had low-grade fever temperature 90.9 this morning but no chills vomiting chest pain short of breath. Patient has cough and sounds congested. - Exam Vitals: Temp Pulse Resp BP Pulse Ox 97.7 F 79 16 168/78 98 04/04/18 11:47 04/04/18 11:47 04/04/18 11:47 04/04/18 11:47 04/04/18 11:47 Exam: General: Patient is alert awake but appeared confused. Patient has intermittent confusion due to underlying dementia. No family at bedside Respiratory: Slightly diminished breath sounds at the base with questionable Cardiovascular: Regular rate and rhythm. s1 and s2 normal Abdomen: Abdomen is soft, slightly distended with hypoactive bowel sounds. mild tender in the lower quadrants without any guarding or rigidity Musculoskeletal: Spontaneously moving all extremities . Back with no focal bony tenderness along the spine but complained of back pain Neuro: grossly non-focal, cranial nerves II-12 intact motor 5 x 5 in all 4 extremities. - Assessment and Plan (1) Colitis Current Visit: Yes Status: Acute Assessment and Plan: CT scan of the abdomen and pelvis shows findings suggestive of persistent colitis involving the transverse colon. Patient does have colonic diverticulosis. She did complete treatment with Cipro and Flagyl recently. GI panel -ve. C. diff -ve Had colonoscopy done on 04/02 2018 with no suggestive finding of colitis and multiple diverticula with no fistula. concern for rectovaginal fistula-therefore ordered barium enema with negative finding ixazomib also comes with various GI side effects therefore consulted oncology. This medicine on hold now and would reconsider after outpatient reevaluation. de-escalated antibiotics as normal white count (2) Multiple myeloma Current Visit: Yes Status: Chronic Assessment and Plan: Patient takes Ixazomib. Ixazomib can cause diarrhea, nausea and vomiting which could explain her symptoms and now on hold. Oncologist on board (3) Chronic kidney disease, stage III (moderate) Current Visit: Yes Status: Chronic Assessment and Plan: Normal creatinine level today. her baseline is more like 1.2-1.4 Stopped IV fluid and signed off nephrology. Avoid nephrotoxic drug. Monitor BMP. (4) Left lower lobe pneumonia Current Visit: Yes Status: Suspected Assessment and Plan: Limited cuts on CT abdo/pelvis showed persistent left basilar airspace disease. Initially Zosyn was restarted and now D escalated to Levaquin. Today her cough is worse with low-grade temperature and low platelet therefore will repeat chest x-ray to rule out further worsening of pneumonia (5) Hypertension Current Visit: Yes Status: Chronic Assessment and Plan: High blood pressure. IV fluid is stopped. Resumed home dose amlodipine 5 mg daily . Close monitoring (6) DVT prophylaxis Current Visit: No Status: Acute Assessment and Plan: With SCDs given low platelets and recent GI bleed (7) Thrombocytopenia Current Visit: Yes Status: Acute Assessment and Plan: No active bleeding. Software Tester aware. Will repeat platelet count and also rule out underlying infection as patient had low-grade temperature. Chest x-ray and urinalysis with urine culture reflux. Avoid drugs that cause low platelet. Continue SCDs for DVT prophylaxis (8) Back pain Current Visit: Yes Status: Acute Assessment and Plan: Patient had chronic back pain and there has been taking tramadol at home but recently worsening pain in middle and upper back with no bony tenderness and no focal neurological deficit. Lisset [place] spine x-ray ordered. I also discussed with oncologists if any contribution due to underlying multiple myeloma. Increase Percocet frequency every 4 hours. If persistent pain then will order MRI of lumbosacral spine. (9) Abdominal distention Current Visit: Yes Status: Acute Assessment and Plan: Also constipation for 2 days with slight decreased bowel sounds. KUB x-ray ordered. (10) Hypokalemia Current Visit: Yes Status: Acute Assessment and Plan: Normal potassium today. Monitoring and replacement. (11) Goals of care, counseling/discussion Current Visit: Yes Status: Acute Assessment and Plan: Multiple above-mentioned medical problem with underlying multiple myeloma. Will also consult palliative care for pain management if needed. Will also discuss with family about CODE STATUS. Addendum- Talked to her daughter who is also power of city attorney about the CODE STATUS and she confirmed DNR CCA - Time Spent with Patient Total time spent is greater than 50% in coordination of care (as documented) at patient's floor/unit and/or counseling patient: Greater than 35 minutes (Is spent around 40 minute inpatient care and communication with nursing staff and foreign law consultant to make further plan of care.) Internal Medicine: Result - Labs CBC & Chem 7: 04/04/18 04:40 04/04/18 04:40 Labs: Short CBC 04/04/18 Range/Units 04:40 WBC 5.4 (4.3-11.1) K/mcL Hgb 9.4 L (11.5-15.4) g/dL Hct 30.9 L (35.3-44.9) % Plt Count 29 L* D (140-400) K/mcL Neutrophils # 3.6 (1.6-8.9) K/mcL BMP 04/04/18 04:40 Sodium 140 Potassium 3.8 Chloride 112 H Carbon Dioxide 22 L BUN 21 Creatinine 0.96 Glucose 97 Calcium 8.5 L - Impressions Impressions Barium Enema 04/03/18 13:51 IMPRESSION: No evidence for fistulous connection between the rectum or colon with the vagina. D/ / 04/03/2018 18:11:33 Kenneth Khalil MD / [facility] Interpreting Provider: Kenneth Khalil MD Consult Discharge Plan - Plan Referrals: Laine Stauffer MD [Primary Care Provider] - (2) Multiple myeloma Qualifiers: Multiple myeloma remission status: not in remission Qualified Code(s): C90.00 - Multiple myeloma not having achieved remission (4) Left lower lobe pneumonia Qualifiers: Pneumonia type: due to Pneumococcus Qualified Code(s): J13 - Pneumonia due to Streptococcus pneumoniae (5) Hypertension Qualifiers: Hypertension type: essential hypertension Qualified Code(s): I10 - Essential (primary) hypertension (8) Back pain Qualifiers: Back pain location: back pain in unspecified location
[2018-04-04 13:36] LABS: Bilirubin,Urine Negative (Negative); Blood,Urine Large (Negative); Clarity,Urine Cloudy (Clear); Color,Urine Dark Yellow (Yellow); Glucose,Urine (UA) Normal (Normal); Ketones,Urine Trace mg/dL (Negative); Leukocyte Esterase,Urine Moderate (Negative); Nitrite,Urine Negative (Negative); Protein,Urine 100 mg/dL (Neg-Trace); Specific Gravity,Urine 1.019 (1.010-1.025); Urobilinogen,Urine Normal (Normal)
[2018-04-04 13:40] LABS: Bacteria,Urine None Seen per hpf (None-Few); Hyaline Casts,Urine Few per lpf (None-Few); Squamous Epithelial Cell,Urine Few per lpf (None-Few); WBC,Urine 50-100 per hpf (0-3)
[2018-04-04 13:52] LABS: RBC,Urine 30-50 per hpf (0-3); Yeast,Urine Many per hpf (None Seen)
[2018-04-04] MEDS: traZODone 50 MG TABLET PO PRN (23:59)
[2018-04-05] MEDS: MetroNIDAZOLE 500 MG/100 ML 500 MG/100 ML BAG IVPB SCH ×3 (02:32→17:43)
[2018-04-05 05:18] LABS: Hemoglobin 9.3 g/dL (11.5-15.4)
[2018-04-05 05:20] LABS: Eosinophils # 0.1 K/mcL (0.0-0.6); Eosinophils % 1.3 %; Hematocrit 30.8 % (35.3-44.9); Immature Granulocytes % 0.4 % (0-4); Immature Platelets 12.5 % (1.1-6.1); Lymphocytes % 21.4 %; Mean Corpuscular HGB Conc 30.2 g/dL (31.6-35.5); Mean Corpuscular Hemoglobin 24.5 pg (28.0-33.3); Mean Corpuscular Volume 81.1 fL (83.0-100.0); Monocytes # 0.9 K/mcL (0.0-1.3); Monocytes % 19.4 %; Neutrophils # 2.7 K/mcL (1.6-8.9); Red Cell Distribution Width 16.4 % (11.5-14.5); Segmented Neutrophils % 57.5 %
[2018-04-05 05:37] LABS: BUN/Creatinine Ratio 20 (6-26); Blood Urea Nitrogen 19 mg/dL (8-23); Calcium 8.7 mg/dL (8.6-10.3); Carbon Dioxide 23 mEq/L (23-29); Chloride 112 mEq/L (98-107); Glucose 85 mg/dL (70-105); Osmolality,Calculated 290 (280-300); Potassium 3.7 mEq/L (3.5-5.1); Sodium 139 mEq/L (136-145); eGFR For Non-African Americans 57 (> 60)
[2018-04-05 05:44] LABS: Platelet Count 22 K/mcL (140-400)
[2018-04-05 05:45] LABS: Platelet Estimate Marked Decrease (Normal)
[2018-04-05 05:47] LABS: Anisocytosis 1+ (Not Present)
[2018-04-05] MEDS ORDERED: Haloperidol Lactate 5 MG/ML VIAL IVP ONE (08:30)
[2018-04-05] MEDS: Docusate Oral Soln 100 MG/10 ML UDC PO SCH (08:54)
[2018-04-05] MEDS: Cyanocobalamin (B-12) 1,000 MCG TABLET PO SCH (08:55)
[2018-04-05] MEDS: traMADol 50 MG TABLET PO PRN (08:55)
[2018-04-05] MEDS: Lactobacillus 1 EACH CAP.SPRINK PO SCH ×2 (08:56→20:26)
[2018-04-05] MEDS: amLODIPine 5 MG TABLET PO SCH (08:56)
[2018-04-05] MEDS ORDERED: amLODIPine 5 MG TABLET PO SCH (09:00)
[2018-04-05] MEDS ORDERED: MOM Conc 10 ML UD.LIQ PO ONE (10:03)
--- NOTE | 2018-04-05 13:12 | Palliative - Consult Note ---
Date of Encounter: 04/05/18 Time of Encounter: 10:00 - Assessment and Plan (1) Back pain Current Visit: Yes Status: Acute Assessment and plan: Patient with complaints of back pain. Provocation - Reports pain is constant and positioning may help for short term relief as does medications Quality - ache Region - mid back, spine midline Severity - 6/10 pain scale Timing - constant and worse in the morning after sleeping Patient reports chronic pain like this at home. Reviewed spine films and degenerative changes notes. Plan: Discussed goals of comfort. Will start 10mg Oxycodone po every 12 hrs and leave every 4 r percocet for BTP. Will reevaluate in AM. Daughter Tu updated on pain plan and agrees. (2) Goals of care, counseling/discussion Current Visit: Yes Status: Acute Assessment and plan: Conducted phone conversation with patients daughter/SOLO Mae. Goals of care are for patient to return home in the care of her son Rasheed and his . Patient currently resides with them. Patient ambulates with walker/cane as needed and PT consult reviewed and recommendations noted for home with 24 assist as needed. Patient desires to return home. Goals are to continue seeing Oncologist of Multiple Myeloma. Patient was currently started on Ixazomib and became ill. Colitis r/o per Colonoscopy. Oncology following and will reassess on out pt basis for treatment. Patient currently receiving antibiotics for pneumonia and leukocytes trending down. Urine culture pending. Patient is DNRCC - A, DNI and Tu confirms desires. Plan in place for DC home and will reevaluate pain plan in AM. Tu and other Family arrived to room at 1200. Updated on plan care and goals for DC. All agree to plan. (3) COPD (chronic obstructive pulmonary disease) Current Visit: No Status: Chronic Qualifiers: COPD type: unspecified COPD Qualified Code(s): J44.9 - Chronic obstructive pulmonary disease, unspecified (4) Multiple myeloma Current Visit: Yes Status: Chronic Assessment and plan: Oncology following Qualifiers: Multiple myeloma remission status: not in remission Qualified Code(s): C90.00 - Multiple myeloma not having achieved remission Palliative-CN HPI - Data of Consult Patient: new to practice Consult date: 04/05/18 Requesting Physician: Janet Nettles MD Primary Care Provider: Laine Stauffer - Consult Narrative Palliative Care/Comfort Measures: Palliative care Reason for consult: Goals of Care & Symptom management History of present illness: Ms. Joinre is a 82 year old female patient with a history of hypertension, hyperlipidemia, dementia, COPD, chronic kidney disease stage III who was brought to the ER with complaints of abdominal pain, nausea and vomiting. Patient admitted on 03/31/18. She does have a history of multiple myeloma and takes Ixazomib which was started on 03/16 2018. Patient also found to have pneumonia and antibiotics were started. Patient is in bed at the time of consult eating breakfast. She is alert but confused to time. She can hold conversation and answer simple questions but limited in her ability to provide specific details. She does complain of back pain. This palliative care consult is for goals of care discussion and symptom management. CC: Brian June MD - Time Spent with Patient Time: Total time spent is greater than 50% in coordination of care (as documented) at patient's floor/unit and/or counseling patient: Time with patient: 30 minutes Past Med Surg Social Fam HX - Past Medical History Source: patient, old records reviewed, obtained from family, nursing notes reviewed Medical history: cancer, COPD, DVT, dementia, GERD, hyperlipidemia, hypertension, osteoporosis, renal disease, other Additional medical history: myeloma. Stage III renal failure Psychiatric history: no psych history - Past Surgical History Surgical History: appendectomy, other Additional surgical history: tubal ligation - Social History Smoking Status: Former smoker Smokeless Tobacco Status: No Alcohol use: none Drug use: none Occupational status: retired Current living situation: Home, With Family Activity Level: Uses cane/walker Recent Out of Country Travel Within the Last 8 Weeks: No Exposure or Possible Exposure to Illness During Travel: No - Family History Mother Adopted: No Family Member Ethnicity: Non- Living Status: Hx Family Cardiac Disorders: No Hx Family Respiratory Disorders: No Hx Family Cancer: No Hx Family GI Disorders: No Hx Family Endocrine Disorder: No Hx Family Neuromuscular Disorders: No Hx Family Neurologic Disorders: Yes (Alzhemer's disease) Hx Family HEENT Disorders: No Hx Family Autoimmune Disorders: No Brother Family Member Ethnicity: Non- Living Status: Still Living Father Family Member Ethnicity: Non- Living Status: Hx Family Cardiac Disorders: Yes (stroke) Hx Family Respiratory Disorders: No Hx Family Cancer: No Hx Family GI Disorders: No Hx Family Endocrine Disorder: No Hx Family Neuromuscular Disorders: No Hx Family Neurologic Disorders: Yes (CVA) Hx Family HEENT Disorders: No Hx Family Autoimmune Disorders: No Medications and Allergies ALPRAZolam [Xanax 1 MG Tablet] 0.5 mg PO BID PRN 11/24/14 [History] Cyanocobalamin (Vitamin B-12) [Vitamin B-12] 2,500 mcg SL DAILY 08/31/17 [History] Ferrous Sulfate 325 mg PO DAILY 08/31/17 [History] HYDROcodone/Acet 5/325 mg [[place] 5-325 mg] 0.5 tab PO DAILY PRN 08/31/17 [History] Tramadol HCl [Ultram] 50 mg PO BID PRN 08/31/17 [History] Albuterol Neb [Proventil Neb] 2.5 mg IH 2-3XD PRN 09/19/17 [History] traZODone [TraZODone] 1 tab PO HS PRN 10/07/17 [History] Aspirin 81 mg PO DAILY #30 tab.chew 11/10/17 [Rx] Acetaminophen [Tylenol] 650 mg PO DAILY 03/31/18 [History] Amlodipine Besylate 2.5 mg PO DAILY 03/31/18 [History] Ciprofloxacin HCl [Cipro] 500 mg PO BID 03/31/18 [History] Ixazomib Citrate [Ninlaro] 4 mg PO MO 03/31/18 [History] Allergy/AdvReac Type Severity Reaction Status Date / Time codeine AdvReac See Verified 03/31/18 07:41 Comments hydrocodone AdvReac See Verified 04/04/18 14:16 Comments All systems: reviewed and no additional remarkable complaints except as stated (slightly limited but can provide nausea, and weakness) - Constitutional Constitutional ROS PAL: decreased appetite, fatigue - EENT Eyes: requires corrective lenses - Respiratory Respiratory: dyspnea on exertion - Gastrointestinal Gastrointestinal: abdominal pain - Genitourinary Palliative ROS female: urinary urgency - Musculoskeletal Musculoskeletal ROS IM: muscle weakness - Neurological Neurological ROS: weakness - Psychiatric Psychiatric general PM: memory loss Palliative Care-Exam - Constitutional Vitals: Temp Pulse Resp BP Pulse Ox 98.6 F 81 16 150/70 95 04/05/18 12:05 04/05/18 12:05 04/05/18 12:05 04/05/18 12:05 04/05/18 12:05 General appearance: Present: cooperative, mild distress, no acute distress - Head Head Exam: Present: atraumatic, normal inspection, normocephalic - Eye Eye exam: Present: PERRL - ENT ENT exam: Present: mucous membranes moist - Respiratory Respiratory exam: Present: decreased breath sounds, prolonged expiratory phase - Expanded Respiratory Exam Location: decreased breath sounds: Left, Right, Lower - Cardiovascular Cardiovascular exam: Present: RRR, +S1, +S2 - Expanded Cardiovascular Exam Peripheral pulses: 1+: Femoral (L) PM, Femoral (R) PM, Posterior Tibialis (L), Posterior Tibialis (R), 2+: Carotid (L) PM, Carotid (R) PM, Radial (L), Radial (R), Dorsalis Pedis (L) PM, Dorsalis Pedis (R) PM - GI/Abdominal Exam GI/Abdominal exam: Present: diminished bowel sounds, soft, tenderness - Catheter Type: Urethral (Tian) Additional comments: dark yellow urine - Extremities Exam Extremities exam: Present: full ROM - Expanded Upper Extremities Exam Shoulder exam: Present: full ROM Upper Arm exam: Present: full ROM Forearm wrist exam: Present: full ROM - Expanded Lower Extremities Exam Upper Leg exam: Present: full ROM Lower Leg exam: Present: full ROM - Neurological Exam Neurological exam: Present: alert - Expanded Neurological Exam Coma Scale Eye Opening: Spontaneous Coma Scale Motor Response: Obeys Commands Coma Scale Verbal Response: Confused Coma Scale Total: 14 - Skin Skin exam: Present: pallor, warm Internal Medicine - CN: Reslt - Labs CBC & Chem 7: 04/05/18 05:02 04/05/18 05:02 Labs: Short CBC 04/05/18 Range/Units 05:02 WBC 4.6 (4.3-11.1) K/mcL Hgb 9.3 L (11.5-15.4) g/dL Hct 30.8 L (35.3-44.9) % Plt Count 22 L* (140-400) K/mcL Neutrophils # 2.7 (1.6-8.9) K/mcL BMP 04/05/18 05:02 Sodium 139 Potassium 3.7 Chloride 112 H Carbon Dioxide 23 BUN 19 Creatinine 0.94 Glucose 85 Calcium 8.7 Urine 04/04/18 Range/Units 13:20 Urine Color Dark Yellow (Yellow) Urine Clarity Cloudy A (Clear) Urine pH 6.0 (5.0-8.0) pH Units Ur Specific [place] 1.019 (1.010-1.025) Urine Protein 100 H (Neg-Trace) mg/dL Urine Glucose (UA) Normal (Normal) mg/dL - Impressions Impressions Chest X-Ray 04/04/18 09:29 IMPRESSION: Left basilar opacity and adjacent pleural thickening is not significantly changed. Nonobstructed bowel gas pattern. Retained barium is noted within the colon and rectum. Lumbar spine is partially obscured by overlying barium. Normal alignment of the lumbar spine and sacrum/coccyx. D/ /04/2018 18:11:20 Aislinn Romero MD / katiuska Interpreting Provider: Aislinn Romero MD Lumbar Spine X-Ray 04/04/18 09:31 IMPRESSION: Left basilar opacity and adjacent pleural thickening is not significantly changed. Nonobstructed bowel gas pattern. Retained barium is noted within the colon and rectum. Lumbar spine is partially obscured by overlying barium. Normal alignment of the lumbar spine and sacrum/coccyx. D/ : / 04/04/2018 18:11:20 Aislinn Romero MD / katiuska Interpreting Provider: Aislinn Romero MD X-Ray 04/04/18 09:34 IMPRESSION: Left basilar opacity and adjacent pleural thickening is not significantly changed. Nonobstructed bowel gas pattern. Retained barium is noted within the colon and rectum. Lumbar spine is partially obscured by overlying barium. Normal alignment of the lumbar spine and sacrum/coccyx. D/ /04/2018 18:11:20 Aislinn Romero MD / katiuska Interpreting Provider: Aislinn Romero MD Consult Discharge Plan - Plan Referrals: Laine Stauffer MD [Primary Care Provider] - Palliative Quality Palliative Quality: Screen for Code Status: Yes, Screen for Goals of Care: Yes, Screen for Pain: Yes, If Pain Regimen Started, Initiate Bowel Regimen: Yes, Screen for Nausea/Vomitting: Yes Code Status: 04/04/18 16:01 CODE [Resuscitation Status: Active] [RES] Routine Comment: Resuscitation Status: DNR-Comfort Care-Arrest 04/05/18 09:52 DNR [Resuscitation Status: Active] [RES] Routine Comment: Resuscitation Status: [id number]
--- NOTE | 2018-04-05 14:18 | Internal Med Progress Note ---
Hospitalist Progress Note - Encounter Date of Encounter: 04/05/18 Time of Encounter: 14:18 - Subjective Interval History: Patient is still complaining of low back pain. Did not pass bowel movement for last 2days. Patient has slight disoriented but also has underlying dementia. Review the lab with normal creatinine level but decreased platelet 22 with no active bleeding. Reviewed artist consultant note no fever or chills. Patient also denies vomiting chest pain short of breath. Reviewed a chest x-ray with stable finding. - Exam Vitals: Temp Pulse Resp BP Pulse Ox 98.6 F 81 16 150/70 95 04/05/18 12:05 04/05/18 12:05 04/05/18 12:05 04/05/18 12:05 04/05/18 12:05 Exam: General: Patient is alert awake but appear better today. Patient has intermittent confusion due to underlying dementia. Daughter at bedside Respiratory: Slightly diminished breath sounds at the base Cardiovascular: Regular rate and rhythm. s1 and s2 normal Abdomen: Abdomen is soft, soft positive bowel sounds. mild tender in the lower quadrants without any guarding or rigidity-and slight chronic Musculoskeletal: Spontaneously moving all extremities . Back -with no focal bony tenderness along the spine but complained of back pain Neuro: grossly non-focal, cranial nerves II-12 intact motor 5 x 5 in all 4 extremities. - Assessment and Plan (1) Colitis Current Visit: Yes Status: Acute Assessment and Plan: CT scan of the abdomen and pelvis shows findings suggestive of persistent colitis involving the transverse colon. Patient does have colonic diverticulosis. She did complete treatment with Cipro and Flagyl recently. GI panel -ve. C. diff -ve Had colonoscopy done on 04/02 2018 with no suggestive finding of colitis and multiple diverticula with no fistula. concern for rectovaginal fistula-therefore ordered barium enema with negative finding ixazomib also comes with various GI side effects therefore consulted oncology. This medicine on hold now and would reconsider after outpatient reevaluation. (2) Multiple myeloma Current Visit: Yes Status: Chronic Assessment and Plan: Patient takes Ixazomib. Ixazomib can cause diarrhea, nausea and vomiting which could explain her symptoms and now on hold. Oncologist on board (3) Chronic kidney disease, stage III (moderate) Current Visit: Yes Status: Chronic Assessment and Plan: Normal creatinine level today. her baseline is more like 1.2-1.4 Stopped IV fluid and signed off nephrology. Avoid nephrotoxic drug. Monitor BMP. (4) Left lower lobe pneumonia Current Visit: Yes Status: Suspected Assessment and Plan: Limited cuts on CT abdo/pelvis showed persistent left basilar airspace disease. Initially Zosyn was restarted and now D escalated to Levaquin. Her cough was worse therefore chest x-ray repeated with a stable finding. Patient appeared better today. Continue Levaquin, spirometry, DuoNeb as needed. (5) Hypertension Current Visit: Yes Status: Chronic Assessment and Plan: High blood pressure. IV fluid is stopped. Increase amlodipine 10 mg daily . Close monitoring (6) Thrombocytopenia Current Visit: Yes Status: Acute Assessment and Plan: No active bleeding. Retirement Sales Consultant aware. Tremoring non-platelet but is still known critical. Could be due to underlying infection or malignancy. Continue L evaquin and monitor. Chest x-ray with a stable finding but abnormal urine analysis. Awaiting urine culture report. Avoid drugs that cause low platelet. Continue SCDs for DVT prophylaxis (7) Back pain Current Visit: Yes Status: Acute Assessment and Plan: Patient had chronic back pain and there has been taking tramadol at home but recently worsening pain in middle and upper back with no bony tenderness and no focal neurological deficit. Lisset a spine x-ray ordered. I also discussed with oncologists if any contribution due to underlying multiple myeloma. Increase Percocet frequency every 4 hours. 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 (8) Abdominal distention Current Visit: Yes Status: Acute Assessment and Plan: Resolved .KUB x-ray with no acute finding. Patient has constipation therefore Colace 100 mg twice a day started. Narcotic can cause constipation. MiraLAX as needed P (9) Hypokalemia Current Visit: Yes Status: Acute Assessment and Plan: Normal potassium today. Monitoring and replacement. (10) Goals of care, counseling/discussion Current Visit: Yes Status: Acute Assessment and Plan: Multiple above-mentioned medical problem with underlying multiple myeloma. On board palliative care for pain management and CODE STATUS discussion. Now DNR CCA DNI (11) DVT prophylaxis Current Visit: No Status: Acute Assessment and Plan: With SCDs given low platelets and recent GI bleed - Time Spent with Patient Total time spent is greater than 50% in coordination of care (as documented) at patient's floor/unit and/or counseling patient: Greater than 35 minutes (Spent almost 40 minute and patient care. communication with family, artist consultant, palliative care) Internal Medicine: Result - Labs CBC & Chem 7: 04/05/18 05:02 04/05/18 05:02 Labs: Short CBC 04/05/18 Range/Units 05:02 WBC 4.6 (4.3-11.1) K/mcL Hgb 9.3 L (11.5-15.4) g/dL Hct 30.8 L (35.3-44.9) % Plt Count 22 L* (140-400) K/mcL Neutrophils # 2.7 (1.6-8.9) K/mcL BMP 04/05/18 05:02 Sodium 139 Potassium 3.7 Chloride 112 H Carbon Dioxide 23 BUN 19 Creatinine 0.94 Glucose 85 Calcium 8.7 - Impressions Impressions Chest X-Ray 04/04/18 09:29 IMPRESSION: Left basilar opacity and adjacent pleural thickening is not significantly changed. Nonobstructed bowel gas pattern. Retained barium is noted within the colon and rectum. Lumbar spine is partially obscured by overlying barium. Normal alignment of the lumbar spine and sacrum/coccyx. D/ 04/04/2018 18:11:20 Aislinn Romero MD / katiuska Interpreting Provider: Aislinn Romero MD Lumbar Spine X-Ray 04/04/18 09:31 IMPRESSION: Left basilar opacity and adjacent pleural thickening is not significantly changed. Nonobstructed bowel gas pattern. Retained barium is noted within the colon and rectum. Lumbar spine is partially obscured by overlying barium. Normal alignment of the lumbar spine and sacrum/coccyx. D/ 04/04/2018 18:11:20 Aislinn Romero MD / katiuska Interpreting Provider: Aislinn Romero MD X-Ray 04/04/18 09:34 IMPRESSION: Left basilar opacity and adjacent pleural thickening is not significantly changed. Nonobstructed bowel gas pattern. Retained barium is noted within the colon and rectum. Lumbar spine is partially obscured by overlying barium. Normal alignment of the lumbar spine and sacrum/coccyx. D/ / 04/04/2018 18:11:20 Aislinn Romero MD / bcarter Interpreting Provider: Aislinn Romero MD Consult Discharge Plan - Plan Referrals: Laine Stauffer MD [Primary Care Provider] - (2) Multiple myeloma Qualifiers: Multiple myeloma remission status: not in remission Qualified Code(s): C90.00 - Multiple myeloma not having achieved remission (4) Left lower lobe pneumonia Qualifiers: Pneumonia type: due to Pneumococcus Qualified Code(s): J13 - Pneumonia due to Streptococcus pneumoniae (5) Hypertension Qualifiers: Hypertension type: essential hypertension Qualified Code(s): I10 - Essential (primary) hypertension (7) Back pain Qualifiers: Back pain location: back pain in unspecified location Back pain laterality: unspecified Qualified Code(s): M54.9 - Dorsalgia, unspecified; G89.29 - Other chronic pain
[2018-04-05] MEDS: Fluconazole 100 MG TABLET PO SCH (16:01)
[2018-04-05] MEDS: *HR* OxyCODONE ER (12 HR) 10 MG TABLET PO SCH (17:43)
[2018-04-06] MEDS: MetroNIDAZOLE 500 MG/100 ML 500 MG/100 ML BAG IVPB SCH (02:58)
[2018-04-06] MEDS: ALPRAZolam 0.5 MG TABLET PO PRN (03:07)
[2018-04-06] MEDS: traZODone 50 MG TABLET PO PRN (03:07)
[2018-04-06] MEDS: *HR* OxyCODONE ER (12 HR) 10 MG TABLET PO SCH ×3 (07:37→20:02)
[2018-04-06 08:45] LABS: Basophils % 0.2 %; Hemoglobin 9.8 g/dL (11.5-15.4); Immature Granulocytes % 0.2 % (0-4); Mean Corpuscular Hemoglobin 24.7 pg (28.0-33.3)
[2018-04-06 08:47] LABS: Eosinophils # 0.1 K/mcL (0.0-0.6); Eosinophils % 3.1 %; Hematocrit 31.7 % (35.3-44.9); Lymphocytes # 1.3 K/mcL (0.6-4.6); Lymphocytes % 29.3 %; Mean Corpuscular HGB Conc 30.9 g/dL (31.6-35.5); Mean Corpuscular Volume 80.1 fL (83.0-100.0); Monocytes # 1.2 K/mcL (0.0-1.3); Monocytes % 26.8 %; Neutrophils # 1.8 K/mcL (1.6-8.9); Red Blood Count 3.96 M/mcL (3.82-4.97); Red Cell Distribution Width 16.4 % (11.5-14.5); Segmented Neutrophils % 40.4 %
[2018-04-06 08:54] LABS: Platelet Count 26 K/mcL (140-400)
[2018-04-06 09:03] LABS: BUN/Creatinine Ratio 16 (6-26); Blood Urea Nitrogen 14 mg/dL (8-23); Calcium 8.5 mg/dL (8.6-10.3); Carbon Dioxide 23 mEq/L (23-29); Chloride 112 mEq/L (98-107); Glucose 82 mg/dL (70-105); Osmolality,Calculated 288 (280-300); Potassium 3.5 mEq/L (3.5-5.1); Sodium 139 mEq/L (136-145); eGFR For Non-African Americans > 60 (> 60)
[2018-04-06] MEDS: Cyanocobalamin (B-12) 1,000 MCG TABLET PO SCH (09:36)
[2018-04-06] MEDS: Lactobacillus 1 EACH CAP.SPRINK PO SCH ×2 (09:36→20:02)
[2018-04-06] MEDS: Fluconazole 100 MG TABLET PO SCH (09:36)
[2018-04-06] MEDS: amLODIPine 5 MG TABLET PO SCH (09:36)
[2018-04-06] MEDS: metroNIDAZOLE 500 MG TABLET PO SCH ×3 (09:36→20:02)
--- NOTE | 2018-04-06 11:09 | Palliative - Consult Note ---
Date of Encounter: 04/06/18 Time of Encounter: 10:30 Palliative-CN HPI - Data of Consult Requesting Physician: Brian June MD Primary Care Provider: Laine Stauffer - Consult Narrative History of present illness: Ms. Joiner is a 82 year old female CC: Brian June MD - Time Spent with Patient Time: Total time spent is greater than 50% in coordination of care (as documented) at patient's floor/unit and/or counseling patient: Time with patient: 30 minutes Past Med Surg Social Fam HX - Past Medical History Medical history: cancer, COPD, DVT, dementia, GERD, hyperlipidemia, hypertension, osteoporosis, renal disease, other Additional medical history: myeloma. Stage III renal failure Psychiatric history: no psych history - Past Surgical History Surgical History: appendectomy, other Additional surgical history: tubal ligation - Social History Smoking Status: Former smoker Smokeless Tobacco Status: No Alcohol use: none Drug use: none - Family History Mother Adopted: No Family Member Ethnicity: Non- Living Status: Hx Family Cardiac Disorders: No Hx Family Respiratory Disorders: No Hx Family Cancer: No Hx Family GI Disorders: No Hx Family Endocrine Disorder: No Hx Family Neuromuscular Disorders: No Hx Family Neurologic Disorders: Yes (Alzhemer's disease) Hx Family HEENT Disorders: No Hx Family Autoimmune Disorders: No Brother Family Member Ethnicity: Non- Living Status: Still Living Father Family Member Ethnicity: Non- Living Status: Hx Family Cardiac Disorders: Yes (stroke) Hx Family Respiratory Disorders: No Hx Family Cancer: No Hx Family GI Disorders: No Hx Family Endocrine Disorder: No Hx Family Neuromuscular Disorders: No Hx Family Neurologic Disorders: Yes (CVA) Hx Family HEENT Disorders: No Hx Family Autoimmune Disorders: No Medications and Allergies ALPRAZolam [Xanax 1 MG Tablet] 0.5 mg PO BID PRN 11/24/14 [History] Cyanocobalamin (Vitamin B-12) [Vitamin B-12] 2,500 mcg SL DAILY 08/31/17 [History] Ferrous Sulfate 325 mg PO DAILY 08/31/17 [History] HYDROcodone/Acet 5/325 mg [[place] 5-325 mg] 0.5 tab PO DAILY PRN 08/31/17 [History] Tramadol HCl [Ultram] 50 mg PO BID PRN 08/31/17 [History] Albuterol Neb [Proventil Neb] 2.5 mg IH 2-3XD PRN 09/19/17 [History] traZODone [TraZODone] 1 tab PO HS PRN 10/07/17 [History] Aspirin 81 mg PO DAILY #30 tab.chew 11/10/17 [Rx] Acetaminophen [Tylenol] 650 mg PO DAILY 03/31/18 [History] Amlodipine Besylate 2.5 mg PO DAILY 03/31/18 [History] Ciprofloxacin HCl [Cipro] 500 mg PO BID 03/31/18 [History] Ixazomib Citrate [Ninlaro] 4 mg PO MO 03/31/18 [History] Allergy/AdvReac Type Severity Reaction Status Date / Time codeine AdvReac See Verified 03/31/18 07:41 Comments hydrocodone AdvReac See Verified 04/04/18 14:16 Comments - Constitutional Constitutional ROS PAL: fatigue, weight loss, other (Retaining food in mouth for long periods of time, dentures at bedside), no lethargy - EENT Eyes: pain, no change in vision Ears: no decreased hearing - Cardiovascular Cardiovascular ROS: no chest pain, no chest pain at rest Palliative Care-Exam - Constitutional Vitals: Temp Pulse Resp BP Pulse Ox 97.7 F 59 17 133/68 98 04/06/18 07:53 04/06/18 07:53 04/06/18 07:53 04/06/18 07:53 04/06/18 07:53 General appearance: Present: cooperative, mild distress, no acute distress Internal Medicine - CN: Reslt - Labs CBC & Chem 7: 04/06/18 08:24 04/06/18 08:24 Labs: Short CBC 04/06/18 Range/Units 08:24 WBC 4.5 (4.3-11.1) K/mcL Hgb 9.8 L (11.5-15.4) g/dL Hct 31.7 L (35.3-44.9) % Plt Count 26 L* (140-400) K/mcL Neutrophils # 1.8 (1.6-8.9) K/mcL BMP 04/06/18 08:24 Sodium 139 Potassium 3.5 Chloride 112 H Carbon Dioxide 23 BUN 14 Creatinine 0.85 Glucose 82 Calcium 8.5 L - Impressions Impressions Lumbar Spine MRI 04/06/18 09:50 IMPRESSION: 1. Perhaps minimal spinal canal stenosis at L4-L5. No significant spinal canal stenosis at the remaining levels. 2. At L5-S1 disc bulge contacts the S1 nerve roots bilaterally without convincing evidence of nerve root impingement. 3. Degenerative changes contribute to multilevel neural foraminal narrowing as above. 4. Minimal retrolisthesis at L5-S1. 5. Cholelithiasis. 6. Suggestion of a small amount of free fluid within the pelvis. D/ / Rolando Lobato MD / Rolando Lobato MD Interpreting Provider: Rolando Lobato MD Consult Discharge Plan - Plan Referrals: Laine Stauffer MD [Primary Care Provider] - Palliative Quality Palliative Quality: Screen for Code Status: Yes, Screen for Goals of Care: Yes, Screen for Pain: Yes, If Pain Regimen Started, Initiate Bowel Regimen: Yes, Screen for Nausea/Vomitting: Yes Code Status: 04/04/18 16:01 CODE [Resuscitation Status: Active] [RES] Routine Comment: Resuscitation Status: DNR-Comfort Care-Arrest 04/05/18 09:52 DNR [Resuscitation Status: Active] [RES] Routine Comment: Resuscitation Status: [id number]
--- NOTE | 2018-04-06 11:16 | Palliative Progress Note ---
<Silvia Suarez - Last Filed: 04/06/18 11:11> Date of Encounter: 04/06/18 Time of Encounter: 10:30 - Assessment and plan (1) Weight loss Current Visit: Yes Status: Acute Assessment and plan: Patient has gained weight since 04/01 48.4 kg to current 50.7kg. Patient is eating 20-30% of meals. Dentures at bedside to help with patient eating. Family reports patient keeps food in her mouth, family/pt educated on risk for aspiration. Ensure offered to aid with nutrition, patient reports liking all flavors. (2) Abdominal pain Current Visit: Yes Status: Acute Assessment and plan: Pt with abdominal pain, but back pain more prominent. Pt without tenderness. Patient's last BM was 04/01. Pt on colace to be stopped and switched to Senna BID. Qualifiers: Abdominal location: unspecified location Qualified Code(s): R10.9 - Unspecified abdominal pain (3) [id number] kidney injury Current Visit: Yes Status: Acute Assessment and plan: FELICIANO resolved. Primary care team to manage. Qualifiers: Acute renal failure type: unspecified Chronic kidney disease stage: stage 3 (moderate) Qualified Code(s): N17.9 - Acute kidney failure, unspecified; N18.3 - Chronic kidney disease, stage 3 (moderate) (4) Back pain Current Visit: Yes Status: Acute Assessment and plan: Back pain 9/10 aching. Pt has received scheduled oxycodone BID and one dose of percocet in the last 24 hours. Primary RN Maria G notified of patient's pain, patient to receive dose soon. Pt and family educated on pain tolerance and threshold. Pt and family encouraged to take pain medication PRN when pain s tarts, instead of waiting until pain out of control. Lidocaine patch considered, but per reports of family this did not help at all in the past. Qualifiers: Back pain location: back pain in unspecified location Back pain laterality: unspecified Qualified Code(s): M54.9 - Dorsalgia, unspecified; G89.29 - Other chronic pain (5) Colitis Current Visit: Yes Status: Acute Assessment and plan: Slight abdominal pain, pt had colonoscopy with no interventions. Primary care team to manage. (6) Goals of care, counseling/discussion Current Visit: Yes Status: Acute Assessment and plan: Family and Pt agreeable to continue with current plan of care. Physical therapy consulted and patient to be seen. Plan for patient to go home with home health, Hollie MILNER to follow up with this. (7) Pneumonia Current Visit: Yes Status: Acute Assessment and plan: WBC WNL. Pt on PO antibiotics, low grade temp over night 99.3. Primary care team to manage. Qualifiers: Pneumonia type: due to unspecified organism Laterality: unspecified laterality (8) Thrombocytopenia Current Visit: Yes Status: Acute Assessment and plan: Platelets remain(26) low but improved slightly from yesterday(22). No s/sx of bleeding, primary care team to manage. - Time Spent With Patient Total time spent is greater than 50% in coordination of care (as documented) at patient's floor/unit and/or counseling patient: 25 - 35 minutes - Subjective Interval history: Pt resting comfortably after returning back from MRI. Daughter x2 at bedside with patient. Pt breathing easy, but reports pain in rib, abdomen, and lower back. Worst pain is in lower back 9/10 constant aching pain. Pt receiving Oxycodone sheduled BID but has only received one dose of PRN percocet in the last 24 hours. Primary RN notified of pain and patient to receive prn dose soon. Pt and family report recent weightloss and report that the patient eats less in the hospital. Pt from home with walker and to be evaluated by PT for home with physical therapy. Hollie MILNER to be notified. - Constitutional Vitals: Abnormal lab results Hgb 9.8 g/dL (11.5-15.4) L 04/06/18 08:24 Hct 31.7 % (35.3-44.9) L 04/06/18 08:24 MCV 80.1 fL (83.0-100.0) L 04/06/18 08:24 MCH 24.7 pg (28.0-33.3) L 04/06/18 08:24 MCHC 30.9 g/dL (31.6-35.5) L 04/06/18 08:24 RDW 16.4 % (11.5-14.5) H 04/06/18 08:24 Plt Count 26 K/mcL (140-400) L* 04/06/18 08:24 Platelet Estimate Marked Decrease (Normal) L 04/05/18 05:02 Immature Plt Fraction 14.0 % (1.1-6.1) H 04/06/18 08:24 Anisocytosis 1+ (Not Present) A 04/05/18 05:02 Ovalocytes 1+ (Not Present) A 04/03/18 09:08 Chloride 112 mEq/L (98-107) H 04/06/18 08:24 POC Glucose 115 mg/dL (70-99) H 04/02/18 11:38 Calcium 8.5 mg/dL (8.6-10.3) L 04/06/18 08:24 Phosphorus 1.9 mg/dL (2.7-4.5) L 04/03/18 09:08 Albumin 3.2 g/dL (3.5-5.7) L 04/03/18 09:08 Urine Clarity Cloudy (Clear) A 04/04/18 13:20 Urine Protein 100 mg/dL (Neg-Trace) H 04/04/18 13:20 Urine Ketones Trace mg/dL (Negative) H 04/04/18 13:20 Urine Blood Large (Negative) H 04/04/18 13:20 Ur Leukocyte Esterase Moderate (Negative) H 04/04/18 13:20 Urine Microscopic RBC 30-50 per hpf (0-3) H 04/04/18 13:20 Urine Microscopic WBC 50-100 per hpf (0-3) H 04/04/18 13:20 Urine Yeast Many per hpf (None Seen) H 04/04/18 13:20 Ur Culture Indicated? YES (NO) A 04/04/18 13:20 General appearance: Present: cooperative, thin. Absent: mild distress, no acute distress - Head Head exam: Present: atraumatic, normal inspection - Eye Eye exam: Present: EOMI, normal appearance, PERRL Pupils: Present: PERRL - ENT ENT exam: Present: mucous membranes moist, normal exam Additional comments: Dentures at bedside - Neck Neck exam: Present: full ROM, normal inspection - Respiratory Respiratory exam: Present: CTAB. Absent: respiratory distress, tachypnea Additional comments: cough with white clear small sputum production - Cardiovascular Cardiovascular exam: Present: RRR, +S1, +S2 - GI/Abdominal GI/Abdominal exam: Present: normal bowel sounds Additional comments: flat - Additional comments: Tian Catheter - Extremities Exam Extremities exam: Present: full ROM - Neurological Exam Neurological exam: Present: alert, strengths equal and symetr throughout (Moderate BLE, weak BLE). Absent: oriented X3 (Oriented to person, place. Disoriented to time) - Expanded Neurological Exam Patient oriented to: Present: person, place. Absent: time Coma Scale Eye Opening: Spontaneous Coma Scale Motor Response: Obeys Commands Coma Scale Verbal Response: Confused Coma Scale Total: 14 - Psychiatric Psychiatric exam: Present: normal affect, normal mood. Absent: agitated, anxious - Skin Skin exam: Present: dry, pallor (sallow), warm Palliative Quality Palliative Quality: Screen for Code Status: Yes, Screen for Goals of Care: Yes, Screen for Pain: Yes, If Pain Regimen Started, Initiate Bowel Regimen: Yes, Screen for Nausea/Vomitting: Yes Code Status: 04/04/18 16:01 CODE [Resuscitation Status: Active] [RES] Routine Comment: Resuscitation Status: DNR-Comfort Care-Arrest 04/05/18 09:52 DNR [Resuscitation Status: Active] [RES] Routine Comment: Resuscitation Status: [id number] - Labs CBC & Chem 7: 04/06/18 08:24 04/06/18 08:24 Labs: Laboratory Results - last 24 hr 04/06/18 04/06/18 08:24 08:24 WBC 4.5 RBC 3.96 Hgb 9.8 L Hct 31.7 L MCV 80.1 L MCH 24.7 L MCHC 30.9 L RDW 16.4 H Plt Count 26 L* MPV TNP Immature Gran % 0.2 Seg Neutrophils % 40.4 Lymphocytes % 29.3 Monocytes % 26.8 Eosinophils % 3.1 Basophils % 0.2 Neutrophils # 1.8 Lymphocytes # 1.3 Monocytes # 1.2 Eosinophils # 0.1 Basophils # 0.0 Immature Plt Fraction 14.0 H Sodium 139 Potassium 3.5 Chloride 112 H Carbon Dioxide 23 BUN 14 Creatinine 0.85 Est GFR ( Amer) > 60 Est GFR (Non-Af Amer) > 60 BUN/Creatinine Ratio 16 Glucose 82 Calculated Osmolality 288 Calcium 8.5 L - Impressions Impressions Lumbar Spine MRI 04/06/18 09:50 IMPRESSION: 1. Perhaps minimal spinal canal stenosis at L4-L5. No significant spinal canal stenosis at the remaining levels. 2. At L5-S1 disc bulge contacts the S1 nerve roots bilaterally without convincing evidence of nerve root impingement. 3. Degenerative changes contribute to multilevel neural foraminal narrowing as above. 4. Minimal retrolisthesis at L5-S1. 5. Cholelithiasis. 6. Suggestion of a small amount of free fluid within the pelvis. D/ / Rolando Lobato MD / Rolando Lobato MD Interpreting Provider: Rolando Lobato MD Consult Discharge Plan - Plan Referrals: Laine Stauffer MD [Primary Care Provider] - 04/16/18 1:00 pm (Please follow up as schedule...) <Brinda Herring - Last Filed: 04/06/18 11:56> Date of Encounter: 04/06/18 - Time Spent With Patient Total time spent is greater than 50% in coordination of care (as documented) at patient's floor/unit and/or counseling patient: - Constitutional Vitals: Abnormal lab results Hgb 9.8 g/dL (11.5-15.4) L 04/06/18 08:24 Hct 31.7 % (35.3-44.9) L 04/06/18 08:24 MCV 80.1 fL (83.0-100.0) L 04/06/18 08:24 MCH 24.7 pg (28.0-33.3) L 04/06/18 08:24 MCHC 30.9 g/dL (31.6-35.5) L 04/06/18 08:24 RDW 16.4 % (11.5-14.5) H 04/06/18 08:24 Plt Count 26 K/mcL (140-400) L* 04/06/18 08:24 Platelet Estimate Marked Decrease (Normal) L 04/05/18 05:02 Immature Plt Fraction 14.0 % (1.1-6.1) H 04/06/18 08:24 Anisocytosis 1+ (Not Present) A 04/05/18 05:02 Ovalocytes 1+ (Not Present) A 04/03/18 09:08 Chloride 112 mEq/L (98-107) H 04/06/18 08:24 POC Glucose 115 mg/dL (70-99) H 04/02/18 11:38 Calcium 8.5 mg/dL (8.6-10.3) L 04/06/18 08:24 Phosphorus 1.9 mg/dL (2.7-4.5) L 04/03/18 09:08 Albumin 3.2 g/dL (3.5-5.7) L 04/03/18 09:08 Urine Clarity Cloudy (Clear) A 04/04/18 13:20 Urine Protein 100 mg/dL (Neg-Trace) H 04/04/18 13:20 Urine Ketones Trace mg/dL (Negative) H 04/04/18 13:20 Urine Blood Large (Negative) H 04/04/18 13:20 Ur Leukocyte Esterase Moderate (Negative) H 04/04/18 13:20 Urine Microscopic RBC 30-50 per hpf (0-3) H 04/04/18 13:20 Urine Microscopic WBC 50-100 per hpf (0-3) H 04/04/18 13:20 Urine Yeast Many per hpf (None Seen) H 04/04/18 13:20 Ur Culture Indicated? YES (NO) A 04/04/18 13:20 - Attending Attestation Patient seen and examined - agree with assessment and plan. Palliative Quality Code Status: 04/04/18 16:01 CODE [Resuscitation Status: Active] [RES] Routine Comment: Resuscitation Status: DNR-Comfort Care-Arrest 04/05/18 09:52 DNR [Resuscitation Status: Active] [RES] Routine Comment: Resuscitation Status: [id number] - Labs CBC & Chem 7: 04/06/18 08:24 04/06/18 08:24 Labs: Laboratory Results - last 24 hr 04/06/18 04/06/18 08:24 08:24 WBC 4.5 RBC 3.96 Hgb 9.8 L Hct 31.7 L MCV 80.1 L MCH 24.7 L MCHC 30.9 L RDW 16.4 H Plt Count 26 L* MPV TNP Immature Gran % 0.2 Seg Neutrophils % 40.4 Lymphocytes % 29.3 Monocytes % 26.8 Eosinophils % 3.1 Basophils % 0.2 Neutrophils # 1.8 Lymphocytes # 1.3 Monocytes # 1.2 Eosinophils # 0.1 Basophils # 0.0 Immature Plt Fraction 14.0 H Sodium 139 Potassium 3.5 Chloride 112 H Carbon Dioxide 23 BUN 14 Creatinine 0.85 Est GFR ( Amer) > 60 Est GFR (Non-Af Amer) > 60 BUN/Creatinine Ratio 16 Glucose 82 Calculated Osmolality 288 Calcium 8.5 L - Impressions Impressions Lumbar Spine MRI 04/06/18 09:50
[2018-04-06] MEDS: *HR* OxyCODONE/APAP 5/325 TABLET PO PRN (11:27)
[2018-04-06] MEDS ORDERED: levoFLOXacin 500 MG TABLET PO SCH (12:00)
--- NOTE | 2018-04-06 16:51 | Internal Med Progress Note ---
Hospitalist Progress Note - Encounter Date of Encounter: 04/06/18 Time of Encounter: 16:46 - Subjective Interval History: Low back pain is better. Appear more alert awake. Review the lab critical low platelet slight better than yesterday with no active bleeding. no fever or chills. Patient also denies vomiting chest pain short of breath. - Exam Vitals: Temp Pulse Resp BP Pulse Ox 98.5 F 78 16 116/59 93 04/06/18 15:32 04/06/18 15:32 04/06/18 15:32 04/06/18 15:32 04/06/18 15:32 Exam: General: Patient is alert awake but appear better today. Patient has intermittent confusion due to underlying dementia. Respiratory: Slightly diminished breath sounds at the base Cardiovascular: Regular rate and rhythm. s1 and s2 normal Abdomen: Abdomen is soft, soft positive bowel sounds. mild tender in the lower quadrants without any guarding or rigidity- chronic Musculoskeletal: Spontaneously moving all extremities . Back -with no focal bony tenderness along the spine Neuro: grossly non-focal, cranial nerves II-12 intact motor 5 x 5 in all 4 extremities. - Assessment and Plan (1) Thrombocytopenia Current Visit: Yes Status: Acute Assessment and Plan: Critical low platelet with No active bleeding. Made aware oncology team about further management plan but did not hear back yet. Continue to monitor platelet level. Avoid drugs that cause low platelet. Continue SCDs for DVT prophylaxis Discharge plan as per oncologist advice urine culture report with yeast therefore Diflucan is started. (2) Colitis Current Visit: Yes Status: Acute Assessment and Plan: CT scan of the abdomen and pelvis shows findings suggestive of persistent colitis involving the transverse colon. Patient does have colonic diverticulosis. She did complete treatment with Cipro and Flagyl recently. GI panel -ve. C. diff -ve Had colonoscopy done on 04/02 2018 with no suggestive finding of colitis and multiple diverticula with no fistula. concern for rectovaginal fistula-therefore ordered barium enema with negative finding ixazomib also comes with various GI side effects therefore consulted oncology. This medicine on hold now and would reconsider after outpatient reevaluation. (3) Multiple myeloma Current Visit: Yes Status: Chronic Assessment and Plan: Patient takes Ixazomib. Ixazomib can cause diarrhea, nausea and vomiting which could explain her symptoms and now on hold. Oncologist on board (4) Chronic kidney disease, stage III (moderate) Current Visit: Yes Status: Chronic Assessment and Plan: Normal creatinine level today. her baseline is more like 1.2-1.4 Stopped IV fluid and signed off nephrology. Avoid nephrotoxic drug. Monitor BMP. (5) Left lower lobe pneumonia Current Visit: Yes Status: Suspected Assessment and Plan: Limited cuts on CT abdo/pelvis showed persistent left basilar airspace disease. Initially Zosyn was restarted and now D escalated to Levaquin. Her cough was worse therefore chest x-ray repeated with a stable finding. Continue Levaquin, spirometry, DuoNeb as needed. (6) Hypertension Current Visit: Yes Status: Chronic Assessment and Plan: better blood pressure. IV fluid is stopped. Increased amlodipine 10 mg daily . Close monitoring (7) Back pain Current Visit: Yes Status: Acute (8) Abdominal distention Current Visit: Yes Status: Acute (9) Hypokalemia Current Visit: Yes Status: Acute (10) Goals of care, counseling/discussion Current Visit: Yes Status: Acute (11) DVT prophylaxis Current Visit: No Status: Acute - Time Spent with Patient Total time spent is greater than 50% in coordination of care (as documented) at patient's floor/unit and/or counseling patient: Internal Medicine: Result - Labs CBC & Chem 7: 04/06/18 08:24 04/06/18 08:24 Labs: Short CBC 04/06/18 Range/Units 08:24 WBC 4.5 (4.3-11.1) K/mcL Hgb 9.8 L (11.5-15.4) g/dL Hct 31.7 L (35.3-44.9) % Plt Count 26 L* (140-400) K/mcL Neutrophils # 1.8 (1.6-8.9) K/mcL BMP 04/06/18 08:24 Sodium 139 Potassium 3.5 Chloride 112 H Carbon Dioxide 23 BUN 14 Creatinine 0.85 Glucose 82 Calcium 8.5 L - Impressions Impressions Lumbar Spine MRI 04/06/18 09:50 IMPRESSION: 1. Perhaps minimal spinal canal stenosis at L4-L5. No significant spinal canal stenosis at the remaining levels. 2. At L5-S1 disc bulge contacts the S1 nerve roots bilaterally without convincing evidence of nerve root impingement. 3. Degenerative changes contribute to multilevel neural foraminal narrowing as above. 4. Minimal retrolisthesis at L5-S1. 5. Cholelithiasis. 6. Suggestion of a small amount of free fluid within the pelvis. D/ / Rolando Lobato MD / Rolando Lobato MD Interpreting Provider: Rolando Lobato MD Consult Discharge Plan - Plan Referrals: Laine Stauffer MD [Primary Care Provider] - 04/16/18 1:00 pm (Please follow up as schedule...) (3) Multiple myeloma Qualifiers: Multiple myeloma remission status: not in remission Qualified Code(s): C90.00 - Multiple myeloma not having achieved remission (5) Left lower lobe pneumonia Qualifiers: Pneumonia type: due to Pneumococcus Qualified Code(s): J13 - Pneumonia due to Streptococcus pneumoniae (6) Hypertension Qualifiers: Hypertension type: essential hypertension Qualified Code(s): I10 - Essential (primary) hypertension (7) Back pain Qualifiers: Back pain location: back pain in unspecified location Back pain laterality: unspecified Qualified Code(s): M54.9 - Dorsalgia, unspecified; G89.29 - Other chronic pain
[2018-04-06] MEDS: Sennosides/Docusate Sodium TABLET PO SCH (20:02)
[2018-04-07] MEDS: *HR* OxyCODONE/APAP 5/325 TABLET PO PRN ×3 (03:39→12:43)
[2018-04-07 03:57] LABS: Basophils % 0.1 %; Eosinophils % 0.8 %; Mean Corpuscular Hemoglobin 24.9 pg (28.0-33.3); Mean Corpuscular Volume 80.3 fL (83.0-100.0)
[2018-04-07 03:59] LABS: Eosinophils # 0.1 K/mcL (0.0-0.6); Hematocrit 30.6 % (35.3-44.9); Hemoglobin 9.5 g/dL (11.5-15.4); Immature Granulocytes % 0.3 % (0-4); Lymphocytes # 1.4 K/mcL (0.6-4.6); Lymphocytes % 14.7 %; Monocytes # 1.3 K/mcL (0.0-1.3); Monocytes % 13.3 %; Neutrophils # 6.7 K/mcL (1.6-8.9); Red Blood Count 3.81 M/mcL (3.82-4.97); Red Cell Distribution Width 16.5 % (11.5-14.5); Segmented Neutrophils % 70.8 %
[2018-04-07 04:15] LABS: BUN/Creatinine Ratio 17 (6-26); Blood Urea Nitrogen 15 mg/dL (8-23); Calcium 8.5 mg/dL (8.6-10.3); Carbon Dioxide 23 mEq/L (23-29); Chloride 109 mEq/L (98-107); Glucose 88 mg/dL (70-105); Osmolality,Calculated 286 (280-300); Potassium 3.5 mEq/L (3.5-5.1); Sodium 138 mEq/L (136-145); eGFR For Non-African Americans > 60 (> 60)
[2018-04-07 04:23] LABS: Platelet Count 38 K/mcL (140-400)
--- NOTE | 2018-04-07 08:29 | Internal Med Progress Note ---
Hospitalist Progress Note - Encounter Date of Encounter: 04/07/18 - Exam Vitals: Temp Pulse Resp BP Pulse Ox 99.3 F 99 16 153/57 97 04/07/18 07:08 04/07/18 07:08 04/07/18 07:08 04/07/18 07:08 04/07/18 07:08 Exam: General: Patient is alert awake but appear better today. Patient has intermittent confusion due to underlying dementia. Respiratory: Slightly diminished breath sounds at the base Cardiovascular: Regular rate and rhythm. s1 and s2 normal Abdomen: Abdomen is soft, soft positive bowel sounds. mild tender in the lower quadrants without any guarding or rigidity- chronic Musculoskeletal: Spontaneously moving all extremities . Back -with no focal bony tenderness along the spine Neuro: grossly non-focal, cranial nerves II-12 intact motor 5 x 5 in all 4 extremities. - Assessment and Plan (1) Multiple myeloma Current Visit: Yes Status: Chronic Assessment and Plan: Patient takes Ixazomib. Ixazomib can cause diarrhea, nausea and vomiting which could explain her symptoms and now on hold. Oncologist on board (2) Chronic kidney disease, stage III (moderate) Current Visit: Yes Status: Chronic Assessment and Plan: Normal creatinine level today. her baseline is more like 1.2-1.4 Stopped IV fluid and signed off nephrology. Avoid nephrotoxic drug. Monitor BMP. (3) Left lower lobe pneumonia Current Visit: Yes Status: Suspected Assessment and Plan: Limited cuts on CT abdo/pelvis showed persistent left basilar airspace disease. Initially Zosyn was restarted and now D escalated to Levaquin. Her cough was worse therefore chest x-ray repeated with a stable finding. Continue Levaquin, spirometry, DuoNeb as needed. (4) DVT prophylaxis Current Visit: No Status: Acute Assessment and Plan: With SCDs given low platelets and recent GI bleed (5) Hypertension Current Visit: Yes Status: Chronic Assessment and Plan: better blood pressure. IV fluid is stopped. Increased amlodipine 10 mg daily . Close monitoring (6) Colitis Current Visit: Yes Status: Acute Assessment and Plan: CT scan of the abdomen and pelvis shows findings suggestive of persistent colitis involving the transverse colon. Patient does have colonic diverticulosis. She did complete treatment with Cipro and Flagyl recently. GI panel -ve. C. diff -ve Had colonoscopy done on 04/02 2018 with no suggestive finding of colitis and multiple diverticula with no fistula. concern for rectovaginal fistula-therefore ordered barium enema with negative finding ixazomib also comes with various GI side effects therefore consulted oncology. This medicine on hold now and would reconsider after outpatient reevaluation. (7) Hypokalemia Current Visit: Yes Status: Acute (8) Thrombocytopenia Current Visit: Yes Status: Acute (9) Back pain Current Visit: Yes Status: Acute (10) Abdominal distention Current Visit: Yes Status: Acute (11) Goals of care, counseling/discussion Current Visit: Yes Status: Acute - Time Spent with Patient Total time spent is greater than 50% in coordination of care (as documented) at patient's floor/unit and/or counseling patient: Internal Medicine: Result - Labs CBC & Chem 7: 04/07/18 03:45 04/07/18 03:45 Labs: Short CBC 04/06/18 04/07/18 Range/Units 08:24 03:45 WBC 4.5 9.5 D (4.3-11.1) K/mcL Hgb 9.8 L 9.5 L (11.5-15.4) g/dL Hct 31.7 L 30.6 L (35.3-44.9) % Plt Count 26 L* 38 L (140-400) K/mcL Neutrophils # 1.8 6.7 (1.6-8.9) K/mcL BMP 04/06/18 04/07/18 08:24 03:45 Sodium 139 138 Potassium 3.5 3.5 Chloride 112 H 109 H Carbon Dioxide 23 23 BUN 14 15 Creatinine 0.85 0.90 Glucose 82 88 Calcium 8.5 L 8.5 L - Impressions Impressions Lumbar Spine MRI 04/06/18 09:50 IMPRESSION: 1. Perhaps minimal spinal canal stenosis at L4-L5. No significant spinal canal stenosis at the remaining levels. 2. At L5-S1 disc bulge contacts the S1 nerve roots bilaterally without convincing evidence of nerve root impingement. 3. Degenerative changes contribute to multilevel neural foraminal narrowing as above. 4. Minimal retrolisthesis at L5-S1. 5. Cholelithiasis. 6. Suggestion of a small amount of free fluid within the pelvis. D/ / Rolando Lobato MD / Rolando Lobato MD Interpreting Provider: Rolando Lobato MD Consult Discharge Plan - Plan Referrals: Laine Stauffer MD [Primary Care Provider] - 04/16/18 1:00 pm (Please follow up as schedule...) (1) Multiple myeloma Qualifiers: Multiple myeloma remission status: not in remission Qualified Code(s): C90.00 - Multiple myeloma not having achieved remission (3) Left lower lobe pneumonia Qualifiers: Pneumonia type: due to Pneumococcus Qualified Code(s): J13 - Pneumonia due to Streptococcus pneumoniae (5) Hypertension Qualifiers: Hypertension type: essential hypertension Qualified Code(s): I10 - Essential (primary) hypertension (9) Back pain Qualifiers: Back pain location: back pain in unspecified location Back pain laterality: unspecified Qualified Code(s): M54.9 - Dorsalgia, unspecified; G89.29 - Other chronic pain
[2018-04-07] MEDS: Cyanocobalamin (B-12) 1,000 MCG TABLET PO SCH (08:41)
[2018-04-07] MEDS: amLODIPine 5 MG TABLET PO SCH (08:41)
[2018-04-07] MEDS: Sennosides/Docusate Sodium TABLET PO SCH (08:42)
[2018-04-07] MEDS: *HR* OxyCODONE ER (12 HR) 10 MG TABLET PO SCH (08:42)
[2018-04-07] MEDS: Fluconazole 100 MG TABLET PO SCH (08:42)
[2018-04-07] MEDS: Lactobacillus 1 EACH CAP.SPRINK PO SCH (08:42)
--- NOTE | 2018-04-07 08:42 | Discharge Summary ---
Orders not resulted at time of discharge: Pending orders 04/03/18 14:06 Bedside Spirometry Evaluation [EVAL] Routine 04/04/18 13:20 Culture,Urine [RM] Routine 04/05/18 14:25 Bedside Spirometry Evaluation [EVAL] Routine Date of Encounter: 04/07/18 Time of Encounter: 08:40 - Discharge Diagnosis (1) Colitis Priority: Primary Status: Acute Assessment and Plan: 82 year old female patient with a history of hypertension, hyperlipidemia, dementia, COPD, chronic kidney disease stage III who was brought to the ER with complaints of abdominal pain, nausea and vomiting. Patient has been having the se symptoms for the past couple of weeks. She was initially seen in the ER 2 weeks back and was diagnosed with colitis and pneumonia. She was discharged on Cipro and Flagyl. She reports she completed taking the antibiotics as prescribed. She however developed nausea and vomiting 2 days after she began taking this treatment and her symptoms have slowly started to worsen again. She complains of lower quadrant abdominal pain. She did not have diarrhea till she came to the ER. She is had bowel incontinence since coming in here. She was assessed with colitis. CT scan of the abdomen and pelvis shows findings suggestive of persistent colitis involving the transverse colon. She was treated with antibiotics with flagyl and levaquin with resolution of her colitis. She was recently started on chemotherapy and was noted to be thrombocytopenic in the hospital. Her chemo drugs were therefore held. With improvement in her platelet, oncology okayed her for discharge and will followup outpatient with them. she is to discontinue the chemo meds tillher oncology appointment. she was discharged in a stable condition. 35minutes was spent discharging this patient (2) Multiple myeloma Priority: Primary Status: Chronic Assessment and Plan: Patient takes Ixazomib. Ixazomib can cause diarrhea, nausea and vomiting which could explain her symptoms and now on hold. Oncologist on board Qualifiers: Multiple myeloma remission status: not in remission Qualified Code(s): C90.00 - Multiple myeloma not having achieved remission (3) Chronic kidney disease, stage III (moderate) Priority: Primary Status: Chronic (4) Left lower lobe pneumonia Priority: Primary Status: Suspected Qualifiers: Pneumonia type: due to Pneumococcus Qualified Code(s): J13 - Pneumonia due to Streptococcus pneumoniae (5) DVT prophylaxis Priority: Primary Status: Acute (6) Hypertension Priority: Primary Status: Chronic Qualifiers: Hypertension type: essential hypertension Qualified Code(s): I10 - Essential (primary) hypertension (7) Hypokalemia Priority: Primary Status: Acute (8) Thrombocytopenia Priority: Primary Status: Acute (9) Back pain Priority: Primary Status: Acute Qualifiers: Back pain location: back pain in unspecified location Back pain laterality: unspecified Qualified Code(s): M54.9 - Dorsalgia, unspecified (10) Abdominal distention Priority: Primary Status: Acute (11) Goals of care, counseling/discussion Priority: Primary Status: Acute Hospital course: Ms. Joiner is a 82 year old female - Time Spent with Patient Total time spent providing and/or coordinating discharge services: - Discharge Medications Prescriptions: HYDROcodone/Acet 5/325 mg [[place] 5-325 mg] 0.5 tab PO Q6H PRN 5 Days #20 tablet PRN Reason: Pain OxyCODONE ER (12 HR) [OxyCONTIN] 10 mg PO BID 5 Days #10 tab.er.12h Sennosides/Docusate Sodium [Senna Plus] 1 each PO BID 30 Days #60 tablet Home Medications: ALPRAZolam [Xanax 1 MG Tablet] 0.5 mg PO BID PRN 11/24/14 [History] Cyanocobalamin (Vitamin B-12) [Vitamin B-12] 2,500 mcg SL DAILY 08/31/17 [History] Ferrous Sulfate 325 mg PO DAILY 08/31/17 [History] Tramadol HCl [Ultram] 50 mg PO BID PRN 08/31/17 [History] Albuterol Neb [Proventil Neb] 2.5 mg IH 2-3XD PRN 09/19/17 [History] traZODone [TraZODone] 1 tab PO HS PRN 10/07/17 [History] Aspirin 81 mg PO DAILY #30 tab.chew 11/10/17 [Rx] Acetaminophen [Tylenol] 650 mg PO DAILY 03/31/18 [History] Amlodipine Besylate 2.5 mg PO DAILY 03/31/18 [History] Ciprofloxacin HCl [Cipro] 500 mg PO BID 03/31/18 [History] Ixazomib Citrate [Ninlaro] 4 mg PO MO 03/31/18 [History] HYDROcodone/Acet 5/325 mg [[place] 5-325 mg] 0.5 tab PO Q6H PRN 5 Days #20 tablet 04/07/18 [Rx] OxyCODONE ER (12 HR) [OxyCONTIN] 10 mg PO BID 5 Days #10 tab.er.12h 04/07/18 [Rx] Sennosides/Docusate Sodium [Senna Plus] 1 each PO BID 30 Days #60 tablet 04/07/18 [Rx] Allergies/Adverse Reactions: Allergy/AdvReac Type Severity Reaction Status Date / Time codeine AdvReac See Verified 03/31/18 07:41 Comments hydrocodone AdvReac See Verified 04/04/18 14:16 Comments Date of admission: 04/01/18 14:52 Primary care physician: Laine Stauffer Consults: 03/31/18 09:25 Consult to Nutrition [CONS] Routine Comment: Consulting Provider: NUTRITION Reason for Dietary Consult: Other Other:: poor appetite 04/01/18 07:39 Consult to Gastroenterology [CONS] Routine Consulting Provider: Gastroenterology Amina Reason for Consult: Colitis- recurrent vs ischemic Time Notified: 07:39 Call Completed: Yes 04/02/18 15:55 Consult to Nephrology [CONS] Routine Consulting Provider: [facility]AIDA/MARLO/SO Reason for Consult: Worsening creatinine with hematuria underlying multiple myeloma Call Completed: Yes 04/02/18 16:24 Consult to Oncology [CONS] Routine Consulting Provider: [facility] Reason for Consult: Multiple myeloma with active treatment, worsening creatinine level, hematuria, worsening low back pain Call Completed: Yes 04/04/18 14:38 Consult to Palliative Care [CONS] Routine Comment: Consulting Provider: Palliative Care Amina Reason for Consult: Pain management and CODE STATUS discussion. Multiple myeloma Call Completed: Yes 04/06/18 11:38 Consult to Physical Therapy [CONS] Routine Comment: Evaluate, develop and implement POC Reason for Consult: Eval and Treat Does patient have active BEDREST order?: No Is patient medically & hemodynamically stable?: Yes - Constitutional Vitals: Temp Pulse Resp BP Pulse Ox 99.3 F 99 16 153/57 97 04/07/18 07:08 04/07/18 07:08 04/07/18 07:08 04/07/18 07:08 04/07/18 07:08 General appearance: Present: cooperative, A&O X 3, answers questions appropriately Exam: General: Patient is alert awake but appear better today. Patient has intermittent confusion due to underlying dementia. Respiratory: Slightly diminished breath sounds at the base Cardiovascular: Regular rate and rhythm. s1 and s2 normal Abdomen: Abdomen is soft, soft positive bowel sounds. mild tender in the lower quadrants without any guarding or rigidity- chronic Musculoskeletal: Spontaneously moving all extremities . Back -with no focal bony tenderness along the spine Neuro: grossly non-focal, cranial nerves II-12 intact motor 5 x 5 in all 4 extremities. - Patient Status Disposition: Home, Self-Care Condition: Fair - Discharge Instructions Instructions: Hydrocodone/Acetaminophen (By mouth), Oxycodone/Acetaminophen (By mouth), Laxative, Stimulant (By mouth) Follow Up With: Laine Stauffer MD [Primary Care Provider] - 04/10/18 1:45 pm (Please follow up as schedule to ensure you do not run out of pain meds. Thank you!)
--- NOTE | 2018-04-07 09:41 | Palliative Progress Note ---
<Silvia Suarez - Last Filed: 04/07/18 09:38> Date of Encounter: 04/07/18 Time of Encounter: 08:30 - Assessment and plan (1) Weight loss Current Visit: Yes Status: Acute Assessment and plan: Last reported weight was increased from admission. Ensure added yesterday. (2) Abdominal pain Current Visit: Yes Status: Acute Assessment and plan: Pt with Bilateral upper quadrant tenderness. Pt taking scheduled oxycodone BID and has taken x3 doses of percocet in the past 24 hours. Qualifiers: Abdominal location: unspecified location Qualified Code(s): R10.9 - Unspecified abdominal pain (3) Tnshn-lv-srbxtzu kidney injury Current Visit: Yes Status: Acute Assessment and plan: Kidney function remains normal. Qualifiers: Acute renal failure type: unspecified Chronic kidney disease stage: stage 3 (moderate) Qualified Code(s): N17.9 - Acute kidney failure, unspecified; N18.3 - Chronic kidney disease, stage 3 (moderate) (4) Back pain Current Visit: Yes Status: Acute Assessment and plan: Patient with continued back pain. Manage with scheduled oxycodone and prn percocet. Qualifiers: Back pain location: back pain in unspecified location Back pain laterality: unspecified Qualified Code(s): M54.9 - Dorsalgia, unspecified; G89.29 - Other chronic pain (5) Colitis Current Visit: Yes Status: Acute Assessment and plan: Primary care team to manage. (6) Goals of care, counseling/discussion Current Visit: Yes Status: Acute Assessment and plan: Patient to go home today with home health physical therapy. (7) Pneumonia Current Visit: Yes Status: Acute Assessment and plan: Lungs clear, white blood cell within normal range. Qualifiers: Pneumonia type: due to unspecified organism Laterality: unspecified laterality Qualified Code(s): J69.0 - Pneumonitis due to inhalation of food and vomit (8) Thrombocytopenia Current Visit: Yes Status: Acute Assessment and plan: Platelet level improving from yesterday. - Time Spent With Patient Total time spent is greater than 50% in coordination of care (as documented) at patient's floor/unit and/or counseling patient: less than 15 minutes - Subjective Interval history: Pt resting in bed with pain 8/10 lower back aching pain. Pt breathing easy. Pt receiving Oxycodone Scheduled BID and PRN percocet. She has recieved 3 doses of percocet in the last 24 hours. Once again Maria G RN and patient educated on need to take percocet PRN more frequently so that the patient's pain does not get this high. Continue plan of care with pain medication. Nurse to assess need for pain q4h when percocet can be given. Pt has Reviewed MRI results. No family at bedside. Patient to go home with [facility] today. - Constitutional Vitals: Abnormal lab results RBC 3.81 M/mcL (3.82-4.97) L 04/07/18 03:45 Hgb 9.5 g/dL (11.5-15.4) L 04/07/18 03:45 Hct 30.6 % (35.3-44.9) L 04/07/18 03:45 MCV 80.3 fL (83.0-100.0) L 04/07/18 03:45 MCH 24.9 pg (28.0-33.3) L 04/07/18 03:45 MCHC 31.0 g/dL (31.6-35.5) L 04/07/18 03:45 RDW 16.5 % (11.5-14.5) H 04/07/18 03:45 Plt Count 38 K/mcL (140-400) L 04/07/18 03:45 Platelet Estimate Marked Decrease (Normal) L 04/05/18 05:02 Immature Plt Fraction 14.0 % (1.1-6.1) H 04/07/18 03:45 Anisocytosis 1+ (Not Present) A 04/05/18 05:02 Ovalocytes 1+ (Not Present) A 04/03/18 09:08 Chloride 109 mEq/L (98-107) H 04/07/18 03:45 POC Glucose 115 mg/dL (70-99) H 04/02/18 11:38 Calcium 8.5 mg/dL (8.6-10.3) L 04/07/18 03:45 Phosphorus 1.9 mg/dL (2.7-4.5) L 04/03/18 09:08 Albumin 3.2 g/dL (3.5-5.7) L 04/03/18 09:08 Urine Clarity Cloudy (Clear) A 04/04/18 13:20 Urine Protein 100 mg/dL (Neg-Trace) H 04/04/18 13:20 Urine Ketones Trace mg/dL (Negative) H 04/04/18 13:20 Urine Blood Large (Negative) H 04/04/18 13:20 Ur Leukocyte Esterase Moderate (Negative) H 04/04/18 13:20 Urine Microscopic RBC 30-50 per hpf (0-3) H 04/04/18 13:20 Urine Microscopic WBC 50-100 per hpf (0-3) H 04/04/18 13:20 Urine Yeast Many per hpf (None Seen) H 04/04/18 13:20 Ur Culture Indicated? YES (NO) A 04/04/18 13:20 General appearance: Present: cooperative, thin. Absent: mild distress, no acute distress, severe distress - Head Head exam: Present: atraumatic, normal inspection - Eye Eye exam: Present: normal appearance, PERRL Pupils: Present: PERRL - ENT ENT exam: Present: mucous membranes dry, normal exam - Expanded ENT Exam Teeth exam: Present: edentulous - Neck Neck exam: Present: full ROM - Respiratory Respiratory exam: Present: CTAB Additional comments: Coughing up white sputum - Cardiovascular Cardiovascular exam: Present: RRR, +S1, +S2. Absent: diastolic murmur, irregular rhythm, systolic murmur - GI/Abdominal GI/Abdominal exam: Present: normal bowel sounds (Flat), tenderness (RUQ and LUQ) - Additional comments: Depends - Extremities Exam Extremities exam: Present: full ROM. Absent: pedal edema, tenderness - Neurological Exam Neurological exam: Present: alert, altered. Absent: oriented X3 Additional comments: Pt alter to self, disoriented to time, place, situation - Expanded Neurological Exam Coma Scale Eye Opening: Spontaneous Coma Scale Motor Response: Obeys Commands Coma Scale Verbal Response: Confused Coma Scale Total: 14 - Psychiatric Psychiatric exam: Present: normal affect, normal mood. Absent: agitated, anxious - Skin Skin exam: Present: pallor ([place]) Palliative Quality Palliative Quality: Screen for Code Status: Yes, Screen for Goals of Care: Yes, Screen for Pain: Yes, If Pain Regimen Started, Initiate Bowel Regimen: Yes, Screen for Nausea/Vomitting: Yes Code Status: 04/04/18 16:01 CODE [Resuscitation Status: Active] [RES] Routine Comment: Resuscitation Status: DNR-Comfort Care-Arrest 04/05/18 09:52 DNR [Resuscitation Status: Active] [RES] Routine Comment: Resuscitation Status: [id number] - Labs CBC & Chem 7: 04/07/18 03:45 04/07/18 03:45 Labs: Laboratory Results - last 24 hr 04/07/18 04/07/18 03:45 03:45 WBC 9.5 D RBC 3.81 L Hgb 9.5 L Hct 30.6 L MCV 80.3 L MCH 24.9 L MCHC 31.0 L RDW 16.5 H Plt Count 38 L MPV TNP Immature Gran % 0.3 Seg Neutrophils % 70.8 Lymphocytes % 14.7 Monocytes % 13.3 Eosinophils % 0.8 Basophils % 0.1 Neutrophils # 6.7 Lymphocytes # 1.4 Monocytes # 1.3 Eosinophils # 0.1 Basophils # 0.0 Immature Plt Fraction 14.0 H Sodium 138 Potassium 3.5 Chloride 109 H Carbon Dioxide 23 BUN 15 Creatinine 0.90 Est GFR ( Amer) > 60 Est GFR (Non-Af Amer) > 60 BUN/Creatinine Ratio 17 Glucose 88 Calculated Osmolality 286 Calcium 8.5 L - Impressions Impressions Lumbar Spine MRI 04/06/18 09:50 IMPRESSION: 1. Perhaps minimal spinal canal stenosis at L4-L5. No significant spinal canal stenosis at the remaining levels. 2. At L5-S1 disc bulge contacts the S1 nerve roots bilaterally without convincing evidence of nerve root impingement. 3. Degenerative changes contribute to multilevel neural foraminal narrowing as above. 4. Minimal retrolisthesis at L5-S1. 5. Cholelithiasis. 6. Suggestion of a small amount of free fluid within the pelvis. D/ / Rolando Lobato MD / Rolando Lobato MD Interpreting Provider: Rolando Lobato MD Palliative Scale - Palliative Performance Scale How ambulatory is this patient?: Reduced What is patient's level of activity and evidence of disease?: Unable normal job/work, Significant disease How much self-care assistance does patient require?: Considerable assistance r equired How much oral intake does the patient have?: Normal or reduced What is this patient's level of consciousness?: Full or drowsy with or without confusion Palliative Performance Score: 40 % Consult Discharge Plan - Plan Referrals: Laine Stauffer MD [Primary Care Provider] - 04/16/18 1:00 pm (Please follow up as schedule...) <Lesvia Zhao - Last Filed: 04/07/18 10:37> Date of Encounter: 04/07/18 - Assessment and plan (1) Abdominal pain Current Visit: Yes Status: Acute Assessment and plan: Continue current pain regimen. Nurses to evaluate for pain frequently, as to not have pain crisis. Qualifiers: Abdominal location: unspecified location Qualified Code(s): R10.9 - Unspecified abdominal pain (2) Colitis Current Visit: Yes Status: Acute (3) Thrombocytopenia Current Visit: Yes Status: Acute (4) Back pain Current Visit: Yes Status: Acute Qualifiers: Back pain location: back pain in unspecified location Back pain laterality: unspecified Qualified Code(s): M54.9 - Dorsalgia, unspecified; G89.29 - Other chronic pain (5) Goals of care, counseling/discussion Current Visit: Yes Status: Acute Assessment and plan: Patient returning home with [facility]. (6) Weight loss Current Visit: Yes Status: Acute (7) Pneumonia Current Visit: No Status: Acute Assessment and plan: Patient completed IV Antibiotics yesterday, management per primary team. (8) Pjdme-rt-wstoomj kidney injury Current Visit: Yes Status: Acute Qualifiers: Acute renal failure type: unspecified Chronic kidney disease stage: stage 3 (moderate) Qualified Code(s): N17.9 - Acute kidney failure, unspecified; N18.3 - Chronic kidney disease, stage 3 (moderate) - Time Spent With Patient Total time spent is greater than 50% in coordination of care (as documented) at patient's floor/unit and/or counseling patient: less than 15 minutes - Subjective Interval history: Prior to assessing patient, primary RN Maria G came to office to report patient has been receiving PRN pain medication every 4 hours and pain is unbearable at this time. Reviewed chart with Maria G and showed her that patient went a 16 hour time period without receiving any PRN pain medication, difficult to justify increasing pain medication when patient is not receiving. Educated Maria G on need for frequent evaluation for pain control. Verbalized understanding. Upon arrival for assessment, patient resting in bed, awake, and alert times 2; disoriented to place. - Constitutional Vitals: Abnormal lab results RBC 3.81 M/mcL (3.82-4.97) L 04/07/18 03:45 Hgb 9.5 g/dL (11.5-15.4) L 04/07/18 03:45 Hct 30.6 % (35.3-44.9) L 04/07/18 03:45 MCV 80.3 fL (83.0-100.0) L 04/07/18 03:45 MCH 24.9 pg (28.0-33.3) L 04/07/18 03:45 MCHC 31.0 g/dL (31.6-35.5) L 04/07/18 03:45 RDW 16.5 % (11.5-14.5) H 04/07/18 03:45 Plt Count 38 K/mcL (140-400) L 04/07/18 03:45 Platelet Estimate Marked Decrease (Normal) L 04/05/18 05:02 Immature Plt Fraction 14.0 % (1.1-6.1) H 04/07/18 03:45 Anisocytosis 1+ (Not Present) A 04/05/18 05:02 Ovalocytes 1+ (Not Present) A 04/03/18 09:08 Chloride 109 mEq/L (98-107) H 04/07/18 03:45 POC Glucose 115 mg/dL (70-99) H 04/02/18 11:38 Calcium 8.5 mg/dL (8.6-10.3) L 04/07/18 03:45 Phosphorus 1.9 mg/dL (2.7-4.5) L 04/03/18 09:08 Albumin 3.2 g/dL (3.5-5.7) L 04/03/18 09:08 Urine Clarity Cloudy (Clear) A 04/04/18 13:20 Urine Protein 100 mg/dL (Neg-Trace) H 04/04/18 13:20 Urine Ketones Trace mg/dL (Negative) H 04/04/18 13:20 Urine Blood Large (Negative) H 04/04/18 13:20 Ur Leukocyte Esterase Moderate (Negative) H 04/04/18 13:20 Urine Microscopic RBC 30-50 per hpf (0-3) H 04/04/18 13:20 Urine Microscopic WBC 50-100 per hpf (0-3) H 04/04/18 13:20 Urine Yeast Many per hpf (None Seen) H 04/04/18 13:20 Ur Culture Indicated? YES (NO) A 04/04/18 13:20 General appearance: Present: cooperative, thin. Absent: mild distress, no acute distress, severe distress - Head Head exam: Present: atraumatic, normal inspection - Eye Eye exam: Present: normal appearance, PERRL Pupils: Present: PERRL - ENT ENT exam: Present: mucous membranes dry, normal exam, normal external ear exam - Neck Neck exam: Present: full ROM, normal inspection - Respiratory Respiratory exam: Present: accessory muscle use, CTAB - Cardiovascular Cardiovascular exam: Present: RRR, +S1, +S2. Absent: diastolic murmur, irregular rhythm - GI/Abdominal GI/Abdominal exam: Present: normal bowel sounds, tenderness - Rectal Rectal exam: Present: deferred - Extremities Exam Extremities exam: Present: full ROM. Absent: pedal edema - Neurological Exam Neurological exam: Present: alert, altered. Absent: oriented X3 - Psychiatric Psychiatric exam: Present: normal affect, normal mood. Absent: agitated, anxious - Skin Skin exam: Present: pallor Palliative Quality Palliative Quality: Screen for Code Status: Yes, Screen for Goals of Care: Yes, Screen for Pain: Yes, If Pain Regimen Started, Initiate Bowel Regimen: Yes, Screen for Nausea/Vomitting: Yes Code Status: 04/04/18 16:01 CODE [Resuscitation Status: Active] [RES] Routine Comment: Resuscitation Status: DNR-Comfort Care-Arrest 04/05/18 09:52 DNR [Resuscitation Status: Active] [RES] Routine Comment: Resuscitation Status: [id number] - Labs CBC & Chem 7: 04/07/18 03:45 04/07/18 03:45 Labs: Laboratory Results - last 24 hr 04/07/18 04/07/18 03:45 03:45 WBC 9.5 D RBC 3.81 L Hgb 9.5 L Hct 30.6 L MCV 80.3 L MCH 24.9 L MCHC 31.0 L RDW 16.5 H Plt Count 38 L MPV TNP Immature Gran % 0.3 Seg Neutrophils % 70.8 Lymphocytes % 14.7 Monocytes % 13.3 Eosinophils % 0.8 Basophils % 0.1 Neutrophils # 6.7 Lymphocytes # 1.4 Monocytes # 1.3 Eosinophils # 0.1 Basophils # 0.0 Immature Plt Fraction 14.0 H Sodium 138 Potassium 3.5 Chloride 109 H Carbon Dioxide 23 BUN 15 Creatinine 0.90 Est GFR ( Amer) > 60 Est GFR (Non-Af Amer) > 60 BUN/Creatinine Ratio 17 Glucose 88 Calculated Osmolality 286 Calcium 8.5 L - Impressions Impressions Lumbar Spine MRI 04/06/18 09:50 IMPRESSION: 1. Perhaps minimal spinal canal stenosis at L4-L5. No significant spinal canal stenosis at the remaining levels. 2. At L5-S1 disc bulge contacts the S1 nerve roots bilaterally without convincing evidence of nerve root impingement. 3. Degenerative changes contribute to multilevel neural foraminal narrowing as above. 4. Minimal retrolisthesis at L5-S1. 5. Cholelithiasis. 6. Suggestion of a small amount of free fluid within the pelvis. D/ / Rolando Lobato MD / Rolando Lobato MD Interpreting Provider: Rolando Lobato MD Palliative Scale - Palliative Performance Scale How ambulatory is this patient?: Reduced What is patient's level of activity and evidence of disease?: Unable normal job/work, Significant disease How much self-care assistance does patient require?: Considerable assistance required How much oral intake does the patient have?: Normal or reduced What is this patient's level of consciousness?: Full or drowsy with or without confusion Palliative Performance Score: 40 %
[2018-04-07 11:13] VITALS: BP 134/72
--- NOTE | 2018-04-07 11:26 | Physician Discharge Referral ---
Home Health/Hosp Referral Info Transfer to: Home Health - Diagnosis (1) Multiple myeloma Priority: Primary Status: Chronic (2) Chronic kidney disease, stage III (moderate) Priority: Primary Status: Chronic (3) Left lower lobe pneumonia Priority: Primary Status: Suspected (4) DVT prophylaxis Priority: Primary Status: Acute (5) Hypertension Priority: Primary Status: Chronic (6) Colitis Priority: Primary Status: Acute (7) Hypokalemia Priority: Primary Status: Acute (8) Thrombocytopenia Priority: Primary Status: Acute (9) Back pain Priority: Primary Status: Acute (10) Abdominal distention Priority: Primary Status: Acute (11) Goals of care, counseling/discussion Priority: Primary Status: Acute - Respiratory Orders Smoking Cessation: Smoking cessation has been advised. For more information, call the [employer] Tobacco Quit Line at 7-798-MGPX-NOW. - Activity Activity Orders: Ambulate - Services Needed Following services are medically necessary services: Nursing, Home Health Aide, Physical Therapy - Transfer Medications Prescriptions: HYDROcodone/Acet 5/325 mg [Leroy 5-325 mg] 0.5 tab PO Q6H PRN 5 Days #20 tablet PRN Reason: Pain OxyCODONE ER (12 HR) [OxyCONTIN] 10 mg PO BID 5 Days #10 tab.er.12h Sennosides/Docusate Sodium [Senna Plus] 1 each PO BID 30 Days #60 tablet Home Medications: ALPRAZolam [Xanax 1 MG Tablet] 0.5 mg PO BID PRN 11/24/14 [History] Cyanocobalamin (Vitamin B-12) [Vitamin B-12] 2,500 mcg SL DAILY 08/31/17 [History] Ferrous Sulfate 325 mg PO DAILY 08/31/17 [History] Tramadol HCl [Ultram] 50 mg PO BID PRN 08/31/17 [History] Albuterol Neb [Proventil Neb] 2.5 mg IH 2-3XD PRN 09/19/17 [History] traZODone [TraZODone] 1 tab PO HS PRN 10/07/17 [History] Aspirin 81 mg PO DAILY #30 tab.chew 11/10/17 [Rx] Acetaminophen [Tylenol] 650 mg PO DAILY 03/31/18 [History] Amlodipine Besylate 2.5 mg PO DAILY 03/31/18 [History] Ciprofloxacin HCl [Cipro] 500 mg PO BID 03/31/18 [History] Ixazomib Citrate [Ninlaro] 4 mg PO MO 03/31/18 [History] HYDROcodone/Acet 5/325 mg [Leroy 5-325 mg] 0.5 tab PO Q6H PRN 5 Days #20 tablet 04/07/18 [Rx] OxyCODONE ER (12 HR) [OxyCONTIN] 10 mg PO BID 5 Days #10 tab.er.12h 04/07/18 [Rx] Sennosides/Docusate Sodium [Senna Plus] 1 each PO BID 30 Days #60 tablet 04/07/18 [Rx] Allergies/Adverse Reactions: Allergy/AdvReac Type Severity Reaction Status Date / Time codeine AdvReac See Verified 03/31/18 07:41 Comments hydrocodone AdvReac See Verified 04/04/18 14:16 Comments Certification: Further, I certify that my clinical findings support that this patient is homebound (i.e. absences from home require considerable and taxing effort and are for medical reasons or jehovah's witness services or infrequently or short duration when for other reasons) because: Homebound Reason: Patient requires assistance of a person or device to safely leave home Attestation: My signature below is to certify that this patient is under my care and that I, or nurse practitioner, or a physician's malt specifications control assistant working with me, has a [id number] encounter with this patient.
== END 2018-04-07 12:44 | disposition home or self-care (01) | DRG 391 ==
LOC: EMEROOARM 03:25 → 2ANU 08:10 → SUATTDRO 08:10 → INTOOBSV 08:10 → 2ANU 09:04
PROVIDERS: ADMIT Internal Medicine; ATTEND Internal Medicine
PROC: ENDOCBX (2018-04-02 13:30)